=== PATIENT | male | born 1950 | race Caucasian/White ===

== ENCOUNTER 2022-10-17 09:35 | Outpatient (CLI) | payer MEDICARE, BC, SELFPAY | END 2022-10-17 09:36 | disposition home or self-care (01) | LOC: NFLDREF 10-18 11:42 | PROVIDERS: PCP Family Medicine; Referring Provider Family Medicine; Visit Provider Family Medicine | DX: E78.5 Hyperlipidemia, unspecified (principal) | CPT/HCPCS: 80061 ==

== ENCOUNTER 2023-07-19 09:42 | Outpatient (CLI) | payer MEDICARE, BC, SELFPAY ==
--- OUTSIDE RECORDS SUMMARY | 2023-07-20 06:25 | XMS_ITS | Clinical Summary ---
Author Name Unknown Organization [facility] Address [place], [place] [address] Care Team Providers Care Php Software Engineer Name Role Phone Dima Burr MD Primary Care Provider + Allergies Active Allergy Reactions Criticality Noted Date Comments Aspirin,Buffd-Calcium Carb-Mag Bleeding 05/31/2019 Chlorhexidin-Isopropyl Alcohol Rash 12/16/2021 Skin reaction from PICC line cleanser Medications Medication Sig Dispensed Refills Start Date End Date Status TYLENOL ORAL 650mg 6 tabs a day 0 Acti ve amoxicillin (AMOXIL) 500 mg capsuleIndications: Antibiotic prophylaxis for dental procedure indicated due to prior joint replacement TAKE FOUR CAPSULES BY MOUTH 1 HOUR BEFORE DENTAL APPOINTMENT 8 capsule 0 03/05/2015 Active hydroCHLOROthiazide (HCTZ) 25 mg tabletIndications:E ssential hypertension with goal blood pressure less than 140/90 Take 1 tablet by mouth once daily. 90 tablet 1 09/23/2019 Active triamcinolone (ARISTOCORT; KENALOG) 0.1 % creamIndications:De rmatitis Apply topically to affected area(s) 3 times daily. 60 g 2 09/23/2019 Active sildenafil citrate (VIAGRA) 50 mg tabletIndications:E rectile dysfunction of organic origin Take 1 tablet by mouth once daily if needed for Erectile Dysfunction. Take 30min to 4 hours before sexual activity. Max 100mg/24hr 20 tablet 09/23/2019 Active lisinopriL (PRINIVIL; ZESTRIL) 20 mg tabletIndications:H ypertension Take 1 tablet by mouth 2 times daily. 180 tablet 3 09/23/2019 Active atorvastatin (LIPITOR) 40 mg tabletIndications:M yocardial ischemia Take 1 tablet by mouth at bedtime. 30 tablet 5 10/08/2019 Active tamsulosin (FLOMAX) 0.4 mg capsuleIndications: Urinary retention Take 1 Capsule (0.4 mg) by mouth once daily after a meal. 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 Right hip pain 06/25/2020 Arthritis of right hip 06/25/2020 Arthritis of lumbar spine 06/25/2020 Impingement syndrome of shoulder region 05/14/19 19 Coracoid impingement of left shoulder 05/14/2018 Bursitis 05/14/2018 S/P shoulder surgery 05/14/2018 Chronic left shoulder pain 04/16/2018 Subacromial impingement of left shoulder 019 Arthritis of left acromioclavicular joint 2018 Chronic eczema 03/31/2017 Plantar fasciitis of left foot 05/29/2014 Osteoarthritis of knee 05/17/2010 Vitamin D deficiency 04/01/2010 Lumbosacral facet arthropathy 08/10/2009 Hand eczema 08/10/2009 L4-5 Disk bulge with right sided nerve 9 Malignant neoplasm of prostate 07/13/2007 Overview: Status post radical prostatectomy 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 Recommend repeat in ten years. Unspecified essential hypertension 02/07/2006 Other and unspecified hyperlipidemia 02/07/2006 Osteoarthrosis, unspecified whether generalized or localized, unspecified site 02/07/2006 Overview: diffuse severe degenerative arthritis Resolved Problems Problem Noted Date Diagnosed Date Resolved Date [facility] (current) use of anticoagulants 04/04/2011 05/01/2011 Dysthymic disorder 03/30/2007 1 Immunizations Name Administration Dates Next Due COVID-19 vaccine ([facility] 30mcg/0.3mL) P F, MDV 06/20/2020,05/30/2020 Influenza, IIV3 (Age >=3 years) 03/23/2012,04/04 Td (Age >=7 Years) 09/13/1997 Tdap 01/20/2015,03/29/2007 Zoster (Zostavax-ZVL, live) 03/23/2012 Family History Medical History Relation Name Comments Cancer-prostate Brother 2 Dx at 52 yea rs Heart Disease Father Prostate cance r- dx around 70 Arthritis Mother Anesthesia Problem No Family History Clotting disorder No Family History Relation Name Status Comments Brother 1 Alive Brother 2 Father (Age 83) Mother (Age 91) Social History Tobacco Use Types Packs/Day Years Used Date Smoking Tobacco: Former Cigarettes 0.3 23 0 03/27/1968 - 03/27/1991 Smokeless Tobacco: Never Tobacco Cessation:Counseling Given: Yes Alcohol Use Standard Drinks/Week Comments Yes 4 (1 standard drink = 0.6 oz pur e alcohol) PHQ-2 Answer Date Recorded PHQ-2 Score 0 05/26/2018 Social Connections Answer Date Recorded Frequency of Communication with Friends and Fami ly Not on file 03/27/2021 Financial Resource Strain Answer Date R ecorded Difficulty of Paying Living Expenses Not on file 03/27/2021 Difficulty of Paying Living Expenses Not on file 03/27/2021 Sex and Gender Information Value Date Recorded Sex Assigned at Not on file Gender Identity Not on file Sexual Orientation Not on file Obstetrics History Last Filed Vital Signs Vital Sign Reading Time Taken Comments Blood Pressure 171/88 03/24/2022 6:44 PM PHOTOGRAPHIC AIDE Pulse 81 03/24/2022 6:44 PM PHOTOGRAPHIC AIDE Temperature 36.8 ??C (98.2 ??F) 03/24/2022 6:44 PM CS T Respiratory Rate 18 03/24/2022 6:44 PM PHOTOGRAPHIC AIDE Oxygen Saturation 98% 03/24/2022 6:44 PM PHOTOGRAPHIC AIDE Inhaled Oxygen Concentration - - Weight 152.6 kg (336 lb 6.8 oz) 03/24/2022 6:44 PM PHOTOGRAPHIC AIDE Height 185.4 cm (6' 1) 03/24/2022 6:44 PM PHOTOGRAPHIC AIDE Body Mass Index 44.39 03/24/2022 6:44 PM PHOTOGRAPHIC AIDE Plan of Treatment Health Maintenance Due Date Last Done Comments Hepatitis C screening for ag e 18-79 01/13/1970 Zoster (shingles) series for age 50+ (2 of 3) 05/18/2012 03/23/2012 Medicare Wellness for age 65+ 01/13/2017 Pneumococcal series for age 65+ (1 of 1 - PCV) 01/13/2017 Lipids for age 45-75 03/23/2017 03/23/2012, 03/23/2011, 03/26/2010, Additional history exists Depression screening for age 12+ 01/12/2020 01/11/2019, 01/04/2019, 02/06/2018, Additional history exists BMI (ht and wt on same day) for age 18+ 07/17/2021 07/17/2020, 01/11/2019, 01/01/2019, Additional history exists COVID-19 vaccine series ( season) 2022 02/08/2022, 03/03/2021, 06/20/2020, Additional history exists Influenza for age 65+ 11/26/2023 03/23/2012, 008 Tetanus booster 01/20/2025 01/20/2015, 05/2007, 09/13/1997 Colonoscopy through age 75 01/26/202501/26, 01/26/2015, 10/14/2004 (Completed outside of [facility]) Tdap Completed 01/20/2015, 03/29/2007 Procedures Procedure Name Priority Date/Time Associated Diagnosis Comments COLONOSCOPY SCREENING Routine 01/26/2015 Screening LIPID PANEL Routine 03/23/2012 9:42 AM PHOTOGRAPHIC AIDE HYPERLIPIDEMIA from Last 3 Months or Most Recently Relevant to Health Maintenance Results * COLONOSCOPY SCREENING (01/26/2015) Larisa Chaudhary GI PROCEDURE ORD * (ABNORMAL) LIPID PANEL (03/23/2012 9:42 AM PHOTOGRAPHIC AIDE) CHOLESTEROL,TOTAL 196 100 - 199 mg/dL 03/23/2012 10:23 AM PHOTOGRAPHIC AIDE [facility] Comment: TRIGLYCERIDES 98 <150 mg/dL 03/23/2012 10:23 AM PHOTOGRAPHIC AIDE [facility] Comment: HDL CHOLESTEROL 31(L) >40 mg/dL 2 10:23 AM [facility] Comment: NON-HDL CHOLESTEROL 165(H) <145 mg/dl 03/23/2012 10:23 AM [facility] CHOL/HDL RATIO 6.32(H) <4.50 03/23/2012 10:23 AM PHOTOGRAPHIC AIDE [facility] LDL CHOLESTEROL 145(H) <=130 mg/dL 03/23/2012 10:23 AM PHOTOGRAPHIC AIDE [facility] PATIENT STATUS FASTING 03/23/2012 10:23 AM PHOTOGRAPHIC AIDE [facility] Blood specimen (specimen) BLOOD SPECIMEN / Unknown 03/23/2012 9:42 AM PHOTOGRAPHIC AIDE 03/23/2012 9:42 AM PHOTOGRAPHIC AIDE Larisa [facility]wood [facility] [address] [place] [address] from Last 3 Months or Most Recently Relevant to Health Maintenance Advance Directives * Full Code (Latest Code Status on File) Date Activated Date Inactivated Comments 05/11/2018 12:26 PM 05/12/2018 12:40 AM * Full Code Date Activated Date Inactivated Comments 10/21/2015 11:23 AM 10/21/2015 2:02 PM * Full Code Date Activated Date Inactivated Comments 10/21/2015 9:15 AM 10/21/2015 11:23 AM * Full Code Date Activated Date Inactivated Comments 06/10/2013 7:57 AM 06/10/2013 5:15 PM * Full Code Date Activated Date Inactivated Comments 06/10/2013 6:19 AM 06/10/2013 7:57 AM Care Teams Php Software Engineer Relationship Specialty Start Date End Date Dima Burr MD [address] [place] [address] PCP - General Family Practice 07/02/20
--- OUTSIDE RECORDS SUMMARY | 2023-07-20 06:25 | XMS_ITS | Clinical Summary ---
Author Name Unknown Organization [facility] Address [address] [place] [address] Care Team Providers Care Combatant Diver Officer Name Role Phone Elsewhere, Pcp Primary Care Provider Unavailabl e Source Comments Patient records contain information from all sites at [facility]. For routine questions regarding patient records, call [phone] during business hours, M-F 8:00 AM - 5:00 PM Central Time. Record requests for emergency care only can be directed to [phone] at any time.[facility] Allergies Active Allergy Reactions Criticality Noted Date Comments Aspirin Other (see comments) High 02/02/2021 Related to hematuria post prostatectomy in 2007 Ceftriaxone Rash Low 12/31/2021 Rash only. See ID note 12/31/21 Ciprofloxacin Rash Low 10/10/2022 Vancomycin Rash Low 12/31/2021 Rash only. See ID note 12/31/21 Medications Medication Sig Dispensed Refills Start Date End Date Status lisinopriL (PRINIVIL,ZESTR IL) 40 mg tablet Take 40 mg by mouth daily. 1 Active gabapentin (NEURONTIN) 300 mg capsule Take 600 mg by mouth 2 (two) times a day. 2 Active atorvastatin (LIPITOR) 40 mg tablet Take 40 mg by mouth daily. 2 Active LORazepam (ATIVAN) 1 mg tablet Take 1 mg by mouth 3 (three) times a day as needed for anxiety. Active escitalopram (LEXAPRO) 20 mg tablet Take 20 mg by mouth daily. Active DME Urological suppliesIndicat ions:Incontinen ce Urinary DME Order 1 Unspecified 3 Active trospium (SANCTURA XR) 60 mg 24 hr capsule Take 1 capsule (60 mg total) by mouth every morning before breakfast. 90 capsule 3 4 04/10/19 25 Active celecoxib (CeleBREX) 200 mg capsule Take 200 mg by mouth 2 (two) times a day. Active ibuprofen (ADVIL,MOTRIN) 200 mg tablet Take 1 tablet (200 mg total) by mouth every 6 (six) hours as needed for pain. 60 tablet 4 Active diphenhydramine -lidocaine 2 %-antacid (mw) Take 5-10 mL by mouth 4 (four) times a day after meals and bedtime. Hold in mouth for 1 minute.Do not eat or drink for 15-30 minutes after use. 100 mL 3 4 Active acetaminophen (TYLENOL) 500 mg tablet Take 2 tablets (1,000 mg total) by mouth every 6 (six) hours as needed for pain. 30 tablet 4 Active diazePAM 10 mg suppository Insert 1 suppository (10 mg total) into the rectum 3 (three) times a day as needed (for pelvic pain). 10 suppository 4 Active tamsulosin (FLOMAX) 0.4 mg 24 hr capsule Take 0.4 mg by mouth daily. 2 06/22/19 24 Discontinued(Th erapy completed) sulfamethoxazol e-trimethoprim (BACTRIM DS) 800-160 mg per tablet Take 1 tablet by mouth 2 (two) times a day for 5 days. 10 tablet 4 07/03/19 24 Discontinued acetaminophen (TYLENOL) 500 mg tablet Take 1 tablet (500 mg total) by mouth every 6 (six) hours as needed for pain. 30 tablet 4 07/03/19 24 Discontinued sulfamethoxazol e-trimethoprim (BACTRIM DS) 800-160 mg per tablet Take 1 tablet by mouth once for 1 dose. On day of catheter removal 1 tablet 4 07/03/19 24 diazePAM 10 mg suppository Insert 1 suppository (10 mg total) into the rectum 3 (three) times a day as needed (for pelvic pain). 10 suppository 4 07/14/19 24 Discontinued(Re order) diazePAM 10 mg suppository Insert 1 suppository (10 mg total) into the rectum 3 (three) times a day as needed (for pelvic pain). 10 suppository 4 07/14/19 24 Discontinued(Re order) diazePAM 10 mg suppository Insert 1 suppository (10 mg total) into the rectum 3 (three) times a day as needed (for pelvic pain). 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 Anesthesia Complication Personal History 023 Overview: Difficult IV start. Difficult to find and roll. Incontinence Urinary 07/07/2022 Overview: Added automatically from request for surgery [id number] Radiation Therapy Cystitis With Hematuria 2021 Injury Radiation Therapy Initial 03/14/2022 Contracture Bladder Neck 03/10/2022 Overview: Added automatically from request for surgery [id number] Direct Infection Of Right Hi p In Infectious And Parasitic Diseases Classified Elsewhere 12/04/2021 Arthroplasty Total Hip Replacement Status Post R ight 12/04/2021 Gastroesophageal Reflux Disease 11/10/2021 Cancer Prostate Family History 11/10/2021 Personal History Of Infectio us And Parasitic Disease (COVID-19) 11/10/2021 Smoking Tobacco Use Personal History 11/10/2021 Neuropathy Peripheral 11/10/2021 Depression Anxiety 11/10/2021 Morbid Obesity Body Mass Index 40.0-44.9 Adult 0 11/10/2021 Murmur Heart 11/10/2021 Spondylosis Lumbar Without Myelopathy 06/25/2020 Dermatitis 03/31/2017 Other Intervertebral Disc Displacement Lumbar Re gion 09/05/2008 Hyperlipidemia 02/07/2006 Hypertension Essential Primary 02/07/2006 Osteoarthritis 02/07/2006 Overview: diffuse severe degenerative arthritis Resolved Problems Problem Noted Date Diagnosed Date Resolved Date Prostatectomy Radical Retropubic Status Post 2 11/10/2021 Encounters Date Type Department Care Team Description 07/14/2023 Orders Only Department of Urology in [place], [place] [address] [place] [address] Chepe Ariza M.D., M.P.H. 07/14/2023 Orders Only Department of Urology in [place], [place] [address] [place] [phone] Finesse Lim M.D. 07/14/2023 Orders Only Department of Urology in [place], [place] [address] [place] [phone] Chepe Ariza M.D., M.P.H. 07/13/2023 Orders Only Department of Urology in [place], [place] [address] [place] [phone] Finesse Lim M.D. 07/03/2023 8:31 AM CDT Anesthesia Event [facility] OR [address] [place] [phone] Kaiden Crisostomo D.O. 07/03/2023 8:15 AM CDT - 07/03/2023 11:47 AM CDT Surgery T [facility] OR [address] [place] [phone] Finesse Lim M.D. REMOVAL ARTIFICIAL GENITOURINARY SPHINCTER 07/03/2023 6:28 AM CDT - 07/04/2023 12:16 PM CDT Hospital Encounter [facility], Fifth Floor [address] [place] [address] Finesse Lim M.D. 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 06/26/2023 Orders Only Department of Urology in [place], [place] [address] [place] [phone] Selene Davis M.D. 06/22/2023 1:00 PM CDT Comprehensive Visit Preoperative Evaluation Center in [place], [place] [address] [place] [phone] Finesse Lim M.D. [facility] 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 Dudley, Kathleen A RLeathaNLeatha Incontinence Urinary Stress Male 06/20/2023 1:30 PM CDT Clinical Communication Virtual Review in [place], [place] [address] [place] [address] Pre-visit Intake 05/26/2023 1:43 PM SHRIMP TRAWLER Anesthesia Event Department of Radiology in [address] [phone] Davie White, KATHARINA, STRAIGHTENING PRESS OPERATOR HELPER, DNA Ravinder Parada M.D. 05/26/2023 9:44 AM SHRIMP TRAWLER - 05/26/2023 11:59 PM SHRIMP TRAWLER Hospital Encounter Department of Radiology in [address] [phone] Shola Goddard M.D. McPhail, Ian R, M.D. Weger, Kendal, M.D. Incontinence Urinary Stress Male Discharge Disposition: Home or Self Care 04/28/2023 Documentation Preoperative Evaluation Center in [place], [place] [address] [place] [phone] Mojgan Cutler MPAS, P.A.-C. 04/27/2023 1:30 PM SHRIMP TRAWLER Procedure visit Department of Urology in [place], [place] [address] [place] [address] Finesse Lim M.D. Incontinence Urinary Stress Male 04/27/2023 Clinical Communication Department of Urology in [place], [place] [address] [place] [address] Shola Goddard M.D. 04/27/2023 Clinical Communication Department of Urology in [place], [place] [address] [place] [address] Finesse Lim M.D. from Last 3 Months Immunizations Name Administration Dates Next Due HZV (ZOSTAVAX) 03/23/2012 Influenza (IM) Preservative Free 04/03/2011 Influenza TIV (IM) 03/23/2012,04/04/2007 Influenza high dose QV(65 years or older) (PF) 1 ,01/21/2020 Influenza, Seasonal, Injectable 03/23/2012 Influenza, Unspecified 02/02/2021 PCV20 01/18/2022 Tdap 01/20/2015,03/29/2007 Family History Medical History Relation Name Comments Prostate cancer Brother lindy chatman Hypertension Father [place] Relation Name Status Comments Brother lindy chatman Father jensen Social History Tobacco Use Types Packs/Day Years Used Date Smoking Tobacco: Former Cigarettes 1 6 0 03/27/1987 - 03/27/1993 Passive Smoke Exposure: Never Smokeless Tobacco: Never Tobacco Cessation:Counseling Given: Not Answered Alcohol Use Standard Drinks/Week Comments Yes 3 (1 standard drink = 0.6 oz pur e alcohol) [facility] Partlyities Answer Date Recorded In the past 12 months has [employer]it[employer], gas, oil, or water Blockchain threatened to shut off services in your home? No 07/03/2023 Humiliation, Afraid, Rape, a nd Kick questionnaire Answer Date Recorded Within the last year, have y ou been afraid of your partner or ex-partner? Patient unable to answer 07/03/2023 Within the last year, have y ou been humiliated or emotionally abused in other ways by your partner or ex-partner? Patient unable to answer 07/03/2023 Within the last year, have y ou been kicked, hit, slapped, or otherwise physically hurt by your partner or ex-partner? Patient unable to answer 07/03/2023 Within the last year, have y ou been raped or forced to have any kind of sexual activity by your partner or ex-partner? Patient unable to answer 07/03/2023 Social Connection and Isolat ion Panel [NHANES] Answer Date Recorded In a typical week, how many times do you talk on the phone with family, friends, or neighbors? More than three times a week 10/13/2021 How often do you get togethe r with friends or relatives? Twice a week 10/13/2021 How often do you attend chur or roman catholic services? 1 to 4 times per year 10/13/2021 Do you belong to any clubs o r organizations such as uatsdin groups, unions, fraternal or athletic groups, or school groups? No 10/13/2021 How often do you attend meet ings of the clubs or organizations you belong to? Never 10/13/2021 Are you , , di vorced, , never , or living with a partner? 10/13/2021 AUDIT-C Answer Date Recorded Q1: How often do you have a drink containing alc ohol? 2-3 times a week 10/13/2021 Q2: How many drinks containi ng alcohol do you have on a typical day when you are drinking? 1 or 2 10/13/2021 Q3: How often do you have si x or more drinks on one occasion? Never 10/13/2021 Overall Financial Resource Strain (CARDIA) Answe r Date Recorded How hard is it for you to pa y for the very basics like food, housing, medical care, and heating? Not very hard 10/13/2021 [facility] of Occupat ional Health - Occupational Stress Questionnaire Answer Date Recorded Do you feel stress - tense, restless, nervous, or anxious, or unable to sleep at night because your mind is troubled all the time - these days? Very much 10/13/2021 Exercise Vital Sign Answer Date Recorde d On average, how many days pe r week do you engage in moderate to strenuous exercise (like a brisk walk)? 1 day 10/13/2021 On average, how many minutes do you engage in exercise at this level? 30 min 10/13/2021 Hunger Vital Sign Answer Date Recorded Within the past 12 months, y ou worried that your food would run out before you got the money to buy more. Never true 07/03/19 24 Within the past 12 months, t he food you bought just didn't last and you didn't have money to get more. Never true 07/03/2023 PRAPARE - Transportation Answer Date Re corded In the past 12 months, has l ack of transportation kept you from medical appointments or from getting medications? No 10/2023 In the past 12 months, has l ack of transportation kept you from meetings, work, or from getting things needed for daily living? No 07/03/2023 Nutrition Answer Date Recorded Nutrition: EVOO Fat Source No 10/13 On average, how many serving s of fruits and vegetables do you eat per day (serving size is equal to 1 cup or approximately the size of a tennis ball)? 2-3 10/13/2021 Dental Answer Date Recorded Dental: Regular Dentist Yes 10/14/19 Employment Answer Date Recorded Employment status Retired 10/13/2021 Housing Stability Answer Date Recorded What is your living situation today? I have a [facility] place to live 07/03/2023 Education Answer Date Recorded What is the highest level of school you have completed or the highest degree you have received? 12th grade 10/13/2021 Sex and Gender Information Value Date Recorded Sex Assigned at Male 12/28/2021 8:52 AM CDT Gender Identity Male 10/13/2021 10:44 AM CDT Sexual Orientation Choose not to disclose 2021 8:52 AM CDT Last Filed Vital Signs Vital Sign Reading Time Taken Comments Blood Pressure 126/69 07/04/2023 11:50 AM CDT Pulse 72 07/04/2023 11:50 AM CDT Temperature 36.5 ??C (97.7 ??F) 07/04/2023 11:50 AM C DT Respiratory Rate 15 07/04/2023 11:50 AM CDT Oxygen Saturation 94% 07/04/2023 11:50 AM CDT Inhaled Oxygen Concentration - - Weight 158 kg (348 lb 12.3 oz) 07/03/2023 7:07 A M CDT Height 179 cm (5' 10.47) 07/03/2023 7:07 AM CDT Body Mass Index 49.37 07/03/2023 7:07 AM CDT Plan of Treatment Upcoming Encounters Date Type Department Care Team (Late st Contact Info) Description 09/04/2023 9:30 AM CDT Procedure visit Department of Urology in [place], [place] [address] [place] [phone] Finesse Lim M.D. [address] [place] [phone] 09/04/2023 10:30 AM CDT Office Visit Department of Urology in [place], [place] [address] [place] [phone] Finesse Lim M.D. [address] [place] [phone] Health Maintenance Due Date Last Done Comments CT Colonography 1952 Cologuard 1950 FIT 1950 Hepatitis C Screening 1950 Lipid (Cholesterol) Screening 1950 Zoster Vaccines (2 of 3) 05/18/2012 03/23/2012 COVID-19 Vaccine (2022-2 4 season) 2022 02/08/2022, 03/03/2021, 06/20/2020, Additional history exists Influenza Vaccine (#1) 2022 , 02/02/2021, 01/21/2020, Additional history exists Depression Screening (Annual PHQ-2) 03/27/2023 Creatinine Level (Kidney Fun ction Test) 04/05/2024 04/05/2023, 02/08/2023, 12/08/2022, Additional history exists Potassium Level 04/05/2024 04/05/2023, 01/25, 09/08/2022, Additional history exists Sodium Level 04/05/2024 04/05/2023, 01/25, 09/08/2022, Additional history exists Office Visit for Blood Press ure Check / Re-check 06/21/2024 06/22/2023 DTaP,Tdap,and Td Vaccines (3 - Td or Tdap) 01/20/2025 01/20/2015, 03/29/2007 Colonoscopy 01/26/2025 01/26/2015 Colorectal Cancer Screening 01/26/2025 Fasting Glucose for Diabetes Screening 04/05/2026 04/05/2023, 02/08/2023, 12/23/2022, Additional history exists Pneumococcal vaccine (65+ years) Completed 01/19/20 22 Abdominal Aortic Aneurysm (A AA) Screen Completed 04/05/2023, 02/08/2023, 12/12/2022, Additional history exists Fall Risk Screen (Annual) Completed 07/03/2023 Medical Devices Implanted Type Area [employer] Device Identifier Shelf Expiration Date Model / Serial / Lot Artificial Gu Sphincter Artificial Sphincter Rectum Scrw Pnn Acet Ft 6.5x30 - [id number] Implanted:Qty : 1 on 11/11/2021 by Isaac Bar M.D. at [facility] Hardware e.g. pins/screws/ rods Right: Hip Depuy Synthes 07/25/2031 0 / / [id number] Scrw Pnn Acet Ft 6.5x20 - [id number] Implanted:Qty : 1 on 11/11/2021 by Isaac Bar M.D. at [facility] Hardware e.g. pins/screws/ rods Right: Hip Depuy Synthes 07/25/2031 0 / / [id number] [place] Gription Acetabular Shell Multi-Hole 62mm Od Implanted:Qty : 1 on 11/11/2021 by Isaac Bar M.D. at [facility] Hip Implant Right: Hip Depuy Synthes [id number] 08/25/2031 2 / / [id number] Hip [place] Sz12 150 - [id number] Implanted:Qty : 1 on 11/11/2021 by Isaac Bar M.D. at [facility] Hip Implant Right: Hip Depuy Synthes 09/24/2031 [id number] / / [id number] Lnr Alt 0d 40x62 - [id number] Implanted:Qty : 1 on 12/03/2021 by Isaac Bar M.D. at [facility] Hip Implant Right: Hip Depuy Synthes 10/24/2026 2 / / [id number] Fem Hd Art Ez Crmc +1.5x40 - [id number] Implanted:Qty : 1 on 12/03/2021 by Isaac Bar M.D. at [facility] Hip Implant Right: Hip Depuy Synthes [id number] 09/23/2026 0 / / [id number] Knee Implant-2006 Implanted: (Quantity not on file) Knee Implant Left: Knee Description:Replaced knee Knee Implant-2011 Implanted: (Quantity not on file) Knee Implant Right: Knee Description:Replaced knee Gu Kt 800 Acces Aus W/Iz - [id number] Implanted:Qty : 1 on 09/08/2022 by Finesse Lim M.D. at [facility] Urogenital Implant [employer] 07/20/2027 [id number] / / [id number] Penile Occlsve Cuff Ams Iz 4.5 - [id number] Implanted:Qty : 1 on 09/08/2022 by Finesse Lim M.D. at [facility] Urogenital Implant [employer] 04/13/2024 [id number] / / [id number] Explanted Type Area [employer] Lim[employer] Device Identifier Shelf Expiration Date Model / Serial / Lot Lnr Alt 0d 40x62 - [id number] Implanted:Qty : 1 on 11/11/2021 by Isaac Bar M.D. at [facility] Explanted:Qty : 1 on 12/03/2021 by Isaac Bar M.D. at [facility] Hip Implant Right: Hip Depuy Synthes 05/24/2026 [id number] / / [id number] Fem Hd Art Ez Crmc +1.5x40 - [id number] Implanted:Qty : 1 on 11/11/2021 by Isaac Bar M.D. at [facility] Explanted:Qty : 1 on 12/03/2021 by Isaac Bar M.D. at [facility] Hip Implant Right: Hip Depuy Synthes 09/23/2026 [id number] / / [id number] Penile Occlsve Cuff Ams Iz 4.5 - [id number] Explanted:Qty : 1 on 09/08/2022 at [facility] Urogenital Implant [employer] 01/28/2024 [id number] / / [id number] Description:Accidentally cut tubing on cuff so had to open/use another 4.5 cuff Penile Bln Prs Ams 61-70 - [id number] Implanted:Qty : 1 on 09/08/2022 by Finesse Lim M.D. at [facility] Explanted:Qty : 1 on 07/03/2023 at [facility] Urogenital Implant [facility] Systems 05/16/2027 [id number] / / [id number] Penile Contl Pump Ams 800 Iz - [id number] Implanted:Qty : 1 on 09/08/2022 by Finesse Lim M.D. at [facility] Explanted:Qty : 1 on 07/03/2023 at [facility] Urogenital Implant [employer] 04/28/2024 [id number] / / [id number] Procedures Procedure Name Priority Date/Time Associated Diagnosis Comments REMOTE OXIMETRY MONITORING CONT. Routine 07/03/2023 2:18 PM CDT REMOTE OXIMETRY MONITORING CONT. Routine 07/03/2023 2:18 PM CDT ADULT OXYGEN THERAPY Routine 07/03/2023 12:19 PM CDT AIRWAY MANAGEMENT Routine 07/03/2023 8:4 9 AM CDT POSTERIOR URETHRAL STRICTURE REPAIR WITH BUCCAL MUCOSA, ENDOSCOPIC 07/03/2023 8:16 AM CDT Incontinence Urinary Stress Male HARVESTING AND GRAFTING BUCCAL MUCOSA 07/03/2023 8:16 AM CDT Incontinence Urinary Stress Male EXCHANGE SUPRAPUBIC TUBE 07/03/2023 8:16 AM CDT Incontinence Urinary Stress Male REMOVAL ARTIFICIAL GENITOURINARY SPHINCTER 07/03/2023 8:16 AM CDT Incontinence Urinary Stress Male BACTERIAL CULTURE, AEROBIC + SUSC, URINE Routine 06/22/2023 10:46 AM CDT Incontinence Urinary Stress Male IR SUPRAPUBIC CATHETER EXCHANGE RAD - Routine (most inpatients and all outpatients) 05/26/2023 2:15 PM SHRIMP TRAWLER Incontinence Urinary Stress Male URO CYSTOSCOPY (SPECIFIC PROVIDER) Routine 04/27/2023 1:30 PM SHRIMP TRAWLER Incontinence Urinary Stress Male CT ABDOMEN PELVIS WITH IV CONTRAST RAD - Semiurgent (Fast; most ED patients; some inpatients) 04/05/2023 3:27 PM SHRIMP TRAWLER BASIC METABOLIC PANEL, S/P STAT 04/05/2023 1:36 PM SHRIMP TRAWLER from Last 3 Months or Most Recently Relevant to Health Maintenance Results * Airway (07/03/2023 8:49 AM CDT) Narrative Sona Rose M.D. - 07/03/2023 8:49 AM CDT Sona Rose M.D. ? 07/03/2023 10:35 AM Airway Date/Time: 07/03/2023 8:49 AM Performed by: Sona Rose M.D. Authorized by: Kaiden Crisostomo D.O. ?? Patient location during procedure: OR / Procedure Area PROCEDURE DETAILS: Mask difficulty assessment: difficult mask (i.e.two-handed) with oral airway Final airway type: video laryngoscope Laryngeal Manipulation: no ?? Final best view of glottic structures - Cormack/Lehane Score: grade 2A ETT location: oral VL device: glide scope [place] scope blade size: 4 Tube size: 7.5 ETT distance at teeth/gum: 23 Oral tube type: standard ETT Cuffed: yes Number of attempt to successful placement: 1 Airway confirmation: bilateral breath sounds, positive ETCO2 and bilateral chest rise Other previous techniques attempted: none PRE PROCEDURE DETAILS: Pre evaluation for airway management: procedure Urgency: elective Preop assessment of probable difficulty: no difficulty anticipated Preoxygenation: bag valve mask SEDATION / ANESTHESIA Anesthesia method: anesthesia POST PROCEDURE DETAILS: ? Procedure outcome: successful ?? Notable Events: no complications Kaiden Crisostomo D.O. ANESTHESIA ORDERABLE S * (ABNORMAL) Bacterial Culture, Aerobic + Susceptibility, Urine (06/22/2023 10:46 AM CDT) Urine Culture Multiple organisms >10,000 cfu/mL present suggesting probable contamination (A) 06/24/2023 10:41 AM CDT DTL Urine (Urine, Indwelling Catheter) 06/22/2023 10:46 AM CDT 06/22/2023 12:39 PM CDT Comment:Specimen Source Site : Urine Shola Goddard M.D. LAB MICROBIOLOGY - G ENERAL ORDERABLES [facility] [address] [place] [address], [facility] [address] [place] [address] * IR Suprapubic Catheter Exchange (05/26/2023 2:15 PM SHRIMP TRAWLER) Anatomical Region Laterality Modality Abdomen, Pelvis, Vascular In terventional RST LOS, Vascular Interventional ARZ LOS, Vascular Interventional FLA LOS N/A X-Ray Angiography Impressions 05/26/2023 2:58 PM SHRIMP TRAWLER Uncomplicated suprapubic catheter upsizing to a 16 [place] tip Kerr catheter. EP Narrative 05/26/2023 2:58 PM SHRIMP TRAWLER EXAM: IR SUPRAPUBIC CATHETER EXCHANGE CLINICAL HISTORY: Status post prostatectomy and radiation. Bladder neck contracture. Artificial sphincter. Request for upsizing of suprapubic catheter. TECHNIQUE: The suprapubic pigtail catheter was prepped and draped in sterile fashion. 1% lidocaine was used for local anesthesia. Cashier Greeter film shows expected position. Dilute contrast was injected through the patent catheter to confirm intraluminal position and slightly distend the bladder. The catheter was removed over an .035 Nitrex wire. The inner dilator from a 20 Mal[place]ian peel-away sheath was used to dilate the tract. The peel-away portion was then reassembled and advanced over the wire into the bladder. A 16 [place] tip Kerr catheter was then advanced over the wire through the peel-away sheath into the bladder where the balloon was inflated with 10 mL of dilute contrast. Completion contrast injection and aspiration showed satisfactory position and function. Procedure was well tolerated with no immediate complications. PREPROCEDURE: Patient seen and evaluated. Allergies, pertinent medications, and history reviewed. Discussed risks, benefits, alternatives for procedure, and obtained informed consent. Patient understands information and questions answered. Immediately prior to starting the procedure, in the presence of the assisting personnel, procedural pause was conducted to verify correct patient identity and verification of procedure to be performed, and as applicable, correct side and site, correct patient position, availability of implants, special equipment, or special requirements, and all image and specimen identification data. The roles and responsibilities of care team members, residents, and fellows were discussed. Sedation provided by Anesthesiology. Procedure Note Christiano Bergman M.D. - 05/26/2023 EXAM: IR SUPRAPUBIC CATHETER EXCHANGE CLINICAL HISTORY: Status post prostatectomy and radiation. Bladder neckcontracture. Artificial sphincter. Request for upsizing of suprapubiccatheter. TECHNIQUE: The suprapubic pigtail catheter was prepped and draped insterile fashion. 1% lidocaine was used for local anesthesia. Cashier Greeter filmshows expected position. Dilute contrast was injected through the patentcatheter to confirm intraluminal position and slightly distend the bladder. The catheter was removed overan .035 Nitrex wire. The inner dilator from a 20 Malawian peel-away sheathwas used to dilate the tract. The peel-away portion was then reassembledand advanced over the wire into the bladder. A 16 [place]ian [place] tip Kerr catheter was then advanced overthe wire through the peel-away sheath into the bladder where the balloonwas inflated with 10 mL of dilute contrast. Completion contrast injectionand aspiration showed satisfactory position and function. Procedure was well tolerated with noimmediate complications. PREPROCEDURE: Patient seen and evaluated. Allergies, pertinentmedications, and history reviewed. Discussed risks, benefits, alternativesfor procedure, and obtained informed consent. Patient understandsinformation and questions answered. Immediately prior to starting the procedure, in the presence of the assistingpersonnel, procedural pause was conducted to verify correct patientidentity and verification of procedure to be performed, and as applicable,correct side and site, correct patient position, availability of implants, special equipment, or specialrequirements, and all image and specimen identification data. The rolesand responsibilities of care team members, residents, and fellows werediscussed. Sedation provided by Anesthesiology. IMPRESSION: Uncomplicated suprapubic catheter upsizing to a 16 Mal[place]ian [place] tipFoley catheter. EP Shola Goddard M.D. IMG IR PROCEDURES * Cystoscopy (specific provider) (04/27/2023 1:30 PM SHRIMP TRAWLER) Narrative Shola Goddard M.D. - 04/27/2023 1:30 PM SHRIMP TRAWLER Shola Goddard M.D. ? 04/27/2023 ??2:58 PM Cystoscopy (specific provider) Performed by: Shola Goddard M.D. Authorized by: Finesse Lim M.D. ?? Finesse Lim M.D. UROLOGY ORDERABLES * CT Abdomen Pelvis with IV Contrast (04/05/2023 3:27 PM SHRIMP TRAWLER) Anatomical Region Laterality Modality Abdomen, Pelvis, Abdominal R ST LOS, Abdominal ARZ LOS, Abdominal FLA LOS N/A Computed Tomograp hy, Computed Tomography 04/05/2023 3:14 PM SHRIMP TRAWLER Impressions 04/05/2023 3:52 PM SHRIMP TRAWLER No acute findings in the abdomen or pelvis. Specifically, no evidence of communication between the genitourinary system and bowel. However, sigmoid colon is closely abutting/tethered to the urinary bladder and the CT cystogram may be performed if clinically warranted to exclude colovesical fistula. Narrative 04/05/2023 3:52 PM SHRIMP TRAWLER EXAM: ??CT ABDOMEN PELVIS WITH IV CONTRAST COMPARISON: ??CT abdomen and pelvis February 08, 2023, PET/CT February 14, 2023 FINDINGS: ?? Partially visualized postsurgical changes of artificial genitourinary sphincter with right lower quadrant fluid-filled reservoir. The small and large bowel are nondistended. The fat planes surrounding the sigmoid colon and rectum are preserved without evidence of communication with the genitourinary system. Additionally, delayed excretory imaging demonstrates no urinary contrast communicating with the bowel lumen. Bilateral parapelvic renal cysts. Mildly atrophic kidneys. No hydronephrosis. Mildly increased ectasia of the left ureter without a filling defect. The urinary bladder is decompressed with contrast within and a Kerr catheter in place. The sigmoid colon appear tethered to the superior and posterior wall of the urinary bladder (series 5/image 107). The liver, gallbladder, adrenal glands and spleen are normal. Stable 2.1 cm mass at the head of the pancreas (series 3, image 63) with reported benign pathology. Atrophic pancreas. Bilateral fat-containing inguinal hernias. Stable 10 mm aortocaval lymph node (series 3, image 92). Prostatectomy. Scattered atheromatous calcifications. Degenerative changes of the spine. Right hip arthroplasty. Procedure Note Isaac Madsen M.B.B.S., Jay - 04/05/2023 EXAM: CT ABDOMEN PELVIS WITH IV CONTRAST COMPARISON: CT abdomen and pelvis February 08, 2023, PET/CT January FINDINGS: Partially visualized postsurgical changes of artificial genitourinarysphincter with right lower quadrant fluid-filled reservoir. The small and large bowel are nondistended. The fat planes surrounding thesigmoid colon and rectum are preserved without evidence of communicationwith the genitourinary system. Additionally, delayed excretory imagingdemonstrates no urinary contrast communicating with the bowel lumen. Bilateral parapelvic renal cysts. Mildly atrophic kidneys. Nohydronephrosis. Mildly increased ectasia of the left ureter without afilling defect. The urinary bladder is decompressed with contrast withinand a Kerr catheter in place. The sigmoid colon appear tethered to the superior and posterior wall of the urinary bladder(series 5/image 107). The liver, gallbladder, adrenal glands and spleen are normal. Stable 2.1cm mass at the head of the pancreas (series 3, image 63) with reportedbenign pathology. Atrophic pancreas. Bilateral fat-containing inguinalhernias. Stable 10 mm aortocaval lymph node (series 3, image 92). Prostatectomy. Scattered atheromatouscalcifications. Degenerative changes of the spine. Right hiparthroplasty. IMPRESSION: No acute findings in the abdomen or pelvis. Specifically, no evidence ofcommunication between the genitourinary system and bowel. However, sigmoidcolon is closely abutting/tethered to the urinary bladder and the CTcystogram may be performed if clinically warranted to exclude colovesical fistula. Ramy Joseph P.A.-C. IMG CT PROCEDURES * (ABNORMAL) Basic Metabolic Panel (04/05/2023 1:36 PM SHRIMP TRAWLER) Potassium, P 4.9 3.6 - 5.2 mmol/L 04/05/2023 2:04 PM [facility]RIMP TRAWLER [facility] Sodium, P 141 135 - 145 mmol/L 04/05/2023 2:04 PM [facility]RIMP TRAWL[facility] Chloride, P 106 98 - 107 mmol/L 04/05/2023 2:04 PM [facility]RIMP TRAWL[facility] Bicarbonate, P 23 22 - 29 mmol/L 04/05/2023 2:04 PM [facility]RIMP TRAWL[facility] Anion Gap, P 12 7 - 15 04/05/2023 2:04 PM [facility]RIMP TRAWL[facility] BUN (Blood Urea Nitrogen), P 33(H) 8 - 24 mg/dL 04/05/2023 2:04 PM [facility]RIMP TRAWL[facility] Creatinine 1.08 0.74 - 1.35 mg/dL 04/05/2023 2:04 PM SHRIMP TRAWLER [facility] Estimated GFR (eGFR) 73 >=60 mL/min/BSA 04/05/2023 2:04 PM SHRIMP TRAWLER [facility] Comment: Estimated GFR calculated using the 2020 CKD_EPI creatinine equation. Calcium, Total, P 8.9 8.8 - 10.2 mg/dL 04/05/2023 2:04 PM SHRIMP TRAWLER [facility] Glucose, P 109 70 - 140 mg/dL 04/05/2023 2:04 PM SHRIMP TRAWLER [facility] Blood (Blood, Venous) 04/05/2023 1:36 PM SHRIMP TRAWLER 04/05/2023 1:43 PM SHRIMP TRAWLER Ramy Joseph P.A.-C. LAB BLOOD ADD-ON [facility] [address] [place] [address], [facility] STMA [facility] [address] [place] [address] from Last 3 Months or Most Recently Relevant to Health Maintenance Advance Directives For more information, please contact: [phone] * Full Code (Latest Code Status on File) Date Activated Date Inactivated Comments 09/08/2022 8:30 PM 09/09/2022 1:06 PM Question Answer Comments Full Code: Discussed * Full Code Date Activated Date Inactivated Comments 12/03/2021 4:18 PM 12/07/2021 7:04 PM Question Answer Comments Full Code: Discussed * Full Code Date Activated Date Inactivated Comments 11/11/2021 10:20 AM 11/11/2021 3:57 PM Question Answer Comments Full Code: Discussed Care Teams Combatant Diver Officer Relationship Specialty Start Date End Date Elsewhere, Pcp PCP - General Internal Medicine 12/29/21
--- OUTSIDE RECORDS SUMMARY | 2023-07-20 06:25 | XMS_ITS | Continuity of Care Document ---
Author Name Unknown Organization [facility] Address [address] [place] [address] Phone Care Team Providers Care Tax Advisor Name Role Phone Tramaine NOLASCO, Esteban Unavailable Unavailable Allergies, Adverse Reactions, Alerts Substance Reaction Status Criticality ANTACID bleeding Active No Information Medications Medication Instructions Dosage Effective Dates (start - stop) Status Comments prednisone 20 mg tablet Take 1 tablet 7days BID then 7 days QD - Active AMOXICILLIN (unknown strength) Not Available - Active LISINOPRIL (unknown strength) Not Available - Active ATORVASTATIN CALCIUM (unknown strength) Not Available - Active ACETAMINOPHEN (unknown strength) Not Available - Active HYDROCHLOROTHIAZIDE (unknown strength) Not Available - Active SILDENAFIL CITRATE (unknown strength) Not Available - Active TRIAMCINOLONE (unknown strength) Not Available - Active Procedures Procedure Date Office/Outpatient Visit,Est, Mod 2020 Office/Outpatient Visit,Est, Mod 2020 Office/Outpatient Visit,Est, Mod 2020 Office/Outpatient Visit,New, [facility] 2019 Advance Directives Directive Yes / No Effective Date File Name No Information Encounters Encounter Description Practice Location Reason(s) For Visit Diagnoses Date Provider Providers Copied on Encounter Office/Outpa tient Visit,Est, Mod [facility], [address], [place], [place], [id number] , [place] tel:[phone] [facility] [place] Unspecified thoracic, thoracolumbar and lumbosacral intervertebral disc disorderOther intervertebral disc displacement, lumbar regionOsteoarthrit is of hip, unspecified Tramaine Orellana. [facility], [address], [address], [place], [place], [id number] , [place]. tel: [phone] Referring Provider: Dima Burr, [facility] [address] [place], [address]. tel:[phone] Office/Outpa tient Visit,Est, Mod [facility], [address], [place], [place], [id number] , [place] tel: [phone] [facility] Other intervertebral disc displacement, lumbar regionOsteoarthrit is of hip, unspecified 1 Tramaine Orellana. [facility], [address], [address], [place], [place], [id number] , [place]. tel: [phone] Referring Provider: Dima Burr, [facility] [address] [place], [address]. tel:[phone] Office/Outpa tient Visit,Est, Mod [facility], [address], [place], [place], [id number] , [place] tel: [phone] [facility] Spinal stenosis, lumbar region with neurogenic claudicationOther intervertebral disc displacement, lumbar region 1 Tramaine Orellana. [facility], [address], [address], [place], [place], [id number] , [place]. tel: [phone] Referring Provider: Dima Burr, [facility] [address] [place], [address]. tel:[phone] Office/Outpa tient Visit,New, Low [facility], [address], [place], [place], [id number] , [place] tel: [phone] [facility] Spinal stenosis, lumbar region with neurogenic claudicationOther intervertebral disc displacement, lumbar region 0 Tramaine Orellana. [facility], [address], [address], [place], [place], [id number] , [place]. tel: [phone] Referring Provider: Dima Burr, [facility] [address] [place], [address]. tel:[phone] Family History Family Member Type Diagnosis Age At Onset No Information Payers Payer name Insurance type Covered democrat ID [id number] Medicare Marnie FUCHS [id number] 1 Social History Type Description Quantity Date Captured Comments Alcohol Use Details Unknown Caffeine Use Details Unknown Tobacco Use Status No Information Smoking Status Former smoker Non-Smoking Tobacco Use Details : No Details Available : No Details Available Sex Male Vital Signs Date / Time: Height Weight BMI Pulse Rate Blood Pressure Temperature Respiratory Rate Body Surface Area Head Circumference Head Circ. Percentile Wt./Bryan. Percentile BMI percentile Pulse Ox Inhaled Ox 1:16 PM 72.75 in 152.407 kg (336.00 lbs) 44.6 4 kg/m eter (2) Chief Complaint And Reason For Visit No Information Reason For Referral Reason For Referral No Information History Of Present Illness Encounter Date Complaint History Of Prese nt Illness No Information Functional Status Date Functional Assessmen t No Information Instructions Date Instruction Additional Infor mation No Information Assessments Type Assessment Date assessment Unspecified thoracic , thoracolumbar and lumbosacral intervertebral disc disorder assessment Other intervertebral disc displa cement, lumbar region assessment Osteoarthritis of hip, unspecifi ed Patient Care Teams Name Effective Dates (start - stop) Status Members No Information
--- OUTSIDE RECORDS SUMMARY | 2023-07-20 06:26 | XMS_ITS | Encounter Summary ---
Author Name Unknown Organization [facility] Address [address] [place] [id number] Care Team Providers Care Baster Hand Name Role Phone Elsewhere, Pcp Primary Care Provider Unavailabl e Reason for Referral * Outpatient (Routine) - Authorized Specialty Diagnoses / Procedures Referred By Contac t Referred To Contact Diagnoses Stricture Urethral Postoperative Male Procedures Cystoscopy (specific provider) Chepe Ariza M.D., M.P.H. [address] [place] [address] Finesse Lim M.D. [address] [place] [phone] Referral ID Status Reason Start Date Expiration Date V isits Requested Visits Authorized [id number] Authorized 07/03/2023 07/02/2024 1 1 * Outpatient (Routine) - Authorized Specialty Diagnoses / Procedures Referred By Contac t Referred To Contact Urology Chepe Ariza M.D., M.P.H. [address] [place] [phone] Finesse Lim M.D. [address] [place] [phone] Referral ID Status Reason Start Date Expiration Date V isits Requested Visits Authorized [id number] Authorized 07/03/2023 01/01/2025 1 1 Reason for Visit * Auth/Cert (Routine) Specialty Diagnoses / Procedures Referred By Contac t Referred To Contact Diagnoses Incontinence Urinary Stress Male Stricture Urethral Postoperative Male Incontinence Urinary Stress Male [N39.3] Procedures REMOVAL ARTIFICIAL GENITOURINARY SPHINCTER EXCHANGE SUPRAPUBIC TUBE HARVESTING AND GRAFTING BUCCAL MUCOSA POSTERIOR URETHRAL STRICTURE REPAIR WITH BUCCAL MUCOSA, ENDOSCOPIC Referral ID Status Reason Start Date Expiration Date Visits Re quested Visits Authorized [id number] 1 1 Encounter Details Date Type Department Care Team (Latest Contact Info) Description 07/03/2023 6:28 AM CDT - 07/04/2023 12:16 PM CDT Hospital Encounter [facility], [facility], [facility], Fifth Floor [address] [place] [address] Finesse Lim M.D. [address] [place] [address] Stricture Urethral Postoperative Male (Primary Dx) Discharge Disposition: Home or Self Care Social History Tobacco Use Types Packs/Day Years Used Date Smoking Tobacco: Former Cigarettes 1 6 0 03/27/1987 - 03/27/1993 Passive Smoke Exposure: Never Smokeless Tobacco: Never Alcohol Use Standard Drinks/Week Comments Yes 3 (1 standard drink = 0.6 oz pur e alcohol) [facility] Utilities Answer Date Recorded In the past 12 months has [employer] gas, oil, or water [employer] threatened to shut off services in your [...] How often do you attend chur or tenriism services? 1 to 4 times per year 10/13/2021 Do you belong to any clubs o r organizations such as methodist groups, unions, fra[employer]dot or athletic groups, or school groups? No [...] care, and heating? Not very hard 10/13/2021 [facility] - Occupational Stress [...] your living situation today? I have a [facility] place to live 07/03/2023 Education Answer Date Recorded What is the highest level of school you have completed or the highest degree you have received? 12th grade 10/13/2021 Sex and Gender Information Value Date Recorded Sex Assigned at Male 12/28/2021 8:52 AM CDT Gender Identity Male 10/13/2021 10:44 AM CDT Sexual Orientation Choose not to disclose 2021 8:52 AM CDT documented as of this encounter Last Filed Vital Signs Vital Sign Reading [...] Mass Index 49.37 07/03/2023 7:07 AM CDT documented in this encounter Discharge Summaries * Chepe Ariza M.D., M.P.H. - 07/04/2023 6:55 AM CDT DISCHARGE SUMMARY BRIEF OVERVIEW Hospital: [facility] Discharge Provider: Finesse Lim M.D. Primary Team: T Urology - [place] Admission Date: 07/03/2023 Discharge Date: 07/04/2023 PRINCIPAL DIAGNOSIS Incontinence Urinary Stress Male SECONDARY DIAGNOSES Principal Problem: Incontinence Urinary Stress Male Active Problems: Stricture Urethral Postoperative Male Resolved Problems: * No resolved hospital problems. * Surgery Information This Encounter Past Procedures (07/04/2022 to Today) Date Procedures Providers Loc / Dept 07/03/2023 REMOVAL ARTIFICIAL GENITOURINARY SPHINCTER, EXCHANGE SUPRAPUBIC TUBE, HARVESTING AND GRAFTING BUCCAL MUCOSA, POSTERIOR URETHRAL STRICTURE REPAIR WITH BUCCAL MUCOSA, ENDOSCOPIC Finesse Lim M.D.Pinkhasov, Alexandr M, M.D., M.P.H.Amy Trevizo M.D. [facility] OR DISCHARGE DISPOSITION Home or Self Care [1] ACTIVE ISSUES REQUIRING FOLLOW UP OUTPATIENT FOLLOW UP Scheduled Appointments 09/04/2023 9:30 AM Finesse Lim M.D.; PROC CYSTO 03 [facility] Urology 09/04/2023 10:30 AM Finesse Lim M.D. Urology For appointment details refer to your Patient Appointment Guide. TEST RESULTS PENDING AT DISCHARGE Pending Labs None DETAILS OF HOSPITAL STAY REASON FOR ADMISSION Incontinence Urinary Stress Male Stricture Urethral Postoperative Male HOSPITAL COURSE Patient is a 73-year-old male who presented to the hospital for the above-stated surgery. The surgery was completed successfully without any noted complications. The patient was transferred to PACU and subsequently to the floor. On postop day 1 the patient was out of bed and ambulating. He was tiago ating a regular diet. His pain was well-controlled. He continued to meet all milestones and was deemed stable for discharge Physical exam Suprapubic tube draining clear yellow urine Kerr catheter capped Left cheek appropriately swollen, mucosal edges were reapproximated CONSULTS ORDERED DURING THIS ADMISSION IP CONSULT TO CARE MANAGEMENT CONDITION AT DISCHARGE stable Discharge instructions were provided to the patient and caregiver(s). Total time spent in discharge services today: 30 minutes. documented in this encounter Discharge Instructions * Discharge Instructions* Janie Martell - 07/03/2023 8:51 AM CDT You were discharged from the [facility] Urology - [place] [facility]. Please identify this service name if youcall with questions after hospitalization. * Attachments The following attachments cannot be sent through Care Everywhere. * Acetaminophen (By mouth) (South Korean) * Ibuprofen (By mouth) ([place] Korean) documented in this encounter Medications at Time of Discharge Medication Sig Dispensed Refills Start Date End Date acetaminophen (TYLENOL) 500 mg tablet Take 2 tablets (1,000 mg total) by mouth every 6 (six) hours as needed for pain. 30 tablet 07/03/2023 atorvastatin (LIPITOR) 40 mg tablet Take 40 mg by mouth daily. 01/28/2022 celecoxib (CeleBREX) 200 mg capsule Take 200 mg by mouth 2 (two) times a day. diphenhydramine-lidoc vasquez 2 %-antacid (mw) Take 5-10 mL by mouth 4 (four) times a day after meals and bedtime. Hold in mouth for 1 minute.Do not eat or drink for 15-30 minutes after use. 100 mL 3 07/03/2023 DME Urological suppliesIndications:I ncontinence Urinary DME Order 1 Unspecified 07/07/2022 escitalopram (LEXAPRO) 20 mg tablet Take 20 mg by mouth daily. gabapentin (NEURONTIN) 300 mg capsule Take 600 mg by mouth 2 (two) times a day. 04/13/2021 ibuprofen (ADVIL,MOTRIN) 200 mg tablet Take 1 tablet (200 mg total) by mouth every 6 (six) hours as needed for pain. 60 tablet 07/03/2023 lisinopriL (PRINIVIL,ZESTRIL) 40 mg tablet Take 40 mg by mouth daily. 01/21/2021 LORazepam (ATIVAN) 1 mg tablet Take 1 mg by mouth 3 (three) times a day as needed for anxiety. trospium (SANCTURA XR) 60 mg 24 hr capsule Take 1 capsule (60 mg total) by mouth every morning before breakfast. 90 capsule 3 04/11/2023 04/10/2024 documented as of this encounter Progress Notes * Arsenio Nicole Pharm.D., R.Ph. - 07/03/2023 6:57 AM CDT Images from the original note were not included. Admission Medication History Note Adherence issues: No concerns Medication list source: Patient Medication related information: n/a Prior to Admission Medications Med List Status: In Progress Set By: Arsenio Nicole, Pharm.D., R.Ph. at 07/03/2023 6:48 AM Taking? Last Dose Informant Start Date End Date LT atorvastatin (LIPITOR) 40 mg tablet 07/03/2023 Self 01/28/22 -- Take 40 mg by mouth daily. celecoxib (CeleBREX) 200 mg capsule 07/02/2023 -- -- -- Take 200 mg by mouth 2 (two) times a day. DME Urological supplies -- Self 07/07/22 -- DME Order escitalopram (LEXAPRO) 20 mg tablet 07/03/2023 Self -- -- Take 20 mg by mouth daily. gabapentin (NEURONTIN) 300 mg capsule 07/03/2023 Self 04/13/21 -- Take 600 mg by mouth 2 (two) times a day. lisinopriL (PRINIVIL,ZESTRIL) 40 mg tablet 07/02/2023 Self 01/21/21 -- Take 40 mg by mouth daily. LORazepam (ATIVAN) 1 mg tablet 07/03/2023 Self -- -- Take 1 mg by mouth 3 (three) times a day as needed for anxiety. sulfamethoxazole-trimethoprim (BACTRIM DS) 800-160 mg per tablet 07/02/2023 at PM -- 06/28/23 07/03/23 Take 1 tablet by mouth 2 (two) times a day for 5 days. trospium (SANCTURA XR) 60 mg 24 hr capsule 07/03/2023 -- 04/11/23 04/10/24 Take 1 capsule (60 mg total) by mouth every morning before breakfast. documented in this encounter Consult Notes * Fiorella Hall R.N. - 07/04/2023 9:53 AM CDTAssociated Order(s): IP CONSULT TO CARE MANAGEMENT Discharge Planning Assessment SUBJECTIVE Assessment Information Referral Source: Early Screen for Discharge Planning Referral Name: ESDP 12 Referral Reason: Discharge Planning Primary Language: South [place] School Psychologist Services Used: No Person(s) present during interview: Person(s) Present During Interview: patient History of Present Illness #1 Incontinence Urinary Stress Male #2 Stricture Urethral Postoperative Male Social History Support System: children, family members, and friends/neighbors Finance/Insurance Primary insurance: MEDICARE A AND B Secondary insurance: [employer] benefits: No Advance Directives Legal Decision Maker: Self Advance Directives: N/A Advance Directives Status: None on file OBJECTIVE Baseline Functional Status Baseline Activities of Daily Living Mobility: Independent Dressing: Independent Feeding: Independent Bathing: Independent Grooming: Independent Toileting: Independent Behavior: Appropriate, Pleasant, Calm, Cooperative Communication: Talks, Understands speaking, Understands [place] Korean Shopping: Independent Medication Management: Independent Housekeeping: Independent Meal Prep: Independent Assistive Devices: Walker - front wheeled, Walker - four wheeled, Tub/shower chair/bench, Cane, Eyeglasses, Cellphone Transportation: Independent to drive Managing Finances: Independent Baseline Services/Resources Primary care clinic and provider: ELSEWHERE, PCP Additional Resources: none Anticipated Needs Functional Status: None Assistive Devices: None Anticipated Modifications to the Patient's Home: None Transportation Needs: Support from family Does the patient need discharge transport arranged?: No Ride and Caregiver Arranged: Yes Phone Number for Ride/Caregiver: Daughter Jeannie Anticipated Discharge Destination: Home or Self Care ASSESSMENT / PLAN Assessment: The forklift mechanic met with Jose Gonzalez to discuss his current hospitalization and homegoing needs. The patient was unaccompanied. The patient was a reliable historian. The role of forklift mechanic was reviewed. The patient reviewed his prior level of care and support system. The patient receives support from his children. The patient described his living environment as a home with bedroom and bathroom on same floor withstairs to enter with rails. Housekeeping, grocery shopping, meal prep, and other household responsibilities have previously been completed by patient. forklift mechanic discussed the patient's potential needs at dismissal based on their home setting, previous needs and responsibilities, homebound status, and relevant assessments with the patient. The patient will be safe and supported to return home alone when medically ready. Support will be provided by daughter and son. The patient demonstratedunderstanding when discussing his home going plans and anticipated needs. forklift mechanic met with patient at bedside to address ESDP consult. Patient sitting upright in chair at time of visit. Patient alert and responding appropriately in conversation. Patient stated he lives alone in home. Patient stated he utilizes cane for long distances when ambulating, but denies concerns with completing ADL's. Patient states his daughter Jeannie will be coming to provide transportation. Patient denies concerns with discharge at this time. Anticipate discharge home today independently. Encouraged to reach out with any questions/concerns related to discharge plan. Patient verbalized understanding. At this time, the care team has not identified any skilled post-hospital discharge care needs that require the assistance of the Care Management Team. After reviewing the patient's chart and meeting with the patient, the forklift mechanic deemed the LACE+/readmission questions were not necessary. The patient reports understanding that he will dismiss from the hospital when medically stable. Pending hospital course and medical readiness, no barriers to dismissal have been identified at this time. Plan: The patient agrees with the following plan. Patient's anticipated discharge disposition is: Home to Self Care Transportation upon dismissal will be provided by family--maikel Dennis . forklift mechanic recommended reaching out to family, friends, and neighbors for assistance. forklift mechanic provided information regarding the dismissal process and the Senior Linkage Line ([place] Board on Aging) handout. forklift mechanic placed or requested the following hospital-based consult orders and/or referrals: None. forklift mechanic will continue to assess for homegoing needs with the interdisciplinary team. forklift mechanic encouraged the patient to reach out with any questions/concerns. Signed by: Fiorella Hall R.N. 07/04/2023 documented in this encounter Nursing Notes * Mariposa Atkins R.N. - 07/04/2023 12:02 PM CDT Patient tolerating diet, pain well controlled on current medication regimen and VSS. Patient education completed by the virtual nurse and all his questions answered. Patient discharged home to self care accompanied by the daughter. Electronically signed by: Mariposa Atkins R.N. 07/04/23 12:04 PM CDT * Mariposa Atkins R.N. - 07/04/2023 12:00 PM CDT Shift Goals: Clinical goal for the shift: Patient will meet the criteria to discharge. Identify possible barriers to meeting goals/advancing plan of care: None End of Shift Summary: Goal Met Problem: PAIN - ADULT Goal: PT VERBALIZES/DEMONSTRATES ADEQUATE COMFORT LEVEL OR BASELINE Outcome: Adequate for Discharge Problem: KNOWLEDGE DEFICIT Goal: Patient/family/caregiver demonstrates understanding of disease process, treatment plan, medications, and discharge instructions Outcome: Adequate for Discharge Problem: INFECTION - ADULT Goal: Absence of infection during hospitalization Outcome: Adequate for Discharge Problem: DISCHARGE PLANNING Goal: Patient discharge needs identified Outcome: Adequate for Discharge Problem: SKIN/TISSUE INTEGRITY Goal: Oral and Nasal mucous membranes remain intact Outcome: Adequate for Discharge documented in this encounter OR Notes * Op Note - Chepe Ariza M.D., M.P.H. - 07/03/2023 9:09 AM CDT Pre-op Diagnosis Incontinence Urinary Stress Male Post-op Diagnosis Incontinence Urinary Stress Male Findings 1) removal of artificial urethral sphincter pressure regulating balloon, tubing, pump, retained urethral cuff. 2) trans urethral endoscopic posterior urethroplasty with buccal mucosal graft 5x2cm 3) buccal mucosa graft harvest from left cheek 5x2cm 4) suprapubic tube exchange, 20Fr This case was substantially more difficult than usual because of significant effort and difficulty mobilizing and identifying anatomical structures due to altered surgical field secondary to previoussurgery and obesity. Complications Operative Note Narrative After informed consent was obtained, the patient was given perioperative antibiotics. The patient was then brought to the operating room and general anesthesia was initiated. The patient was placed in lithotomy position. The patient was prepped and draped in the usual sterile fashion. A time out was taken and all were in agreement. We began the surgery by removal of the components of the artificial urethral sphincter. A suprapubic incision was made over the previous incision site. We dissected through the subcutaneous tissue down until the level of the tubing. Identified the tubing that was tracking towards the pressure regulating balloon. The tubing was transected and the fluid was expressed. Using electrocautery we dissected down until the pressure regulating balloon was removed. At this point we turned our attention tothe pump. The 2 tubes that were tracking towards the pump were placed on traction and electrocautery was used to dissect down until the level of the pump and this was subsequently removed as well. The tubing was tracked up towards the cuff was cut low. The wound was irrigated with IrriSept and the subcutaneous tissue was closed using 2-0 Vicryl. The skin was then reapproximated with 4-0 Monocryl.At this point we turned our attention to the perineum. A 3 cm vertical incision was made at the perineum over the previous incision scar. Dissection was carried down until the level of the cuff. Onceat the level of the cuff the tab was uncoupled. The tubing was shortened even further and then the cuff was left in-situ to preserve the space for future cuff replacement. The area was again copiously irrigated with IrriSept. The subcutaneous fat was reapproximated with 2-0 Vicryl. Colles fascia was reapproximated with 2-0 Vicryl. The overlying skin was closed in a running continuous fashion with4-0 Monocryl. Our incisions were then covered with Dermabond. At this point we are ready for the endoscopic portion of the case. A 26 Barbadian resectoscope was introduced per urethra. The anterior urethra appeared normal until the level of the bladder. There was vesicourethral anastomotic stenosis noted to approximately 20 Barbadian with some calcifications. We were able to maneuver our scope into the bladder. Under direct vision we were able to pass a sensor wire through the previously placed suprapubic tract. Next a 24 Barbadian NephroMax balloon dilator was used to dilate the tract and a sheath was then placed over it and into the bladder. We then introducedour loop working element. We proceeded to resect the scar tissue along the dorsal aspect of the vesi courethral anastomosis. This was carried down to just proximal to the external urinary sphincter. Once we were satisfied with our resection we proceeded to measure the graft bed length which was approximately 5 cm. Next we proceeded with graft harvest from the left cheek. After establishing proper retraction Stensen's duct was marked to avoid inadvertent injury.. Using a marker we outlined a 5 cm x 2 cm segmentintended for harvest. Lidocaine with epinephrine was used to hydro dissect the submucosa. A scalpelwas then used to make our incision along the periphery of the graft. Scissors were then used to elevate the graft off of the underlying muscle. The graft was then placed in the back table and eventually de-fatted. The mucosal edges of the graft harvest site were reapproximated using Monocryl suture. Our retraction was then removed. At this point a Urtract device was used and brought until the level of the bladder neck. A alligator grasper was used to deliver 1 end of our suture into the bladder and extracted through our suprapubic tract. An RB 180 was then used to pass the suture through the left dorsal lateral aspect of the bladder neck. The Urtract device was then removed in a push-pull fashion and subsequently reintroduced back into the bladder. A 2nd suture was then placed similarly through the right dorsal lateral aspect of the bladder neck. At this point we had to sutures through and through the suprapubic tract and emerging at the urethral meatus. At this point the PDS sutures emerging from the urethral meatus and were passed through the corresponding position on the proximal aspect of our buccal graft. On the distal aspect of the graft a white Vicryl was placed in the right side and a dyed Vicryl was placed on the left side. These were placed to allow for parachuting without twisting. At this point the sutures emerging through the suprapubic tract were tension in order to parachute the graft through the urethral meatus into the graft bed. Once we are satisfied with our graft orientation a secure strap device was used to perform our dorsal quilting stitches. A sensor wire was then passed through oururtract device and this was subsequently removed in a push-pull fashion. A 24 Barbadian silicone catheter was advanced over the sensor wire and into the bladder. This was directly visualize the flexiblecystoscope through the suprapubic tract. We proceeded to instill 10 cc water in the balloon. The NephroMax balloon dilator was passed through the silicone catheter and inflated at the level bladder neck to hold the graft in place at the graft bed. A 20 Barbadian latex catheter was placed through the cooney prapubic sheath. The balloon was inflated with 10 cc of sterile water. The sheath was subsequently removed. The PDS sutures were trimmed at the level of the skin and the Vicryl sutures emerging from the urethral meatus were trimmed at the level urethral meatus. The patient tolerated the procedure well. All instrument, sponge, and other counts were correct.Theattending, Dr Lim, was present throughout the entirety of the case and performed all critical aspects. Chepe Ariza M.D., M.P.H. documented in this encounter Plan of Treatment Upcoming Encounters Date Type Department Care Team (Late st Contact Info) Description 09/04/2023 9:30 AM CDT Procedure visit Department of Urology in [place], [place] [address] [place] [phone] Finesse Lim M.D. [address] [place] [phone] 09/04/2023 10:30 AM CDT Office Visit Department of Urology in [place], [place] [address] [place] [phone] Finesse Lim M.D. [address] [place] [phone] Scheduled Referrals Name Type Priority Associated Diagnoses Orde r Schedule Urology office visit (clinic) Outpatient Referral Routine Expected: 08/02/2023, Expires: 10/01/2024 documented as of this encounter Procedures Procedure Name Priority Date/Time Associated Diagnosis Comments REMOTE OXIMETRY MONITORING CONT. Routine 07/03/2023 2:18 PM CDT REMOTE OXIMETRY MONITORING CONT. Routine 07/03/2023 2:18 PM CDT ADULT OXYGEN THERAPY Routine 07/03/2023 12:19 PM CDT POSTERIOR URETHRAL STRICTURE REPAIR WITH BUCCAL MUCOSA, ENDOSCOPIC 07/03/2023 8:16 AM CDT Incontinence Urinary Stress Male HARVESTING AND GRAFTING BUCCAL MUCOSA 07/03/2023 8:16 AM CDT Incontinence Urinary Stress Male EXCHANGE SUPRAPUBIC TUBE 024 8:16 AM CDT Incontinence Urinary Stress Male REMOVAL ARTIFICIAL GENITOURINARY SPHINCTER 07/03/2023 8:16 AM CDT Incontinence Urinary Stress Male documented in this encounter Visit Diagnoses Diagnosis Incontinence Urinary Stress Male- Primary Stricture Urethral Postoperative Male Stricture Urethral Postoperative Male documented in this encounter Admitting Diagnoses Diagnosis Incontinence Urinary Stress Male Stricture Urethral Postoperative Male documented in this encounter Administered Medications Inactive Administered Medications - up to 3 most recent administrations Medication Order MAR Action Action Date Dose Rate Site acetaminophen tablet 1,000 mg (TYLENOL) 1,000 mg, oral, Once, On Mon07/03/23 at 0800, For 1 dose, Pre-Op, PreOp give in preprocedural area. Given 07/03/2023 7:46 AM CDT 1,000 mg acetaminophen tablet 1,000 mg (TYLENOL) 1,000 mg, oral, Every 6 hours PRN, mild pain or score 1-3 of 10, Starting on Mon07/03/23 at 1418 Given 07/03/2023 9:54 PM CDT 1,000 mg Given 07/03/2023 3:53 PM CDT 1,000 mg acetaminophen tablet 1,000 mg (TYLENOL) 1,000 mg, oral, Every 6 hours, First dose on Mon07/04/23 at 0400 Given 07/04/2023 11:03 AM CDT 1,000 mg Given 07/04/2023 4:15 AM CDT 1,000 mg aprepitant capsule 40 mg (EMEND) 40 mg, oral, Once, On Mon07/03/23 at 0800, For 1 dose, Pre-Op, Restriction Criteria (Pharmacy will review and approve if criteria met): Patient does not have IV access and cannot receive fosaprepitant IV Given 07/03/2023 7:46 AM CDT 4 0 mg atorvastatin tablet 40 mg (LIPITOR) 40 mg, oral, Daily, First dose on Mon07/04/23 at 0900 Given 07/04/2023 8:45 AM CDT 40 mg bacitracin 500 unit/gram ointment packet 1 packet 1 packet (1 Application), topical, 3 times daily, First dose on Mon07/03/23 at 2200, Apply to tip of penis. Given 07/04/2023 8:46 AM CDT 1 packet Given 07/03/2023 10:21 PM CDT 1 packet D5W infusion 1-999 mL/hr, intravenous, As needed, Medications Incompatible with 0.9% NaCL, Starting on Mon07/03/23 at 1734, Infuse at the same rate as the piggyback until tubing clears or up to a volume of 20 mL pre and post infusion for medications incompatible with 0.9% NaCL. Use 50 mL bag then discard. escitalopram tablet 20 mg (LEXAPRO) 20 mg, oral, Daily, First dose on Mon07/04/23 at 0900 Given 07/04/2023 8:46 AM CDT 20 mg fentaNYL injection 25 mcg (SUBLIMAZE) 25 mcg, intravenous, Every 2 min PRN, For pain 4 or greater (maximum 100 mcg). If max dose of Fentanyl is reached and if pain is greater than 4, discontinue Fentanyl: give Hydromorphone, Starting on Mon07/03/23 at 1218, PACU (only) Given 07/03/2023 12:58 PM CDT 25 mcg Given 07/03/2023 12:46 PM CDT 25 mcg gabapentin capsule 600 mg (NEURONTIN) 600 mg, oral, 2 times daily, First dose on Mon07/03/23 at 2215 Given 07/04/2023 8:46 AM CDT 600 mg Given 07/03/2023 9:54 PM CDT 600 mg heparin (porcine) injection 7,500 Units 7,500 Units, subcutaneous, Every 8 hours scheduled, First dose on Mon07/03/23 at 2215 Given 07/04/2023 4:15 AM CDT 7,500 Units Left Upper Arm (Back ) Given 07/03/2023 10:21 PM CDT 7,500 Units Left Upper Arm (Back) ibuprofen tablet 600 mg (MOTRIN) 600 mg, oral, Every 6 hours, First dose on Mon07/04/23 at 2215, Start no 6 hours after last ketorolac dose administered ketorolac injection 15 mg (TORADOL) 15 mg, intravenous, Every 6 hours, First dose on Mon07/03/23 at 2215, For 4 doses, Start no sooner than 6 hours after last intraoperative dose Adult IV push rate: Over 15 seconds. Peds IV push rate: Over 1 minute. Doses > 15 mg IV/IM are discouraged due to lack of additional analgesic benefit. Given 07/04/2023 4:15 AM CDT 15 mg Given 07/03/2023 10:21 PM CDT 15 mg lisinopriL tablet 40 mg (PRINIVIL,ZESTRIL) 40 mg, oral, Daily, First dose on Mon07/04/23 at 0900 Given 07/04/2023 8:46 AM CDT 40 mg NaCl 0.9% infusion 1-999 mL/hr, intravenous, As needed, Between Consecutive Piggyback Medications, Starting on Mon07/03/23 at 1734, Infuse at the same rate as the piggyback until tubing clears or up to a volume of 20 mL. Select for IV medication administration when no maintenance IV available or when IV medications are not compatible with maintenance fluid. NaCl 0.9% infusion 1-999 mL/hr, intravenous, As needed, Post Medications (Hazardous/Low Fluid Volume), Starting on Mon07/03/23 at 1734, Infuse at the same rate as the medication until tubing cleared of medication, then discard. oxyCODONE IR tablet 10 mg (ROXICODONE) 10 mg, oral, Every 4 hours PRN, severe pain or score 7-10 of 10, May use if patient can take oral meds and other analgesics are ineffective, Starting on Mon07/03/23 at 2157 oxyCODONE IR tablet 5 mg (ROXICODONE) 5 mg, oral, Once as needed, For pain 4 or greater, Starting on Mon07/03/23 at 1218, For 1 dose, PACU (only) Given 07/03/2023 12:40 PM CDT 5 mg oxyCODONE IR tablet 5 mg (ROXICODONE) 5 mg, oral, Every 6 hours PRN, moderate pain or score 4-6 of 10, Starting on Mon07/03/23 at 1418 Given 07/03/2023 8:01 PM CDT 5 mg oxyCODONE IR tablet 5 mg (ROXICODONE) 5 mg, oral, Every 4 hours PRN, moderate pain or score 4-6 of 10, May use if patient can take oral meds and other analgesics are ineffective, Starting on Mon07/03/23 at 2157 sennosides-docusate sodium 8.6-50 mg per tablet 1 tablet (SENOKOT-S) 1 tablet, oral, 2 times daily, First dose on Mon07/03/23 at 2215, Do not give if patient has diarrhea. Given 07/04/2023 8:46 AM CDT 1 tablet Given 07/03/2023 10:21 PM CDT 1 tablet sodium chloride 0.9 % injection 10 mL 10 mL, intravenous, As needed, line care, Peripheral Intravenous Catheter and Rapid Infusion Catheter, Starting on Mon07/03/23 at 1734, Prior to blood sampling, post blood transfusion or post blood sampling. sodium chloride 0.9 % injection 3 mL 3 mL, intravenous, As needed, line care, Peripheral Intravenous Catheter and Rapid Infusion Catheter, Starting on Mon07/03/23 at 1734, Prior to and following infusion and between multiple consecutive infusions. sodium chloride 0.9 % injection 3 mL 3 mL, intravenous, Every 24 hours scheduled, First dose on Mon07/04/23 at 0900, Peripheral Intravenous Catheter and Rapid Infusion Catheter: When no infusion to maintain patency. Given 07/04/2023 9:00 AM CDT 3 mL sulfamethoxazole-trimethoprim 800-160 mg per tablet 1 tablet (BACTRIM DS) 1 tablet, oral, Once, On Mon07/03/23 at 0800, For 1 dose, Pre-Op, Drug Monitoring Program: Pharmacist to adjust medication dosing based on indication and drug clearance factors., Indications: Prophylaxis, surgical Given 07/03/2023 7:46 AM CDT 1 tablet sulfamethoxazole-trimethoprim 800-160 mg per tablet 1 tablet (BACTRIM DS) 1 tablet, oral, Every 12 hours scheduled, First dose on Mon07/03/23 at 2230, Drug Monitoring Program: Pharmacist to adjust medication dosing based on indication and drug clearance factors., Indications: Prophylaxis, surgical Given 07/04/2023 8:45 AM CDT 1 tablet Given 07/03/2023 10:21 PM CDT 1 tablet trospium tablet 20 mg (SANCTURA) 20 mg, oral, 2 times daily before breakfast and dinner, First dose on Mon07/04/23 at 0700, trospium was interchanged for trospium XR, Restriction Criteria (Pharmacy will review and approve if criteria met): Use in patients 65 years of age or older Given 07/04/2023 4:15 AM CDT 20 mg documented in this encounter Active and Recently Administered Medications Times are shown in CDT. Scheduled Medication Order 07/02/2023 07/03/2023 07/04/2023 acetaminophen tablet 1,000 mg (TYLENOL) (COMPLETED) 1,000 mg, oral, Once, On Mon07/03/23 at 0800, For 1 dose, Pre-Op, PreOp give in preprocedural area. 0746 (Given - Provider: Zeynep Segal R.N.) acetaminophen tablet 1,000 mg (TYLENOL) 1,000 mg, oral, Every 6 hours, First dose on Mon07/04/23 at 0400 0415 (Given - Provid er: Santa Schofield R.N.)1103 (Given - Provider: Mariposa Atkins R.N.) aprepitant capsule 40 mg (EMEND) (COMPLETED) 40 mg, oral, Once, On Mon07/03/23 at 0800, For 1 dose, Pre-Op, Restriction Criteria (Pharmacy will review and approve if criteria met): Patient does not have IV access and cannot receive fosaprepitant IV 0746 (Given - Provider: Zeynep Segal RWendy) atorvastatin tablet 40 mg (LIPITOR) 40 mg, oral, Daily, First dose on Mon07/04/23 at 0900 0845 (Given - Provid er: Mariposa Atkins R.N.) bacitracin 500 unit/gram ointment packet 1 packet 1 packet (1 Application), topical, 3 times daily, First dose on Mon07/03/23 at 2200, Apply to tip of penis. 2221 (Given - Provider: Noel Araujo R.N.) 0846 (Given - Provider: Mariposa Atkins R.N.) escitalopram tablet 20 mg (LEXAPRO) 20 mg, oral, Daily, First dose on Mon07/04/23 at 0900 0846 (Given - Provid er: Mariposa Atkins R.N.) gabapentin capsule 600 mg (NEURONTIN) 600 mg, oral, 2 times daily, First dose on Mon07/03/23 at 2215 2154 (Given - Provider: Noel Araujo R.N.) 0846 (Given - Provider: Mariposa Atkins R.N.) gentamicin in NaCl 0.9 % (iso osm) IVPB 160 mg (GARAMYCIN) (CANCELED) 160 mg (rounded from 166.5 mg = 1.5 mg/kg ? 111 kg Adjusted weight), intravenous, at 200 mL/hr, Administer over 30 Minutes, Once, On Mon07/03/23 at 0800, For 1 dose, Pre-Op, Drug Monitoring Program: Pharmacist to adjust medication dosing based on indication and drug clearance factors., Indications: Prophylaxis, surgical 0849 (Given - Provider: Sona Rose M.D.)0919 (Due: Subsequent Bag - Provider: Sona Rose M.D.) heparin (porcine) injection 7,500 Units 7,500 Units, subcutaneous, Every 8 hours scheduled, First dose on Mon07/03/23 at 2215 2221 (Given - Provider: Noel Araujo R.N.) 0415 (Given - Provider: Santa Schofield R.N.) ibuprofen tablet 600 mg (MOTRIN)(Linked Group 1) 600 mg, oral, Every 6 hours, First dose on Mon07/04/23 at 2215, Start no 6 hours after last ketorolac dose administered ketorolac injection 15 mg (TORADOL)(Linked Group 1) 15 mg, intravenous, Every 6 hours, First dose on Mon07/03/23 at 2215, For 4 doses, Start no sooner than 6 hours after last intraoperative dose Adult IV push rate: Over 15 seconds. Peds IV push rate: Over 1 minute. Doses > 15 mg IV/IM are discouraged due to lack of additional analgesic benefit. 2221 (Given - Provider: Noel Araujo R.N.) 0415 (Given - Provider: Santa Schofield R.N.)1053 (Not Given - Provider: Mariposa Atkins R.N. - Reason: Loss of IV access) lisinopriL tablet 40 mg (PRINIVIL,ZESTRIL) 40 mg, oral, Daily, First dose on Mon07/04/23 at 0900 0846 (Given - Provid er: Mariposa Atkins R.N.) sennosides-docusate sodium 8.6-50 mg per tablet 1 tablet (SENOKOT-S) 1 tablet, oral, 2 times daily, First dose on Mon07/03/23 at 2215, Do not give if patient has diarrhea. 2220 (Given - Provider: Noel Araujo R.N.) 0846 (Given - Provider: Mariposa Atkins R.N.) sodium chloride 0.9 % injection 3 mL 3 mL, intravenous, Every 24 hours scheduled, First dose on Mon07/04/23 at 0900, Peripheral Intravenous Catheter and Rapid Infusion Catheter: When no infusion to maintain patency. 0900 (Given - Provid er: Mariposa Atkins R.N.) sulfamethoxazole-trimethopri m 800-160 mg per tablet 1 tablet (BACTRIM DS) (COMPLETED) 1 tablet, oral, Once, On Mon07/03/23 at 0800, For 1 dose, Pre-Op, Drug Monitoring Program: Pharmacist to adjust medication dosing based on indication and drug clearance factors., Indications: Prophylaxis, surgical 745 (Given - Provider: Zeynep Segal R.N.) sulfamethoxazole-trimethopri m 800-160 mg per tablet 1 tablet (BACTRIM DS) 1 tablet, oral, Every 12 hours scheduled, First dose on Mon07/03/23 at 2230, Drug Monitoring Program: Pharmacist to adjust medication dosing based on indication and drug clearance factors., Indications: Prophylaxis, surgical 2220 (Given - Provider: Noel Araujo R.N.) 0845 (Given - Provider: Mariposa Atkins R.N.) trospium tablet 20 mg (SANCTURA) 20 mg, oral, 2 times daily before breakfast and dinner, First dose on Mon07/04/23 at 0700, trospium was interchanged for trospium XR, Restriction Criteria (Pharmacy will review and approve if criteria met): Use in patients 65 years of age or older 0415 (Given - Provid er: Santa Schofield R.N.) Continuous Medication Order 07/02/2023 07/03/2023 07/04/2023 Lactated Ringer's 125 mL/hr, intravenous, Continuous, Starting on Mon07/03/23 at 2215, Continue IV fluids from operating room at 125 ml/hour until bag finished, then begin as ordered. 2228 (Stopped - Provider: Padmaja Araujo R.N. - Comment: Pt drinking adequate) PRN Medication Order 07/02/2023 07/03/2023 07/04/2023 acetaminophen tablet 1,000 mg (TYLENOL) (CANCELED) 1,000 mg, oral, Every 6 hours PRN, mild pain or score 1-3 of 10, Starting on Mon07/03/23 at 1418 1553 (Given - Provider: Mariposa Atkins R.N.)2154 (Given - Provider: Noel Araujo R.N.) alum-mag hydroxide-simeth 200-200-20 mg/5 mL suspension 30 mL (MAALOX) 30 mL, oral, 4 times daily PRN, indigestion, Starting on Mon07/03/23 at 2157 benzocaine-menthoL 15-3.6 mg per lozenge 1 lozenge (CEPACOL) 1 lozenge, oral, As needed, sore throat, Starting on Mon07/03/23 at 2157 BUPivacaine-EPINEPHrine (PF) 0.25 %-1:200,000 injection (MARCAINE w/EPI) (CANCELED) As needed, Starting on Mon07/03/23 at 1042, Intra-Op 1042 (Given - Provider: Amy Trevizo M.D. - Comment: injected into left inner mouth cheek incision) chlorhexidine 0.05% irrigation (IRRISEPT) (CANCELED) As needed, Starting on Mon07/03/23 at 0852, Intra-Op 0852 (Given - Provider: Chepe Ariza M.D., M.P.H. - Comment: irrigated into bladder) D5W infusion 1-999 mL/hr, intravenous, As needed, Medications Incompatible with 0.9% NaCL, Starting on Mon07/03/23 at 1734, Infuse at the same rate as the piggyback until tubing clears or up to a volume of 20 mL pre and post infusion for medications incompatible with 0.9% NaCL. Use 50 mL bag then discard. diphenhydrAMINE capsule 25 mg (BENADRYL) 25 mg, oral, Every 4 hours PRN, itching, Starting on Mon07/03/23 at 2157 fentaNYL injection 25 mcg (SUBLIMAZE) (CANCELED) 25 mcg, intravenous, Every 2 min PRN, For pain 4 or greater (maximum 100 mcg). If max dose of Fentanyl is reached and if pain is greater than 4, discontinue Fentanyl: give Hydromorphone, Starting on Mon07/03/23 at 1218, PACU (only) 1246 (Given - Provider: Zeynep Segal R.N.)1258 (Given - Provider: Zeynep Segal RLeathaN.) haloperidol lactate injection 1 mg (HALDOL) 1 mg, intravenous, Every 6 hours PRN, nausea, vomiting, Starting on Mon07/03/23 at 2157, For 48 hours, Total of 3 doses in 24 hour period. RASS must be -2 or higher to administer. Reassess for nausea or vomiting after at least 10 minutes. If nausea or vomiting persists administer next ordered antiemetic medications (order for antiemetic medication administration ondansetron then haloperidol then prochlorperazine) LORazepam tablet 1 mg (ATIVAN) 1 mg, oral, 3 times daily PRN, anxiety, Starting on Mon07/03/23 at 2149 NaCl 0.9% infusion 1-999 mL/hr, intravenous, As needed, Between Consecutive Piggyback Medications, Starting on Mon07/03/23 at 1734, Infuse at the same rate as the piggyback until tubing clears or up to a volume of 20 mL. Select for IV medication administration when no maintenance IV available or when IV medications are not compatible with maintenance fluid. NaCl 0.9% infusion 1-999 mL/hr, intravenous, As needed, Post Medications (Hazardous/Low Fluid Volume), Starting on Mon07/03/23 at 1734, Infuse at the same rate as the medication until tubing cleared of medication, then discard. naloxone injection 0.2 mg (NARCAN) 0.2 mg, intravenous, As needed, respiratory depression, Starting on Mon07/03/23 at 2157, For RASS Score -4 or less, respiratory rate of less than 8 breaths/min. Notify provider/service and rapid response team (if available at institution). ondansetron (PF) injection 4 mg (ZOFRAN) 4 mg, intravenous, Every 6 hours PRN, nausea, vomiting, Starting on Mon07/03/23 at 2157, For 48 hours, Reassess for nausea or vomiting after at least 10 minutes. If nausea or vomiting persists administer next ordered antiemetic medications (order for antiemetic medication administration ondansetron then haloperidol then prochlorperazine). oxyBUTYnin tablet 5 mg (DITROPAN) 5 mg, oral, 3 times daily PRN, bladder spasms, Starting on Mon07/03/23 at 2157 oxyCODONE IR tablet 10 mg (ROXICODONE)(Linked Group 2) 10 mg, oral, Every 4 hours PRN, severe pain or score 7-10 of 10, May use if patient can take oral meds and other analgesics are ineffective, Starting on Mon07/03/23 at 2157 oxyCODONE IR tablet 5 mg (ROXICODONE) (COMPLETED) 5 mg, oral, Once as needed, For pain 4 or greater, Starting on Mon07/03/23 at 1218, For 1 dose, PACU (only) 1240 (Given - Provider: Zeynep Segal RLeathaN.) oxyCODONE IR tablet 5 mg (ROXICODONE) (CANCELED)(Linked Group 3) 5 mg, oral, Every 6 hours PRN, moderate pain or score 4-6 of 10, Starting on Mon07/03/23 at 1418 2000 (Given - Provider: Courtney Araujo R.N.) oxyCODONE IR tablet 5 mg (ROXICODONE)(Linked Group 2) 5 mg, oral, Every 4 hours PRN, moderate pain or score 4-6 of 10, May use if patient can take oral meds and other analgesics are ineffective, Starting on Mon07/03/23 at 2157 polyethylene glycol powder packet 17 g (MIRALAX) 17 g, oral, Daily PRN, constipation, Starting on Mon07/03/23 at 2157, Ordered sequence of administration: polyethylene glycol, then bisacodyl until BM achieved. Avoid mixing with starch-based thickened liquids. prochlorperazine injection 5 mg (COMPAZINE) 5 mg, intravenous, Every 6 hours PRN, nausea, vomiting, Starting on Mon07/03/23 at 2157, For 48 hours, RASS must be -2 or higher to administer. Reassess for nausea/vomiting after at least 10 minutes. If nausea or vomiting persists administer next ordered antiemetic medications (order for antiemetic medication administration ondansetron then haloperidol then prochlorperazine) sodium chloride 0.9 % injection 10 mL 10 mL, intravenous, As needed, line care, Peripheral Intravenous Catheter and Rapid Infusion Catheter, Starting on Mon07/03/23 at 1734, Prior to blood sampling, post blood transfusion or post blood sampling. sodium chloride 0.9 % injection 3 mL 3 mL, intravenous, As needed, line care, Peripheral Intravenous Catheter and Rapid Infusion Catheter, Starting on Mon07/03/23 at 1734, Prior to and following infusion and between multiple consecutive infusions. Linked Groups Order Group 1: ketorolac injection 15 mg (TORADOL)Jump to med 15 mg, intravenous, Every 6 hours, First dose on Mon07/03/23 at 2215, For 4 doses, Start no sooner than 6 hours after last intraoperative dose Adult IV push rate: Over 15 seconds. Peds IV push rate: Over 1 minute. Doses > 15 mg IV/IM are discouraged due to lack of additional analgesic benefit. Followed by ibuprofen tablet 600 mg (MOTRIN)Jump to med 600 mg, oral, Every 6 hours, First dose on Mon07/04/23 at 2215, Start no 6 hours after last ketorolac dose administered Group 2: oxyCODONE IR tablet 5 mg (ROXICODONE)Jump to med 5 mg, oral, Every 4 hours PRN, moderate pain or score 4-6 of 10, May use if patient can take oral meds and other analgesics are ineffective, Starting on Mon07/03/23 at 2157 Or oxyCODONE IR tablet 10 mg (ROXICODONE)Jump to med 10 mg, oral, Every 4 hours PRN, severe pain or score 7-10 of 10, May use if patient can take oral meds and other analgesics are ineffective, Starting on Mon07/03/23 at 2157 Group 3: oxyCODONE IR tablet 5 mg (ROXICODONE) (CANCELED)Jump to med 5 mg, oral, Every 6 hours PRN, moderate pain or score 4-6 of 10, Starting on Mon07/03/23 at 1418 Or oxyCODONE IR tablet 10 mg (ROXICODONE) (CANCELED) 10 mg, oral, Every 6 hours PRN, severe pain or score 7-10 of 10, Starting on Mon07/03/23 at 1418 documented in this encounter Care Teams Baster Hand Relationship Specialty Start Date End Date Elsewhere, Pcp PCP - General Internal Medicine 12/29/21 documented as of this encounter
--- OUTSIDE RECORDS SUMMARY | 2023-07-20 06:26 | XMS_ITS | Encounter Summary ---
Author Name Unknown Organization [facility] Address [address] [place] [id number] Care Team Providers Care Carpenter'S Assistant Name Role Phone Elsewhere, Pcp Primary Care Provider Unavailabl e Encounter Details Date Type Department Care Team ([facility] st Contact Info) Description 06/26/2023 Orders Only Department of Urology in [place], [place] [address] [place] [phone] Selene Davis M.D. [address] [place] [phone] Social History Tobacco Use Types Packs/Day Years Used Date Smoking Tobacco: Former Cigarettes 1 6 0 03/27/1987 - 03/27/1993 Passive Smoke Exposure: Never Smokeless Tobacco: Never Alcohol Use Standard Drinks/Week Comments Yes 3 (1 standard drink = 0.6 oz pur e alcohol) Humiliation, Afraid, Rape, and Kick questionnair e Answer Date Recorded Within the last year, have y ou been afraid of your partner or ex-partner? No 10/13/2021 Within the last year, have y ou been humiliated or emotionally abused in other ways by your partner or ex-partner? No Within the last year, have y ou been kicked, hit, slapped, or otherwise physically hurt by your partner or ex-partner? No 10/13/2021 Within the last year, have y ou been raped or forced to have any kind of sexual activity by your partner or ex-partner? No 10/13/2021 Social Connection and Isolat ion Panel [NHANES] Answer Date Recorded In a typical week, how many times do you talk on the phone with family, friends, or neighbors? More than three times a week 10/13/2021 How often do you get togethe r with friends or relatives? Twice a week 10/13/2021 How often do you attend chur ch or cheondoism services? 1 to 4 times per year 10/13/2021 Do you belong to any clubs o r organizations such as alevism groups, unions, fraternal or athletic groups, or [...] care, and heating? Not very hard 10/13/2021 [facility] - Occupational Stress [...] the money to buy more. Never true 10/14/19 22 Within the past 12 months, t he food you bought just didn't last and you didn't have money to get more. Never true 10/13/2021 PRAPARE - Transportation Answer Date Re corded In the past 12 months, has l ack of transportation kept you from medical appointments or from getting medications? No 09/25 In the past 12 months, has l ack of transportation kept you from meetings, work, or from getting things needed for daily living? No 10/13/2021 Housing Stability Vital Sign Answer Alex e Recorded In the last 12 months, was t here a time when you were not able to pay the mortgage or rent on time? No 10/13/2021 In the last 12 months, how many places have you lived? 1 10/13/2021 In the last 12 months, was t here a time when you did not have a steady place to sleep or slept in a nursing home (including now)? No 10/13/2021 Nutrition Answer Date Recorded Nutrition: EVOO Fat Source No 10/13 On average, how many serving s of fruits and vegetables do you eat per day (serving size is equal to 1 cup or approximately the size of a tennis ball)? 2-3 10/13/2021 Dental Answer Date Recorded Dental: Regular Dentist Yes 10/14/19 Employment Answer Date Recorded Employment status Retired 10/13/2021 Education Answer Date Recorded What is the highest level of school you have completed or the highest degree you have received? 12th grade 10/13/2021 Sex and Gender Information Value Date Recorded Sex Assigned at Male 12/28/2021 8:52 AM CDT Gender Identity Male 10/13/2021 10:44 AM CDT Sexual Orientation Choose not to disclose 2021 8:52 AM CDT documented as of this encounter Plan of Treatment Upcoming Encounters Date Type Department Care Team (Late st Contact Info) Description 09/04/2023 9:30 AM CDT Procedure visit Department of Urology in [place], [place] [address] [place] [phone] Finesse Lim M.D. [address] [place] [phone] 09/04/2023 10:30 AM CDT Office Visit Department of Urology in [place], [place] [address] [place] [phone] Finesse Lim M.D. [address] [place] [phone] documented as of this encounter Visit Diagnoses Not on filedocumented in this encounter Care Teams Carpenter'S Assistant Relationship Specialty Start Date End Date Elsewhere, Pcp PCP - General Internal Medicine 12/29/21 documented as of this encounter
--- OUTSIDE RECORDS SUMMARY | 2023-07-20 06:26 | XMS_ITS | Encounter Summary ---
Author Name Unknown Organization [facility] Address [address] [place] [address] Care Team Providers Care Practice Management Consultant Name Role Phone Elsewhere, Pcp Primary Care Provider Unavailabl e Encounter Details Date Type Department Care Team ([facility] st Contact Info) Description 07/14/2023 Orders Only Department of Urology in [place], [place] [address] [place] [phone] Finesse Lim M.D. [address] [place] [address] Social History Tobacco Use Types Packs/Day Years Used Date Smoking Tobacco: Former Cigarettes 1 6 0 03/27/1987 - 03/27/1993 Passive Smoke Exposure: Never Smokeless Tobacco: Never Alcohol Use Standard Drinks/Week Comments Yes 3 (1 standard drink = 0.6 oz pur e alcohol) [facility] Utilities Answer Date Recorded In the past 12 months has [employer], gas, oil, or water [employer] threatened to shut off services in your [...] How often do you attend chur or baptist services? 1 to 4 times per year 10/13/2021 Do you belong to any clubs o r organizations such as jew groups, unions, fraternal or athletic groups, or [...] care, and heating? Not very hard 10/13/2021 [facility] - Occupational [...] your living situation today? I have a [facility] place to live 07/03/2023 Education Answer [...] CDT Procedure visit Department of Urology in [place], [place] [address] [place] [address] Finesse Lim M.D. 200 [place] [address] 09/04/2023 10:30 AM CDT Office Visit Department of Urology in [place], [place] [address] [place] [address] Finesse Lim M.D. 200 [place] [address] documented as of this encounter Visit Diagnoses Not on filedocumented in this encounter Care Teams Practice Management Consultant Relationship Specialty Start Date End Date Elsewhere, Pcp PCP - General Internal Medicine 12/29/21 documented as of this encounter
--- OUTSIDE RECORDS SUMMARY | 2023-07-20 06:26 | XMS_ITS | Referral Summary ---
Author Name Unknown Organization [facility] Address [address] [place] [address] Care Team Providers Care Underpresser Hand Name Role Phone Elsewhere, Pcp Primary Care Provider Unavailabl e Source Comments Patient records contain information from all sites at [facility]. For routine questions regarding patient records, call [phone] during business hours, M-F 8:00 AM - 5:00 PM Central Time. Record requests for emergency care only can be directed to [phone] at any time.[facility] Encounters Date Type Department Care Team Description 07/14/2023 Orders Only Department of Urology in [place], [place] [address] [place] [address] Chepe Ariza M.D., M.P.H. 07/14/2023 Orders Only Department of Urology in [place], [place] [address] [place] [address] Finesse Lim M.D. 07/14/2023 Orders Only Department of Urology in [place], [place] [address] [place] [address] Chepe Ariza M.D., M.P.H. 07/13/2023 Orders Only Department of Urology in [place], [place] [address] [place] [phone] Finesse Lim M.D. 07/03/2023 6:28 AM CDT - 07/04/2023 12:16 PM CDT Hospital Encounter [facility] Floor [address] [place] [address] Finesse Lim M.D. Stricture Urethral Postoperative Male (Primary Dx) Discharge Disposition: Home or Self Care 07/03/2023 8:15 AM CDT - 07/03/2023 11:47 AM CDT Surgery [facility] OR [address] [place] [address] Finesse Lim M.D. REMOVAL ARTIFICIAL GENITOURINARY SPHINCTER 07/03/2023 8:31 AM CDT Anesthesia Event [facility] OR [address] [place] [address] Kaiden Crisostomo D.O. 06/26/2023 Clinical Communication Department of Urology in [place], [place] [address] [place] [phone] Finesse Lim M.D. 06/26/2023 Orders Only Department of Urology in [place], [place] [address] [place] [phone] Selene Davis M.D. 06/22/2023 11:00 AM CDT Lab Department of Urology in [place], [place] [address] [place] [phone] Shola Goddard M.D. Dudley, Kathleen A RLeathaNLeatha Incontinence Urinary Stress Male 06/22/2023 1:00 PM CDT Comprehensive Visit Preoperative Evaluation Center in [place], [place] [address] [place] [phone] Finesse Lim M.D. de Forcrand de Coiselet, Claire, M.D. Preoperative Exam (Primary Dx); Anesthesia Complication Personal History; Hypertension Essential Primary; Artificial Urinary Sphincter Status Post; Personal History Of Malignant Neoplasm Of Prostate; Hyperlipidemia; Benign Prostatic Hyperplasia Hypertrophy With Obstruction; Neuropathy Peripheral; Gastroesophageal Reflux Disease; Murmur Heart; Stricture Urethral Postoperative Male 06/20/2023 1:30 PM CDT Clinical Communication Virtual Review in [place], [place] [address] [place] [address] Pre-visit Intake 05/26/2023 1:43 PM SCLEROSCOPE TESTER Anesthesia Event Department of Radiology in [place], [place] [address] [place] [phone] Davie White APRN, PARTS IDENTIFICATION TECHNICIAN, Ravinder Rios M.D. 05/26/2023 9:44 AM SCLEROSCOPE TESTER - 05/26/2023 11:59 PM SCLEROSCOPE TESTER Hospital Encounter Department of Radiology in [place], [place] [address] [place] [phone] Shola Goddard M.D. McPhail, Ian R, M.D. Weger, Kendal, M.D. Incontinence Urinary Stress Male Discharge Disposition: Home or Self Care 04/28/2023 Documentation Preoperative Evaluation Center in [place], [place] [address] [place] [phone] Mojgan Cutler MPAS, P.A.-C. 04/27/2023 Clinical Communication Department of Urology in [place], [place] [address] [place] [address] Shola Goddard M.D. 04/27/2023 Clinical Communication Department of Urology in [place], [place] [address] [place] [phone] Finesse Lim M.D. 04/27/2023 1:30 PM SCLEROSCOPE TESTER Procedure visit Department of Urology in [place], [place] [address] [place] [phone] Finesse Lim M.D. Incontinence Urinary Stress Male from Last 3 Months Allergies Active Allergy Reactions Criticality Noted Date [...] Overview: Added automatically from request for surgery [id number] Radiation Therapy Cystitis With Hematuria 2021 Injury Radiation Therapy Initial 03/14/2022 Contracture Bladder Neck 03/10/2022 Overview: Added automatically from request for surgery [id number] Direct Infection Of Right Hi p In [...] Prostatectomy Radical Retropubic Status Post 2 11/10/2021 Immunizations Name Administration Dates Next Due HZV (ZOSTAVAX) 03/23/2012 Influenza (IM) Preservative Free 04/03/2011 Influenza TIV (IM) 03/23/2012,04/04/2007 Influenza high dose QV(65 years or older) (PF) 1 ,01/21/2020 Influenza, Seasonal, Injectable 03/23/2012 Influenza, Unspecified 02/02/2021 PCV20 01/18/2022 Tdap 01/20/2015,03/29/2007 Social History Tobacco Use Types Packs/Day Years Used Date Smoking Tobacco: Former Cigarettes 1 6 0 03/27/1987 - 03/27/1993 Passive Smoke Exposure: Never Smokeless Tobacco: Never Tobacco Cessation:Counseling Given: Not Answered Alcohol Use Standard Drinks/Week Comments Yes 3 (1 standard drink = 0.6 oz pur e alcohol) [facility] Utilities Answer Date Recorded In the past 12 months has [facility] [employer] gas, oil, or water [employer] threatened to shut off services in your [...] How often do you attend chur or gnosticist services? 1 to 4 times per year 10/13/2021 Do you belong to any clubs o r organizations such as caodaism groups, unions, fraternal or athletic groups, or [...] your living situation today? I have a [facility] place to live 07/03/2023 Education Answer [...] CDT Procedure visit Department of Urology in [place], [place] [address] [place] [phone] Finesse Lim M.D. [address] [place] [phone] 09/04/2023 10:30 AM CDT Office Visit Department of Urology in [place], [place] [address] [place] [phone] Finesse Lim M.D. [address] [place] [phone] Medical Devices Implanted Type Area Senior Oracle Database Developer Device Identifier Shelf Expiration Date Model / Serial / Lot Artificial Gu Sphincter Artificial Sphincter Rectum Scrw Pnn Acet Ft 6.5x30 - [id number] Implanted:Qty : 1 on 11/11/2021 by Isaac Bar M.D. at [facility] Hardware e.g. pins/screws/ rods Right: Hip Depuy Synthes 07/25/2031 0 / / [id number] Scrw Pnn Acet Ft 6.5x20 - [id number] Implanted:Qty : 1 on 11/11/2021 by Isaac Bar M.D. at [facility] Hardware e.g. pins/screws/ rods Right: Hip Depuy Synthes 07/25/2031 0 / / [id number] [place]ron Gription Acetabular Shell Multi-Hole 62mm Od Implanted:Qty : 1 on 11/11/2021 by Isaac Bar M.D. at [facility] Hip Implant Right: Hip Depuy Synthes [id number] 08/25/2031 2 / / [id number] Hip Stm [facility] Sz12 150 - [id number] Implanted:Qty : 1 on 11/11/2021 by Isaac Bar M.D. at [facility] Hip Implant Right: Hip Depuy Synthes 09/24/2031 [id number] / / [id number] Lnr Alt 0d 40x62 - [id number] Implanted:Qty : 1 on 12/03/2021 by Isaac Bar M.D. at [facility] Hip Implant Right: Hip Depuy Synthes 10/24/2026 2 / / [id number] Fem Hd Art Ez Crmc +1.5x40 - [id number] Implanted:Qty : 1 on 12/03/2021 by Isaac Bar M.D. at [facility] Hip Implant Right: Hip Depuy Synthes [id number] 09/23/2026 0 / / [id number] Knee Implant-2006 Implanted: (Quantity not on file) Knee Implant Left: Knee Description:Replaced knee Knee Implant-2011 Implanted: (Quantity not on file) Knee Implant Right: Knee Description:Replaced knee Gu Kt 800 Acces Aus W/Iz - [id number] Implanted:Qty : 1 on 09/08/2022 by Finesse Lim M.D. at [facility] Urogenital Implant [employer] 07/20/2027 [id number] / / [id number] Penile Occlsve Cuff Ams Iz 4.5 - [id number] Implanted:Qty : 1 on 09/08/2022 by Finesse Lim M.D. at [facility] Urogenital Implant [employer] 04/13/2024 [id number] / / [id number] Explanted Type Area Senior Oracle Database Developer Device Identifier Shelf Expiration Date Model / Serial / Lot Lnr Alt 0d 40x62 - [id number] Implanted:Qty : 1 on 11/11/2021 by Isaac Bar M.D. at [facility] Explanted:Qty : 1 on 12/03/2021 by Isaac Bar M.D. at [facility] Hip Implant Right: Hip Depuy [employer]ynthes 05/24/2026 [id number] / / [id number] Fem Hd Art Ez Crmc +1.5x40 - [id number] Implanted:Qty : 1 on 11/11/2021 by Isaac Bar M.D. at [facility] Explanted:Qty : 1 on 12/03/2021 by Isaac Bar M.D. at [facility] Hip Implant Right: Hip Depuy [employer]ynthe[employer] 09/23/2026 [id number] / / [id number] Penile Occlsve Cuff Ams Iz 4.5 - [id number] Explanted:Qty : 1 on 09/08/2022 at [facility] Urogenital Implant [employer] 01/28/2024 [id number] / / [id number] Description:Accidentally cut tubing on cuff so had to open/use another 4.5 cuff Penile Bln Prs Ams 61-70 - [id number] Implanted:Qty : 1 on 09/08/2022 by Finesse Lim M.D. at [facility] Explanted:Qty : 1 on 07/03/2023 at [facility] Urogenital Implant [employer] 05/16/2027 [id number] / / [id number] Penile Contl Pump Ams 800 Iz - [id number] Implanted:Qty : 1 on 09/08/2022 by Finesse Lim M.D. at [facility] Explanted:Qty : 1 on 07/03/2023 at [facility] Urogenital Implant [facility] 04/28/2024 [id number] / / [id number] Procedures Procedure Name Priority Date/Time Associated Diagnosis [...] inpatients and all outpatients) 05/26/2023 2:15 PM SCLEROSCOPE TESTER Incontinence Urinary Stress Male URO CYSTOSCOPY (SPECIFIC PROVIDER) Routine 04/27/2023 1:30 PM SCLEROSCOPE TESTER Incontinence Urinary Stress Male CT ABDOMEN PELVIS WITH IV CONTRAST RAD - Semiurgent (Fast; most ED patients; some inpatients) 04/05/2023 3:27 PM SCLEROSCOPE TESTER BASIC METABOLIC PANEL, S/P STAT 04/05/2023 1:36 PM SCLEROSCOPE TESTER from Last 3 Months or Most Recently [...] ETT location: oral VL device: glide scope [place] scope blade size: 4 Tube size: 7.5 [...] M.D. LAB MICROBIOLOGY - G ENERAL ORDERABLES Performing Organization Address City/State/[facility] Co de Phone Number [facility] [address] [place] [address], [facility] [address] [place] [address] * IR Suprapubic Catheter Exchange (05/26/2023 2:15 PM SCLEROSCOPE TESTER) Anatomical Region Laterality Modality Abdomen, Pelvis, Vascular In terventional RST LOS, Vascular Interventional ARZ LOS, Vascular Interventional FLA LOS N/A X-Ray Angiography Impressions 05/26/2023 2:58 PM SCLEROSCOPE TESTER Uncomplicated suprapubic catheter upsizing to a 16 Cong[place] tip Kerr catheter. EP Narrative 05/26/2023 2:58 PM SCLEROSCOPE TESTER EXAM: IR SUPRAPUBIC CATHETER EXCHANGE CLINICAL HISTORY: Status post prostatectomy and radiation. Bladder neck contracture. Artificial sphincter. Request for upsizing of suprapubic catheter. TECHNIQUE: The suprapubic pigtail catheter was prepped and draped in sterile fashion. 1% lidocaine was used for local anesthesia. Preparation Department Supervisor film shows expected position. Dilute contrast was injected through the patent catheter to confirm intraluminal position and slightly distend the bladder. The catheter was removed over an .035 Nitrex wire. The inner dilator from a 20 Congolese peel-away sheath was used to dilate the tract. The peel-away portion was then reassembled and advanced over the wire into the bladder. A 16 [place] tip Kerr catheter was then advanced over [...] 1% lidocaine was used for local anesthesia. Preparation Department Supervisor filmshows expected position. Dilute contrast was injected through the patentcatheter to confirm intraluminal position and slightly distend the bladder. The catheter was removed overan .035 Nitrex wire. The inner dilator from a 20 Congolese peel-away sheathwas used to dilate the tract. The peel-away portion was then reassembledand advanced over the wire into the bladder. A 16 [place] tip Kerr catheter was then advanced overthe [...] Uncomplicated suprapubic catheter upsizing to a 16 [place] tipFoley catheter. EP Shola Goddard M.D. IMG IR PROCEDURES * Cystoscopy (specific provider) (04/27/2023 1:30 PM SCLEROSCOPE TESTER) Narrative Shola Goddard M.D. - 04/27/2023 1:30 PM SCLEROSCOPE TESTER Shola Goddard M.D. ? 04/27/2023 ??2:58 PM Cystoscopy (specific provider) Performed by: Shola Goddard M.D. Authorized by: Finesse Lim M.D. ?? Finesse Lim M.D. UROLOGY ORDERABLES * CT Abdomen Pelvis with IV Contrast (04/05/2023 3:27 PM SCLEROSCOPE TESTER) Anatomical Region Laterality Modality Abdomen, Pelvis, Abdominal R ST LOS, Abdominal ARZ LOS, Abdominal FLA LOS N/A Computed Tomograp hy, Computed Tomography 04/05/2023 3:14 PM SCLEROSCOPE TESTER Impressions 04/05/2023 3:52 PM SCLEROSCOPE TESTER No acute findings in the abdomen or pelvis. Specifically, no evidence of communication between the genitourinary system and bowel. However, sigmoid colon is closely abutting/tethered to the urinary bladder and the CT cystogram may be performed if clinically warranted to exclude colovesical fistula. Narrative 04/05/2023 3:52 PM SCLEROSCOPE TESTER EXAM: ??CT ABDOMEN PELVIS WITH IV CONTRAST [...] hip arthroplasty. Procedure Note Isaac Madsen M.B.B.S., M.Ray. - 04/05/2023 EXAM: CT ABDOMEN PELVIS WITH [...] (ABNORMAL) Basic Metabolic Panel (04/05/2023 1:36 PM SCLEROSCOPE TESTER) Pathologist [facility] Potassium, P 4.9 3.6 - 5.2 mmol/L 04/05/2023 2:04 PM SCLEROSCOPE TESTER [facility] Sodium, P 141 135 - 145 mmol/L 04/05/2023 2:04 PM SCLEROSCOPE TESTER [facility] Chloride, P 106 98 - 107 mmol/L 04/05/2023 2:04 PM SCLEROSCOPE TESTER [facility] Bicarbonate, P 23 22 - 29 mmol/L 04/05/2023 2:04 PM SCLEROSCOPE TESTER [facility] Anion Gap, P 12 7 - 15 04/05/2023 2:04 PM SCLEROSCOPE TESTER [facility] BUN (Blood Urea Nitrogen), P 33(H) 8 - 24 mg/dL 04/05/2023 2:04 PM SCLEROSCOPE TESTER [facility] Creatinine 1.08 0.74 - 1.35 mg/dL 04/05/2023 2:04 PM SCLEROSCOPE TESTER [facility] Estimated GFR (eGFR) 73 >=60 mL/min/BSA 04/05/2023 2:04 PM SCLEROSCOPE TESTER [facility] Comment: Estimated GFR calculated using the 2020 CKD_EPI creatinine equation. Calcium, Total, P 8.9 8.8 - 10.2 mg/dL 04/05/2023 2:04 PM SCLEROSCOPE TESTER [facility] Glucose, P 109 70 - 140 mg/dL 04/05/2023 2:04 PM SCLEROSCOPE TESTER [facility] Blood (Blood, Venous) 04/05/2023 1:36 PM SCLEROSCOPE TESTER 04/05/2023 1:43 PM SCLEROSCOPE TESTER Ramy Joseph P.A.-C. LAB BLOOD ADD-ON [facility] [employer] [facility] [address] [place] [address], [facility] STMA [facility] [address] [place] [address] from Last 3 Months or Most Recently Relevant to Health Maintenance Advance Directives For more information, please contact: [phone] * Full Code (Latest Code Status on [...] Answer Comments Full Code: Discussed Care Teams Underpresser Hand Relationship Specialty Start Date End Date Elsewhere, Pcp PCP - General Internal Medicine 12/29/21
--- OUTSIDE RECORDS SUMMARY | 2023-07-20 06:26 | XMS_ITS | Encounter Summary ---
Author Name Unknown Organization [facility] Address [address] [place] [address] Care Team Providers Care Women'S Studies Professor Name Role Phone Elsewhere, Pcp Primary Care Provider Unavailabl e Reason for Referral * Outpatient (Routine) - Authorized Specialty Diagnoses / Procedures Referred By Contac t Referred To Contact Urology Finesse Lim M.D. [address] [place] [phone] [facility] Referral ID Status Reason Start Date Expiration Date V isits Requested Visits Authorized [id number] Authorized 07/13/2023 01/11/2025 1 1 Encounter Details Date Type Department Care Team (Late st Contact Info) Description 07/13/2023 Orders Only Department of Urology in [place], [place] [address] [place] [phone] Finesse Lim M.D. [address] [place] [phone] Social History Tobacco Use Types Packs/Day Years Used Date Smoking Tobacco: Former Cigarettes 1 6 0 03/27/1987 - 03/27/1993 Passive Smoke Exposure: Never Smokeless Tobacco: Never Alcohol Use Standard Drinks/Week Comments Yes 3 (1 standard drink = 0.6 oz pur e alcohol) [facility] Utilities Answer Date Recorded In the past 12 months has [employer], gas, oil, or water company threatened to shut off services in your [...] How often do you attend chur or alevism services? 1 to 4 times per year 10/13/2021 Do you belong to any clubs o r organizations such as sikh groups, unions, fraternal or athletic groups, or [...] care, and heating? Not very hard 10/13/2021 [facility] Occupat ional Health - Occupational Stress [...] your living situation today? I have a [facility] place to live 07/03/2023 Education Answer [...] CDT Procedure visit Department of Urology in [place], [place] [address] [place] [address] Finesse Lim M.D. [address] [place] [address] 09/04/2023 10:30 AM CDT Office Visit Department of Urology in [place], [place] [address] [place] [address] Finesse Lim M.D. [address] [place] [phone] Scheduled Referrals Name Type Priority Associated Diagnoses Orde r Schedule Urology office visit (clinic) Outpatient Referral Routine Expected: 08/03/2023, Expires: 10/11/2024 documented as of this encounter Visit Diagnoses Not on filedocumented in this encounter Care Teams Women'S Studies Professor Relationship Specialty Start Date End Date Elsewhere, Pcp PCP - General Internal Medicine 12/29/21 documented as of this encounter
--- OUTSIDE RECORDS SUMMARY | 2023-07-20 06:26 | XMS_ITS | Encounter Summary ---
Author Name Unknown Organization [facility] Address [address] [place] [address] Care Team Providers Care Telephone Service Adviser Name Role Phone Elsewhere, Pcp Primary Care Provider Unavailabl e Reason for Visit * Reason Onset Date Comments Pre-visit Intake 06/20/2023 Encounter Details Date Type Department Care Team (Latest Contact Info) Description 06/20/2023 1:30 PM CDT Clinical Communication Virtual Review in [place], [place] [address] [place] [address] Pre-visit Intake Social History Tobacco Use Types Packs/Day Years [...] often do you attend chur ch or rastafarian services? 1 to 4 times per year 10/13/2021 Do you belong to any clubs o r organizations such as bahai groups, unions, fraternal or athletic groups, or [...] care, and heating? Not very hard 10/13/2021 [facility] of Occupat ional Health - Occupational [...] CDT Procedure visit Department of Urology in [place], [place] [address] [place] [address] Finesse Lim M.D. [address] [place] [address] 09/04/2023 10:30 AM CDT Office Visit Department of Urology in [place], [place] [address] [place] [address] Finesse Lim M.D. [address] [place] [address] documented as of this encounter Visit Diagnoses Not on filedocumented in this encounter Care Teams Telephone Service Adviser Relationship Specialty Start Date End Date Elsewhere, Pcp PCP - General Internal Medicine 12/29/21 documented as of this encounter
--- OUTSIDE RECORDS SUMMARY | 2023-07-20 06:26 | XMS_ITS | Encounter Summary ---
Author Name Unknown Organization [facility] Address [address] [place] [address] Care Team Providers Care [employer] Name Role Phone Elsewhere, Pcp Primary Care Provider Unavailabl e Reason for Visit * Auth/Cert (Routine) Specialty [...] Expiration Date Visits Re quested Visits Authorized [id number] 1 1 Encounter Details Date Type Department Care Team (Late st Contact Info) Description 07/03/2023 8:31 AM CDT Anesthesia Event [facility] [address] [place] [address] Kaiden Crisostomo D.O. [address] [place] [address] Anesthesia Record Procedure Summary Procedure Name Responsible Anesthesiologist Anesthesia Start Time Anesthesia Stop Time REMOVAL ARTIFICIAL GENITOURINARY SPHINCTER Kaiden Crisostomo D.O. 07/03/23 0831 07/03/23 1218 Events Date Time Event Comment 07/03/2023 0831 An Start Machine/Equipme nt Checked Infection Precautions Followed Procedure/Site Verified NPO Status Verified Supine Standard ASA Monitors Applied 0838 An Induction 0849 An Intubation 0850 Turnover to Proceduralist 0909 Proc Start 1146 Anes CS Handoff I, Sona Law rence, M.D., attest that I have reconciled the controlled substances and that I have reviewed all the significant information with the next anesthesia provider assuming care of this patient. 1152 Proc Fin 1201 Turnover to ANE Staff 1207 Airway Removal Criteria Met 1207 Extubation/Airway Removed 1210 an stop data 1218 An End I completed my handoff to the receiving staff during which we 1. Identified the patient 2. Identified the responsible provider 3. Reviewed the pertinent medical history 4. Discussed the surgical course 5. Reviewed intra-op anesthesia management and issues during anesthesia 6. Set expectations for post-procedure period 7. Allowed opportunity for questions and acknowledgement of understanding. Meds Name Total fentanyl injection 50 mcg/mL 100 mcg lidocaine 2% (mg) injection 100 mg rocuronium 10 mg/mL injection 150 mg succinylcholine 20 mg/mL injection 120 m g phenylephrine 100 mcg/mL injection 900 m cg ePHEDrine PF 5 mg/mL syringe injection 2 5 mg ondansetron 4 mg/2 mL injection 4 mg sugammadex 100 mg/mL injection 400 mg propofol 10 mg/mL injection 300 mg gentamicin in NaCl 0.9 % (iso osm) IVPB 160 mg (GARAMYCIN) 111 mg dexAMETHasone (DECADRON) injection 4 mg/ mL 8 mg HYDROmorphone PF 2 mg/mL injection 1 mg Lactated Ringers Free Drip 2,300 mL lactated ringers free drip 800 mL * Agents No agents on file. * Blood No blood administrations on file. Lines, Drains, and Airways Type Details Placement Removal Peripheral IV Placement Date: 05/26/23; Placement Time: 1244; Catheter Size: 20 G; Orientation: Right; Location: Hand; Site Prep: Chlorhexidine (Preferred); Technique: Anatomical landmarks; Inserted by: RB; Insertion Attempts: 1 05/26/23 1244 by Juliet Mccann RLeathaNLeatha Wound 07/03/23; N; Incisio n; Pubis incision; Dermabond 07/03/23 0000 by Ciarra Burgos R.N. Wound 07/03/23; N; Incisio n; Scrotum; Posterior; Dermabond 07/03/23 0000 by Ciarra Burgos RLeathaNLeatha Suprapubic Catheter 07/03/23; Latex; 20 Fr. 11/17 0000 by Ciarra Burgos R.N. Wound 07/03/23; N; Incisio n; Mouth; Left; Buccal mucosa incision 07/03/23 0000 by Ciarra Burgos R.N. Indwelling Urinary Catheter Placement Date: 07/03/23; Inserted by: Dr. Lim; Type: Non-latex; Size: 24 Fr.; Balloon Size: Other (Comment) (Nephromax balloon holding in catheter); Urine Returned: Yes 07/03/23 0000 by Ciarra Burgos R.N. ETT Placement Date: 07/03/23; Placement Time: 0849 (created via procedure documentation); Mask Ventilation: Difficult mask (ie. two-handed) with oral airway; Technique: Video laryngoscopy; Type: Standard ETT; Single Lumen Tube Size: 7.5 mm; Cuffed: Yes; Location: Oral; Grade View: Grade 2A; Insertion Attempts: 1; Placement Verification: Bilateral breath sounds, Positive ETCO2, Symmetrical chest wall movement; Removal Date: 07/03/23; Removal Time: 1207 07/03/23 0849 by Sona Rose M.D. 07/03/23 1207 by Hayder Carr APRN, CRNA, DNAP Peripheral IV Placement Date: 07/03/23; Placement Time: 0853; Catheter Size: 20 G; Orientation: Left; Location: Hand; Removal Date: 07/04/23; Removal Time: 1052 07/03/23 0853 by Sona Rose M.D. 07/04/23 1052 by Mariposa Atkins R.N. Peripheral IV Placement Date: 07/03/23; Placement Time: 1215; Orientation: Anterior, Right; Location: Hand; Removal Date: 07/04/23; Removal Time: 1052 07/03/23 1215 by Zeynep Segal R.N. 07/04/23 1052 by Mariposa Atkins R.N. documented in this encounter Social History Tobacco Use Types Packs/Day Years Used Date Smoking Tobacco: Former Cigarettes 1 6 0 03/27/1987 - 03/27/1993 Passive Smoke Exposure: Never Smokeless Tobacco: Never Alcohol Use Standard Drinks/Week Comments Yes 3 (1 standard drink = 0.6 oz pur e alcohol) [facility] Utilities Answer Date Recorded In the past 12 months has th e electric, gas, oil, or water company threatened to [...] week 10/13/2021 How often do you attend [facility] or gnosticism services? 1 to 4 times per year 10/13/2021 Do you belong to any clubs o r organizations such as latter day groups, unions, fraternal or athletic groups, or [...] care, and heating? Not very hard 10/13/2021 [facility] [place] [facility] Occupat ional [facility] - Occupational Stress [...] money to buy more. Never true 07/03/19 Within the past 12 months, t he [...] your living situation today? I have a [facility] [place] place to live 07/03/2023 Education Answer Date [...] AM CDT documented as of this encounter OR Notes * Anesthesia Postprocedure Evaluation - Kaiden Crisostomo D.O. - 07/03/2023 1:13 PM CDT Patient: Jose Gonzalez Procedure Summary Date: 07/03/23 Room / Location: [place] [address] / [facility] in [place], [place] Anesthesia Start: 08 Anesthesia Stop: 1218 Procedures: REMOVAL ARTIFICIAL GENITOURINARY SPHINCTER EXCHANGE SUPRAPUBIC TUBE HARVESTING AND GRAFTING BUCCAL MUCOSA POSTERIOR URETHRAL STRICTURE REPAIR WITH BUCCAL MUCOSA, ENDOSCOPIC Diagnosis: Incontinence Urinary Stress Male (Incontinence Urinary Stress Male [N39.3]) Providers: Finesse Lim M.D. Responsible Provider: Kaiden Crisostomo D.O. Anesthesia Type: general ASA Status: 3 Anesthesia Type: general Last vitals Vitals Value Taken Time BP 142/88 07/03/23 1300 Temp 36.5 ??C 07/03/23 1306 Pulse 70 07/03/23 1312 Resp 25 07/03/23 1312 SpO2 95 % 07/03/23 1312 Vitals shown include unfiled device data. Please reference Vitals flowsheet for most recent vital signs. Anesthesia Post Evaluation Patient Disposition: general care unit Cardiovascular status: hemodynamics (HR & BP) acceptable Respiratory status: patent airway with spontaneous effort Temperature: normothermic Oxygen requirements: nasal cannula (2L NC) Level of consciousness: awake Pain score: pain adequately controlled and/or at baseline Post Op nausea/vomiting: none Hydration status: euvolemic Comments: BP 142/88 Pulse 73 Temp 36.5 ??C (Oral) Resp 18 Ht 179 cm Wt (!) 158 kg SpO2 96% BMI 49.37 kg/m?? * Anesthesia Procedure Notes - Sona Rose M.D. - 07/03/2023 10:35 AM CDT Associated Order(s): Airway Airway Date/Time: 07/03/2023 8:49 AM Performed by: Sona Rose M.D. Authorized by: Kaiden Crisostomo D.O. Patient location during procedure: OR / Procedure Area PROCEDURE DETAILS: Mask difficulty assessment: difficult mask (i.e.two-handed) with oral airway Final airway type: video laryngoscope Laryngeal Manipulation: no Final best view of glottic structures - Cormack/Lehane Score: grade 2A ETT location: oral VL device: glide scope [place] scope blade size: 4 Tube size: 7.5 [...] ANESTHESIA Anesthesia method: anesthesia POST PROCEDURE DETAILS: Procedure outcome: successful Notable Events: no complications * Anesthesia Preprocedure Evaluation - Kaiden Crisostomo D.O. - 07/03/2023 8:31 AM CDT Preprocedure Anesthesia & H&P Assessment Procedure Summary Date/Time: 07/03/23814 Procedures: REMOVAL ARTIFICIAL GENITOURINARY SPHINCTER EXCHANGE SUPRAPUBIC TUBE HARVESTING AND GRAFTING BUCCAL MUCOSA POSTERIOR URETHRAL STRICTURE REPAIR WITH BUCCAL MUCOSA, ENDOSCOPIC Diagnosis: Incontinence Urinary Stress Male [N39.3] Pre-op diagnosis: Incontinence Urinary Stress Male [N39.3] Location: [place] [address] / [facility] in [place], [place] Providers: Finesse Lim M.D. Pertinent components of the patient's history including current problem list, medical history, surgical history, family history, social history, medications and allergies were reviewed. Present illness and pre-op diagnosis were confirmed. The planned surgery / procedure was verified with the patient / legal guardian. The patient's general health condition remains unchanged RELEVANT COMORBID CONDITIONS ANESTHESIA (+) Anesthesia Complication Personal History CV (+) Hypertension Essential Primary GI (+) Gastroesophageal Reflux Disease Other (+) Morbid Obesity Body Mass Index 40.0-44.9 Adult (HCC) OBJECTIVE PHYSICAL EXAMINATION Airway (HEENT) Mallampati: IV TM Distance: >3 FB Neck ROM: Full Cardiovascular Rhythm: Regular Rate: Normal Cardiovascular Assessment: cardiovascular normal Functional Capacity: >4 METS Pulmonary Pulmonary Assessment: Clear and rales General / Constitutional Constitutional Assessment: Obese Neurological Neurologic Assessment: alert Dental Dental Assessment: dentition intact ASSESSMENT / PLAN ANESTHESIA PLAN ASA: 3 Anesthesia Plan: general Patient seen and allergies reviewed, anesthesia plan and risks discussed directly with patient /legal guardian or through an family law specialist. Risks/Benefits/Alternatives of Blood transfusion discussed with patient / legal guardian, includingan opportunity to ask questions and/or decline some or all transfusion therapies. The patient / legal guardian consented to the use of all blood products, as deemed medically necessary Approval to Proceed: approved for anesthesia Jose Gonzalez, 73 y/o male from [place], [place] undergoing removal of artificial genitourinary sphincter, exchange of suprapubic tube, harvesting and grafting of buccal mucosa, posterior urethral stricture repair with buccal mucosa endoscopically -Allergies to Aspirin (hematuria), Chlorhexadine (rash), Ceftriaxone, Ciprofloxacin, Vancomycin - 157 kg (BMI 47) [facility] Evaluation Positive for difficult hearing, dry cough and wheezing, negative CV symptoms on ROS MET level 4.73 Dentition intact, Mallampati IV Reports prior PONV about 20 years ago at OSH during Right total knee replacement Difficult two hand mask with oral airway recently PMH Difficult airway history HTN - instructed to hold lisinopril Malignant neoplasm of prostate s/p prostatectomy 2007, artificial urinary 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/2022, now has suprapubic catheter 2/2 urinary retention HLD on Atorvastatin Peripheral neuropathy on Gabapentin GERD CV -> TTE on Mar Possible bicuspid aortic valve, LVEF 62% with no regional wall motion abnormalities Prior Anesthetic (Insertion Artificial Genitourinary) on September 08, 2022 Pre op had 1g Tylenol and Aprepitant (Emend 40 mg) Anesthesia Plan Glidescope intubation, oral airway, and thorough pre-oxygenation PONV -> Dexamethasone, Zofran, Fosaprepitant, Scopolamine patch No A line 2x PIV if possible documented in this encounter Plan of Treatment Upcoming Encounters Date Type Department Care Team (Late st Contact Info) Description 09/04/2023 9:30 AM CDT Procedure visit Department of Urology in [place], [place] [address] [place] [address] Finesse Lim M.D. [address] [place] [address] 09/04/2023 10:30 AM CDT Office Visit Department of Urology in [place], [place] [address] [place] [address] Finesse Lim M.D. [address] [place] [address] documented as of this encounter Procedures Procedure Name Priority Date/Time Associated Diagnosis Comments AIRWAY MANAGEMENT Routine 07/03/2023 8:4 9 AM CDT documented in this encounter Results * Airway (07/03/2023 8:49 AM CDT) [...] ETT location: oral VL device: glide scope [place] scope blade size: 4 Tube size: 7.5 [...] complications Kaiden Crisostomo D.O. ANESTHESIA ORDERABLE S documented in this encounter Visit Diagnoses Not on filedocumented in this encounter Administered Medications Inactive Administered Medications - up to 3 most recent administrations Medication Order MAR Action Action Date Dose Rate Site dexAMETHasone injection (DECADRON) intravenous, As needed, Starting on Mon07/03/23 at 0918, Anesthesia Intra-op Given 07/03/2023 9:18 AM CDT 8 mg ePHEDrine (PF) injection intravenous, As needed, Starting on Mon07/03/23 at 0857, Anesthesia Intra-op Given 07/03/2023 9:13 AM CDT 10 mg Given 07/03/2023 9:02 AM CDT 10 mg Given 07/03/2023 8:57 AM CDT 5 mg fentaNYL injection (SUBLIMAZE) intravenous, As needed, Starting on Mon07/03/23 at 0838, Anesthesia Intra-op Given 07/03/2023 8:38 AM CDT 100 mcg gentamicin in NaCl 0.9 % (iso osm) IVPB 160 mg (GARAMYCIN) 160 mg (rounded from 166.5 mg = 1.5 mg/kg ? 111 kg Adjusted weight), intravenous, at 200 mL/hr, Administer over 30 Minutes, Once, On Mon07/03/23 at 0800, For 1 dose, Pre-Op, Drug Monitoring Program: Pharmacist to adjust medication dosing based on indication and drug clearance factors., Indications: Prophylaxis, surgical Given 07/03/2023 8:49 AM CDT 111 mg HYDROmorphone (PF) injection (DILAUDID) intravenous, As needed, Starting on Mon07/03/23 at 0938, Anesthesia Intra-op Given 07/03/2023 11:29 AM CDT 0.4 mg Given 07/03/2023 9:38 AM CDT 0.6 mg Lactated Ringer's intravenous, Continuous Infusion: Per Instructions PRN, Starting on Mon07/03/23 at 0838, Anesthesia Intra-op New Bag 07/03/2023 11:30 AM CDT New Bag 07/03/2023 9:34 AM CDT New Bag 07/03/2023 8:38 AM CDT Lactated Ringer's intravenous, Continuous Infusion: Per Instructions PRN, Starting on Mon07/03/23 at 0849, Anesthesia Intra-op New Bag 07/03/2023 8:49 AM CDT lidocaine (PF) (cardiac) injection intravenous, As needed, Starting on Mon07/03/23 at 0838, Anesthesia Intra-op Given 07/03/2023 8:38 AM CDT 100 mg ondansetron (PF) injection (ZOFRAN) intravenous, As needed, Starting on Mon07/03/23 at 1149, Anesthesia Intra-op Given 07/03/2023 11:49 AM CDT 4 mg phenylephrine injection intravenous, As needed, Starting on Mon07/03/23 at 0840, Anesthesia Intra-op Given 07/03/2023 11:45 AM CDT 100 mcg Given 07/03/2023 11:38 AM CDT 100 mcg Given 07/03/2023 11:26 AM CDT 100 mcg propofoL injection (DIPRIVAN) intravenous, As needed, Starting on Mon07/03/23 at 0838, Anesthesia Intra-op Given 07/03/2023 8:38 AM CDT 300 mg rocuronium injection (ZEMURON) intravenous, As needed, Starting on Mon07/03/23 at 0906, Anesthesia Intra-op Given 07/03/2023 11:22 AM CDT 20 mg Given 07/03/2023 10:34 AM CDT 30 mg Given 07/03/2023 9:34 AM CDT 30 mg succinylcholine (PF) injection (ANECTINE) intravenous, As needed, Starting on Mon07/03/23 at 0838, Anesthesia Intra-op Given 07/03/2023 8:38 AM CDT 120 mg sugammadex injection (BRIDION) intravenous, As needed, Starting on Mon07/03/23 at 1157, Anesthesia Intra-op Given 07/03/2023 11:57 AM CDT 400 mg documented in this encounter Care Teams [employer] Relationship Specialty Start Date End Date Elsewhere, Pcp PCP - General Internal Medicine 12/29/21 documented as of this encounter
--- OUTSIDE RECORDS SUMMARY | 2023-07-20 06:26 | XMS_ITS ---
Author Name Unknown Organization [facility] Address [address] [place] [address] Care Team Providers Care Hay Sorter Name Role Phone Unavailable Unavailable Unavailable Surgery Details Not on file Complications Check Surgery Details section. Procedure Estimated Blood Loss Check Surgery Details section. Procedure Findings Check Surgery Details section. Procedure Specimens Taken Check Surgery Details section.
--- OUTSIDE RECORDS SUMMARY | 2023-07-20 06:26 | XMS_ITS | Encounter Summary ---
Author Name Unknown Organization [facility] Address [address] [place] [phone] Care Team Providers Care Sales Representative Leather Goods Name Role Phone Elsewhere, Pcp Primary Care Provider Unavailabl e Reason for Visit * Outpatient (Routine) - Closed Specialty Diagnoses / Procedures Referred By Contac t Referred To Contact Anesthesiology Diagnoses Stricture Urethral Postoperative Male Finesse Lim M.D. [address] [place] [phone] [facility] Referral ID Status Reason Start Date Expiration Date Visits Re quested Visits Authorized [id number] Closed 04/06/2023 04/05/2024 1 1 Encounter Details Date Type Department Care Team (Latest Contact Info) Description 06/22/2023 1:00 PM CDT Comprehensive Visit Preoperative Evaluation Center in [place], [place] [address] [place] [phone] Finesse Lim M.D. [address] [place] [phone] Aysha Lott M.D. [address] [place] [phone] Preoperative Exam (Primary Dx); Anesthesia Complication Personal History; Hypertension Essential Primary; Artificial Urinary Sphincter Status Post; Personal History Of Malignant Neoplasm Of Prostate; Hyperlipidemia; Benign Prostatic Hyperplasia Hypertrophy With Obstruction; Neuropathy Peripheral; Gastroesophageal Reflux Disease; Murmur Heart; Stricture Urethral Postoperative Male Social History Tobacco Use Types Packs/Day Years [...] often do you attend chur ch or presybeterian services? 1 to 4 times per year 10/13/2021 Do you belong to any clubs o r organizations such as mosque groups, unions, fraternal or athletic groups, or [...] care, and heating? Not very hard 10/13/2021 [facility] of Occupat ional Health - Occupational Stress [...] money to buy more. Never true 10/14/19 Within the past 12 months, t he [...] place to sleep or slept in a custodial (including now)? No 10/13/2021 Nutrition Answer Date [...] Sign Reading Time Taken Comments Blood Pressure 128/71 06/22/2023 12:56 PM CDT Pulse 75 06/22/2023 12:56 PM CDT Temperature 36.6 ??C (97.9 ??F) 06/22/2023 12:56 PM C DT Respiratory Rate - - Oxygen Saturation 96% 06/22/2023 12:56 PM CDT Inhaled Oxygen Concentration - - Weight 157 kg (346 lb 2 oz) 06/22/2023 12:56 PM CDT Height 185 cm (6' 0.84) 06/22/2023 12:56 PM CDT Body Mass Index 45.87 06/22/2023 12:56 PM CDT documented in this encounter H&P Notes * de Aysha Mckeon M.D. - 06/22/2023 1:00 PM CDT REASON FOR VISIT: Preoperative Medical Evaluation REFERRING PHYSICIAN: Finesse Lim M.D. 07/03/2023: REMOVAL ARTIFICIAL GENITOURINARY SPHINCTER; Finesse Lim M.D. Surgery Specific Risk Classification: Low Risk SUBJECTIVE HISTORY OF PRESENT ILLNESS Jose Gonzalez is a 73 y.o. male who is here for preanesthetic medical examination prior tothe planned procedure as listed above. REVIEW OF SYSTEMS ENT: Positive for difficulty hearing. Respiratory: Positive for dry cough and wheezing. - Negative for shortness of breath. Cardiovascular: - Negative for chest pain, pressure or tightness, swelling in the legs or feet, rapid or flutteringheart beat and shortness of breath when lying flat. Gastrointestinal: Positive for heartburn. Genitourinary: Positive for blood in urine. Psychiatric/Behavioral: Positive for loud snoring. - Negative for stopping breathing, choking, or gasping while asleep. Cardiac Risk Scoring: DASI Calculations Flowsheet Row Comprehensive Visit from 11/10/2021 in Preoperative Evaluation Center in [place], [place] DASI Total Score 16.2 Estimated V02 Peak 16.57 Estimated MET Level 4.73 OBJECTIVE OBJECTIVE PHYSICAL EXAMINATION General/Constitutional Constitutional Assessment: Obese General State of Health: Healthy appearing Airway (HEENT) Mallampati: IV TM Distance: >3 FB Neck ROM: Full Dental Assessment: Dentition intact Cardiovascular No murmur appreciated, distant heart sounds Rhythm: Regular Rate: Normal Pulmonary Pulmonary Assessment: Clear and non labored Neurological Neurologic Assessment: Alert Musculoskeletal MSK Assessment: Normal Gait: Antalgic Ambulate with: Cane Psychiatric Psychiatric Assessment: Calm Dermatology Skin Assessment: normal, dry and warm ASSESSMENT / PLAN Anesthesia: Patient reports previous anesthesia related complications. Nausea and vomiting approximately 20 years ago following anesthesia at OSH for a right knee replacement. No complications since then. 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 #1 Preoperative Exam Pleasant 73 yo gentleman presenting for preoperative exam prior to removal of an artificial genitourinary sphincter with Dr. Lim on 07/03/23. History of HTN, HLD, PONV, GERD, peripheral neuropathy, prostate cancer s/p prostatectomy and multiple revisions complicated by retention now with suprapubic catheter, hematuria. Patient works out with physical therapy twice weekly and regularly climbs stairs and goes walking in department stores. Endorses wheezing and shortness of breath with exercise. Denies chest pain with this exertion. Former smoker, quit in 1993, 10 pack-year history. #2 Anesthesia Complication Personal History History of PONV and difficult airway noted in patient's record. Patient reports N/V following anesthesia for a right knee replacement approximately 20 y ago at OSH. Denies post-anesthesia complications since then. #3 Hypertension Essential Primary On lisinopril. Instructed to hold day of surgery. #4 Artificial Urinary Sphincter Status Post Placed 08/2022. 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 Patient states that he has stable hematuria with painful bladder spasm. Urology aware, on trospium. Per patient, trospium not helpful. Patient encouraged to take Tylenol, continue to avoid NSAIDs, and to contact Urology should pain persist. #6 Hyperlipidemia On atorvastatin. #7 Benign Prostatic Hyperplasia Hypertrophy With Obstruction #8 Neuropathy Peripheral On gabapentin. #9 Gastroesophageal Reflux Disease #10 Murmur Heart Systolic murmur intermittently reported on previous physical exams. TTE 04/21/22 with mild aortic regurgitation, mild aortic stenosis, no other valvular abnormalities. #11 Stricture Urethral Postoperative Male Status post suprapubic catheter. PATIENT EDUCATION: Reviewed Instructions To Get Ready for Your Surgery or Procedure: [facility] [id number] rev 0124. Written and verbal instructions given on medication management beforesurgery. Reviewed instructions on avoiding aspirin, ibuprofen-containing medications, and supplements one week before surgery. Patient may take acetaminophen as needed for pain. RECOMMENDATIONS: Patient medically optimized for planned procedure: Yes Further Recommendations: None Caprini Total Score: 8 The patient is at high risk for postoperative DVT or PE. Mechanical AND chemoprophylaxis are recommended at the time of procedure and during postoperative hospitalization, as well as chemoprophylaxisat the time of hospital discharge, unless there are contraindications or risk of bleeding outweighsbenefits of chemoprophylaxis. documented in this encounter Plan of Treatment Upcoming Encounters Date Type Department Care Team (Late st Contact Info) Description 09/04/2023 9:30 AM CDT Procedure visit Department of Urology in [place], [place] [address] [place] [phone] Finesse Lim M.D. [address] [place] [phone] 09/04/2023 10:30 AM CDT Office Visit Department of Urology in [place], [place] [address] [place] [phone] Finesse Lim M.D. [address] [place] [phone] documented as of this encounter Visit Diagnoses Diagnosis Preoperative Exam- Primary Anesthesia Complication Personal History Hypertension Essential Primary Artificial Urinary Sphincter Status Post Personal History Of Malignant Neoplasm Of Prostate Hyperlipidemia Benign Prostatic Hyperplasia Hypertrophy With Obstruction Neuropathy Peripheral Gastroesophageal Reflux Disease Murmur Heart Stricture Urethral Postoperative Male documented in this encounter Care Teams Sales Representative Leather Goods Relationship Specialty Start Date End Date Elsewhere, Pcp PCP - General Internal Medicine 12/29/21 documented as of this encounter
--- OUTSIDE RECORDS SUMMARY | 2023-07-20 06:26 | XMS_ITS | Encounter Summary ---
Author Name Unknown Organization [facility] Address [address] [place] [address] Care Team Providers Care Fruit And Vegetable Classer Name Role Phone Elsewhere, Pcp Primary Care [...] Expiration Date Visits Re quested Visits Authorized [id number] 1 1 Encounter Details Date Type Department Care Team (Late st Contact Info) Description 07/03/2023 8:15 AM CDT - 07/03/2023 11:47 AM CDT Surgery [facility] [address] [place] [phone] Finesse Lim M.D. [address] [place] [phone] REMOVAL ARTIFICIAL GENITOURINARY SPHINCTER Social History Tobacco Use Types Packs/Day Years Used Date Smoking Tobacco: Former Cigarettes 1 6 0 03/27/1987 - 03/27/1993 Passive Smoke Exposure: Never Smokeless Tobacco: Never Alcohol Use Standard Drinks/Week Comments Yes 3 (1 standard drink = 0.6 oz pur e alcohol) [facility] Utilities Answer Date Recorded In the past 12 months has e electric, gas, oil, or water company [...] week 10/13/2021 How often do you attend [facility] or buddhism services? 1 to 4 times per year 10/13/2021 Do you belong to any clubs o r organizations such as worship groups, unions, fraternal or athletic groups, or [...] care, and heating? Not very hard 10/13/2021 [facility] of Occupat ional Health - Occupational Stress [...] your living situation today? I have a [facility] place to live 07/03/2023 Education Answer Date [...] Sign Reading Time Taken Comments Blood Pressure 143/79 07/03/2023 7:07 AM CDT Pulse 72 07/03/2023 7:07 AM CDT Temperature 36.9 ??C (98.4 ??F) 07/03/2023 7:07 AM CD T Respiratory Rate 18 07/03/2023 7:07 AM CDT Oxygen Saturation 97% 07/03/2023 7:07 AM CDT Inhaled Oxygen Concentration - - Weight 158 kg (348 lb 12.3 oz) 07/03/2023 7:07 A M CDT Height 179 cm (5' 10.47) 07/03/2023 7:07 AM CDT Body Mass Index 49.37 07/03/2023 7:07 AM CDT documented in this encounter Discharge Summaries * Chepe Ariza M.D., M.P.H. - 07/04/2023 6:55 AM CDT DISCHARGE SUMMARY BRIEF OVERVIEW Hospital: [facility] Discharge Provider: Finesse Lim M.D. Primary Team: [facility] Urology - Raphael Admission Date: 07/03/2023 Discharge [...] M.D.Pinkhasov, Alexandr M, M.D., M.P.H.Amy Trevizo M.D. [facility] OR DISCHARGE DISPOSITION Home or [...] AM CDT You were discharged from the [facility] Urology - [place] Service. Please identify this service name if youcall with questions after hospitalization. * Attachments The following attachments cannot be sent through Care Everywhere. * Acetaminophen (By mouth) (Swazi) * Ibuprofen (By mouth) (Swazi) documented in this encounter Medications at Time [...] of this encounter Progress Notes * Arsenio Nicole, Pharm.D., R.Ph. - 07/03/2023 6:57 AM CDT [...] Early Screen for Discharge Planning Referral Name: [facility] 12 Referral Reason: Discharge Planning Primary Language: Swazi Hobbing Machine Operator Services Used: No Person(s) present during interview: Person(s) Present During Interview: patient History of Present Illness #1 Incontinence Urinary Stress Male #2 Stricture Urethral Postoperative Male Social History Support System: children, family members, and friends/neighbors Finance/Insurance Primary insurance: MEDICARE A AND B Secondary insurance: [employer] benefits: No Advance Directives Legal Decision Maker: Self Advance Directives: N/A Advance Directives Status: None on file OBJECTIVE Baseline Functional Status Baseline Activities of Daily Living Mobility: Independent Dressing: Independent Feeding: Independent Bathing: Independent Grooming: Independent Toileting: Independent Behavior: Appropriate, Pleasant, Calm, Cooperative Communication: Talks, Understands speaking, Understands Swazi Shopping: Independent Medication Management: Independent Housekeeping: Independent [...] Caregiver Arranged: Yes Phone Number for Ride/Caregiver: Kayleen Dennis Anticipated Discharge Destination: Home or Self Care ASSESSMENT / PLAN Assessment: The rollway worker met with Jose Gonzalez to discuss his current hospitalization and homegoing needs. The patient was unaccompanied. The patient was a reliable historian. The role of rollway worker was reviewed. The patient reviewed his prior level of care and support system. The patient receives support from his children. The patient described his living environment as a home with bedroom and bathroom on same floor withstairs to enter with rails. Housekeeping, grocery shopping, meal prep, and other household responsibilities have previously been completed by patient. rollway worker discussed the patient's potential needs at dismissal based on their home setting, previous needs and responsibilities, homebound status, and relevant assessments with the patient. The patient will be safe and supported to return home alone when medically ready. Support will be provided by daughter and son. The patient demonstratedunderstanding when discussing his home going plans and anticipated needs. rollway worker met with patient at bedside to address [...] chart and meeting with the patient, the rollway worker deemed the LACE+/readmission questions were not necessary. The patient reports understanding that he will dismiss from the hospital when medically stable. Pending hospital course and medical readiness, no barriers to dismissal have been identified at this time. Plan: The patient agrees with the following plan. Patient's anticipated discharge disposition is: Home to Self Care Transportation upon dismissal will be provided by family--kayleen Dennis . rollway worker recommended reaching out to family, friends, and neighbors for assistance. rollway worker provided information regarding the dismissal process and the Senior Linkage Line ([place] Board on Aging) handout. rollway worker placed or requested the following hospital-based consult orders and/or referrals: None. rollway worker will continue to assess for homegoing needs with the interdisciplinary team. rollway worker encouraged the patient to reach out with [...] endoscopic portion of the case. A 26 Filipino resectoscope was introduced per urethra. The anterior urethra appeared normal until the level of the bladder. There was vesicourethral anastomotic stenosis noted to approximately 20 Filipino with some calcifications. We were able to maneuver our scope into the bladder. Under direct vision we were able to pass a sensor wire through the previously placed suprapubic tract. Next a 24 Filipino NephroMax balloon dilator was used to dilate [...] removed in a push-pull fashion. A 24 Filipino silicone catheter was advanced over the sensor wire and into the bladder. This was directly visualize the flexiblecystoscope through the suprapubic tract. We proceeded to instill 10 cc water in the balloon. The NephroMax balloon dilator was passed through the silicone catheter and inflated at the level bladder neck to hold the graft in place at the graft bed. A 20 Filipino latex catheter was placed through the cooney [...] CDT Procedure visit Department of Urology in [place], [place] [address] [place] [phone] Finesse Lim M.D. [address] [place] [phone] 09/04/2023 10:30 AM CDT Office Visit Department of Urology in [place], [place] [address] [place] [address] Finesse Lim M.D. [address] [place] [address] Scheduled Referrals Name Type Priority Associated Diagnoses [...] Urethral Postoperative Male Stricture Urethral Postoperative Male Incontinence Urinary Stress Male documented in this encounter Admitting Diagnoses [...] Given 07/04/2023 4:15 AM CDT 1,000 mg atorvastatin tablet 40 mg (LIPITOR) 40 mg, oral, Daily, First dose on Mon07/04/23 at 0900 Given 07/04/2023 8:45 AM CDT 40 mg bacitracin 500 unit/gram ointment packet 1 packet 1 packet (1 Application), topical, 3 times daily, First dose on Mon07/03/23 at 2200, Apply to tip of penis. Given 07/04/2023 8:46 AM CDT 1 packet Given 07/03/2023 10:21 PM CDT 1 packet BUPivacaine-EPINEPHrine (PF) 0.25 %-1:200,000 injection (MARCAINE w/EPI) As needed, Starting on Mon07/03/23 at 1042, Intra-Op Given 07/03/2023 10:42 AM CDT 10 mL Ot her chlorhexidine 0.05% irrigation (IRRISEPT) As needed, Starting on Mon07/03/23 at 0852, Intra-Op Given 07/03/2023 8:52 AM CDT 450 mL Oth er D5W infusion 1-999 mL/hr, intravenous, As needed, [...] Given 07/04/2023 8:46 AM CDT 20 mg gabapentin capsule 600 mg (NEURONTIN) 600 mg, [...] area. 0746 (Given - Provider: Zeynep Segal RLeathaN.) acetaminophen tablet 1,000 mg (TYLENOL) 1,000 mg, oral, Every 6 hours, First dose on Mon07/04/23 at 0400 0415 (Given - Provid er: Santa Schofield RLeathaN.)1103 (Given - Provider: Mariposa Atkins RLeathaNLeatha) aprepitant capsule 40 mg (EMEND) (COMPLETED) 40 mg, oral, Once, On Mon07/03/23 at 0800, For 1 dose, Pre-Op, Restriction Criteria (Pharmacy will review and approve if criteria met): Patient does not have IV access and cannot receive fosaprepitant IV 0746 (Given - Provider: Zeynep Segal R.N.) atorvastatin tablet 40 mg (LIPITOR) 40 mg, [...] Do not give if patient has diarrhea. 2221 (Given - Provider: Noel Araujo R.N.) [...] and drug clearance factors., Indications: Prophylaxis, surgical 0746 (Given - Provider: Zeynep Segal R.N.) sulfamethoxazole-trimethopri m 800-160 mg per tablet 1 tablet (BACTRIM DS) 1 tablet, oral, Every 12 hours scheduled, First dose on Mon07/03/23 at 2230, Drug Monitoring Program: Pharmacist to adjust medication dosing based on indication and drug clearance factors., Indications: Prophylaxis, surgical 2221 (Given - Provider: Noel Araujo R.N.) 0845 [...] 1042, Intra-Op 1042 (Given - Provider: Amy Tervizo M.D. - Comment: injected into left inner [...] PACU (only) 1246 (Given - Provider: Zeynep Segal, R.N.)1258 (Given - Provider: Zeynep Segal RAdan.) haloperidol lactate injection 1 mg (HALDOL) 1 [...] PACU (only) 1240 (Given - Provider: Zeynep Segal, RLeathaN.) oxyCODONE IR tablet 5 mg (ROXICODONE) (CANCELED)(Linked Group 3) 5 mg, oral, Every 6 hours PRN, moderate pain or score 4-6 of 10, Starting on Mon07/03/23 at 1418 2001 (Given - Provider: Courtney Araujo RLeathaNLeatha) oxyCODONE IR tablet 5 mg (ROXICODONE)(Linked Group [...] 1418 documented in this encounter Care Teams Fruit And Vegetable Classer Relationship Specialty Start Date End Date Elsewhere, Pcp PCP - General Internal Medicine 12/29/21 documented as of this encounter
--- OUTSIDE RECORDS SUMMARY | 2023-07-20 06:26 | XMS_ITS | Encounter Summary ---
Author Name Unknown Organization [facility] Address [address] [place] [phone] Care Team Providers Care Applications Engineering Manager Name Role Phone Elsewhere, Pcp Primary Care Provider Unavailabl e Encounter Details Date Type Department Care Team ([facility] st Contact Info) Description 06/22/2023 11:00 AM CDT Lab Department of Urology in [place], [place] [address] [place] [phone] Shola Goddard M.D. [address] [place] [phone] Ada Ramirez R.N. [address] [place] [phone] Incontinence Urinary Stress Male Social History Tobacco Use Types Packs/Day [...] How often do you attend chur or scientologist services? 1 to 4 times per year 10/13/2021 Do you belong to any clubs o r organizations such as buddhism groups, unions, fraternal or athletic groups, or [...] care, and heating? Not very hard 10/13/2021 [facility] of Occupat ional Health - [...] place to sleep or slept in a senior care (including now)? No 10/13/2021 Nutrition Answer Date [...] AM CDT documented as of this encounter Progress Notes * Ada Ramirez R.N. - 06/22/2023 11:00 AM CDT Specimen Collection Specimen type: urine culture per suprapubic catheter Specimen route: Catheter Patient tolerated procedure: Yes Ada Ramirez R.N. documented in this encounter Plan of Treatment Upcoming Encounters Date Type Department Care Team (Late st Contact Info) Description 09/04/2023 9:30 AM CDT Procedure visit Department of Urology in [place], [place] [address] [place] [phone] Fineses Lim M.D. [address] [place] [phone] 09/04/2023 10:30 AM CDT Office Visit Department of Urology in [place], [place] [address] [place] [address] Finesse Lim M.D. [address] [place] [phone] documented as of this encounter Procedures Procedure Name Priority Date/Time Associated Diagnosis Comments BACTERIAL CULTURE, AEROBIC + SUSC, URINE Routine 06/22/2023 10:46 AM CDT Incontinence Urinary Stress Male documented in this encounter Results * (ABNORMAL) Bacterial Culture, Aerobic + Susceptibility, Urine (06/22/2023 10:46 AM CDT) Urine Culture Multiple organisms >10,000 cfu/mL present suggesting probable contamination (A) 06/24/2023 10:41 AM CDT DTL Urine (Urine, Indwelling Catheter) 06/22/2023 10:46 AM CDT 06/22/2023 12:39 PM CDT Comment:Specimen Source Site : Urine Shola Goddard M.D. LAB MICROBIOLOGY - G ENERAL ORDERABLES [facility] [address] [place] [address], [facility] [address] [place] [address] documented in this encounter Visit Diagnoses Diagnosis Incontinence Urinary Stress Male documented in this encounter Care Teams Applications Engineering Manager Relationship Specialty Start Date End Date Elsewhere, Pcp PCP - General Internal Medicine 12/29/21 documented as of this encounter
--- OUTSIDE RECORDS SUMMARY | 2023-07-20 06:26 | XMS_ITS | Encounter Summary ---
Author Name Unknown Organization [facility] Address [address] [place] [id number] Care Team Providers Care Sheriff Name Role Phone Elsewhere, Pcp Primary Care Provider Unavailabl e Encounter Details Date Type Department Care Team (Late st Contact Info) Description 07/14/2023 Orders Only Department of Urology in [place], [place] [address] [place] [phone] Chepe Ariza M.D., M.P.H. [address] [place] [phone] Social History Tobacco Use Types Packs/Day Years Used Date Smoking Tobacco: Former Cigarettes 1 6 0 03/27/1987 - 03/27/1993 Passive Smoke Exposure: Never Smokeless Tobacco: Never Alcohol Use Standard Drinks/Week Comments Yes 3 (1 standard drink = 0.6 oz pur e alcohol) [facility] Utilities Answer Date Recorded In the past 12 months has e [employer], gas, oil, or water [employer] threatened to shut off services in your [...] care, and heating? Not very hard 10/13/2021 [facility] [place] of Occupat ional Health - Occupational Stress [...] your living situation today? I have a [facility] place to live 07/03/2023 Education Answer [...] CDT Procedure visit Department of Urology in [place], [place] [address] [place] [phone] Finesse Lim M.D. [address] [place] [address] 09/04/2023 10:30 AM CDT Office Visit Department of Urology in [place], [place] [address] [place] [phone] Finesse Lim M.D. 200 [place] [phone] documented as of this encounter Visit Diagnoses Not on filedocumented in this encounter Care Teams Sheriff Relationship Specialty Start Date End Date Elsewhere, Pcp PCP - General Internal Medicine 12/29/21 documented as of this encounter
--- OUTSIDE RECORDS SUMMARY | 2023-07-20 06:26 | XMS_ITS | Encounter Summary ---
Author Name Unknown Organization [facility] Address [address] [place] [address] Care Team Providers Care Lead Scientist Name Role Phone Elsewhere, Pcp Primary Care Provider Unavailabl e Encounter Details Date Type Department Care Team ([facility] st Contact Info) Description 06/26/2023 Clinical Communication Department of Urology in [place], [place] [address] [place] [phone] Finesse Lim M.D. [address] [place] [phone] Social History Tobacco Use Types Packs/Day Years [...] often do you attend chur ch or episcopalian services? 1 to 4 times per year 10/13/2021 Do you belong to any clubs o r organizations such as anabaptist groups, unions, fraternal or athletic groups, or [...] and heating? Not very hard 10/13/2021 [facility] of Occupat ional Health - [...] place to sleep or slept in a prison (including now)? No 10/13/2021 Nutrition Answer Date [...] CDT Procedure visit Department of Urology in [place], [place] [address] [place] [address] Finesse Lim M.D. [address] [place] [phone] 09/04/2023 10:30 AM CDT Office Visit Department of Urology in [place], [place] [address] [place] [phone] Finesse Lim M.D. [address] [place] [phone] documented as of this encounter Visit Diagnoses Not on filedocumented in this encounter Care Teams Lead Scientist Relationship Specialty Start Date End Date Elsewhere, Pcp PCP - General Internal Medicine 12/29/21 documented as of this encounter
--- OUTSIDE RECORDS SUMMARY | 2023-07-20 06:26 | XMS_ITS | Encounter Summary ---
Author Name Unknown Organization [facility] Address [address] [place] [address] Care Team Providers Care Award Machine Operator Name Role Phone Elsewhere, Pcp Primary Care Provider Unavailabl e Encounter Details Date Type Department Care Team (Late st Contact Info) Description 07/14/2023 Orders Only Department of Urology in [place], [place] [address] [place] [phone] Chepe Ariza M.D., M.P.H. [address] [place] [phone] Social History Tobacco Use Types Packs/Day Years Used Date Smoking Tobacco: Former Cigarettes 1 6 0 03/27/1987 - 03/27/1993 Passive Smoke Exposure: Never Smokeless Tobacco: Never Alcohol Use Standard Drinks/Week Comments Yes 3 (1 standard drink = 0.6 oz pur e alcohol) [facility] Utilities Answer Date Recorded In the past 12 months has e [employer], gas, oil, or water [employer] threatened to shut off services in your [...] How often do you attend chur or pentecostalism services? 1 to 4 times per year 10/13/2021 Do you belong to any clubs o r organizations such as hinduism groups, unions, fraternal or athletic groups, or [...] care, and heating? Not very hard 10/13/2021 [facility] of Occupat ional Health - Occupational Stress [...] your living situation today? I have a [facility] place to live 07/03/2023 Education Answer [...] CDT Procedure visit Department of Urology in [place], [place] [address] [place] [address] Finesse Lim M.D. [address] [place] [phone] 09/04/2023 10:30 AM CDT Office Visit Department of Urology in [place], [place] [address] [place] [phone] Finesse Lim M.D. 200 [place] [phone] documented as of this encounter Visit Diagnoses Not on filedocumented in this encounter Care Teams Award Machine Operator Relationship Specialty Start Date End Date Elsewhere, Pcp PCP - General Internal Medicine 12/29/21 documented as of this encounter
--- OUTSIDE RECORDS SUMMARY | 2023-07-20 06:27 | XMS_ITS | Encounter Summary ---
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 [address] [facility] Referral ID Status Reason Start Date Expiration Date Visits Re quested Visits Authorized [id number] Closed 04/27/2023 04/26/2024 1 1 Encounter Details Date Type Department Care Team (Latest Contact Info) Description 05/26/2023 9:44 AM [facility] - 05/26/2023 11:59 PM [facility] Hospital Encounter Department of Radiology in [place], [place] [address] [place] [phone] Shola Goddard M.D. 200 [place] [phone] Christiano Bergman M.D. 200 [place] [phone] Cecilia Baires M.D. 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 Not very hard 10/13/2021 [facility] [place] of Occupat ional Health - Occupational Stress [...] Sign Reading Time Taken Comments Blood Pressure 140/81 05/26/2023 2:34 PM [facility] Pulse 62 05/26/2023 2:34 PM [facility] Temperature 36.6 ??C (97.9 ??F) 05/26/2023 2:31 PM CS T Respiratory Rate 26 05/26/2023 2:34 PM [facility] Oxygen Saturation 94% 05/26/2023 2:34 PM [facility] Inhaled Oxygen Concentration - - Weight 159 kg (350 lb 5 oz) 05/26/2023 12:19 PM [facility] Height - - Body Mass Index 49.87 04/07/2023 10:15 AM [facility] documented in this encounter Discharge Instructions * Attachments The following attachments cannot be sent through Care Everywhere. * Instructions After Sedation or Anesthesia for Adults (Jordanian) * Long-Term Suprapubic Catheter Care (Jordanian) documented in this encounter Medications at Time [...] before breakfast. 90 capsule 3 04/11/2023 04/10/2024 sulfamethoxazole-trim ethoprim (BACTRIM DS) 800-160 mg per tablet Take 1 tablet by mouth once for 1 dose. On day of catheter removal 1 tablet 07/03/2023 07/03/2023 acetaminophen (TYLENOL) 500 mg tablet Take 1 tablet (500 mg total) by mouth every 6 (six) hours as needed for pain. 30 tablet 07/03/2023 07/03/2023 celecoxib (CeleBREX) 200 mg capsule Take 1 capsule (200 mg total) by mouth daily for 28 days. 28 capsule 12/07/2021 06/20/2023 tamsulosin (FLOMAX) 0.4 mg 24 hr capsule Take 0.4 mg by mouth daily. 03/24/2022 06/22/2023 documented as of this encounter Plan of Treatment Upcoming Encounters Date Type Department Care Team (Late st Contact Info) Description 09/04/2023 9:30 AM CDT Procedure visit Department of Urology in [place], [place] [address] [place] [address] Finesse Lim M.D. [address] [place] [address] 09/04/2023 10:30 AM CDT Office Visit Department of Urology in [place], [place] [address] [place] [phone] Finesse Lim M.D. 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 Request for upsizing of suprapubic catheter. TECHNIQUE: The suprapubic pigtail catheter was prepped and draped in sterile fashion. 1% lidocaine was used for local anesthesia. Lamination Spinner film shows expected position. Dilute contrast was injected through the patent catheter to confirm intraluminal position and slightly distend the bladder. The catheter was removed over an .035 Nitrex wire. The inner dilator from a 20 British peel-away sheath was used to dilate the tract. The peel-away portion was then reassembled and advanced over the wire into the bladder. A 16 British Yurok tip Kerr catheter was then advanced over [...] 1% lidocaine was used for local anesthesia. Lamination Spinner filmshows expected position. Dilute contrast was injected through the patentcatheter to confirm intraluminal position and slightly distend the bladder. The catheter was removed overan .035 Nitrex wire. The inner dilator from a 20 British peel-away sheathwas used to dilate the tract. The peel-away portion was then reassembledand advanced over the wire into the bladder. A 16 British Yurok tip Kerr catheter was then advanced overthe [...] Uncomplicated suprapubic catheter upsizing to a 16 British Yurok tipFoley catheter. 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 documented in this encounter Administered Medications Inactive Administered Medications - up to 3 most recent administrations Medication Order MAR Action Action Date Dose Rate Site iohexoL 300 mg iodine/mL solution (OMNIPAQUE) As needed, Starting on Mon05/26/23 at 1415, Intra-Op Given 05/26/2023 2:15 PM [facility] 40 mL lidocaine-sodium bicarbonate (buffered) 0.9%-0.84% injection infiltration, As needed, Starting on Mon05/26/23 at 1415, Intra-Op Given 05/26/2023 2:15 PM [facility] 8 mL documented in this encounter Active and Recently Administered Medications Times are shown in [facility]. Scheduled Medication Order 05/24/2023 05/25/2023 05/26/2023 gentamicin in NaCl 0.9 % (iso osm) IVPB 160 mg (GARAMYCIN) 160 mg, intravenous, at 200 mL/hr, Administer over 30 Minutes, Once, On Mon05/26/23 at 1400, For 1 dose, Drug Monitoring Program: Pharmacist to adjust medication dosing based on indication and drug clearance factors., Indications: Prophylaxis, surgical 1358 (Given - Provid er: Davie White APRN, SULEMAN, JORGE LUIS)1413 (Due: Subsequent Bag - Provider: Davie White APRN, CRNA, JORGE LUIS) Continuous Medication Order 05/24/2023 05/25/2023 05/26/2023 Lactated Ringer's 20 mL/hr, intravenous, Continuous, Starting on Mon05/26/23 at 1430, PACU & Post-Op 1430 (Due) PRN Medication Order 05/24/2023 05/25/2023 05/26/2023 iohexoL 300 mg iodine/mL solution (OMNIPAQUE) (COMPLETED) As needed, Starting on Mon05/26/23 at 1415, Intra-Op 1415 (Given - Provid er: Christiano Bergman M.D.) lidocaine-sodium bicarbonate (buffered) 0.9%-0.84% injection (COMPLETED) infiltration, As needed, Starting on Mon05/26/23 at 1415, Intra-Op 1415 (Given - Provid er: Christiano Bergman M.D.) documented in this encounter Care Teams Ore Crusher Relationship Specialty Start Date End Date Elsewhere, Pcp PCP - General Internal Medicine 12/29/21 documented as of this encounter
--- OUTSIDE RECORDS SUMMARY | 2023-07-20 06:27 | XMS_ITS | Encounter Summary ---
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 [address] [facility] Referral ID Status Reason Start Date Expiration Date Visits Re quested Visits Authorized [id number] Closed 04/11/2023 04/10/2024 1 1 Encounter Details Date Type Department Care Team ([facility] st Contact Info) Description 04/11/2023 10:22 AM RECEIVING DOCK CHECKER - 04/11/2023 3:00 PM RECEIVING DOCK CHECKER Hospital Encounter Department of Radiology in [place], [place] [address] [place] [phone] Shola Goddard M.D. [address] [place] [phone] Erwin Montes De Oca M.D. [address] [place] [phone] Torsten Begum M.D. 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 1 to 4 times per year 10/13/2021 Do you belong to any clubs o r organizations such as orthodoxy groups, unions, fraternal or athletic groups, or [...] care, and heating? Not very hard 10/13/2021 [facility] [place] [facility] - Occupational Stress [...] place to sleep or slept in a intermediate (including now)? No 10/13/2021 Nutrition Answer Date [...] Sign Reading Time Taken Comments Blood Pressure 135/76 04/11/2023 2:00 PM RECEIVING DOCK CHECKER Pulse 66 04/11/2023 2:30 PM RECEIVING DOCK CHECKER Temperature 36.8 ??C (98.2 ??F) 04/11/2023 2:30 PM CS T Respiratory Rate 20 04/11/2023 2:35 PM RECEIVING DOCK CHECKER Oxygen Saturation 98% 04/11/2023 2:30 PM RECEIVING DOCK CHECKER Inhaled Oxygen Concentration - - Weight 154 kg (338 lb 13.6 oz) 04/11/2023 11:32 AM RECEIVING DOCK CHECKER Height - - Body Mass Index 48.24 04/07/2023 10:15 AM RECEIVING DOCK CHECKER documented in this encounter Discharge Instructions * Discharge Instructions* Jamila Mooney R.N. - 04/11/2023 2:03 PM RECEIVING DOCK CHECKER Instructions After Sedation or Anesthesia After you have sedation or anesthesia, it is common to have lapses of memory, slowed reaction time and impaired judgment. Do not drive or operate motorized vehicles or equipment for the rest of the day. This is for your safety and the safety of others. Air travel by yourself on the day of your procedure is not advised. For the rest of the day: Rest. Do not return to work or school. Do not take on responsibility for children or anyone who depends on your care. Do not use exercise equipment or take part in rough play or sports. Do not drink alcoholic beverages. Sedation or anesthesia medication also may increase your risk of falling. Use caution and ask for help when you walk or move around. You may want to have someone help you for the rest of the day. You may resume your usual diet when you feel able to do so, unless you are told otherwise. Contact your health care provider if you have: The following side effects longer than 24 hours: Ongoing dizziness. Persistent nausea or repeated vomiting. Signs of infection, which may include: Temperature of 100.4 degrees Fahrenheit (38 degrees Celsius) or higher. Chills. An Increase in swelling, tenderness, or redness at the site. Increased pain or pain not helped by pain medication. A bad-smelling odor from the site New drainage or an increase in drainage coming from the site A change in skin color at the site. This change may be a shade of red, purple or brown, depending on your skin color. Instructions After Sedation or Anesthesia After you have sedation or anesthesia, it is common to have lapses of memory, slowed reaction time and impaired judgment. Do not drive or operate motorized vehicles or equipment for the rest of the day. This is for your safety and the safety of others. Air travel by yourself on the day of your procedure is not advised. For the rest of the day: Rest. Do not return to work or school. Do not take on responsibility for children or anyone who depends on your care. Do not use exercise equipment or take part in rough play or sports. Do not drink alcoholic beverages. Sedation or anesthesia medication also may increase your risk of falling. Use caution and ask for help when you walk or move around. You may want to have someone help you for the rest of the day. You may resume your usual diet when you feel able to do so, unless you are told otherwise. Contact your health care provider if you have: The following side effects longer than 24 hours: Ongoing dizziness. Persistent nausea or repeated vomiting. Signs of infection, which may include: Temperature of 100.4 degrees Fahrenheit (38 degrees Celsius) or higher. Chills. An Increase in swelling, tenderness, or redness at the site. Increased pain or pain not helped by pain medication. A bad-smelling odor from the site New drainage or an increase in drainage coming from the site A change in skin color at the site. This change may be a shade of red, purple or brown, depending on your skin color. IVING DOCK CHECKER * Attachments The following attachments cannot be sent through Care Everywhere. * Short-Term Suprapubic Catheter Care (Spanish) documented in this encounter Medications at Time of Discharge Medication Sig Dispensed Refills Start Date End Date atorvastatin (LIPITOR) 40 mg tablet Take 40 mg by mouth daily. 01/28/2022 DME Urological suppliesIndications:I ncontinence Urinary DME Order 1 Unspecified 07/07/2022 escitalopram (LEXAPRO) 20 mg tablet Take 20 mg by mouth daily. gabapentin (NEURONTIN) 300 mg capsule Take 600 mg by mouth 2 (two) times a day. 04/13/2021 lisinopriL (PRINIVIL,ZESTRIL) 40 mg tablet Take 40 mg by mouth daily. 01/21/2021 LORazepam (ATIVAN) 1 mg tablet Take 1 mg by mouth 3 (three) times a day as needed for anxiety. sulfamethoxazole-trim ethoprim (BACTRIM DS) 800-160 mg per tablet Take 1 tablet by mouth every 12 (twelve) hours for 3 days. 6 tablet 04/10/2023 04/13/2023 celecoxib (CeleBREX) 200 mg capsule Take 1 capsule (200 mg total) by mouth daily for 28 days. 28 capsule 12/07/2021 06/20/2023 tamsulosin (FLOMAX) 0.4 mg 24 hr capsule Take 0.4 mg by mouth daily. 03/24/2022 06/22/2023 documented as of this encounter Procedure Notes * Torsten Begum M.D. - 04/11/2023 1:15 PM CST PATIENT DISPOSITION Return to Outpatient Unit for recovery. Discharge patient when discharge criteria met. POST-PROCEDURE DIAGNOSIS Urinary retention PROCEDURE PERFORMED AND DESCRIPTION 10 Fr locking loop percutaneous suprapubic catheter placement. PROCEDURE DETAILS See Radiology Report SPECIMENS REMOVED Indwelling barger catheter. FINDINGS See dictation. PRIMARY PROCEDURALIST Erwin Montes De Oca M.D. ASSISTANTS Torsten Begum M.D. COMPLICATIONS None. DRAINS None. IMPLANTS Reference implant document. ANESTHESIA Moderate Sedation. FLUIDS See MAR ESTIMATED BLOOD LOSS <5ml CURRENT MEDICATIONS No Medication Changes FOLLOW-UP LETTER None. MAY RETURN TO WORK Not applicable PATIENT INSTRUCTIONS Exchange per urology. IVING DOCK CHECKER documented in this encounter Plan of Treatment Upcoming Encounters Date Type Department Care Team (Late st Contact Info) Description 09/04/2023 9:30 AM CDT Procedure visit Department of Urology in [place], [place] [address] [place] [phone] Finesse Lim M.D. [address] [place] [phone] 09/04/2023 10:30 AM CDT Office Visit Department of Urology in [place], [place] [address] [place] [phone] Finesse Lim M.D. 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 The transurethral Barger catheter was removed. A larger caliber suprapubic catheter could not be placed due to dense scar tissue. We could attempt to upsize the locking loop drain sequentially over the next few exchanges. 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 His Barger catheter was removed and he experienced urinary retention that required emergency department visit with repeat transurethral catheterization. Request for urgent placement of a suprapubic catheter. TECHNIQUE: The patient was placed supine on the fluoroscopy table and the suprapubic region was prepped and draped in standard sterile fashion. Dilute contrast was instilled into the bladder through the transurethral Barger until a satisfactory window was appreciated with ultrasound. 1% lidocaine was used for local anesthesia. A left paramidline approach was chosen to avoid the artificial urinary sphincter. An 18-gauge needle was advanced into the bladder. A permanent image was created and stored. The patient had dense scar tissue. A guidewire was advanced into the bladder. We were unable to advance a catheter or any other equipment into the bladder given the dense scar tissue. The needle metal cannula was reinserted over the wire and we converted to a 0.035 Nitrex wire. We were able to advance a 5 Bulgarian dilator into the bladder. A [place] high-pressure angioplasty balloon was advanced into the bladder. Despite inflating to the limits of the indeflator and balloon (40 gerardo), we could not reduce the waist near the anterior wall of the bladder. I reattempted to sequentially percutaneous dilate after balloon inflation which was also unsuccessful. I was able to advance a 10 Bulgarian locking loop drain into the bladder through the percutaneous tract. A 12 Bulgarian locking loop drain would not advance into the bladder. Postplacement imaging demonstrated satisfactory position and function of the locking loop drain. The transurethral Barger was removed. No immediate complication. PREPROCEDURE: Patient seen, evaluated, history reviewed, and approved for sedation. Airway, heart, and lung exam satisfactory for sedation. Discussed risks, benefits, alternatives for procedure, and/or sedation. The roles and responsibilities of care team members, residents, and fellows were discussed. Patient understands information and questions answered. Informed consent obtained from the patient. Immediately prior to starting the procedure, in the presence of the assisting personnel, a procedural pause was conducted to verify correct patient identity and verification of procedure to be performed, and as applicable, correct side and site, correct patient position, availability of implants, special equipment, or special requirements, and all image and specimen identification data. INTRAPROCEDURE: Moderate sedation was administered by sedation nurse under my supervision. The patient was continuously monitored with real time oxygen saturation, heart rate, ECG rhythm strip and blood pressure throughout administration of the sedation and performance of the procedure. The total intra-procedural sedation time was: 45 minutes. Procedure Note Erwin Montes De Oca M.D. 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 His Barger catheter wasremoved and he experienced urinary retention that required emergency department visit with repeattransurethral catheterization. Request for urgent placement of asuprapubic catheter. TECHNIQUE: The patient was placed supine on the fluoroscopy table and thesuprapubic region was prepped and draped in standard sterile fashion.Dilute contrast was instilled into the bladder through the transurethralFoley until a satisfactory window was appreciated with ultrasound. 1% lidocaine was used for local anesthesia.A left paramidline approach was chosen to avoid the artificial urinarysphincter. An 18- gauge needle was advanced into the bladder. A permanentimage was created and stored. The patient had dense scar tissue. A guidewire was advanced into the bladder.We were unable to advance a catheter or any other equipment into thebladder given the dense scar tissue. The needle metal cannula wasreinserted over the wire and we converted to a 0.035 Nitrex wire. We were able to advance a 5 Bulgarian dilator into thebladder. A [place] high-pressure angioplasty balloon was advanced intothe bladder. Despite inflating to the limits of the indeflator and balloon(40 gerardo), we could not reduce the waist near the anterior wall of the bladder. I reattempted tosequentially percutaneous dilate after balloon inflation which was alsounsuccessful. I was able to advance a 10 Bulgarian locking loop drain intothe bladder through the percutaneous tract. A 12 Bulgarian locking loop drain would not advance into the bladder.Postplacement imaging demonstrated satisfactory position and function ofthe locking loop drain. The transurethral Barger was removed. No immediatecomplication. PREPROCEDURE: Patient seen, evaluated, history reviewed, and approved forsedation. Airway, heart, and lung exam satisfactory for sedation.Discussed risks, benefits, alternatives for procedure, and/or sedation.The roles and responsibilities of care team members, residents, and fellows were discussed. Patient understandsinformation and questions answered. Informed consent obtained from thepatient. Immediately prior to starting the procedure, in the presence ofthe assisting personnel, a procedural pause was conducted to verify correct patient identity and verificationof procedure to be performed, and as applicable, correct side and site,correct patient position, availability of implants, special equipment, orspecial requirements, and all image and specimen identification data. INTRAPROCEDURE: Moderate sedation was administered by sedation nurse undermy supervision. The patient was continuously monitored with real timeoxygen saturation, heart rate, ECG rhythm strip and blood pressurethroughout administration of the sedation and performance of the procedure. The total intra-procedural sedation timewas: 45 minutes. IMPRESSION: Placement of a 10 Bulgarian suprapubic catheter. The transurethral Foleycatheter was removed. A larger caliber suprapubic catheter could not be placed due to dense scartissue. We could attempt to upsize the locking loop drain sequentiallyover the next few exchanges. 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 May repeat every 3 minutes to a maximum of 150 mcg, until pain score of 3 or less, or until the patient meets the pain comfort goal., Starting on Mon04/11/23 at 1218, For 3 hours, Intraprocedure (RAD), Do not give if respiratory rate is less than 8 breaths/minute. Given 04/11/2023 1:01 PM RECEIVING DOCK CHECKER 25 mcg Given 04/11/2023 12:54 PM RECEIVING DOCK CHECKER 25 mcg Given 04/11/2023 12:50 PM RECEIVING DOCK CHECKER 25 mcg flumazeniL injection 0.2 mg (ROMAZICON) 0.2 mg, intravenous, Once as needed, reversal, Starting on Mon04/11/23 at 1218, For 1 dose, Intraprocedure (RAD), Administer once if patient has a RASS score of -4, -5 and has a respiratory rate less than 8 breaths/minute. iohexoL 300 mg iodine/mL solution (OMNIPAQUE) As needed, Starting on Mon04/11/23 at 1315, Intra-Op Given 04/11/2023 1:15 PM RECEIVING DOCK CHECKER 80 mL lidocaine-sodium bicarbonate (buffered) 0.9%-8.4% injection infiltration, As needed, Starting on Mon04/11/23 at 1315, Intra-Op Given 04/11/2023 1:15 PM RECEIVING DOCK CHECKER 8 mL NaCl 0.9% infusion 20 mL/hr, intravenous, Once as needed, to keep vein open, Starting on Mon04/11/23 at 1218, For 1 dose, Intraprocedure (RAD) naloxone injection 0.2 mg (NARCAN) 0.2 mg, intravenous, Once as needed, respiratory depression, Starting on Mon04/11/23 at 1218, For 1 dose, Intraprocedure (RAD), Administer once if patient has a RASS score of -4, -5 and has a respiratory rate less than 8 breaths/minute. remimazolam injection 1.25 mg (BYFAVO) 1.25 mg, intravenous, Every 2 min PRN, sedation, If RASS greater than -3, give additional dose(s) of 1.25 mg IV every 2 minute for a maximum of 10 mg., Starting on Mon04/11/23 at 1218, For 3 hours, Intraprocedure (RAD), Administer over 15 seconds. Do not give if respiratory rate is less than 8 breaths/minute. incompatible with Lactated Ringers, flush before and after each dose with Normal Saline Reconstitute with 8.2 mL NS to a final concentration of 2.5 mg/mL., Restriction Criteria (Pharmacy will review and approve if criteria met): Use in procedural areas, operating rooms, and during transport within the operating room areas Given 04/11/2023 1:10 PM RECEIVING DOCK CHECKER 1.25 mg Given 04/11/2023 1:06 PM RECEIVING DOCK CHECKER 1.25 mg Given 04/11/2023 1:00 PM RECEIVING DOCK CHECKER 1.25 mg remimazolam injection 2.5 mg (BYFAVO) 2.5 mg, intravenous, Once, On Mon04/11/23 at 1245, For 1 dose, Intraprocedure (RAD), Administer over 1 minute, incompatible with Lactated Ringers, flush before and after each dose with Normal Saline Reconstitute with 8.2 mL NS to a final concentration of 2.5 mg/mL., Restriction Criteria (Pharmacy will review and approve if criteria met): Use in procedural areas, operating rooms, and during transport within the operating room areas Given 04/11/2023 12:25 PM RECEIVING DOCK CHECKER 2.5 mg sodium chloride 0.9 % injection 10 mL 10 mL, intravenous, As needed, line care, Starting on Mon04/11/23 at 1218, Intraprocedure (RAD), Peripheral Intravenous Catheter and Rapid Infusion Catheter, prior to blood sampling, post blood transfusion or post blood sampling sodium chloride 0.9 % injection 3 mL 3 mL, intravenous, As needed, line care, Starting on Mon04/11/23 at 1218, Intraprocedure (RAD), Prior to and following infusion and between multiple consecutive infusions: sodium chloride 0.9 % injection sodium chloride 0.9 % injection 3 mL 3 mL, intravenous, Every 12 hours scheduled, First dose on Mon04/11/23 at 2100, Intraprocedure (RAD), Peripheral Intravenous Catheter and Rapid Infusion Catheter, when no infusion to maintain patency sulfamethoxazole-trimethoprim 800-160 mg per tablet 1 tablet (BACTRIM DS) 1 tablet, oral, Once, On Mon04/11/23 at 1145, For 1 dose, Preprocedure (RAD), Drug Monitoring Program: Pharmacist to adjust medication dosing based on indication and drug clearance factors., Indications: Prophylaxis, surgical Given 04/11/2023 11:49 AM RECEIVING DOCK CHECKER 1 tablet documented in this encounter Active and Recently Administered Medications Times are shown in RECEIVING DOCK CHECKER. Scheduled Medication Order 04/09/2023 04/10/2023 04/11/2023 remimazolam injection 2.5 mg (BYFAVO) (COMPLETED) 2.5 mg, intravenous, Once, On Mon04/11/23 at 1245, For 1 dose, Intraprocedure (RAD), Administer over 1 minute, incompatible with Lactated Ringers, flush before and after each dose with Normal Saline Reconstitute with 8.2 mL NS to a final concentration of 2.5 mg/mL., Restriction Criteria (Pharmacy will review and approve if criteria met): Use in procedural areas, operating rooms, and during transport within the operating room areas 1225 (Given - Provid er: Ravinder Negro R.N.) sodium chloride 0.9 % injection 3 mL 3 mL, intravenous, Every 12 hours scheduled, First dose on Mon04/11/23 at 2100, Intraprocedure (RAD), Peripheral Intravenous Catheter and Rapid Infusion Catheter, when no infusion to maintain patency sulfamethoxazole-trimethoprim 800-160 mg per tablet 1 tablet (BACTRIM DS) (COMPLETED) 1 tablet, oral, Once, On Mon04/11/23 at 1145, For 1 dose, Preprocedure (RAD), Drug Monitoring Program: Pharmacist to adjust medication dosing based on indication and drug clearance factors., Indications: Prophylaxis, surgical 1149 (Given - Provid er: Jamila Mooney R.N.) PRN Medication Order 04/09/2023 04/10/2023 04/11/2023 fentaNYL injection 25 mcg (SUBLIMAZE) (CANCELED) 25 mcg, intravenous, As needed, severe pain or score 7-10 of 10, moderate pain or score 4-6 of 10, Administer over 1 minute immediately prior to the procedure. May repeat every 3 minutes to a maximum of 150 mcg, until pain score of 3 or less, or until the patient meets the pain comfort goal., Starting on Mon04/11/23 at 1218, For 3 hours, Intraprocedure (RAD), Do not give if respiratory rate is less than 8 breaths/minute. 1224 (Given - Provid er: Ravinder Negro R.N.)1227 (Given - Provider: Ravinder Negro R.N.)1232 (Given - Provider: Ravinder Negro R.N.)1236 (Given - Provider: Ravinder Negro R.N.)1240 (Given - Provider: Ravinder Negro R.N.)1250 (Given - Provider: Ravinder Negro R.N.)1254 (Given - Provider: Ravinder Negro R.N.)1301 (Given - Provider: Ravinder Negro R.N.) flumazeniL injection 0.2 mg (ROMAZICON) 0.2 mg, intravenous, Once as needed, reversal, Starting on Mon04/11/23 at 1218, For 1 dose, Intraprocedure (RAD), Administer once if patient has a RASS score of -4, -5 and has a respiratory rate less than 8 breaths/minute. iohexoL 300 mg iodine/mL solution (OMNIPAQUE) (COMPLETED) As needed, Starting on Mon04/11/23 at 1315, Intra-Op 1315 (Given - Provid er: Erwin Montes De Oca M.D.) lidocaine-sodium bicarbonate (buffered) 0.9%-8.4% injection (COMPLETED) infiltration, As needed, Starting on Mon04/11/23 at 1315, Intra-Op 1315 (Given - Provid er: Erwin Montes De Oca M.D.) NaCl 0.9% infusion 20 mL/hr, intravenous, Once as needed, to keep vein open, Starting on Mon04/11/23 at 1218, For 1 dose, Intraprocedure (RAD) naloxone injection 0.2 mg (NARCAN) 0.2 mg, intravenous, Once as needed, respiratory depression, Starting on Mon04/11/23 at 1218, For 1 dose, Intraprocedure (RAD), Administer once if patient has a RASS score of -4, -5 and has a respiratory rate less than 8 breaths/minute. remimazolam injection 1.25 mg (BYFAVO) (CANCELED) 1.25 mg, intravenous, Every 2 min PRN, sedation, If RASS greater than -3, give additional dose(s) of 1.25 mg IV every 2 minute for a maximum of 10 mg., Starting on Mon04/11/23 at 1218, For 3 hours, Intraprocedure (RAD), Administer over 15 seconds. Do not give if respiratory rate is less than 8 breaths/minute. incompatible with Lactated Ringers, flush before and after each dose with Normal Saline Reconstitute with 8.2 mL NS to a final concentration of 2.5 mg/mL., Restriction Criteria (Pharmacy will review and approve if criteria met): Use in procedural areas, operating rooms, and during transport within the operating room areas 1230 (Given - Provid er: Ravinder Negro R.N.)1233 (Given - Provider: Ravinder Negro R.N.)1236 (Given - Provider: Ravinder Negro R.N.)1239 (Given - Provider: Ravinder Negro R.N.)1243 (Given - Provider: Ravinder Negro R.N.)1246 (Given - Provider: Ravinder Negro R.N.)1250 (Given - Provider: Ravinder Negro R.N.)1253 (Given - Provider: Ravinder Negro R.N.)1257 (Given - Provider: Ravinder Negro R.N.)1300 (Given - Provider: Ravinder Negro R.N.)1306 (Given - Provider: Ravinder Negro R.N.)1310 (Given - Provider: Ravinder Negro R.N.) sodium chloride 0.9 % injection 10 mL 10 mL, intravenous, As needed, line care, Starting on Mon04/11/23 at 1218, Intraprocedure (RAD), Peripheral Intravenous Catheter and Rapid Infusion Catheter, prior to blood sampling, post blood transfusion or post blood sampling sodium chloride 0.9 % injection 3 mL 3 mL, intravenous, As needed, line care, Starting on Mon04/11/23 at 1218, Intraprocedure (RAD), Prior to and following infusion and between multiple consecutive infusions: sodium chloride 0.9 % injection documented in this encounter Care Teams Internet Marketing Coordinator Relationship Specialty Start Date End Date Elsewhere, Pcp PCP - General Internal Medicine 12/29/21 documented as of this encounter
--- OUTSIDE RECORDS SUMMARY | 2023-07-20 06:27 | XMS_ITS | Encounter Summary ---
Author Name Unknown Organization [facility] Address [address] [place] [address] Care Team Providers Care Billing Assistant Name Role Phone Elsewhere, Pcp Primary Care Provider Unavailabl e Encounter Details Date Type Department Care Team ([facility] st Contact Info) Description 04/28/2023 Documentation Preoperative Evaluation Center in [place], [place] [address] [place] [phone] Mojgan Cutler, [facility] [address] [place] [phone] Social History Tobacco Use Types Packs/Day Years Used Date Smoking Tobacco: Former Cigarettes 1 6 - 1993 Passive Smoke Exposure: Never Smokeless [...] often do you attend chur ch or mandaeism services? 1 to 4 times per year 10/13/2021 Do you belong to any clubs o r organizations such as spiritism groups, unions, fraternal or athletic groups, or [...] care, and heating? Not very hard 10/13/2021 [facility] of Occupat ional Health - Occupational [...] place to sleep or slept in a long-term (including now)? No 10/13/2021 Nutrition Answer Date [...] as of this encounter Progress Notes * Mojgan Cutler MPAS, P.A.-C. - 04/28/2023 2:58 PM CST This is a [facility] pre-screening chart review to ascertain if a [facility] appointment is necessary. A comprehensive review of [facility] EMR was performed. We reviewed Care Everywhere and Documents Viewer or primary care or specialty care notes, laboratory testing, cardiac testing with in the last6 months and prior anesthesia encounters. Based on the EMR review, the patient is an acceptable candidate for the planned procedure and may proceed without additional preoperative evaluation or testing. The patient was not seen in [facility]. Patient underwent general anesthesia at [facility] in 03/2023. See anesthesia pre/post procedural notes dated for more details. Please call [phone] ([facility] Doc of the day) weekdays between 8 am and 4:30 pm with any questions. ER TENDER documented in this encounter Plan of Treatment Upcoming Encounters Date Type Department Care Team (Late st Contact Info) Description 09/04/2023 9:30 AM CDT Procedure visit Department of Urology in [place], [place] [address] [place] [phone] Finesse Lmi M.D. [address] [place] [phone] 09/04/2023 10:30 AM CDT Office Visit Department of Urology in [place], [place] [address] [place] [address] Finesse Lim M.D. [address] [place] [phone] documented as of this encounter Visit Diagnoses Not on filedocumented in this encounter Care Teams Billing Assistant Relationship Specialty Start Date End Date Elsewhere, Pcp PCP - General Internal Medicine 12/29/21 documented as of this encounter
--- OUTSIDE RECORDS SUMMARY | 2023-07-20 06:27 | XMS_ITS | Encounter Summary ---
Author Name Unknown Organization [facility] Address [address] [place] [address] Care Team Providers Care Clinical Tech Name Role Phone Elsewhere, Pcp Primary Care Provider Unavailabl e Encounter Details Date Type Department Care Team ([facility] st Contact Info) Description 04/11/2023 Orders Only Department of Urology in [place], [place] [address] [place] [phone] Shola Goddard M.D. [address] [place] [phone] Social History Tobacco Use Types Packs/Day Years Used Date Smoking Tobacco: Former Cigarettes 1 6 1 988 - 1993 Passive Smoke Exposure: Never [...] often do you attend chur ch or confucianist services? 1 to 4 times per year 10/13/2021 Do you belong to any clubs o r organizations such as judaism groups, unions, fraternal or athletic groups, or [...] care, and heating? Not very hard 10/13/2021 [facility] - Occupational Stress Questionnaire Answer Date [...] to sleep or slept in a senior living (including now)? No 10/13/2021 Nutrition Answer Date [...] CDT Procedure visit Department of Urology in [place], [place] [address] [place] [phone] Finesse Lim M.D. [address] [place] [address] 09/04/2023 10:30 AM CDT Office Visit Department of Urology in [place], [place] [address] [place] [address] Finesse Lim M.D. [address] [place] [phone] documented as of this encounter Visit Diagnoses Not on filedocumented in this encounter Care Teams Clinical Tech Relationship Specialty Start Date End Date Elsewhere, Pcp PCP - General Internal Medicine 12/29/21 documented as of this encounter
--- OUTSIDE RECORDS SUMMARY | 2023-07-20 06:27 | XMS_ITS | Encounter Summary ---
Author Name Unknown Organization [facility] Address [address] [place] [address] Care Team Providers Care Behavioral Consultant Name Role Phone Elsewhere, Pcp Primary Care Provider Unavailabl e Reason for Referral * Outpatient (Routine) - Closed Specialty Diagnoses / Procedures Referred By Contac t Referred To Contact Diagnoses Incontinence Urinary Stress Male Procedures Cystoscopy (specific provider) Finesse Lim M.D. [address] [place] [phone] Finesse Lim M.D. [address] [place] [phone] Referral ID Status Reason Start Date Expiration Date Visits Re quested Visits Authorized [id number] Closed 04/13/2023 04/12/2024 1 1 ED SERVICES ANALYST Reason for Visit * Outpatient (Routine) - Closed Specialty Diagnoses / Procedures Referred By Contac t Referred To Contact Urology Finesse Lim M.D. [address] [place] [phone] Finesse Lim M.D. [address] [place] [phone] Referral ID Status Reason Start Date Expiration Date Visits Re quested Visits Authorized [id number] Closed 04/12/2023 04/11/2026 1 1 Encounter Details Date Type Department Care Team (Late st Contact Info) Description 04/13/2023 10:30 AM HOSTED SERVICES ANALYST Office Visit Department of Urology in [place], [place] 200 [place] [address] Finesse Lim M.D. 200 [place] [phone] Incontinence Urinary Stress Male (Primary Dx) Social History Tobacco Use Types Packs/Day Years Used Date Smoking Tobacco: Former Cigarettes 1 6 1 8 - 1993 Passive Smoke Exposure: Never Smokeless [...] any clubs o r organizations such as sabianism groups, unions, fraternal or athletic groups, or [...] care, and heating? Not very hard 10/13/2021 [facility] [place] of Occupat ional Health - Occupational Stress [...] place to sleep or slept in a care home (including now)? No 10/13/2021 Nutrition Answer [...] as of this encounter Progress Notes * Shola Goddard M.D. - 04/13/2023 10:[address] 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 We then had an SP tube placed. We brought him today, it was very difficult but we think we activate his sphincter, we then capped his suprapubic tube as we would like urine to start coursing across the anastomotic contracture thatwe dilated to prevent significant scar formation. He will keep us updated regarding how much he is leaking, how he is doing with the suprapubic tube capped we discussed if he runs into retention again he can just unclamp the suprapubic tube PLAN We think we activated his THANIA We capped his SPT He will keep us updated on the portal We should meet with him again ED SERVICES ANALYST documented in this encounter Miscellaneous Notes * Addendum Note - Aida Foster M.S.N., R.N. - 04/13/2023 10:30 AM CSTAddended by: AIDA FOSTER on: 04/13/2023 11:42 AM Modules accepted: Orders ED SERVICES ANALYST documented in this encounter Plan of Treatment Upcoming Encounters Date Type Department Care Team (Late st Contact Info) Description 09/04/2023 9:30 AM CDT Procedure visit Department of Urology in [place], [place] [address] [place] [phone] Finesse Lim M.D. [address] [place] [phone] 09/04/2023 10:30 AM CDT Office Visit Department of Urology in [place], [place] [address] [place] [address] Finesse Lim M.D. [address] [place] [phone] documented as of this encounter Results * Cystoscopy (specific provider) (04/27/2023 1:30 PM HOSTED SERVICES ANALYST) Narrative Shola Goddard M.D. - 04/27/2023 1:30 PM HOSTED SERVICES ANALYST Shola Goddard M.D. ? 04/27/2023 ??2:58 PM Cystoscopy (specific provider) Performed by: Shola Goddard M.D. Authorized by: Finesse Lim M.D. ?? Finesse Lim M.D. UROLOGY ORDERABLES documented in this encounter Visit Diagnoses Diagnosis Incontinence Urinary Stress Male- Primary Incontinence Urinary Stress Male documented in this encounter Care Teams Behavioral Consultant Relationship Specialty Start Date End Date Elsewhere, Pcp PCP - General Internal Medicine 12/29/21 documented as of this encounter
--- OUTSIDE RECORDS SUMMARY | 2023-07-20 06:27 | XMS_ITS | Encounter Summary ---
Author Name Unknown Organization [facility] Address [address] [place] [address] Care Team Providers Care Mechanism Assembler Name Role Phone Elsewhere, Pcp Primary Care Provider Unavailabl e Encounter Details Date Type Department Care Team (Late st Contact Info) Description 05/26/2023 1:43 PM GENERAL LABOR Anesthesia Event Department of Radiology in [place], [place] [address] [place] [phone] Davie White APRN, JEWELER APPRENTICE, DNAP [address] [place] [phone] Ravinder Parada M.D. [address] [place] [phone] Anesthesia Record Procedure Summary Procedure Name Responsible Anesthesiologist Anesthesia Start Time Anesthesia Stop Time IR SUPRAPUBIC CATHETER EXCHANGE Davie White APRN, JEWELER APPRENTICE, DNAP 05/26/23 1343 05/26/23 1426 Events Date Time Event Comment 05/26/2023 1343 An Start Machine/Equipme nt Checked Infection Precautions Followed Procedure/Site Verified NPO Status Verified Supine Standard ASA Monitors Applied 1350 Turnover to Proceduralist 1402 Anesthesia Time Out 1402 Proc Start 1410 Proc Fin 1413 Turnover to ANE Staff 1417 an stop data 1426 An End I completed my handoff to the receiving staff during which we 1. Identified the patient 2. Identified the responsible provider 3. Reviewed the pertinent medical history 4. Discussed the surgical course 5. Reviewed intra-op anesthesia management and issues during anesthesia 6. Set expectations for post-procedure period 7. Allowed opportunity for questions and acknowledgement of understanding. Meds Name Total fentaNYL PF injection 50 mcg/mL 50 mcg ketamine 10 mg/mL injection 20 mg lidocaine 2% (mg) injection 60 mg ondansetron PF 4 mg/2 mL injection 4 mg propofol 10 mg/mL infusion 242.32 mg remimazolam 2.5 mg/mL injection 3 mg gentamicin in NaCl 0.9 % (iso osm) IVPB 160 mg (GARAMYCIN) 160 mg flumazenil 0.1 mg/mL injection 0.3 mg Lactated Ringers Free Drip 200 mL * Agents No agents on file. * Blood No blood administrations on file. Lines, Drains, and Airways Type Details Placement Removal Peripheral IV Placement Date: 04/19; Placement Time: 1244; Catheter Size: 20 G; Orientation: Right; Location: Hand; Site Prep: Chlorhexidine (Preferred); Technique: Anatomical landmarks; Inserted by: RB; Insertion Attempts: 1 05/26/23 1244 by Juliet Mccann RWendy Indwelling Urinary Catheter Placement Date: 04/07/23; Placement Time: 1521; Inserted by: Dr. Goddard; Type: Latex; Size: 14 Fr.; Balloon Size: 5 mL (filled with 10 ml sterile water); Urine Returned: Yes; Removal Date: 07/03/23; Removal Reason: No longer in place 04/07/23 1521 by Emily Ferrell RLeathaNLeatha 07/03/23 0000 by Ciarra Burgos RWendy Suprapubic Catheter 04/11/23; 1241; 10 F r.; Other (Comment) (Exchanging for larger catheter size) 04/11/23 1241 by Jamila Jones RLeathaNLeatha 05/26/23 1405 by Tennille Macias RWendy Suprapubic Catheter 05/26/23; 1407; 16 Fr. 05/25 1407 by Tennille Macias R.N. 07/03/23 0000 by Ciarra Burgos RWendy documented in this encounter Social History Tobacco [...] How often do you attend chur or buddhism services? 1 to 4 times per year 10/13/2021 Do you belong to any clubs o r organizations such as congregation groups, unions, fraternal or athletic groups, or [...] care, and heating? Not very hard 10/13/2021 [facility] of Occupat ional Health - Occupational Stress [...] place to sleep or slept in a detention (including now)? No 10/13/2021 Nutrition Answer Date [...] OR Notes * Anesthesia Postprocedure Evaluation - Davie White APRN, CRNA, DNAP - 05/26/2023 2:26 PM CST Patient: Jose Gonzalez Procedure Summary Date: 05/26/23 Room / Location: Department of Radiology in [place], [place] Anesthesia Start: 1343 Anesthesia Stop: 1426 Procedure: IR SUPRAPUBIC CATHETER EXCHANGE Diagnosis: Incontinence Urinary Stress Male Incontinence Urinary Stress Male (Suprapubic catheter exchange- Please up size this to a 16 solomon islander) Scheduled Providers: Christiano Bergman M.D.; Cecilia Baires M.D. Responsible Provider: Renetta White APRN, CRNA, DNAP Anesthesia Type: MAC ASA Status: 3 Anesthesia Type: MAC Last vitals Vitals Value Taken Time BP Temp Pulse Resp SpO2 Please reference Vitals flowsheet for most recent vital signs. Anesthesia Post Evaluation Patient Disposition: dismissal Cardiovascular status: hemodynamics (HR & BP) acceptable Respiratory status: patent airway with spontaneous effort Temperature: normothermic Oxygen requirements: room air Level of consciousness: awake Pain score: pain adequately controlled and/or at baseline Post Op nausea/vomiting: none Hydration status: euvolemic RAL LABOR * Anesthesia Preprocedure Evaluation - Ravinder Parada M.D. - 05/26/2023 12:09 PM CST Preprocedure Anesthesia & H&P Assessment Procedure Summary Date/Time: 05/26/23 1100 Scheduled providers: Christiano Bergman M.D.; Cecilia Baires M.D. Procedure: IR SUPRAPUBIC CATHETER EXCHANGE Diagnosis: Incontinence Urinary Stress Male [N39.3] Incontinence Urinary Stress Male [N39.3] Indications: Suprapubic catheter exchange- Please up size this to a 16 solomon islander Location: Department of Radiology in [place], [place] Pertinent components of the patient's history including [...] (HCC) OBJECTIVE PHYSICAL EXAMINATION Airway (HEENT) Mallampati: II TM Distance: >3 FB Neck ROM: Limited Mouth Opening: >3 cm Upper Lip Bite Test Class: I Cardiovascular Rhythm: Regular Rate: Normal Cardiovascular Assessment: cardiovascular normal Functional Capacity: >4 METS Pulmonary Pulmonary Assessment: Clear General / Constitutional Constitutional Assessment: Obese General State of Health:: calm Neurological Neurologic Assessment: alert ASSESSMENT / PLAN ANESTHESIA PLAN ASA: 3 Anesthesia Plan: MAC Patient seen and allergies reviewed, anesthesia plan and risks discussed directly with patient /legal guardian or through an home manager. Risks/Benefits/Alternatives of Blood transfusion discussed with patient / legal guardian, includingan opportunity to ask questions and/or decline some or all transfusion therapies. The patient / legal guardian consented to the use of all blood products, as deemed medically necessary Approval to Proceed: approved for anesthesia RAL LABOR documented in this encounter Plan of Treatment Upcoming Encounters Date Type Department Care Team (Late st Contact Info) Description 09/04/2023 9:30 AM CDT Procedure visit Department of Urology in [place], [place] [address] [place] [address] Finesse Lim M.D. [address] [place] [phone] 09/04/2023 10:30 AM CDT Office Visit Department of Urology in [place], [place] [address] [place] [phone] Finesse Lim M.D. [address] [place] [phone] documented as of this encounter Visit Diagnoses Not on filedocumented in this encounter Administered Medications Inactive Administered Medications - up to 3 most recent administrations Medication Order MAR Action Action Date Dose Rate Site fentaNYL injection (SUBLIMAZE) intravenous, As needed, Starting on Mon05/26/23 at 1408, Anesthesia Intra-op Given 05/26/2023 2:08 PM GENERAL LABOR 25 mcg Given 05/26/2023 2:03 PM GENERAL LABOR 25 mcg flumazeniL injection (ROMAZICON) intravenous, As needed, Starting on Mon05/26/23 at 1422, Anesthesia Intra-op Given 05/26/2023 2:22 PM GENERAL LABOR 0.3 mg gentamicin in NaCl 0.9 % (iso osm) IVPB 160 mg (GARAMYCIN) 160 mg, intravenous, at 200 mL/hr, Administer over 30 Minutes, Once, On Mon05/26/23 at 1400, For 1 dose, Drug Monitoring Program: Pharmacist to adjust medication dosing based on indication and drug clearance factors., Indications: Prophylaxis, surgical Given 05/26/2023 1:58 PM GENERAL LABOR 160 mg ketamine injection (KETALAR) intravenous, As needed, Starting on Mon05/26/23 at 1344, Anesthesia Intra-op Given 05/26/2023 1:49 PM GENERAL LABOR 10 mg Given 05/26/2023 1:44 PM GENERAL LABOR 10 mg Lactated Ringer's intravenous, Continuous Infusion: Per Instructions PRN, Starting on Mon05/26/23 at 1342, Anesthesia Intra-op New Bag 05/26/2023 1:42 PM GENERAL LABOR lidocaine (PF) (cardiac) injection intravenous, As needed, Starting on Mon05/26/23 at 1344, Anesthesia Intra-op Given 05/26/2023 1:44 PM GENERAL LABOR 60 mg ondansetron (PF) injection (ZOFRAN) intravenous, As needed, Starting on Mon05/26/23 at 1411, Anesthesia Intra-op Given 05/26/2023 2:11 PM GENERAL LABOR 4 mg propofol 10 mg/mL infusion (DIPRIVAN) intravenous, Continuous Infusion: Per Instructions PRN, Starting on Mon05/26/23 at 1343, Anesthesia Intra-op Rate/Dose Change 05/26/2023 2:05 PM GENERAL LABOR 50 mcg/kg/min 47.67 mL/hr Rate/Dose Change 05/26/2023 2:00 PM GENERAL LABOR 25 mcg/kg/min 23.8 35 mL/hr Rate/Dose Change 05/26/2023 1:53 PM GENERAL LABOR 50 mcg/kg/min 47.6 7 mL/hr remimazolam injection (BYFAVO) intravenous, As needed, Starting on Mon05/26/23 at 1353, Anesthesia Intra-op Given 05/26/2023 2:03 PM GENERAL LABOR 1 mg Given 05/26/2023 1:59 PM GENERAL LABOR 1 mg Given 05/26/2023 1:53 PM GENERAL LABOR 1 mg documented in this encounter Care Teams Mechanism Assembler Relationship Specialty Start Date End Date Elsewhere, Pcp PCP - General Internal Medicine 12/29/21 documented as of this encounter
--- OUTSIDE RECORDS SUMMARY | 2023-07-20 06:27 | XMS_ITS | Encounter Summary ---
Author Name Unknown Organization [facility] Address [address] [place] [address] Care Team Providers Care Director [employer] Name Role Phone Elsewhere, Pcp Primary Care Provider Unavailabl e Reason for Referral * Outpatient (Routine) - Closed Specialty Diagnoses / Procedures Referred By Contac t Referred To Contact Radiology Diagnoses Incontinence Urinary Stress Male Procedures IR Suprapubic Catheter Exchange Shola Goddard M.D. [address] [place] [phone] [facility] Referral ID Status Reason Start Date Expiration Date Visits Re quested Visits Authorized [id number] Closed 04/27/2023 04/26/2024 1 1 R WRAPPING MACHINE OPERATOR Encounter Details Date Type Department Care Team (Late st Contact Info) Description 04/27/2023 Clinical Communication Department of Urology in [place], [place] [address] [place] [phone] Finesse Lim M.D. [address] [place] [phone] Social History Tobacco Use Types Packs/Day Years [...] How often do you attend chur or spiritism services? 1 to 4 times per year [...] care, and heating? Not very hard 10/13/2021 [facility] [place] of Occupat ional Health - Occupational Stress [...] place to sleep or slept in a half-way (including now)? No 10/13/2021 Nutrition Answer Date [...] CDT Procedure visit Department of Urology in [place], [place] [address] [place] [address] Finesse Lim M.D. [address] [place] [address] 09/04/2023 10:30 AM CDT Office Visit Department of Urology in [place], [place] [address] [place] [address] Finesse Lim M.D. [address] [place] [address] documented as of this encounter Results * IR Suprapubic Catheter Exchange (05/26/2023 2:15 PM PAPER WRAPPING MACHINE OPERATOR) Anatomical Region Laterality Modality Abdomen, Pelvis, Vascular In terventional RST LOS, Vascular Interventional ARZ LOS, Vascular Interventional FLA LOS N/A X-Ray Angiography Impressions 05/26/2023 2:58 PM PAPER WRAPPING MACHINE OPERATOR Uncomplicated suprapubic catheter upsizing to a 16 [place]an [place] tip Kerr catheter. 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 Request for upsizing of suprapubic catheter. TECHNIQUE: The suprapubic pigtail catheter was prepped and draped in sterile fashion. 1% lidocaine was used for local anesthesia. Fine Arts Chair film shows expected position. Dilute contrast was injected through the patent catheter to confirm intraluminal position and slightly distend the bladder. The catheter was removed over an .035 Nitrex wire. The inner dilator from a 20 Chilean peel-away sheath was used to dilate the tract. The peel-away portion was then reassembled and advanced over the wire into the bladder. A 16 [place] tip Kerr catheter was then advanced over [...] 1% lidocaine was used for local anesthesia. Fine Arts Chair filmshows expected position. Dilute contrast was injected through the patentcatheter to confirm intraluminal position and slightly distend the bladder. The catheter was removed overan .035 Nitrex wire. The inner dilator from a 20 Chilean peel-away sheathwas used to dilate the tract. The peel-away portion was then reassembledand advanced over the wire into the bladder. A 16 [place] tip Kerr catheter was then advanced overthe [...] Uncomplicated suprapubic catheter upsizing to a 16 [place] Ho-Chunk tipFoley catheter. EP Shola CLEMENTS IR PROCEDURES documented in this encounter Visit Diagnoses Diagnosis Incontinence Urinary Stress Male- Primary Incontinence Urinary Stress Male documented in this encounter Care Teams Director [employer] Relationship Specialty Start Date End Date Elsewhere, Pcp PCP - General Internal Medicine 12/29/21 documented as of this encounter
--- OUTSIDE RECORDS SUMMARY | 2023-07-20 06:27 | XMS_ITS | Encounter Summary ---
Author Name Unknown Organization [facility] Address [address] [place] [address] Care Team Providers Care Equipment Installation Professional Name Role Phone Elsewhere, Pcp Primary Care Provider Unavailabl e Reason for Visit * Reason Comments Urinary Retention Encounter Details Date Type Department Care Team ([facility] st Contact Info) Description 04/10/2023 6:50 PM DIRECTOR MEDICAL AFFAIRS - 04/10/2023 9:46 PM DIRECTOR MEDICAL AFFAIRS Emergency [facility] Emergency Department [address] [place] [phone] Ten Brock M.D. [address] [place] [phone] Retention Urinary (Primary Dx) Discharge Disposition: Home or Self Care Social History Tobacco Use Types Packs/Day Years Used Date Smoking Tobacco: Former Cigarettes 1 6 8 - 1993 Passive Smoke Exposure: Never [...] How often do you attend chur or taoist services? 1 to 4 times per year 10/13/2021 Do you belong to any clubs o r organizations such as confucianism groups, unions, fraternal or athletic groups, or [...] care, and heating? Not very hard 10/13/2021 [employer] of Occupat ional Health - Occupational Stress [...] place to sleep or slept in a retirement (including now)? No 10/13/2021 Nutrition Answer Date [...] Sign Reading Time Taken Comments Blood Pressure 191/91 04/10/2023 7:09 PM DIRECTOR MEDICAL AFFAIRS Pulse 90 04/10/2023 7:09 PM DIRECTOR MEDICAL AFFAIRS Temperature 36.8 ??C (98.2 ??F) 04/10/2023 7:09 PM CS T Respiratory Rate 16 04/10/2023 7:09 PM DIRECTOR MEDICAL AFFAIRS Oxygen Saturation 97% 04/10/2023 7:09 PM DIRECTOR MEDICAL AFFAIRS Inhaled Oxygen Concentration - - Weight 153 kg (338 lb 3 oz) 04/10/2023 6:[address] Height - - Body Mass Index 48.14 04/07/2023 10:15 AM DIRECTOR MEDICAL AFFAIRS documented in this encounter Discharge Instructions * Discharge Instructions* Daniel Damian M.B., Jm, B.A.O. - 04/10/2023 9:16 PM DIRECTOR MEDICAL AFFAIRS Please complete full 3 day course of Bactrim for prevention of UTI. [facility] documented in this encounter Medications at Time [...] 0.4 mg by mouth daily. 03/24/2022 06/22/2023 trospium (SANCTURA XR) 60 mg 24 hr capsule Take 1 capsule (60 mg total) by mouth every morning before breakfast. 90 capsule 3 03/14/2023 04/11/2023 documented as of this encounter Progress Notes * Ellis Willams IV, M.D. - 04/10/2023 8:58 PM CST I received a call from the emergency department asking to evaluate the patient at the bedside. This is a 73-year-old male with a complicated urologic history. 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 Lim. Most recently, he had artificial urinary sphincter implanted in August of 2022. Following this, he had opted room dilation of his bladder neck contracture on 04/07/2023. He removed his catheter at home today per instruction from Dr. Lim's team. Initially, he leaked,but then has developed urinary retention throughout the course of the day. He is now unable to void. He tried to cycle his device but was unable to and says that the devices locked in the open position. On my exam, body habitus prevents me from feeling his bladder, but he is acutely uncomfortable especially when I press in the suprapubic region. There is urine intermittently dribbling out. I was able to palpate the device and did confirm that it is locked in the deactivated position. I attempted to cycle the device but was unable to. I left it deactivated. I then prepped and draped in the usual sterile fashion and placed a 12 Lebanese coude Kerr catheter, which passed without any resistance whatsoever with immediate return of clear yellow urine. 10 cc of sterile water were placed in the balloon. The patient felt immediate relief. I have sent a message to the primary team to follow-up. Patient is okay to dismiss from the hospital from my perspective. Would dismiss on 3 days of Bactrim given urinary tract instrumentation this evening. I discussed this case with ED it consultant, Dr. Brock. Chemo Willams IV, M.D. [facility] MED[facility] AFFA[facility] documented in this encounter ED Notes * Daniel Damian M.B., B.Ch., B.A.O. 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 More recently underwent a balloon dilatation on 04/07 after presenting for urinary retention. His artificial sphincter was deactivated during this time. He was to remove his Kerr catheter today and turn on his sphincter which he did. Initially did have some leakage. However he has been able to urinate via sphincter since 330 pm. He is insevere 01/03 pain due to urinary retention. History provided by: Patient and relative REVIEW OF SYSTEMS Constitutional: Negative for chills and fever. Respiratory: Negative for cough and shortness of breath. Cardiovascular: Negative for chest pain. OBJECTIVE Initial Vitals Temperature 04/10/23 1909 36.8 ??C Pulse Rate 04/10/23 190 90 Heart Rate -- Resp Rate 04/10/231908 16 Blood Pressure 04/10/23 1909 (!) 191/91 SpO2 04/10/231908 97 % Pain Score 04/10/231924 10 - Worst possible pain PHYSICAL EXAMINATION General: Alert, visibly uncomfortable Abdomen: Suprapubic tenderness. Nondistended. Bowel sounds present. No rebound or guarding Cardiac: S1/S2, no murmurs, gallops or rubs Resp: No respiratory distress. Clear to auscultation without wheezes, crackles, rales. Genital: Buried penis. Mild scrotal swelling bilaterally. ASSESSMENT/PLAN 73 y.o male with complex genitourinary history as reviewed above presenting with urinary retention.Bladders scan showed approximately 590 cc. Urology notified and assessed patient. A Kerr catheter was placed. See urology note for further details of procedure. He had pain relief from insertion of Kerr. Given 3 day course of Bactrim per urology given urinarytract instrumentation. He was discharged home in stable condition. Inpatient urology to notify patient's outpatient team. Final Diagnoses: as of 04/11/23 0050 Retention Urinary Daniel Damian M.B., Jm, B.A.O. Resident 04/11/23 0126 [facility] MED[facility] * Ten Brock M.D. - 04/10/2023 7:35 PM CST SUBJECTIVE CHIEF COMPLAINT/REASON FOR VISIT Urinary Retention HISTORY OF PRESENT ILLNESS He has a 73-year-old male who had an artificial sphincter placed previously by urology. He presentswith urinary retention and significant suprapubic discomfort. REVIEW OF SYSTEMS OBJECTIVE Initial Vitals Temperature 04/10/231908 36.8 ??C Pulse Rate 04/10/231908 90 Heart Rate -- Resp Rate 04/10/231908 16 Blood Pressure 04/10/231908 (!) 191/91 SpO2 04/10/231908 97 % Pain Score 04/10/231924 10 - Worst possible pain PHYSICAL EXAMINATION Constitutional: No distress. HENT: Head: Normocephalic and atraumatic. Mouth/Throat: Mucous membranes are moist. Eyes: Conjunctivae are normal. Pulmonary/Chest: Effort normal. There is normal air entry. No respiratory distress. Abdominal: Significant tenderness in suprapubic area Neurological: Alert. He is not disoriented. Skin: Skin is normal color. Psychiatric: He has a normal mood and affect. ASSESSMENT/PLAN Assessment and Plan We called Urology and they initially said they would be right down to see the patient. However, they have now called back and stated that it will be 20-30 minutes as they are tied up in the operatingroom. We will talk with the patient as he is feeling that he needs to have the bladder drained urgently and offer a suprapubic aspiration versus waiting for urology.. ED Course as of 04/11/23 1130 Mon Apr 10, 20232022 I spoke with urology again, and they state that they will come down now to evaluate the patient. If they can not be here promptly, I have discussed with the patient and we will proceed with a suprapubic aspiration. [address] able to place a urinary catheter. They have requested 3 days of antibiotics and hewill follow-up in the outpatient setting. Final Diagnoses: as of 04/11/23 1130 Retention Urinary I discussed the management of the patient with: Urology. I have personally seen and examined this patient. I have fully participated in the care of this patient. I have reviewed all clinical information including history, physical exam, orders, and plan. Jaguar with the note of the resident. Ten Brock M.D. 04/11/23 1132 [facility] * Tee Pollock R.N. - 04/10/2023 7:11 PM CST Patient had a urethral balloon placement on Monday. He took out his catheter today and cannot urinate. He hasn't urinated since 1300 . Tee Pollock RLeathaN. 04/10/231911 [facility] documented in this encounter Plan of Treatment Upcoming Encounters Date Type Department Care Team (Late st Contact Info) Description 09/04/2023 9:30 AM CDT Procedure visit Department of Urology in [place], [place] [address] [place] [phone] Finesse Lim M.D. [address] [place] [phone] 09/04/2023 10:30 AM CDT Office Visit Department of Urology in [place], [place] [address] [place] [phone] Finesse Lim M.D. [address] [place] [phone] documented as of this encounter Visit Diagnoses Diagnosis Retention Urinary- Primary documented in this encounter Active and Recently Administered Medications Care Teams Equipment Installation Professional Relationship Specialty Start Date End Date Elsewhere, Pcp PCP - General Internal Medicine 12/29/21 documented as of this encounter
--- OUTSIDE RECORDS SUMMARY | 2023-07-20 06:27 | XMS_ITS | Encounter Summary ---
Author Name Unknown Organization [facility] Address [address] [place] [address] Care Team Providers Care Resident Programs Assistant Name Role Phone Elsewhere, Pcp Primary Care Provider Unavailabl e Encounter Details Date Type Department Care Team ([facility] st Contact Info) Description 04/27/2023 Clinical Communication Department of Urology in [place], [place] [address] [place] [phone] Shola Goddard M.D. [address] [place] [phone] Social History Tobacco Use Types Packs/Day Years [...] often do you attend chur ch or faith services? 1 to 4 times per year [...] care, and heating? Not very hard 10/13/2021 [facility]ational Stress Questionnaire Answer [...] place to sleep or slept in a penitentiary (including now)? No 10/13/2021 Nutrition Answer Date [...] AM CDT documented as of this encounter Miscellaneous Notes * Telephone Encounter - Shola Goddard M.D. - 05/03/2023 7:24 AM CST Doesn't need a listing visit, we have had multiple discussions with him If he wants it we can arrange it depending on preference Lashonda Jolley ICATIONS SUPPORT SPECIALIST * Telephone Encounter - Shola Goddard M.D. - 04/27/2023 4:21 PM CST [place], Can you help me arrange Artificial sphincter removal, suprapubic tube exchange, endoscopic buccal urethroplasty on July 02 He will need KONSTANTIN, urine culture Thanks Shola ICATIONS SUPPORT SPECIALIST documented in this encounter Plan of Treatment Upcoming Encounters Date Type Department Care Team (Late st Contact Info) Description 09/04/2023 9:30 AM CDT Procedure visit Department of Urology in [place], [place] [address] [place] [phone] Finesse Lim M.D. [address] [place] [phone] 09/04/2023 10:30 AM CDT Office Visit Department of Urology in [place], [place] [address] [place] [phone] Finesse Lim M.D. [address] [place] [phone] documented as of this encounter Visit Diagnoses Not on filedocumented in this encounter Care Teams Resident Programs Assistant Relationship Specialty Start Date End Date Elsewhere, Pcp PCP - General Internal Medicine 12/29/21 documented as of this encounter
--- OUTSIDE RECORDS SUMMARY | 2023-07-20 06:27 | XMS_ITS | Encounter Summary ---
Author Name Unknown Organization [facility] Address [address] [place] [phone] Care Team Providers Care Consumer Credit Counselor Name Role Phone Elsewhere, Pcp Primary Care Provider Unavailabl e Reason for Visit * Outpatient (Routine) - Closed Specialty Diagnoses / Procedures Referred By Contandry t Referred To Contact Diagnoses Incontinence Urinary Stress Male Procedures Cystoscopy (specific provider) Finesse Lim M.D. 200 [place] [phone] Finesse Lim M.D. [address] [place] [phone] Referral ID Status Reason Start Date Expiration Date Visits Re quested Visits Authorized [id number] Closed 04/13/2023 04/12/2024 1 1 Encounter Details Date Type Department Care Team (Latest Contact Info) Description 04/27/2023 1:30 PM BEAUTY CULTURE TEACHER Procedure visit Department of Urology in [place], [place] [address] [place] [phone] Finesse Lim M.D. [address] [place] [phone] Incontinence Urinary Stress Male Social History Tobacco [...] week 10/13/2021 How often do you attend [facility] or religion services? 1 to 4 times per year 10/13/2021 Do you belong to any clubs o r organizations such as mandaen groups, unions, fraternal or athletic groups, or [...] care, and heating? Not very hard 10/13/2021 [facility] of Occupat ional Health - Occupational Stress [...] place to sleep or slept in a group home (including now)? No 10/13/2021 Nutrition Answer [...] AM CDT documented as of this encounter Patient Instructions * Patient Instructions* Jaqueline Carson R.N. - 04/27/2023 1:30 PM BEAUTY CULTURE TEACHER Care after your cystoscopy Possible blood in your urine You may see some blood the first few times you urinate after the cystoscopy. There could be some small clots of blood in your urine. Or your urine could be pink or light red. These effects are commonafter a cystoscopy. Discomfort For the first day or two after your cystoscopy, you may need to urinate often, and you may have a mild burning feeling while urinating. You also may have mild low abdominal pain for a day. To relievediscomfort, drink two 8-ounce glasses of water each hour for two hours after the test (a total of four glasses in two hours). This will help flush your bladder. To relieve discomfort, if your provider says it???s OK, you may take a warm tub bath for 20 minutes. Or you may hold a clean, warm, moist washcloth over the urethral opening for 20 minutes. Some common pain relievers can affect blood thinning. Examples include aspirin, aspirin-containing products, ibuprofen (Advil, Motrin), and naproxen(Aleve, Naprosyn). Talk with your health care providers about what you can take for pain. Activity Rest for the remainder of the day after your cystoscopy. Gradually return to your usual activity level when you feel able. Diet For the first two days after your cystoscopy, while you are awake, you may find it more comfortableif you drink at least one glass of fluid every one to two hours. This will help flush your bladder.Drink fluids such as water, juice, caffeine-free carbonated beverages and tea. Resume your usual diet after the procedure, unless you are scheduled for more tests or procedures that require a specialdiet. When to get medical help Contact your health care provider right away if you: Are not able to urinate for 6 to 8 hours. Have blood clots or bright red blood in your urine (not pink or rust colored) that lasts for 4 to 5hours despite increased intake of fluids. Have frequent urination with any of the following: - Pain not relieved by increasing fluids. - Chills. - Temperature of 100.4 degrees Fahrenheit (38 degrees Celsius) or higher. Have a burning feeling while urinating on day three or after. TY CULTURE TEACHER documented in this encounter Progress Notes * Jaqueline Carson R.N. - 04/27/2023 1:30 PM CST Patient here for a cystoscopy performed by Dr. Castellon (Rakesh) Edi Lim Cystoscope CYF-VH #[id number] was used during today's cystoscopy procedure. Accessories used: disposable stop cock. Load number from processing via [employer]: [id number] Urines sent: No 4. Was dye used? No TY CULTURE TEACHER documented in this encounter Procedure Notes * Shola Goddard M.D. - 04/27/2023 1:30 PM CSTAssociated Order(s): Cystoscopy (specific provider) Pre-Procedure Diagnose(s): Incontinence Urinary Stress Male Post-Procedure Diagnose(s): Incontinence Urinary Stress Male Cystoscopy (specific provider) Performed by: Shola Goddard M.D. Authorized by: Finesse Lim M.D. 73-year-old gentleman status post artificial sphincter with bladder neck contracture that we dilated on April 07 with the Optilume. He now has a suprapubic catheter in place that he uses as needed, the artificial sphincter has been working for him Cystourethroscopy performed, he has a recurrence of his contracture and we could not bypass this, the sphincter is coapted appropriately and responded well to deactivation. We then placed a wire through the existing suprapubic catheter we then made multiple attempts to dilate the tract and this was unsuccessful, we then tried to advance a 12 Fijian as well as a 14 Fijian catheter and this would not go. We then replaced a wire and then advanced a pigtail Mac-Loc stent Our overall plan will be to arrange IR upsizing at the time of his next exchange if this is unsuccessful we can consider open placement in the OR TY CULTURE TEACHER documented in this encounter Plan of Treatment Upcoming Encounters Date Type Department Care Team (Late st Contact Info) Description 09/04/2023 9:30 AM CDT Procedure visit Department of Urology in [place], [place] [address] [place] [phone] Finsese Lim M.D. [address] [place] [phone] 09/04/2023 10:30 AM CDT Office Visit Department of Urology in [place], [place] [address] [place] [phone] Finesse Lim M.D. [address] [place] [phone] documented as of this encounter Procedures Procedure Name Priority Date/Time Associated Diagnosis Comments URO CYSTOSCOPY (SPECIFIC PROVIDER) Routine 04/27/2023 1:30 PM BEAUTY CULTURE TEACHER Incontinence Urinary Stress Male documented in this encounter Results * Cystoscopy (specific provider) (04/27/2023 1:30 PM BEAUTY CULTURE TEACHER) Narrative Shola Goddard M.D. - 04/27/2023 1:30 PM BEAUTY CULTURE TEACHER Shola Goddard M.D. ? 04/27/2023 ??2:58 PM Cystoscopy (specific provider) Performed by: Shola Goddard M.D. Authorized by: Finesse Lim M.D. ?? Finesse Lim M.D. UROLOGY ORDERABLES documented in this encounter Visit Diagnoses Diagnosis Incontinence Urinary Stress Male documented in this encounter Care Teams Consumer Credit Counselor Relationship Specialty Start Date End Date Elsewhere, Pcp PCP - General Internal Medicine 12/29/21 documented as of this encounter
== END 2023-07-19 09:43 | disposition home or self-care (01) ==
LOC: NFLDREF 07-20 06:23
PROVIDERS: PCP Family Medicine; Referring Provider Family Medicine; Visit Provider Family Medicine
DX: R30.9 Painful micturition, unspecified (principal)
CPT/HCPCS: 81001; 87086; 87186

== ENCOUNTER 2023-07-25 10:41 | Outpatient (CLI) | payer MEDICARE, BC, SELFPAY ==
--- OUTSIDE RECORDS SUMMARY | 2023-07-25 10:46 | XMS_ITS | Encounter Summary ---
Author Name Unknown Organization [facility] Address [address] [place] [phone] Care Team Providers Care Pharmaceutical Development Technician Name Role Phone Elsewhere, Pcp Primary Care Provider Unavailabl e Reason for Visit * Reason Onset Date Comments Follow-up 07/24/2023 Encounter Details Date Type Department Care Team ([facility] st Contact Info) Description 07/24/2023 Clinical Communication [facility] Emergency Department [address] [place] [phone] Valentina Qiu M.S.N., R.N. [address] [place] [phone] Follow-up Social History Tobacco Use Types Packs/Day Years Used Date Smoking Tobacco: Former Cigarettes 1 6 0 03/27/1987 - 03/27/1993 Passive Smoke Exposure: Never Smokeless Tobacco: Never Alcohol Use Standard Drinks/Week Comments Yes 3 (1 standard drink = 0.6 oz pur e alcohol) [facility] Utilities Answer Date Recorded In the past 12 months has e [employer], gas, oil, or water [employer] threatened to shut off services in your [...] How often do you attend chur or quaker services? 1 to 4 times per year 10/13/2021 Do you belong to any clubs o r organizations such as zoroastrianism groups, unions, fraternal or athletic groups, or [...] care, and heating? Not very hard 10/13/2021 [facility] of Occupat ional Health - Occupational Stress [...] living? No 07/03/2023 Nutrition Answer Date Recorded On average, how many serving s of fruits and vegetables do you eat per day (serving size is equal to 1 cup or approximately the size of a tennis ball)? 2-3 10/13/2021 Dental Answer Date Recorded Dental: Regular Dentist Yes 10/14/19 Employment Answer Date Recorded Employment status Retired 10/13/2021 Housing Stability Answer Date Recorded What is your living situation today? I have a [facility] place to live 07/03/2023 Education Answer Date [...] encounter Miscellaneous Notes * Telephone Encounter - Valentina Qiu M.S.N., R.N. - 07/24/2023 8:36 AM CDT Received message from Dr. Maty Matos stating that patient should have his potassium rechecked in 1 week from ED visit. Called and spoke with patient. He states his symptoms have improved greatly since his ED visit. He is taking Bactrim and tolerating this well. His suprapubic tube is draining well with normal coloredurine. He did uncap his Kerr catheter yesterday and drained some red tinged urine then recapped this. The sore on his glans penis has improved and he no longer has pain or pressure. We discussed recommended follow up with his PCP and also potassium check at the end of the week. Patient verbalized understanding of this but also asked that we communicate this to his PCP at [facility], Dr. Burr. Called and spoke with Larisa Verdin at [facility]. I explained patient's ED visit and need for PCPfollow up as well as potassium check at end of week. Larisa Verdin verbalized understanding and states she will follow up on this. Valentina Qiu M.S.N., R.N. 07/24/23 0840 documented in this encounter Plan of Treatment Upcoming Encounters Date Type Department Care Team (Late st Contact Info) Description 09/04/2023 9:30 AM CDT Procedure visit Department of Urology in [place], [place] [address] [place] [phone] Finesse Lim M.D. [address] [place] [phone] 09/04/2023 10:30 AM CDT Office Visit Department of Urology in [place], [place] [address] [place] [phone] Finesse Lim M.D. [address] [place] [phone] documented as of this encounter Visit Diagnoses Not on filedocumented in this encounter Care Teams Pharmaceutical Development Technician Relationship Specialty Start Date End Date Elsewhere, Pcp PCP - General Internal Medicine 12/29/21 documented as of this encounter
--- OUTSIDE RECORDS SUMMARY | 2023-07-25 10:46 | XMS_ITS | Clinical Summary ---
Author Name Unknown Organization [facility] Address [address] [place] [address] Care Team Providers Care Correctional Sergeant Name Role Phone Elsewhere, Pcp Primary Care Provider Unavailabl e Source Comments Patient records contain information from all sites at [facility]. For routine questions regarding patient records, call [phone] during business hours, M-F 8:00 AM - 5:00 PM Central Time. Record requests for emergency care only can be directed to [phone] at any time.[facility] Allergies Active Allergy Reactions Criticality Noted Date [...] tablet Take 40 mg by mouth daily. 01/22/20 21 Active gabapentin (NEURONTIN) 300 mg capsule Take 600 mg by mouth 2 (two) times a day. 04/13/19 22 Active atorvastatin (LIPITOR) 40 mg tablet Take 40 mg by mouth daily. 01/29/20 22 Active LORazepam (ATIVAN) 1 mg tablet Take 1 mg by mouth 3 (three) times a day as needed for anxiety. Active escitalopram (LEXAPRO) 20 mg tablet Take 20 mg by mouth daily. Active DME Urological suppliesIndicat ions:Incontinen ce Urinary DME Order 1 Unspecified 07/08/19 23 Active trospium (SANCTURA XR) 60 mg 24 hr capsule Take 1 capsule (60 mg total) by mouth every morning before breakfast. 90 capsule 3 04/11/19 24 025 Active celecoxib (CeleBREX) 200 mg capsule Take 200 mg by mouth 2 (two) times a day. Active ibuprofen (ADVIL,MOTRIN) 200 mg tablet Take 1 tablet (200 mg total) by mouth every 6 (six) hours as needed for pain. 60 tablet 07/03/19 24 Active diphenhydramine -lidocaine 2 %-antacid (mw) Take 5-10 mL by mouth 4 (four) times a day after meals and bedtime. Hold in mouth for 1 minute.Do not eat or drink for 15-30 minutes after use. 100 mL 3 07/03/19 24 Active acetaminophen (TYLENOL) 500 mg tablet Take 2 tablets (1,000 mg total) by mouth every 6 (six) hours as needed for pain. 30 tablet 07/03/19 24 Active sulfamethoxazol e-trimethoprim (BACTRIM DS) 800-160 mg per tablet Take 1 tablet by mouth every 12 (twelve) hours for 14 days. 28 tablet 07/22/19 24 024 Active diazePAM 5 mg suppository Insert 1-2 suppositories (5-10 mg total) into the rectum 2 (two) times a day for 7 days. 28 suppository 07/22/19 24 024 Active sulfamethoxazol e-trimethoprim (BACTRIM DS) 800-160 mg per tablet Take 1 tablet by mouth 2 (two) times a day for 5 days. 10 tablet 06/28/19 24 024 Discontinued acetaminophen (TYLENOL) 500 mg tablet Take 1 tablet (500 mg total) by mouth every 6 (six) hours as needed for pain. 30 tablet 07/03/19 24 024 Discontinued sulfamethoxazol e-trimethoprim (BACTRIM DS) 800-160 mg per tablet Take 1 tablet by mouth once for 1 dose. On day of catheter removal 1 tablet 07/03/19 24 024 diazePAM 10 mg suppository Insert 1 suppository (10 mg total) into the rectum 3 (three) times a day as needed (for pelvic pain). 10 suppository 07/14/19 24 024 Discontinued(Re order) diazePAM 10 mg suppository Insert 1 suppository (10 mg total) into the rectum 3 (three) times a day as needed (for pelvic pain). 10 suppository 07/14/19 24 024 Discontinued(Re order) diazePAM 10 mg suppository Insert 1 suppository (10 mg total) into the rectum 3 (three) times a day as needed (for pelvic pain). 10 suppository 07/14/19 24 024 Discontinued(Re order) diazePAM 10 mg suppository Insert 1 suppository (10 mg total) into the rectum 3 (three) times a day as needed (for pelvic pain). 10 suppository 07/14/19 24 024 Discontinued(Th erapy completed) Active Problems Problem Noted Date Diagnosed Date [...] Overview: Added automatically from request for surgery [id number] Radiation Therapy Cystitis With Hematuria 2021 Injury Radiation Therapy Initial 03/14/2022 Contracture Bladder Neck 03/10/2022 Overview: Added automatically from request for surgery [id number] Direct Infection Of Right Hi p In [...] Encounters Date Type Department Care Team Description 07/24/2023 Clinical Communication [facility] Emergency Department [address] [place] [phone] Valentina Qiu M.SLeathaN., R.N. Follow-up 07/22/2023 7:23 PM CDT - 07/23/2023 12:10 AM CDT Emergency [facility] Emergency Department [address] [place] [phone] Bryan Doyle M.D., M.A. Cystitis Acute (Primary Dx); Hematuria Discharge Disposition: Home or Self Care 07/14/2023 Orders Only Department of Urology in [address] [place] [address] Chepe Ariza M.D., M.P.H. 07/14/2023 Orders Only Department of Urology in [address] [place] [address] Finesse Lim M.D. 07/14/2023 Orders Only Department of Urology in [address] [place] [address] Chepe Ariza M.D., M.P.H. 07/13/2023 Orders Only Department of Urology in [address] [place] [address] Finesse Lim M.D. 07/03/2023 8:31 AM CDT Anesthesia Event [facility] [address] [place] [facility] [place] [address] Kaiden Crisostomo D.O. 07/03/2023 8:15 AM CDT - 07/03/2023 11:47 AM CDT Surgery [facility] [address] [place] [address] Finesse Lim M.D. REMOVAL ARTIFICIAL GENITOURINARY SPHINCTER 07/03/2023 6:28 AM CDT - 07/04/2023 12:16 PM CDT Hospital Encounter [facility], [facility], Fifth Floor [address] [place] [address] Finesse Lim M.D. Stricture Urethral Postoperative Male (Primary Dx) Discharge Disposition: Home or Self Care 06/26/2023 Clinical Communication Department of Urology in [address] [place] [phone] Finesse Lim M.D. 06/26/2023 Orders Only Department of Urology in [address] [phone] Selene Davis M.D. 06/22/2023 1:00 PM CDT Comprehensive Visit Preoperative Evaluation Center in [address] [address] Finesse Lim M.D. de Forcrand de Coiselet, Claire, M.D. Preoperative Exam (Primary Dx); Anesthesia Complication Personal History; Hypertension Essential Primary; Artificial Urinary Sphincter Status Post; Personal History Of Malignant Neoplasm Of Prostate; Hyperlipidemia; Benign Prostatic Hyperplasia Hypertrophy With Obstruction; Neuropathy Peripheral; Gastroesophageal Reflux Disease; Murmur Heart; Stricture Urethral Postoperative Male 06/22/2023 11:00 AM CDT Lab Department of Urology in [address] [place] [phone] Shola Goddard M.D. Dudley, Kathleen A, R.N. Incontinence Urinary Stress Male 06/20/2023 1:30 PM CDT Clinical Communication Virtual Review in [address] [place] [address] Pre-visit Intake 05/26/2023 1:43 PM FOREIGN BROADCAST SPECIALIST Anesthesia Event Department of Radiology in [address] [place] [phone] Davie White APRN, CRNA, DNAP Hannon, James D, M.D. 05/26/2023 9:44 AM FOREIGN BROADCAST SPECIALIST - 05/26/2023 11:59 PM FOREIGN BROADCAST SPECIALIST Hospital Encounter Department of Radiology in [address] [address] Shola Goddard M.D. McPhail, Ian R, M.D. Weger, Kendal, M.D. Incontinence Urinary Stress Male Discharge Disposition: Home or Self Care 04/28/2023 Documentation Preoperative Evaluation Center in [address] [place] [phone] Mojgan Cutler MPAS, P.A.-C. 04/27/2023 1:30 PM FOREIGN BROADCAST SPECIALIST Procedure visit Department of Urology in [address] [place] [phone] Finesse Lim M.D. Incontinence Urinary Stress Male 04/27/2023 Clinical Communication Department of Urology in [address] [place] [phone] Shola Goddard M.D. 04/27/2023 Clinical Communication Department of Urology in [address] [place] [phone] Finesse Lim M.D. from Last 3 Months Immunizations Name Administration Dates Next Due HZV (ZOSTAVAX) 03/23/2012 Influenza (IM) Preservative Free 04/03/2011 Influenza TIV (IM) 03/23/2012,04/04/2007 Influenza high dose QV(65 years or older) (PF) 1 ,01/21/2020 Influenza, Seasonal, Injectable 03/23/2012 Influenza, Unspecified 02/02/2021 PCV20 01/18/2022 Tdap 01/20/2015,03/29/2007 Family History Medical History Relation Name Comments Prostate cancer Brother lindy chatman Hypertension Father manbristol Relation Name Status Comments Brother lindy chatman Father [facility] Social History Tobacco Use Types Packs/Day Years Used Date Smoking Tobacco: Former Cigarettes 1 6 0 03/27/1987 - 03/27/1993 Passive Smoke Exposure: Never Smokeless Tobacco: Never Tobacco Cessation:Counseling Given: Not Answered Alcohol Use Standard Drinks/Week Comments Yes 3 (1 standard drink = 0.6 oz pur e alcohol) [facility] AMGasities Answer Date Recorded In the past 12 months has e [employer], gas, oil, or water company threatened to [...] How often do you attend chur or shinto services? 1 to 4 times per year 10/13/2021 Do you belong to any clubs o r organizations such as buddhist groups, unions, fraternal or athletic groups, or [...] care, and heating? Not very hard 10/13/2021 [facility] Questionnaire Answer Date Recorded [...] your living situation today? [facility] 07/03/2023 Education Answer Date [...] Sign Reading Time Taken Comments Blood Pressure 160/78 07/22/2023 11:00 PM CDT Pulse 75 07/22/2023 11:00 PM CDT Temperature 37.2 ??C (99 ??F) 07/22/2023 7:26 PM CDT Respiratory Rate 18 07/22/2023 7:26 PM CDT Oxygen Saturation 94% 07/22/2023 11:00 PM CDT Inhaled Oxygen Concentration - - Weight 157 kg (345 lb 0.3 oz) 07/22/2023 7:26 PM CDT Height 179 cm (5' 10.47) 07/03/2023 7:07 AM CDT Body Mass Index 48.84 07/03/2023 7:07 AM CDT Plan of Treatment Upcoming Encounters Date Type Department Care Team (Late st Contact Info) Description 09/04/2023 9:30 AM CDT Procedure visit Department of Urology in [address] [place] [phone] Finesse Lim M.D. [address] [place] [phone] 09/04/2023 10:30 AM CDT Office Visit Department of Urology in [address] [place] [phone] Finesse Lim M.D. [address] [place] [phone] Health Maintenance Due Date Last Done Comments [...] Completed 07/03/2023 Medical Devices Implanted Type Area Physician'S Assistant Device Identifier Shelf Expiration Date Model / Serial / Lot Artificial Gu Sphincter Artificial Sphincter Rectum Scrw Pnn Acet Ft 6.5x30 - [id number] Implanted:Qty : 1 on 11/11/2021 by Isaac Bar M.D. at [facility] Hardware e.g. pins/screws/ rods Right: Hip Depuy Synthes 07/25/2031 0 / / [id number] Scrw Pnn Acet Ft 6.5x20 - [id number] Implanted:Qty : 1 on 11/11/2021 by Isaac Bar M.D. at [facility] Hardware e.g. pins/screws/ rods Right: Hip Depuy Synthes 07/25/2031 0 / / [id number] [place] Gription Acetabular Shell Multi-Hole 62mm Od Implanted:Qty : 1 on 11/11/2021 by Isaac Bar M.D. at [facility] Hip Implant Right: Hip Depuy Synthes [id number] 08/25/2031 2 / / [id number] Hip Stm [facility] Sz12 150 - [id number] Implanted:Qty : 1 on 11/11/2021 by Isaac Bar M.D. at [facility] Hip Implant Right: Hip Depuy Synthes 09/24/2031 [id number] / / [id number] Lnr Alt 0d 40x62 - [id number] Implanted:Qty : 1 on 12/03/2021 by Isaac Bar M.D. at [facility] Hip Implant Right: Hip Depuy Synthes 10/24/2026 2 / / [id number] Fem Hd Art Ez Crmc +1.5x40 - [id number] Implanted:Qty : 1 on 12/03/2021 by Isaac Bar M.D. at [facility] Hip Implant Right: Hip Depuy Synthes [id number] 09/23/2026 0 / / [id number] Knee Implant-2006 Implanted: (Quantity not on file) Knee Implant Left: Knee Description:Replaced knee Knee Implant-2011 Implanted: (Quantity not on file) Knee Implant Right: Knee Description:Replaced knee Gu Kt 800 Acces Aus W/Iz - [id number] Implanted:Qty : 1 on 09/08/2022 by Finesse Lim M.D. at [facility] Urogenital Implant [employer] 3D 07/20/2027 [id number] / / [id number] Penile Occlsve Cuff Ams Iz 4.5 - [id number] Implanted:Qty : 1 on 09/08/2022 by Finesse Lim M.D. at [facility] Urogenital Implant [employer] 04/13/2024 [id number] / / [id number] Explanted Type Area Physician'S Assistant Device Identifier Shelf Expiration Date Model / Serial / Lot Lnr Alt 0d 40x62 - [id number] Implanted:Qty : 1 on 11/11/2021 by Isaac Bar M.D. at [facility] Explanted:Qty : 1 on 12/03/2021 by Isaac Bar M.D. at [facility] Hip Implant Right: Hip Depuy Synthes 05/24/2026 [id number] / / [id number] Fem Hd Art Ez Crmc +1.5x40 - [id number] Implanted:Qty : 1 on 11/11/2021 by Isaac Bar M.D. at [facility] Explanted:Qty : 1 on 12/03/2021 by Isaac Bar M.D. at [facility] Hip Implant Right: Hip Depuy Synthes 09/23/2026 [id number] / / [id number] Penile Occlsve Cuff Ams Iz 4.5 - [id number] Explanted:Qty : 1 on 09/08/2022 at [facility] Urogenital Implant [employer] 01/28/2024 [id number] / / [id number] Description:Accidentally cut tubing on cuff so had to open/use another 4.5 cuff Penile Bln Prs Ams 61-70 - [id number] Implanted:Qty : 1 on 09/08/2022 by Finesse Lim M.D. at [facility] Explanted:Qty : 1 on 07/03/2023 at [facility] Urogenital Implant [employer] 3D 05/16/2027 [id number] / / [id number] Penile Contl Pump Ams 800 Iz - [id number] Implanted:Qty : 1 on 09/08/2022 by Finesse Lim M.D. at [facility] Explanted:Qty : 1 on 07/03/2023 at [facility] Urogenital Implant [facility] 04/28/2024 [id number] / / [id number] Procedures Procedure Name Priority Date/Time Associated Diagnosis Comments DIPSTICK, U STAT 07/22/2023 11:01 PM CDT PH, RANDOM, U STAT 07/22/2023 11:01 PM CDT HC OSMOLALITY ASSAY URINE STAT 07/22/2023 11:01 PM CDT MICROSCOPIC MANUAL STAT 07/22/2023 11 :01 PM CDT URINALYSIS WITH MICROSCOPIC STAT 07/22/2023 11:01 PM CDT BACTERIAL CULTURE, AEROBIC + SUSC, URINE STAT 07/22/2023 11:01 PM CDT HC URINALYSIS AUTO WO MICRO Routine 07/22/2023 11:00 PM CDT REMOTE OXIMETRY MONITORING CONT. Routine [...] inpatients and all outpatients) 05/26/2023 2:15 PM FOREIGN BROADCAST SPECIALIST Incontinence Urinary Stress Male URO CYSTOSCOPY (SPECIFIC PROVIDER) Routine 04/27/2023 1:30 PM FOREIGN BROADCAST SPECIALIST Incontinence Urinary Stress Male CT ABDOMEN PELVIS WITH IV CONTRAST RAD - Semiurgent (Fast; most ED patients; some inpatients) 04/05/2023 3:27 PM FOREIGN BROADCAST SPECIALIST BASIC METABOLIC PANEL, S/P STAT 04/05/2023 1:36 PM FOREIGN BROADCAST SPECIALIST from Last 3 Months or Most Recently Relevant to Health Maintenance Results * Osmolality, Urine (07/22/2023 11:01 PM CDT) Osmolality, U 848 150 - 1150 mOsm/kg 07/23/2023 12:05 AM CDT DTL Urine 07/22/2023 11:0 1 PM CDT 07/22/2023 11:18 PM CDT Maty Matos M.D., Ph.D. LAB URINE ORD ERABLES [facility] [place] [address], [place] [address] * (ABNORMAL) Dipstick, Urine (07/22/2023 11:01 PM CDT) Hemoglobin, QL, U Moderate(A) Negative 07/22/2023 11:51 PM CDT DTL Leukocyte Esterase, U Large(A) Negative 07/22/2023 11:51 PM CDT DTL Nitrite, U Negative Negative 07/22/2023 11:51 PM CDT DTL Ketone, U Negative Negative mg/dL 07/22/2023 11:51 PM CDT DTL Glucose, U Negative Negative mg/dL 07/22/2023 11:51 PM CDT DTL Urine 07/22/2023 11:0 1 PM CDT 07/22/2023 11:18 PM CDT Maty Matos M.D., Ph.D. LAB URINE ORD ERABLES Performing Organization Address City/[facility]/ZIP Co de Phone Number [facility] [address] [place] [address] * pH, Random, Urine (07/22/2023 11:01 PM CDT) pH, Random, U 5.1 4.5 - 8.0 07/23/2023 12:05 AM CDT DTL Urine 07/22/2023 11:0 1 PM CDT 07/22/2023 11:18 PM CDT Maty Matos M.D., Ph.D. LAB URINE ORD ERABLES Performing Organization Address City/[facility] Co de Phone Number [facility] [address] [place] [address] * (ABNORMAL) Microscopic Manual (07/22/2023 11:01 PM CDT) Microscopy Abnormal 07/23/2023 12:13 AM CDT DTL RBC 3-10(A) <3 /hpf 07/23/2023 12:13 AM CDT DTL Dysmorphic RBC <25 <25 % 07/23/2023 12:13 AM CDT DTL WBC >100(A) /hpf 07/23/2023 12:13 AM CDT DTL Comment: ----REFERENCE VALUE---- <4 ??(Males) <11 (Females) Bacteria Present(A) 07/23/2023 12:13 AM CDT DTL Urine 07/22/2023 11:0 1 PM CDT 07/22/2023 11:18 PM CDT Maty Matos M.D., Ph.D. LAB URINE ORD ERABLES Performing Organization Address City/[facility]/ZIP Co de Phone Number [facility] [address] [place] [address] * (ABNORMAL) Urinalysis, with Microscopic: Urine, Straight Catheter (07/22/2023 11:01 PM CDT) Source Urine, Urine, Straight Catheter 07/22/2023 11:18 PM CDT DTL Color, U Yellow 07/22/2023 11:18 PM CDT DTL Clarity, U Cloudy(A) 07/22/2023 11:18 PM CDT DTL Protein, U 72(H) <26 mg/dL 07/22/2023 11:55 PM CDT DTL Protein/Osmola lity 0.85(H) <0.42 ratio 07/23/2023 12:05 AM CDT DTL Predicted 24 HR Protein, U 806(H) <229 mg/24 h 07/23/2023 12:05 AM CDT DTL Predicted Range 256-2538 mg/24 h 07/23/2023 12:05 AM CDT DTL Comment Micro done on <10 mL 07/23/2023 12:12 AM CDT DTL Urine (Urine, Straight Catheter) 07/22/2023 11:01 PM CDT 07/22/2023 11:18 PM CDT Maty Matos M.D., Ph.D. LAB URINE ORD ERABLES [facility] [address] [place], [place] [address] DTL [facility] [address] [place] [address] * (ABNORMAL) Dipstick, POCT, Urine (07/22/2023 11:00 PM CDT) Glucose, POCT, U Negative Negative mg/dL 07/22/2023 11:02 PM CDT PCED Ketone, POCT, U Negative Negative mg/dL 07/22/2023 11:02 PM CDT PCED Specific [place], POCT, U >=1.030 1.005 - 1.030 07/22/2023 11:02 PM CDT PCED Blood, POCT, U Moderate(A) Negative 07/22/2023 11:02 PM CDT PCED pH, POCT, Urine 5.5 5.0 - 8.0 07/22/2023 11:02 PM CDT PCED Protein, POCT, U 100(A) Negative mg/dL 07/22/2023 11:02 PM CDT PCED Nitrites, POCT, U Negative Negative 07/22/2023 11:02 PM CDT PCED Leukocytes, POCT, U Small(A) Negative 07/22/2023 11:02 PM CDT PCED Urine 07/22/2023 11:0 0 PM CDT 07/22/2023 11:02 PM CDT Unknown Provider LAB POCT ORDERABLES - DEVICE Performing Organization Address City/State/[facility] Co de Phone Number POC [facility] [address] [place] [address], [facility] PCED [facility] POC [address] [place] [address] * Airway (07/03/2023 8:49 AM CDT) Narrative Sona Rose M.D. - 07/03/2023 8:49 AM CDT Sona Rose M.D. ? 07/03/2023 10:35 AM Airway Date/Time: 07/03/2023 8:49 AM Performed by: Sona Rsoe M.D. Authorized by: Kaiden Crisostomo D.O. ?? Patient location during procedure: OR / Procedure Area PROCEDURE DETAILS: Mask difficulty assessment: difficult mask (i.e.two-handed) with oral airway Final airway type: video laryngoscope Laryngeal Manipulation: no ?? Final best view of glottic structures - Cormack/Lehane Score: grade 2A ETT location: oral VL device: glide scope Roosevelt scope blade size: 4 Tube size: 7.5 [...] M.D. LAB MICROBIOLOGY - G ENERAL ORDERABLES [facility] [address] [place] [address], [facility] [address] [place] [address] * IR Suprapubic Catheter Exchange (05/26/2023 2:15 PM FOREIGN BROADCAST SPECIALIST) Anatomical Region Laterality Modality Abdomen, Pelvis, Vascular In terventional RST LOS, Vascular Interventional ARZ LOS, Vascular Interventional FLA LOS N/A X-Ray Angiography Impressions 05/26/2023 2:58 PM FOREIGN BROADCAST SPECIALIST Uncomplicated suprapubic catheter upsizing to a 16 [place] tip Kerr catheter. EP Narrative 05/26/2023 2:58 PM FOREIGN BROADCAST SPECIALIST EXAM: IR SUPRAPUBIC CATHETER EXCHANGE CLINICAL HISTORY: Status post prostatectomy and radiation. Bladder neck contracture. Artificial sphincter. Request for upsizing of suprapubic catheter. TECHNIQUE: The suprapubic pigtail catheter was prepped and draped in sterile fashion. 1% lidocaine was used for local anesthesia. Nurse Practitioner Physician Assistant film shows expected position. Dilute contrast was injected through the patent catheter to confirm intraluminal position and slightly distend the bladder. The catheter was removed over an .035 Nitrex wire. The inner dilator from a 20 [place] peel-away sheath was used to dilate the tract. The peel-away portion was then reassembled and advanced over the wire into the bladder. A 16 [place] tip Kerr catheter was then advanced over [...] 1% lidocaine was used for local anesthesia. Nurse Practitioner Physician Assistant filmshows expected position. Dilute contrast was injected through the patentcatheter to confirm intraluminal position and slightly distend the bladder. The catheter was removed overan .035 Nitrex wire. The inner dilator from a 20 [place] peel-away sheathwas used to dilate the tract. The peel-away portion was then reassembledand advanced over the wire into the bladder. A 16 [place] tip Kerr catheter was then advanced overthe [...] Uncomplicated suprapubic catheter upsizing to a 16 [place] tipFoley catheter. EP Shola Goddard M.D. IMG IR PROCEDURES * Cystoscopy (specific provider) (04/27/2023 1:30 PM FOREIGN BROADCAST SPECIALIST) Narrative Shola Goddard M.D. - 04/27/2023 1:30 PM FOREIGN BROADCAST SPECIALIST Shola Goddard M.D. ? 04/27/2023 ??2:58 PM Cystoscopy (specific provider) Performed by: Shola Goddard M.D. Authorized by: Finesse Lim M.D. ?? Finesse Lim M.D. UROLOGY ORDERABLES * CT Abdomen Pelvis with IV Contrast (04/05/2023 3:27 PM FOREIGN BROADCAST SPECIALIST) Anatomical Region Laterality Modality Abdomen, Pelvis, Abdominal R ST LOS, Abdominal ARZ LOS, Abdominal FLA LOS N/A Computed Tomograp hy, Computed Tomography 04/05/2023 3:14 PM FOREIGN BROADCAST SPECIALIST Impressions 04/05/2023 3:52 PM FOREIGN BROADCAST SPECIALIST No acute findings in the abdomen or pelvis. Specifically, no evidence of communication between the genitourinary system and bowel. However, sigmoid colon is closely abutting/tethered to the urinary bladder and the CT cystogram may be performed if clinically warranted to exclude colovesical fistula. Narrative 04/05/2023 3:52 PM FOREIGN BROADCAST SPECIALIST EXAM: ??CT ABDOMEN PELVIS WITH IV CONTRAST [...] (ABNORMAL) Basic Metabolic Panel (04/05/2023 1:36 PM FOREIGN BROADCAST SPECIALIST) Potassium, P 4.9 3.6 - 5.2 mmol/L 04/05/2023 2:04 PM FOREIGN BROADCAST SPECIALIST [facility] Sodium, P 141 135 - 145 mmol/L 04/05/2023 2:04 PM FOREIGN BROADCAST SPECIALIST [facility] Chloride, P 106 98 - 107 mmol/L 04/05/2023 2:04 PM FOREIGN BROADCAST SPECIALIST [facility] Bicarbonate, P 23 22 - 29 mmol/L 04/05/2023 2:04 PM FOREIGN BROADCAST SPECIALIST [facility] Anion Gap, P 12 7 - 15 04/05/2023 2:04 PM FOREIGN BROADCAST SPECIALIST [facility] BUN (Blood Urea Nitrogen), P 33(H) 8 - 24 mg/dL 04/05/2023 2:04 PM FOREIGN BROADCAST SPECIALIST [facility] Creatinine 1.08 0.74 - 1.35 mg/dL 04/05/2023 2:04 PM FOREIGN BROADCAST SPECIALIST [facility] Estimated GFR (eGFR) 73 >=60 mL/min/BSA 04/05/2023 2:04 PM FOREIGN BROADCAST SPECIALIST [facility] Comment: Estimated GFR calculated using the 2020 CKD_EPI creatinine equation. Calcium, Total, P 8.9 8.8 - 10.2 mg/dL 04/05/2023 2:04 PM FOREIGN BROADCAST SPECIALIST [facility] Glucose, P 109 70 - 140 mg/dL 04/05/2023 2:04 PM FOREIGN BROADCAST SPECIALIST [facility] Blood (Blood, Venous) 04/05/2023 1:36 PM FOREIGN BROADCAST SPECIALIST 04/05/2023 1:43 PM FOREIGN BROADCAST SPECIALIST Ramy Joseph P.A.-C. LAB BLOOD ADD-ON [facility] [address] [place] [address], [facility] STMA [facility] [address] [place] [address] from Last 3 Months or Most Recently Relevant to Health Maintenance Advance Directives For more information, please contact: [phone] * Full Code (Latest Code Status on [...] Answer Comments Full Code: Discussed Care Teams Correctional Sergeant Relationship Specialty Start Date End Date Elsewhere, Pcp PCP - General Internal Medicine 12/29/21
--- OUTSIDE RECORDS SUMMARY | 2023-07-25 10:46 | XMS_ITS | Clinical Summary ---
Author Name Unknown Organization [facility] [facility] Address [place], [place] [address] Care Team Providers Care Timber Skidder Name Role Phone Dima Burr MD Primary [...] Problem Noted Date Diagnosed Date Resolved Date MCC (current) use of anticoagulants 04/04/2011 05/01/2011 Dysthymic disorder 03/30/2007 1 Immunizations Name Administration Dates Next Due COVID-19 vaccine ([employer] 30mcg/0.3mL) P F, MDV 06/20/2020,05/30/2020 Influenza, IIV3 [...] Comments Blood Pressure 171/88 03/24/2022 6:44 PM SWITCHBOARD MECHANIC Pulse 81 03/24/2022 6:44 PM SWITCHBOARD MECHANIC Temperature 36.8 ??C (98.2 ??F) 03/24/2022 6:44 PM CS T Respiratory Rate 18 03/24/2022 6:44 PM SWITCHBOARD MECHANIC Oxygen Saturation 98% 03/24/2022 6:44 PM SWITCHBOARD MECHANIC Inhaled Oxygen Concentration - - Weight 152.6 kg (336 lb 6.8 oz) 03/24/2022 6:44 PM SWITCHBOARD MECHANIC Height 185.4 cm (6' 1) 03/24/2022 6:44 PM SWITCHBOARD MECHANIC Body Mass Index 44.39 03/24/2022 6:44 PM SWITCHBOARD MECHANIC Plan of Treatment Health Maintenance Due Date [...] Screening LIPID PANEL Routine 03/23/2012 9:42 AM SWITCHBOARD MECHANIC HYPERLIPIDEMIA from Last 3 Months or Most Recently Relevant to Health Maintenance Results * COLONOSCOPY SCREENING (01/26/2015) Larisa Chaudhary GI PROCEDURE ORD * (ABNORMAL) LIPID PANEL (03/23/2012 9:42 AM SWITCHBOARD MECHANIC) CHOLESTEROL,TOTAL 196 100 - 199 mg/dL 03/23/2012 10:23 AM SWITCHBOARD MECHANIC [place] [facility] Comment: TRIGLYCERIDES 98 <150 mg/dL 03/23/2012 10:23 AM SWITCHBOARD MECHANIC [facility] Comment: HDL CHOLESTEROL 31(L) >40 mg/dL 2 10:23 AM [facility] Comment: NON-HDL CHOLESTEROL 165(H) <145 mg/dl 03/23/2012 10:23 AM [facility] CHOL/HDL RATIO 6.32(H) <4.50 03/23/2012 10:23 AM SWITCHBOARD MECHANIC [facility] LDL CHOLESTEROL 145(H) <=130 mg/dL 03/23/2012 10:23 AM SWITCHBOARD MECHANIC [facility] PATIENT STATUS FASTING 03/23/2012 10:23 AM SWITCHBOARD MECHANIC [facility] Blood specimen (specimen) BLOOD SPECIMEN / Unknown 03/23/2012 9:42 AM SWITCHBOARD MECHANIC 03/23/2012 9:42 AM SWITCHBOARD MECHANIC Larisa Underwood [employer] [facility] [address] [place] [address] from Last 3 Months or Most Recently [...] 6:19 AM 06/10/2013 7:57 AM Care Teams Timber Skidder Relationship Specialty Start Date End Date Dima Burr MD [address] [place] [address] PCP - General Family Practice 07/02/20
--- OUTSIDE RECORDS SUMMARY | 2023-07-25 10:46 | XMS_ITS | Referral Summary ---
Author Name Unknown Organization [facility] Address [address] [place] [address] Care Team Providers Care Career Professional Name Role Phone Elsewhere, Pcp Primary Care Provider Unavailabl e Source Comments Patient records contain information from all sites at [facility]. For routine questions regarding patient records, call [phone] during business hours, M-F 8:00 AM - 5:00 PM Central Time. Record requests for emergency care only can be directed to [phone] at any time.[facility] Encounters Date Type Department Care Team Description 07/24/2023 Clinical Communication [facility] Emergency Department [address] [place] [phone] Valentina Qiu M.S.N., R.N. Follow-up 07/22/2023 7:23 PM CDT - 07/23/2023 12:10 AM CDT Emergency [facility] Emergency Department [address] [place] [phone] Bryan Doyle M.D., M.A. Cystitis Acute (Primary Dx); Hematuria Discharge Disposition: Home or Self Care 07/14/2023 Orders Only Department of Urology in [place], [place] [address] [place] [phone] Chepe Ariza M.D., M.P.H. 07/14/2023 Orders Only Department of Urology in [place], [place] [address] [place] [phone] Finesse Lim M.D. 07/14/2023 Orders Only Department of Urology in [place], [place] [address] [place] [address] Chepe Ariza M.D., M.P.H. 07/13/2023 Orders Only Department of Urology in [place], [place] [address] [place] [address] Finesse Lim M.D. 07/03/2023 6:28 AM CDT - 07/04/2023 12:16 PM CDT Hospital Encounter [facility], [facility], [facility], Fifth Floor [address] [place] [address] Finesse Lim M.D. Stricture Urethral Postoperative Male (Primary Dx) Discharge Disposition: Home or Self Care 07/03/2023 8:15 AM CDT - 07/03/2023 11:47 AM CDT Surgery [facility] OR [address] [place] [address] Finesse Lim M.D. REMOVAL ARTIFICIAL GENITOURINARY SPHINCTER 07/03/2023 8:31 AM CDT Anesthesia Event [facility] OR [address] [place] [phone] Kaiden Crisostomo D.O. 06/26/2023 Clinical Communication Department of Urology in [place], [place] [address] [place] [address] Finesse Lim M.D. 06/26/2023 Orders Only Department of Urology in [place], [place] [address] [place] [phone] Selene Davis M.D. 06/22/2023 11:00 AM CDT Lab Department of Urology in [place], [place] [address] [place] [phone] Shola Goddard M.D. Dudley, Kathleen A, R.N. Incontinence Urinary Stress Male 06/22/2023 1:00 PM CDT Comprehensive Visit Preoperative Evaluation Center in [place], [place] [address] [place] [address] Finesse Lim M.D. de Forcrand de Coiselet, Claire, M.D. Preoperative Exam (Primary Dx); Anesthesia Complication Personal History; Hypertension Essential Primary; Artificial Urinary Sphincter Status Post; Personal History Of Malignant Neoplasm Of Prostate; Hyperlipidemia; Benign Prostatic Hyperplasia Hypertrophy With Obstruction; Neuropathy Peripheral; Gastroesophageal Reflux Disease; Murmur Heart; Stricture Urethral Postoperative Male 06/20/2023 1:30 PM CDT Clinical Communication Virtual Review in [address] [phone] Pre-visit Intake 05/26/2023 1:43 PM BUCKLE GLUER Anesthesia Event Department of Radiology in [address] [phone] Davie White APRN, SULEMAN, Ravinder Rios M.D. 05/26/2023 9:44 AM BUCKLE GLUER - 05/26/2023 11:59 PM BUCKLE GLUER Hospital Encounter Department of Radiology in [address] [phone] Shola Goddard M.D. McPhail, Ian R, M.D. Weger, Kendal, M.D. Incontinence Urinary Stress Male Discharge Disposition: Home or Self Care 04/28/2023 Documentation Preoperative Evaluation Center in [address] [phone] Mojgan Cutler MPAS, P.A.-Mario 04/27/2023 Clinical Communication Department of Urology in [address] [phone] Shola Goddard M.D. 04/27/2023 Clinical Communication Department of Urology in [address] [phone] Finesse Lim M.D. 04/27/2023 1:30 PM BUCKLE GLUER Procedure visit Department of Urology in [address] [phone] Finesse Lim M.D. Incontinence Urinary Stress Male [...] Overview: Added automatically from request for surgery [id number] Radiation Therapy Cystitis With Hematuria 2021 Injury Radiation Therapy Initial 03/14/2022 Contracture Bladder Neck 03/10/2022 Overview: Added automatically from request for surgery [id number] Direct Infection Of Right Hi p In [...] drink = 0.6 oz pur e alcohol) [facility] Utilities Answer Date Recorded In the [...] How often do you attend chur or jehovah's witness services? 1 to 4 times per year [...] care, and heating? Not very hard 10/13/2021 [facility] of Occupat ional Health - Occupational Stress [...] your living situation today? I have a [facility] place to live 07/03/2023 Education Answer [...] CDT Procedure visit Department of Urology in [place], [place] [address] [place] [phone] Finesse Lim M.D. [address] [place] [phone] 09/04/2023 10:30 AM CDT Office Visit Department of Urology in [place], [place] [address] [place] [address] Finesse Lim M.D. [address] [place] [phone] Medical Devices Implanted Type Area Helmet Hat Sweatband Puncher Device Identifier Shelf Expiration Date Model / Serial / Lot Artificial Gu Sphincter Artificial Sphincter Rectum Scrw Pnn Acet Ft 6.5x30 - [id number] Implanted:Qty : 1 on 11/11/2021 by Isaac Bar M.D. at [facility] Hardware e.g. pins/screws/ rods Right: Hip Depuy Synthes 07/25/2031 0 / / [id number] Scrw Pnn Acet Ft 6.5x20 - [id number] Implanted:Qty : 1 on 11/11/2021 by Isaac Bar M.D. at [facility] Hardware e.g. pins/screws/ rods Right: Hip Depuy Synthes 07/25/2031 0 / / [id number] [place] Gription Acetabular Shell Multi-Hole 62mm Od Implanted:Qty : 1 on 11/11/2021 by Isaac Bar M.D. at [facility] Hip Implant Right: Hip Depuy Synthes [id number] 08/25/2031 2 / / [id number] Hip Stm Crl Hofst Sz12 150 - [id number] Implanted:Qty : 1 on 11/11/2021 by Isaac Bar M.D. at [facility] Hip Implant Right: Hip Depuy Synthes 09/24/2031 [id number] / / [id number] Lnr Alt 0d 40x62 - [id number] Implanted:Qty : 1 on 12/03/2021 by Isaac Bar M.D. at [facility] Hip Implant Right: Hip Depuy Synthes 10/24/2026 2 / / [id number] Fem Hd Art Ez Crmc +1.5x40 - [id number] Implanted:Qty : 1 on 12/03/2021 by Isaac Bar M.D. at [facility] Hip Implant Right: Hip Depuy Synthes [id number] 09/23/2026 0 / / [id number] Knee Implant-2006 Implanted: (Quantity not on file) Knee Implant Left: Knee Description:Replaced knee Knee Implant-2011 Implanted: (Quantity not on file) Knee Implant Right: Knee Description:Replaced knee Gu Kt 800 Acces Aus W/Iz - [id number] Implanted:Qty : 1 on 09/08/2022 by Finesse Lim M.D. at [facility] Urogenital Implant [facility] [employer] 07/20/2027 [id number] / / [id number] Penile Occlsve Cuff Ams Iz 4.5 - [id number] Implanted:Qty : 1 on 09/08/2022 by Finesse Lim M.D. at [facility] Urogenital Implant [employer] 04/13/2024 [id number] / / [id number] Explanted Type Area Helmet Hat Sweatband Puncher Device Identifier Shelf Expiration Date Model / Serial / Lot Lnr Alt 0d 40x62 - [id number] Implanted:Qty : 1 on 11/11/2021 by Isaac Bar M.D. at [facility] Explanted:Qty : 1 on 12/03/2021 by Isaac Bar M.D. at [facility] Hip Implant Right: Hip Depuy [employer]ynthes 05/24/2026 [id number] / / [id number] Fem Hd Art Ez Crmc +1.5x40 - [id number] Implanted:Qty : 1 on 11/11/2021 by Isaac Bar M.D. at [facility] Explanted:Qty : 1 on 12/03/2021 by Isaac Bar M.D. at [facility] Hip Implant Right: Hip [employer]uy [employer]ynthes 09/23/2026 1365-40-710 / / [id number] Penile Occlsve Cuff Ams Iz 4.5 - [id number] Explanted:Qty : 1 on 09/08/2022 at [facility] Urogenital Implant [employer] 01/28/2024 [id number] / / [id number] Description:Accidentally cut tubing on cuff so had to open/use another 4.5 cuff Penile Bln Prs Ams 61-70 - [id number] Implanted:Qty : 1 on 09/08/2022 by Finesse Lim M.D. at [facility] Explanted:Qty : 1 on 07/03/2023 at [facility] Urogenital Implant [employer] 05/16/2027 [id number] / / [id number] Penile Contl Pump Ams 800 Iz - [id number] Implanted:Qty : 1 on 09/08/2022 by Finesse Lim M.D. at [facility] Explanted:Qty : 1 on 07/03/2023 at [facility] Urogenital Implant [facility] [employer] 04/28/2024 [id number] / / [id number] Procedures Procedure Name Priority Date/Time Associated Diagnosis [...] inpatients and all outpatients) 05/26/2023 2:15 PM BUCKLE GLUER Incontinence Urinary Stress Male URO CYSTOSCOPY (SPECIFIC PROVIDER) Routine 04/27/2023 1:30 PM BUCKLE GLUER Incontinence Urinary Stress Male CT ABDOMEN PELVIS WITH IV CONTRAST RAD - Semiurgent (Fast; most ED patients; some inpatients) 04/05/2023 3:27 PM BUCKLE GLUER BASIC METABOLIC PANEL, S/P STAT 04/05/2023 1:36 PM BUCKLE GLUER from Last 3 Months or Most Recently Relevant to Health Maintenance Results * Osmolality, Urine (07/22/2023 11:01 PM CDT) Pathologist [facility] Osmolality, U 848 150 - 1150 mOsm/kg 07/23/2023 12:05 AM CDT DTL Urine 07/22/2023 11:0 1 PM CDT 07/22/2023 11:18 PM CDT Maty Matos M.D., Ph.D. LAB URINE ORD ERABLES [address] [address], [place] [address] * (ABNORMAL) Dipstick, Urine (07/22/2023 11:01 PM [...] LAB URINE ORD ERABLES Performing Organization Address City/[facility]/ZIP Co de Phone Number [facility] [address] [place] [address] * pH, Random, Urine (07/22/2023 11:01 PM CDT) pH, Random, U 5.1 4.5 - 8.0 07/23/2023 12:05 AM CDT DTL Urine 07/22/2023 11:0 1 PM CDT 07/22/2023 11:18 PM CDT Maty Matos M.D., Ph.D. LAB URINE ORD ERAKELSIE Performing Organization Address City/[facility] de Phone Number [facility] [address] [place], [place] [phone] [place] [address] [address] [place] [address] * (ABNORMAL) Microscopic Manual (07/22/2023 11:01 PM [...] LAB URINE ORD ERABLES Performing Organization Address City/[facility]/ZIP Co de Phone Number [facility] [address] [place] [address], [facility] [[email or web address]] [facility] [address] [place] [address] * (ABNORMAL) Urinalysis, with Microscopic: Urine, Straight [...] Matos M.D., Ph.D. LAB URINE ORD ERABLES [facility] [address] [place] [address], [facility] [address] [place] [address] * (ABNORMAL) Dipstick, POCT, Urine (07/22/2023 11:00 PM CDT) Glucose, POCT, U Negative Negative mg/dL 07/22/2023 11:02 PM CDT PCED Ketone, POCT, U Negative Negative mg/dL 07/22/2023 11:02 PM CDT [facility] Specific [place], POCT, U >=1.030 1.005 - 1.030 07/22/2023 [...] POCT ORDERABLES - DEVICE Performing Organization Address City/State/[facility] Co de Phone Number POC RST [facility] [address] [place] [address], [facility] [[email or web address]] PCED [facility] POC [address] [place] [address] * Airway (07/03/2023 8:49 AM CDT) Narrative [...] ETT location: oral VL device: glide scope O'Neals scope blade size: 4 Tube size: 7.5 [...] - G ENERAL ORDERABLES Performing Organization Address City/State/[facility] Co de Phone Number [facility] [address] [place] [address], [facility] [[email or web address]] [facility] [address] [place] [address] * IR Suprapubic Catheter Exchange (05/26/2023 2:15 PM BUCKLE GLUER) Anatomical Region Laterality Modality Abdomen, Pelvis, Vascular In terventional RST LOS, Vascular Interventional ARZ LOS, Vascular Interventional FLA LOS N/A X-Ray Angiography Impressions 05/26/2023 2:58 PM BUCKLE GLUER Uncomplicated suprapubic catheter upsizing to a 16 English [place] tip Kerr catheter. EP Narrative 05/26/2023 2:58 PM BUCKLE GLUER EXAM: IR SUPRAPUBIC CATHETER EXCHANGE CLINICAL HISTORY: Status post prostatectomy and radiation. Bladder neck contracture. Artificial sphincter. Request for upsizing of suprapubic catheter. TECHNIQUE: The suprapubic pigtail catheter was prepped and draped in sterile fashion. 1% lidocaine was used for local anesthesia. Tie Loader film shows expected position. Dilute contrast was injected through the patent catheter to confirm intraluminal position and slightly distend the bladder. The catheter was removed over an .035 Nitrex wire. The inner dilator from a 20 English peel-away sheath was used to dilate the tract. The peel-away portion was then reassembled and advanced over the wire into the bladder. A 16 English [place] tip Kerr catheter was then advanced over [...] 1% lidocaine was used for local anesthesia. Tie Loader filmshows expected position. Dilute contrast was injected through the patentcatheter to confirm intraluminal position and slightly distend the bladder. The catheter was removed overan .035 Nitrex wire. The inner dilator from a 20 English peel-away sheathwas used to dilate the tract. The peel-away portion was then reassembledand advanced over the wire into the bladder. A 16 English [place] tip Kerr catheter was then advanced overthe [...] Uncomplicated suprapubic catheter upsizing to a 16 English [place] tipFoley catheter. EP Shola Goddard M.D. IMG IR PROCEDURES * Cystoscopy (specific provider) (04/27/2023 1:30 PM BUCKLE GLUER) Narrative Shola Goddard M.D. - 04/27/2023 1:30 PM BUCKLE GLUER Shola Goddard M.D. ? 04/27/2023 ??2:58 PM Cystoscopy (specific provider) Performed by: Shola Goddard M.D. Authorized by: Finesse Lim M.D. ?? Finesse Lim M.D. UROLOGY ORDERABLES * CT Abdomen Pelvis with IV Contrast (04/05/2023 3:27 PM BUCKLE GLUER) Anatomical Region Laterality Modality Abdomen, Pelvis, Abdominal R ST LOS, Abdominal ARZ LOS, Abdominal FLA LOS N/A Computed Tomograp hy, Computed Tomography 04/05/2023 3:14 PM BUCKLE GLUER Impressions 04/05/2023 3:52 PM BUCKLE GLUER No acute findings in the abdomen or pelvis. Specifically, no evidence of communication between the genitourinary system and bowel. However, sigmoid colon is closely abutting/tethered to the urinary bladder and the CT cystogram may be performed if clinically warranted to exclude colovesical fistula. Narrative 04/05/2023 3:52 PM BUCKLE GLUER EXAM: ??CT ABDOMEN PELVIS WITH IV CONTRAST [...] (ABNORMAL) Basic Metabolic Panel (04/05/2023 1:36 PM BUCKLE GLUER) Pathologist [facility] Potassium, P 4.9 3.6 - 5.2 mmol/L 04/05/2023 2:04 PM BUCKLE GLUER [facility] Sodium, P 141 135 - 145 mmol/L 04/05/2023 2:04 PM [facility]CKLE GLUER [facility] Chloride, P 106 98 - 107 mmol/L 04/05/2023 2:04 PM BUCKLE GLUER [facility] Bicarbonate, P 23 22 - 29 mmol/L 04/05/2023 2:04 PM BUCKLE GLUER [facility] Anion Gap, P 12 7 - 15 04/05/2023 2:04 PM BUCKLE GLUER [facility] BUN (Blood Urea Nitrogen), P 33(H) 8 - 24 mg/dL 04/05/2023 2:04 PM BUCKLE GLUER [facility] Creatinine 1.08 0.74 - 1.35 mg/dL 04/05/2023 2:04 PM BUCKLE GLUER [facility] Estimated GFR (eGFR) 73 >=60 mL/min/BSA 04/05/2023 2:04 PM BUCKLE GLUER [facility] Comment: Estimated GFR calculated using the 2020 CKD_EPI creatinine equation. Calcium, Total, P 8.9 8.8 - 10.2 mg/dL 04/05/2023 2:04 PM BUCKLE GLUER [facility] Glucose, P 109 70 - 140 mg/dL 04/05/2023 2:04 PM BUCKLE GLUER [facility] Blood (Blood, Venous) 04/05/2023 1:36 PM BUCKLE GLUER 04/05/2023 1:43 PM BUCKLE GLUER Ramy Joseph P.A.-C. LAB BLOOD ADD-ON [facility] [employer] [facility] [address] [place] [address], [facility] [[email or web address]] ST[facility] [address] [place] [address] from Last 3 Months or Most Recently Relevant to Health Maintenance Advance Directives For more information, please contact: [phone] * Full Code (Latest Code Status on [...] Answer Comments Full Code: Discussed Care Teams Career Professional Relationship Specialty Start Date End Date Elsewhere, Pcp PCP - General Internal Medicine 12/29/21
--- OUTSIDE RECORDS SUMMARY | 2023-07-25 10:46 | XMS_ITS ---
Author Name Unknown Organization [facility] Address [address] [place] [address] Care Team Providers Care Small Arms Artillery Repairer Name Role Phone Unavailable Unavailable Unavailable Surgery Details Not on file Complications Check Surgery Details section. Procedure Estimated Blood Loss Check Surgery Details section. Procedure Findings Check Surgery Details section. Procedure Specimens Taken Check Surgery Details section.
--- OUTSIDE RECORDS SUMMARY | 2023-07-25 10:47 | XMS_ITS | Encounter Summary ---
Author Name Unknown Organization [facility] Address [address] [place] [address] Care Team Providers Care Legal Administrative Assistant Name Role Phone Elsewhere, Pcp Primary Care Provider Unavailabl e Reason for Referral * Outpatient (Routine) - Authorized Specialty Diagnoses / Procedures Referred By Contac t Referred To Contact Diagnoses Stricture Urethral Postoperative Male Procedures Cystoscopy (specific provider) Chepe Ariza M.D., M.P.H. 200 [place] [address] Finesse Lim M.D. [address] [place] [phone] Referral ID Status Reason Start Date Expiration Date V isits Requested Visits Authorized [id number] Authorized 07/03/2023 07/02/2024 1 1 * Outpatient (Routine) - Authorized Specialty Diagnoses / Procedures Referred By Contac t Referred To Contact Urology Chepe Ariza M.D., M.P.H. [address] [place] [phone] Finesse Lim M.D. [address] [place] [phone] Referral ID Status Reason Start Date Expiration Date V isits Requested Visits Authorized [id number] Authorized 07/03/2023 01/01/2025 1 1 Reason for [...] Expiration Date Visits Re quested Visits Authorized [id number] 1 1 Encounter Details Date Type Department Care Team (Latest Contact Info) Description 07/03/2023 6:28 AM CDT - 07/04/2023 12:16 PM CDT Hospital Encounter [facility], [facility], [facility], Fifth Floor [address] [place] [address] Finesse Lim M.D. [address] [place] [phone] Stricture Urethral Postoperative Male (Primary Dx) Discharge Disposition: Home or Self Care Social History Tobacco Use Types Packs/Day Years Used Date Smoking Tobacco: Former Cigarettes 1 6 0 03/27/1987 - 03/27/1993 Passive Smoke Exposure: Never Smokeless Tobacco: Never Alcohol Use Standard Drinks/Week Comments Yes 3 (1 standard drink = 0.6 oz pur e alcohol) [facility] Utilities Answer Date Recorded In the past 12 months has [employer] gas, oil, or water [employer] threatened to shut off services in your [...] How often do you attend chur or amish services? 1 to 4 times per year 10/13/2021 Do you belong to any clubs o r organizations such as scientologist groups, unions, fraVenaxis or athletic groups, or school groups? No [...] care, and heating? Not very hard 10/13/2021 [facility] of Occupat ional Health - Occupational Stress [...] your living situation today? I have a [facility] place to live 07/03/2023 Education Answer [...] AM CDT DISCHARGE SUMMARY BRIEF OVERVIEW Hospital: [facility] Discharge Provider: Finesse Lim M.D. Primary Team: [...] M.D.Pinkhasov, Alexandr M, M.D., M.P.H.Amy Trevizo M.D. [facility] OR DISCHARGE DISPOSITION Home or Self [...] AM CDT You were discharged from the [facility]. Please identify this service name if youcall with questions after hospitalization. * Attachments The following attachments cannot be sent through Care Everywhere. 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 Services Used: No Person(s) present during interview: Person(s) Present During Interview: patient History of Present Illness #1 Incontinence Urinary Stress Male #2 Stricture Urethral Postoperative Male Social History Support System: children, family members, and friends/neighbors Finance/Insurance Primary insurance: MEDICARE A AND B Secondary insurance: Lottay benefits: No Advance Directives Legal Decision Maker: Self Advance Directives: N/A Advance Directives Status: None on file OBJECTIVE Baseline Functional Status Baseline Activities of Daily Living Mobility: Independent Dressing: Independent Feeding: Independent Bathing: Independent Grooming: Independent Toileting: Independent Behavior: Appropriate, Pleasant, Calm, Cooperative Communication: Talks, Understands speaking, Understands Uruguayan Shopping: Independent Medication Management: Independent Housekeeping: Independent [...] Self Care ASSESSMENT / PLAN Assessment: The residential electrician met with Jose Gonzalez to discuss his current hospitalization and homegoing needs. The patient was unaccompanied. The patient was a reliable historian. The role of residential electrician was reviewed. The patient reviewed his prior level of care and support system. The patient receives support from his children. The patient described his living environment as a home with bedroom and bathroom on same floor withstairs to enter with rails. Housekeeping, grocery shopping, meal prep, and other household responsibilities have previously been completed by patient. residential electrician discussed the patient's potential needs at dismissal based on their home setting, previous needs and responsibilities, homebound status, and relevant assessments with the patient. The patient will be safe and supported to return home alone when medically ready. Support will be provided by daughter and son. The patient demonstratedunderstanding when discussing his home going plans and anticipated needs. residential electrician met with patient at bedside to address [...] chart and meeting with the patient, the residential electrician deemed the LACE+/readmission questions were not necessary. [...] will be provided by family--maikel Dennis . residential electrician recommended reaching out to family, friends, and neighbors for assistance. residential electrician provided information regarding the dismissal process and the Senior Linkage Line ([place] Board on Aging) handout. residential electrician placed or requested the following hospital-based consult orders and/or referrals: None. residential electrician will continue to assess for homegoing needs with the interdisciplinary team. residential electrician encouraged the patient to reach out with [...] endoscopic portion of the case. A 26 Hungarian resectoscope was introduced per urethra. The anterior urethra appeared normal until the level of the bladder. There was vesicourethral anastomotic stenosis noted to approximately 20 Hungarian with some calcifications. We were able to maneuver our scope into the bladder. Under direct vision we were able to pass a sensor wire through the previously placed suprapubic tract. Next a 24 Hungarian NephroMax balloon dilator was used to dilate [...] removed in a push-pull fashion. A 24 Hungarian silicone catheter was advanced over the sensor wire and into the bladder. This was directly visualize the flexiblecystoscope through the suprapubic tract. We proceeded to instill 10 cc water in the balloon. The NephroMax balloon dilator was passed through the silicone catheter and inflated at the level bladder neck to hold the graft in place at the graft bed. A 20 Hungarian latex catheter was placed through the cooney [...] CDT Procedure visit Department of Urology in [place], [place] [address] [place] [phone] Finesse Lim M.D. [address] [place] [phone] 09/04/2023 10:30 AM CDT Office Visit Department of Urology in [place], [place] [address] [place] [phone] Finesse Lim M.D. [address] [place] [phone] Scheduled Referrals Name Type Priority Associated Diagnoses [...] Do not give if patient has diarrhea. 222 (Given - Provider: Noel Araujo R.N.) 0846 [...] surgical 745 (Given - Provider: Zeynep Segal RWendy) sulfamethoxazole-trimethopri m 800-160 mg per tablet 1 [...] Atkins R.N.)2154 (Given - Provider: Noel Araujo RWendy) alum-mag hydroxide-simeth 200-200-20 mg/5 mL suspension 30 [...] 0852, Intra-Op 0852 (Given - Provider: Chepe Arzia M.D., M.P.H. - Comment: irrigated into bladder) [...] Segal R.N.)1258 (Given - Provider: Zeynep Segal R.N.) haloperidol lactate injection 1 mg (HALDOL) 1 [...] 1418 2000 (Given - Provider: Courtney Araujo RLeathaN.) oxyCODONE IR tablet 5 mg (ROXICODONE)(Linked Group [...] 1418 documented in this encounter Care Teams Legal Administrative Assistant Relationship Specialty Start Date End Date Elsewhere, Pcp PCP - General Internal Medicine 12/29/21 documented as of this encounter
--- OUTSIDE RECORDS SUMMARY | 2023-07-25 10:47 | XMS_ITS | Encounter Summary ---
Author Name Unknown Organization [facility] Address [address] [place] [address] Care Team Providers Care Robotics Technologist Name Role Phone Elsewhere, Pcp Primary Care Provider Unavailabl e Reason for Visit * Reason Comments Blood in Urine Encounter Details Date Type Department Care Team ([facility] st Contact Info) Description 07/22/2023 7:23 PM CDT - 07/23/2023 12:10 AM CDT Emergency [facility] Emergency Department [address] [place] [phone] Bryan Doyle M.D., M.A. [address] [place] [phone] Cystitis Acute (Primary Dx); Hematuria Discharge Disposition: Home or Self Care Social History Tobacco Use Types Packs/Day Years Used Date Smoking Tobacco: Former Cigarettes 1 6 0 03/27/1987 - 03/27/1993 Passive Smoke Exposure: Never Smokeless Tobacco: Never Alcohol Use Standard Drinks/Week Comments Yes 3 (1 standard drink = 0.6 oz pur e alcohol) [facility] Utilities Answer Date Recorded In [...] How often do you attend chur or protestant services? 1 to 4 times per year 10/13/2021 Do you belong to any clubs o r organizations such as presybeterian groups, unions, fraternal or athletic groups, or [...] care, and heating? Not very hard 10/13/2021 [facility] of Occupat ional Health - Occupational Stress [...] your living situation today? I have a [facility] place to live 07/03/2023 Education Answer [...] 0.3 oz) 07/22/2023 7:26 PM CDT Height - - Body Mass Index 48.84 07/03/2023 7:07 AM CDT documented in this encounter Discharge Instructions * Discharge Instructions* Maty Matos M.D., Ph.D. - 07/23/2023 12:05 AM CDT Return to ED if you develop increasing pus like drainage around the areas of the catheters, you develop fevers, chills, worsening swelling, numbness, or are otherwise concerned about your health. Your prescriptions are available at the [facility] documented in this encounter Medications at Time [...] by mouth 2 (two) times a day. diazePAM 5 mg suppository Insert 1-2 suppositories (5-10 mg total) into the rectum 2 (two) times a day for 7 days. 28 suppository 07/22/2023 07/31/2023 diphenhydramine-li docaine 2 %-antacid (mw) Take 5-10 mL by mouth 4 (four) times a day after meals and bedtime. Hold in mouth for 1 minute.Do not eat or drink for 15-30 minutes after use. 100 mL 3 07/03/2023 DME Urological suppliesIndication s:Incontinence Urinary DME Order 1 Unspecified 07/07/2022 escitalopram [...] times a day as needed for anxiety. sulfamethoxazole-t rimethoprim (BACTRIM DS) 800-160 mg per tablet Take 1 tablet by mouth every 12 (twelve) hours for 14 days. 28 tablet 07/22/2023 08/05/2023 trospium (SANCTURA XR) 60 mg 24 hr capsule Take 1 capsule (60 mg total) by mouth every morning before breakfast. 90 capsule 3 04/11/2023 04/10/2024 documented as of this encounter Progress Notes * Huan Art M.D. - 07/22/2023 10:14 PM CDT Urology miscellaneous note: I was contacted to provide recommendations regarding this patient's penile pain. Patient is a 73-year-old male with a history of urethral stricture and artificial urinary sphincters/p AUS explant and posterior endoscopic urethroplasty and SP tube exchange with Dr. Lim's team on 07/03/2023. He presented to the ED this evening due to worsening penile pain. He initially presented to his hislocal PCP on 07/18 and was started on a course of Macrobid due to concern for UTI. Unfortunately, Gennaro not have access to his outside records to review his urine culture. Due to ongoing pain at the tip of his penis, he connected his urethral catheter to bag drainage yesterday. He notes initial passage of clots via urethral catheter with mild relief of pain. I met with the patient at bedside. He reports pain primarily at the tip of his penis rated as 4/10.Denies fevers, chills. Denies nausea, vomiting. Denies scrotal or suprapubic pain. On examination, he is afebrile and vitally stable. His SP tube is draining clear yellow urine and urethral catheter draining light pink urine with clots in the bag. His scrotum is ecchymotic and mildly swollen, however is soft and compressible throughout and nontender to palpation. Perineal wound appears clean and intact. The glans of his penis is buried under scrotal and suprapubic swelling, with mucus discharge around the glans. Suprapubic site with scant mucus. He was previously given a prescription of rectal Valium by his primary team, however was unable to have this filled at his local pharmacy on Monday due to insurance issues as well as problems with the pharmacy compounding the medication. Overall, I suspect the patient's penile pain is primarily due to bladder spasms. His history and physical exam is not concerning for soft tissue infection. Both of his Barger catheters are draining appropriately without concern for obstruction. Recommend filling rectal Valium tonight at [facility]. Also recommend obtaining urine culture and transitioning antibiotics from Macrobid to something with a greater tissue penetration such as Bactrim or levofloxacin based on previous urine cultures. Also recommend bacitracin cream for the tip of the glans and scrotal support with jockstrap, towelswhen lying flat or sitting, and ice. Patient can keep his urethral Barger catheter open for now and follow up with his primary team on Monday for further guidance. Recommendations: - Valium 10 mg suppository TID prn - urine culture - transition antibiotic to Bactrim or levofloxacin based on previous cultures - bacitracin cream for the tip of the glans - message sent to primary Urology team for awareness Please page [phone] with any questions or concerns. Huan Art MD documented in this encounter ED Notes * Maty Matos M.D., Ph.D. 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 The PCP diagnosed him with a UTI 4 days ago back home for which he was given nitrofurantoin. He presents to the ED with increasing scrotal swelling, erythema, pain, concern for purulent drainagesurrounding the catheter, as well as continued blood in his urine. Denies fevers, chills, abdominal pain, nausea, vomiting, diarrhea, or new rashes, blood in stool, loss of bowel continence, chest pain, shortness of breath, cough, runny nose, sore throat REVIEW OF SYSTEMS See HPI OBJECTIVE Initial Vitals Temperature 07/22/231925 37.2 ??C Pulse Rate 07/22/231925 79 Heart Rate -- Resp Rate 07/22/231925 18 Blood Pressure 07/22/231925 159/73 SpO2 07/22/231925 99 % Pain Score 07/22/231936 6 PHYSICAL EXAMINATION Constitutional: Nursing note and vitals reviewed. No distress. Cardiovascular: Normal rate and regular rhythm. Edema: no edema noted Pulmonary/Chest: Effort normal and breath sounds normal. No tachypnea. He exhibits no retraction. Abdominal: Soft. There is no abdominal tenderness. There is no rebound and no guarding. Genitourinary: Genitourinary Comments: Retracted penis, swollen scrotom, not painful to touch. Musculoskeletal: General: No edema. Cervical back: Normal range of motion. Neurological: Alert and oriented to person, place, and time. Skin: Skin is warm and dry. He is not diaphoretic. Small amount of purulent, mucousy looking drainage from the skin surrounding both the suprapubic and indwelling Barger catheter. No signs of necrotizing skin soft tissue infection/Nikkie's gangrene.Patient does have large pannus for which the suprapubic catheter is embedded under no signs of fungal infection though within this crease. ASSESSMENT/PLAN Differential considered includes Nikkie's gangrene, cystitis, hydrocele. Urology team to see the patient curbside and examined the patient and find his presentation consistent with normal postop recovery regarding his pain and are not concerned about infection other than possible cystitis. Will obtain UA + culture and prescribe appropriate Abx for complicated UTI, as well as Rx for rectal valium for bladder spasms and recommend OTC bacitracin for his penile head irritation. Patient has documented allergy (rash) to ciprofloxacin so will prescribe bactrim 14d per pharmacist recommendations. Urology will arrange follow up as needed and instructed patient to keep both catheters open at thistime. They think the blood in just the indwelling barger is secondary to healing incisions for the urethral sphincter and the proximity of said catheter to this area. Return precautions given and patient discharged. Final Diagnoses: as of 07/23/23 0009 Cystitis Acute Hematuria Maty Matos M.D., Ph.D. Resident 07/23/23 0133 * Katarzyna Zheng R.N. - 07/22/2023 7:26 PM CDT Pt presents to ED with c/o blood in his urine for 3 days now along with penis pain. Pt has suprapubic catheter and indwelling catheter. Hx of artificial sphincter and recent procedure involving that in the last three weeks. He developed cramps and blood in his urine with clots and went to primary care and was found to have an infection, was put on antibiotics but symptoms persist so coming for her further eval. Katarzyna Zheng R.N. 07/22/231929 documented in this encounter Plan of Treatment Upcoming Encounters Date Type Department Care Team (Late st Contact Info) Description 09/04/2023 9:30 AM CDT Procedure visit Department of Urology in [place], [place] [address] [place] [phone] Finesse Lim M.D. [address] [place] [phone] 09/04/2023 10:30 AM CDT Office Visit Department of Urology in [place], [place] [address] [place] [address] Finesse Lim M.D. [address] [place] [phone] Pending Results Name Type Priority Associated Diagnoses Date /Time Bacterial Culture, Aerobic + Susceptibility, Urine Microbiology STAT 07/22/2023 11:01 PM CDT documented as of this encounter Procedures Procedure Name Priority Date/Time Associated Diagnosis Comments HC OSMOLALITY ASSAY URINE STAT 07/22/2023 11:01 PM CDT DIPSTICK, U STAT 07/22/2023 11:01 PM CDT PH, RANDOM, U STAT 07/22/2023 11:01 PM CDT MICROSCOPIC MANUAL STAT 07/22/2023 11 :01 PM CDT BACTERIAL CULTURE, AEROBIC + SUSC, URINE STAT 07/22/2023 11:01 PM CDT URINALYSIS WITH MICROSCOPIC STAT 07/22/2023 11:01 PM CDT HC URINALYSIS AUTO WO MICRO Routine 07/22/2023 11:00 PM CDT documented in this encounter Results * (ABNORMAL) Dipstick, Urine (07/22/2023 11:01 PM [...] M.D., Ph.D. LAB URINE ORD ERABLES [facility] [address] [place] [address], [facility] [address] [place] [address] * pH, Random, Urine (07/22/2023 11:01 PM CDT) pH, Random, U 5.1 4.5 - 8.0 07/23/2023 12:05 AM CDT DTL Urine 07/22/2023 11:0 1 PM CDT 07/22/2023 11:18 PM CDT Maty Matos M.D., Ph.D. LAB URINE ORD ERABLES Performing Organization Address City/[facility]/ZIP Co de Phone Number [facility] [address] 200 [place] [address] * Osmolality, Urine (07/22/2023 11:01 PM CDT) Osmolality, U 848 150 - 1150 mOsm/kg 07/23/2023 12:05 AM CDT DTL Urine 07/22/2023 11:0 1 PM CDT 07/22/2023 11:18 PM CDT Maty Matos M.D., Ph.D. LAB URINE ORD ERABLES Performing Organization Address City/[facility] Co de Phone Number [facility] 200 [place] [address] * (ABNORMAL) Microscopic Manual (07/22/2023 11:01 PM [...] M.D., Ph.D. LAB URINE ORD ERABLES [facility] [address] [place] [address], [facility] [address] [place] [address] * (ABNORMAL) Urinalysis, with Microscopic: Urine, Straight [...] M.D., Ph.D. LAB URINE ORD ERABLES [facility] [address] [place] [address], [facility] 200 [place] [address] * (ABNORMAL) Dipstick, POCT, Urine (07/22/2023 11:00 PM CDT) Glucose, POCT, U Negative Negative mg/dL 07/22/2023 11:02 PM CDT PCED Ketone, POCT, U Negative Negative mg/dL 07/22/2023 11:02 PM CDT [facility] Specific [place], POCT, U >=1.030 1.005 - 1.030 07/22/2023 [...] Unknown Provider LAB POCT ORDERABLES - DEVICE POC [facility] 200 [place] [address], [facility] PCED [facility] POC [address] [place] [address] documented in this encounter Visit Diagnoses Diagnosis Cystitis Acute- Primary Hematuria documented in this encounter Administered Medications Inactive Administered Medications - up to 3 most recent administrations Medication Order MAR Action Action Date Dose Rate Site acetaminophen tablet 1,000 mg (TYLENOL) 1,000 mg, oral, Once as needed, mild pain or score 1-3 of 10, moderate pain or score 4-6 of 10, severe pain or score 7-10 of 10, fever, temperature greater than 38 C, Starting on 07/22/23 at 1936, For 1 dose Given 07/22/2023 7:37 PM CDT 1,000 mg documented in this encounter Active and Recently Administered Medications Times are shown in CDT. PRN Medication Order 07/21/2023 07/22/2023 07/23/2023 acetaminophen tablet 1,000 mg (TYLENOL) (COMPLETED)(Linked Group 1) 1,000 mg, oral, Once as needed, mild pain or score 1-3 of 10, moderate pain or score 4-6 of 10, severe pain or score 7-10 of 10, fever, temperature greater than 38 C, Starting on 07/22/23 at 1936, For 1 dose 1936 (Given - Provider: Tayla Zheng R.N.) Linked Groups Order Group 1: acetaminophen tablet 1,000 mg (TYLENOL) (COMPLETED)Jump to med 1,000 mg, oral, Once as needed, mild pain or score 1-3 of 10, moderate pain or score 4-6 of 10, severe pain or score 7-10 of 10, fever, temperature greater than 38 C, Starting on 07/22/23 at 1936, For 1 dose Or acetaminophen chewable tablet 960 mg (TYLENOL) (COMPLETED) 960 mg, oral, Once as needed, mild pain or score 1-3 of 10, moderate pain or score 4-6 of 10, severe pain or score 7-10 of 10, fever, temperature greater than 38 C, Starting on 07/22/23 at 1936, For 1 dose, If unable to take tablets. Or acetaminophen solution 960 mg (TYLENOL) (COMPLETED) 960 mg, oral, Once as needed, mild pain or score 1-3 of 10, moderate pain or score 4-6 of 10, severe pain or score 7-10 of 10, fever, temperature greater than 38 C, Starting on 07/22/23 at 1936, For 1 dose, If unable to take tablets or chewable tablets. Or acetaminophen suppository 650 mg (TYLENOL) (COMPLETED) 650 mg, rectal, Once as needed, mild pain or score 1-3 of 10, moderate pain or score 4-6 of 10, severe pain or score 7-10 of 10, fever, temperature greater than 38 C, Starting on 07/22/23 at 1936, For 1 dose, If patient unable to tolerate oral dosage forms. documented in this encounter Care Teams Robotics Technologist Relationship Specialty Start Date End Date Elsewhere, Pcp PCP - General Internal Medicine 12/29/21 documented as of this encounter
--- OUTSIDE RECORDS SUMMARY | 2023-07-25 10:47 | XMS_ITS | Encounter Summary ---
Author Name Unknown Organization [facility] Address [address] [place] [address] Care Team Providers Care Weatherseal Technician Name Role Phone Elsewhere, Pcp Primary [...] Expiration Date Visits Re quested Visits Authorized [id number] 1 1 Encounter Details Date Type Department Care Team (Late st Contact Info) Description 07/03/2023 8:15 AM CDT - 07/03/2023 11:47 AM CDT Surgery [facility] OR [address] [place] [address] Finesse Lim M.D. 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 1 to 4 times per year 10/13/2021 Do you belong to any clubs o r organizations such as jainism groups, unions, fraternal or athletic groups, or [...] Not very hard 10/13/2021 [facility] [place] of Occupat ional Health - Occupational Stress [...] your living situation today? I have a [facility] place to live 07/03/2023 Education Answer [...] AM CDT DISCHARGE SUMMARY BRIEF OVERVIEW Hospital: [facility] Discharge Provider: Finesse Lim M.D. Primary Team: [facility] Urology - [place] Admission Date: 07/03/2023 [...] M.D.Pinkhasov, Alexandr M, M.D., M.P.H.Amy Trevizo M.D. [facility] OR DISCHARGE DISPOSITION Home [...] AM CDT You were discharged from the [facility] Urology - [place] Service. Please identify this service name if youcall with questions after hospitalization. * Attachments The following attachments cannot be sent through Care Everywhere. * Acetaminophen (By mouth) (Divehi) * Ibuprofen (By mouth) (Divehi) documented in this encounter Medications at Time [...] Early Screen for Discharge Planning Referral Name: [place] [id number] Referral Reason: Discharge Planning Primary Language: Divehi Piano Builder Services Used: No Person(s) present during interview: Person(s) Present During Interview: patient History of Present Illness #1 Incontinence Urinary Stress Male #2 Stricture Urethral Postoperative Male Social History Support System: children, family members, and friends/neighbors Finance/Insurance Primary insurance: MEDICARE A AND B Secondary insurance: [employer] benefits: No Advance Directives Legal Decision Maker: Self Advance Directives: N/A Advance Directives Status: None on file OBJECTIVE Baseline Functional Status Baseline Activities of Daily Living Mobility: Independent Dressing: Independent Feeding: Independent Bathing: Independent Grooming: Independent Toileting: Independent Behavior: Appropriate, Pleasant, Calm, Cooperative Communication: Talks, Understands speaking, Understands Divehi Shopping: Independent Medication Management: Independent Housekeeping: Independent [...] Self Care ASSESSMENT / PLAN Assessment: The soaking pit operator met with Jose Gonzalez to discuss his current hospitalization and homegoing needs. The patient was unaccompanied. The patient was a reliable historian. The role of soaking pit operator was reviewed. The patient reviewed his prior level of care and support system. The patient receives support from his children. The patient described his living environment as a home with bedroom and bathroom on same floor withstairs to enter with rails. Housekeeping, grocery shopping, meal prep, and other household responsibilities have previously been completed by patient. soaking pit operator discussed the patient's potential needs at dismissal based on their home setting, previous needs and responsibilities, homebound status, and relevant assessments with the patient. The patient will be safe and supported to return home alone when medically ready. Support will be provided by daughter and son. The patient demonstratedunderstanding when discussing his home going plans and anticipated needs. soaking pit operator met with patient at bedside to address [...] chart and meeting with the patient, the soaking pit operator deemed the LACE+/readmission questions were not necessary. [...] will be provided by family--kayleen Dennis . soaking pit operator recommended reaching out to family, friends, and neighbors for assistance. soaking pit operator provided information regarding the dismissal process and the Senior Linkage Line ([place] Board on Aging) handout. soaking pit operator placed or requested the following hospital-based consult orders and/or referrals: None. soaking pit operator will continue to assess for homegoing needs with the interdisciplinary team. soaking pit operator encouraged the patient to reach out with [...] endoscopic portion of the case. A 26 Cambodian resectoscope was introduced per urethra. The anterior urethra appeared normal until the level of the bladder. 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 We were able to maneuver our scope into the bladder. Under direct vision we were able to pass a sensor wire through the previously placed suprapubic tract. Next a 24 Cambodian NephroMax balloon dilator was used to dilate [...] removed in a push-pull fashion. A 24 Cambodian silicone catheter was advanced over the sensor wire and into the bladder. This was directly visualize the flexiblecystoscope through the suprapubic tract. We proceeded to instill 10 cc water in the balloon. The NephroMax balloon dilator was passed through the silicone catheter and inflated at the level bladder neck to hold the graft in place at the graft bed. A 20 Cambodian latex catheter was placed through the cooney [...] CDT Procedure visit Department of Urology in [place], [place] [address] [place] [address] Finesse Lim M.D. [address] [place] [phone] 09/04/2023 10:30 AM CDT Office Visit Department of Urology in [place], [place] [address] [place] [address] Finesse Lim M.D. [address] [place] [address], [place] [phone] Scheduled Referrals Name Type Priority Associated Diagnoses [...] 0415 (Given - Provid er: Santa Schofield RLeathaNLeatha)1103 (Given - Provider: Mariposa Atkins RWendy) aprepitant capsule 40 mg (EMEND) (COMPLETED) 40 [...] at 0900 0845 (Given - Provid er: Mejia HoustonNLeatha) bacitracin 500 unit/gram ointment packet 1 packet 1 packet (1 Application), topical, 3 times daily, First dose on Mon07/03/23 at 2200, Apply to tip of penis. 2221 (Given - Provider: Noel Araujo R.N.) 0846 (Given - Provider: Mariposa Atkins R.N.) escitalopram tablet 20 mg (LEXAPRO) 20 mg, oral, Daily, First dose on Mon07/04/23 at 0900 0846 (Given - Provid er: Mejia HoustonN.) gabapentin capsule 600 mg (NEURONTIN) 600 mg, oral, 2 times daily, First dose on Mon07/03/23 at 2215 2154 (Given - Provider: Noel Araujo R.N.) 0846 (Given - Provider: Mejia HoustonNLeatha) gentamicin in NaCl 0.9 % (iso osm) [...] benefit. 2221 (Given - Provider: Noel Araujo RWendy) 0415 (Given - Provider: Santa Schofield RLeathaNLeatha)1053 (Not Given - Provider: Mejia HoustonNLeatha - Reason: Loss of IV access) lisinopriL tablet 40 mg (PRINIVIL,ZESTRIL) 40 mg, oral, Daily, First dose on Mon07/04/23 at 0900 0846 (Given - Provid er: Mejia HoustonNLeatha) sennosides-docusate sodium 8.6-50 mg per tablet 1 tablet (SENOKOT-S) 1 tablet, oral, 2 times daily, First dose on Mon07/03/23 at 2215, Do not give if patient has diarrhea. 2221 (Given - Provider: Noel Araujo RLeathaN.) 0846 (Given - Provider: Mejia HoustonNLeatha) sodium chloride 0.9 % injection 3 mL 3 mL, intravenous, Every 24 hours scheduled, First dose on Mon07/04/23 at 0900, Peripheral Intravenous Catheter and Rapid Infusion Catheter: When no infusion to maintain patency. 0900 (Given - Provid er: Mejia HoustonNLeatha) sulfamethoxazole-trimethopri m 800-160 mg per tablet 1 tablet (BACTRIM DS) (COMPLETED) 1 tablet, oral, Once, On Mon07/03/23 at 0800, For 1 dose, Pre-Op, Drug Monitoring Program: Pharmacist to adjust medication dosing based on indication and drug clearance factors., Indications: Prophylaxis, surgical 0746 (Given - Provider: Zeynep Segal RLeathaNLeatha) sulfamethoxazole-trimethopri m 800-160 mg per tablet 1 [...] Zeynep Segal, R.N.)1258 (Given - Provider: Zeynep Segal, R.N.) haloperidol lactate injection 1 mg (HALDOL) [...] Mon07/03/23 at 1418 2000 (Given - Provider: Mejia LarsonNLeatha) oxyCODONE IR tablet 5 mg (ROXICODONE)(Linked Group [...] 1418 documented in this encounter Care Teams Weatherseal Technician Relationship Specialty Start Date End Date Elsewhere, Pcp PCP - General Internal Medicine 12/29/21 documented as of this encounter
--- OUTSIDE RECORDS SUMMARY | 2023-07-25 10:47 | XMS_ITS | Encounter Summary ---
Author Name Unknown Organization [facility] Address [address] [place] [address] Care Team Providers Care Ship'S Cook Name Role Phone Elsewhere, Pcp Primary Care Provider Unavailabl e Encounter Details Date Type Department Care Team ([facility] st Contact Info) Description 06/26/2023 Orders Only Department of Urology in [place], [place] [address] [place] [phone] Selene Davis M.D. [address] [place] [phone] Social History Tobacco Use Types Packs/Day Years [...] often do you attend chur ch or shinto services? 1 to 4 times [...] care, and heating? Not very hard 10/13/2021 [facility] of Occupat ional Health - [...] now)? No 10/13/2021 Nutrition Answer Date Recorded On average, how [...] CDT Procedure visit Department of Urology in [place], [place] [address] [place] [phone] Finesse Lim M.D. [address] [place] [phone] 09/04/2023 10:30 AM CDT Office Visit Department of Urology in [place], [place] [address] [place] [address] Finesse Lim M.D. [address] [place] [address] documented as of this encounter Visit Diagnoses Not on filedocumented in this encounter Care Teams Ship'S Cook Relationship Specialty Start Date End Date Elsewhere, Pcp PCP - General Internal Medicine 12/29/21 documented as of this encounter
--- OUTSIDE RECORDS SUMMARY | 2023-07-25 10:47 | XMS_ITS | Encounter Summary ---
Author Name Unknown Organization [facility] Address [address] [place] [address] Care Team Providers Care Receiving Associate Store Name Role Phone Elsewhere, Pcp Primary Care Provider Unavailabl e Encounter Details Date Type Department Care Team ([facility] st Contact Info) Description 06/26/2023 Clinical Communication Department of Urology in [place], [place] [address] [place] [phone] Finesse Lim M.D. [address] [place] [phone] Social History Tobacco Use Types Packs/Day Years [...] often do you attend chur ch or restorationism services? 1 to 4 times per year 10/13/2021 Do you belong to any clubs o r organizations such as sikhism groups, unions, fraternal or athletic groups, or [...] care, and heating? Not very hard 10/13/2021 [facility] of Occupat ional Health - Occupational [...] place to sleep or slept in a [place] [facility] [place] (including now)? No 10/13/2021 Nutrition Answer Date [...] CDT Procedure visit Department of Urology in [place], [place] [address] [place] [address] Finesse Lim M.D. [address] [place] [address] 09/04/2023 10:30 AM CDT Office Visit Department of Urology in [place], [place] [address] [place] [address] Finesse Lim M.D. [address] [place] [address] documented as of this encounter Visit Diagnoses Not on filedocumented in this encounter Care Teams Receiving Associate Store Relationship Specialty Start Date End Date Elsewhere, Pcp PCP - General Internal Medicine 12/29/21 documented as of this encounter
--- OUTSIDE RECORDS SUMMARY | 2023-07-25 10:47 | XMS_ITS | Encounter Summary ---
Author Name Unknown Organization [facility] Address [address] [place] [address] Care Team Providers Care Scanning Clerk Name Role Phone Elsewhere, Pcp Primary Care Provider Unavailabl e Reason for Referral * Outpatient (Routine) - Authorized Specialty Diagnoses / Procedures Referred By Contac t Referred To Contact Urology Finesse Lim M.D. [address] [place] [phone] [facility] Referral ID Status Reason Start Date Expiration Date V isits Requested Visits Authorized [id number] Authorized 07/13/2023 01/11/2025 1 1 Encounter Details Date Type Department Care Team (Late st Contact Info) Description 07/13/2023 Orders Only Department of Urology in [place], [place] [address] [place] [phone] Finesse Lim M.D. [address] [place] [phone] Social History Tobacco Use Types Packs/Day Years Used Date Smoking Tobacco: Former Cigarettes 1 6 0 03/27/1987 - 03/27/1993 Passive Smoke Exposure: Never Smokeless Tobacco: Never Alcohol Use Standard Drinks/Week Comments Yes 3 (1 standard drink = 0.6 oz pur e alcohol) [facility] Utilities Answer Date Recorded In the past 12 months has [employer], gas, oil, or water company threatened to [...] How often do you attend chur or catholic services? 1 to 4 times per year 10/13/2021 Do you belong to any clubs o r organizations such as mandaeism groups, unions, fraternal or athletic groups, or [...] care, and heating? Not very hard 10/13/2021 [facility] [place] of Occupat ional Health - Occupational Stress [...] your living situation today? I have a [facility] place to live 07/03/2023 Education Answer [...] CDT Procedure visit Department of Urology in [place], [place] [address] [place] [address] Finesse Lim M.D. [address] [place] [address] 09/04/2023 10:30 AM CDT Office Visit Department of Urology in [place], [place] [address] [place] [address] Finesse Lim M.D. [address] [place] [address] Scheduled Referrals Name Type Priority Associated Diagnoses Orde r Schedule Urology office visit (clinic) Outpatient Referral Routine Expected: 08/03/2023, Expires: 10/11/2024 documented as of this encounter Visit Diagnoses Not on filedocumented in this encounter Care Teams Scanning Clerk Relationship Specialty Start Date End Date Elsewhere, Pcp PCP - General Internal Medicine 12/29/21 documented as of this encounter
--- OUTSIDE RECORDS SUMMARY | 2023-07-25 10:47 | XMS_ITS | Encounter Summary ---
Author Name Unknown Organization [facility] Address [address] [place] [address] Care Team Providers Care Disaster Director Name Role Phone Elsewhere, Pcp Primary Care Provider Unavailabl e Reason for Visit * Outpatient (Routine) - Closed Specialty Diagnoses / Procedures Referred By Contac t Referred To Contact Anesthesiology Diagnoses Stricture Urethral Postoperative Male Finesse Lim M.D. [address] [place] [phone] [facility] Referral ID Status Reason Start Date Expiration Date Visits Re quested Visits Authorized [id number] Closed 04/06/2023 04/05/2024 1 1 Encounter Details Date Type Department Care Team (Latest Contact Info) Description 06/22/2023 1:00 PM CDT Comprehensive Visit Preoperative Evaluation Center in [place], [place] [address] [place] [phone] Finesse Lim M.D. [address] [place] [phone] Aysha Lott M.D. [address] [place] [phone] Preoperative Exam (Primary Dx); Anesthesia Complication Personal [...] often do you attend chur ch or confucianism services? 1 to 4 times per year 10/13/2021 Do you belong to any clubs o r organizations such as lutheran groups, unions, fraternal or athletic groups, or [...] care, and heating? Not very hard 10/13/2021 [facility] of Occupat ional Health - Occupational Stress [...] place to sleep or slept in a alf (including now)? No 10/13/2021 Nutrition Answer Date [...] from 11/10/2021 in Preoperative Evaluation Center in [place], [place] DASI Total Score 16.2 Estimated V02 [...] Get Ready for Your Surgery or Procedure: [facility] 3596-07 rev 0124. Written and verbal [...] CDT Procedure visit Department of Urology in [place], [place] [address] [place] [address] Finesse Lim M.D. [address] [place] [address] 09/04/2023 10:30 AM CDT Office Visit Department of Urology in [place], [place] [address] [place] [address] Finesse Lim M.D. 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
--- OUTSIDE RECORDS SUMMARY | 2023-07-25 10:47 | XMS_ITS | Encounter Summary ---
Author Name Unknown Organization [facility] Address [address] [place] [address] Care Team Providers Care Receiving Barn Custodian Name Role Phone Elsewhere, Pcp Primary Care Provider Unavailabl e Encounter Details Date Type Department Care Team (Late st Contact Info) Description 07/14/2023 Orders Only Department of Urology in [place], [place] [address] [place] [phone] Chepe Ariza M.D., M.P.H. [address] [place] [phone] Social History Tobacco Use Types Packs/Day Years Used Date Smoking Tobacco: Former Cigarettes 1 6 0 03/27/1987 - 03/27/1993 Passive Smoke Exposure: Never Smokeless Tobacco: Never Alcohol Use Standard Drinks/Week Comments Yes 3 (1 standard drink = 0.6 oz pur e alcohol) [facility] Utilities Answer Date Recorded In the past 12 months has e [employer], gas, oil, or water [employer] threatened to shut off services in your [...] How often do you attend chur or cheondoism services? 1 to 4 times per year 10/13/2021 Do you belong to any clubs o r organizations such as mormon groups, unions, fraternal or athletic groups, or [...] heating? Not very hard 10/13/2021 [facility] of Occupat ional Health - Occupational Stress [...] CDT Procedure visit Department of Urology in [place], [place] [address] [place] [address] Finesse Lim M.D. [address] [place] [address] 09/04/2023 10:30 AM CDT Office Visit Department of Urology in [place], [place] [address] [place] [address] Finesse Lim M.D. [address] [place] [address] documented as of this encounter Visit Diagnoses Not on filedocumented in this encounter Care Teams Receiving Barn Custodian Relationship Specialty Start Date End Date Elsewhere, Pcp PCP - General Internal Medicine 12/29/21 documented as of this encounter
--- OUTSIDE RECORDS SUMMARY | 2023-07-25 10:47 | XMS_ITS | Encounter Summary ---
Author Name Unknown Organization [facility] Address [address] [place] [address] Care Team Providers Care Mechanical Manufacturing Technician Name Role Phone Elsewhere, Pcp Primary [...] Expiration Date Visits Re quested Visits Authorized [id number] 1 1 Encounter Details Date Type Department Care Team (Late st Contact Info) Description 07/03/2023 8:31 AM CDT Anesthesia Event [facility] OR [address] [place] [address] Kaiden Crisostomo D.O. [address] [place] [address] Anesthesia Record Procedure Summary Procedure Name Responsible [...] Drains, and Airways Type Details Placement Removal Wound 07/03/23; N; Incisio n; Pubis incision; Dermabond 07/03/23 0000 by Ciarra Burgos RLeathaN. Wound 07/03/23; N; Incisio n; Scrotum; Posterior; Dermabond 07/03/23 0000 by Ciarra Burgos RLeathaN. Suprapubic Catheter 07/03/23; Latex; 20 Fr. 11/17 0000 by Ciarra Burgos R.N. Wound 07/03/23; N; Incisio n; Mouth; Left; Buccal mucosa incision 07/03/23 0000 by Ciarra Burgos R.N. Indwelling Urinary Catheter Placement Date: 07/03/23; Inserted by: Dr. Lim; Type: Non-latex; Size: 24 Fr.; Balloon Size: Other (Comment) (Nephromax balloon holding in catheter); Urine Returned: Yes 07/03/23 0000 by Ciarra Burgos R.N. Peripheral IV Placement Date: 05/26/23; Placement Time: 124; Catheter Size: 20 G; Orientation: Right; Location: Hand; Site Prep: Chlorhexidine (Preferred); Technique: Anatomical landmarks; Inserted by: RB; Insertion Attempts: 1; Removal Date: 07/23/23; Removal Time: 305/26/23 1244 by Juliet Mccann R.N. 07/23/23 0004 by Lawanda Escobar R.N. ETT Placement Date: 07/03/23; Placement Time: 08 (created via procedure documentation); Mask Ventilation: Difficult [...] 07/03/23 1207 by Hayder Carr APRN, CRNA, [facility] Peripheral IV Placement Date: 07/03/23; Placement Time: 0853; Catheter Size: 20 G; Orientation: Left; Location: Hand; Removal Date: 07/04/23; Removal Time: 10507/03/23 0853 by Sona Rose M.D. 07/04/23 1052 by Mariposa Atkins RWendy Peripheral IV Placement Date: 07/03/23; Placement Time: 1215; Orientation: Anterior, Right; Location: Hand; Removal Date: 07/04/23; Removal Time: 10507/03/23 1215 by Zeynep Segal R.N. 07/04/23 1052 by Mariposa Atkins RWendy documented in this encounter Social History Tobacco Use Types Packs/Day Years Used Date Smoking Tobacco: Former Cigarettes 1 6 0 03/27/1987 - 03/27/1993 Passive Smoke Exposure: Never Smokeless Tobacco: Never Alcohol Use Standard Drinks/Week Comments Yes 3 (1 standard drink = 0.6 oz pur e alcohol) [facility] Utilities Answer Date Recorded In [...] How often do you attend chur or mosque services? 1 to 4 times per year [...] care, and heating? Not very hard 10/13/2021 [facility] [place] of Occupat ional Health - Occupational Stress [...] your living situation today? I have a [facility] place to live 07/03/2023 Education Answer [...] Procedure Summary Date: 07/03/23 Room / Location: [place] [address] / [facility] in [place], [place] Anesthesia Start: 830 Anesthesia Stop: 1218 Procedures: REMOVAL ARTIFICIAL GENITOURINARY [...] ETT location: oral VL device: glide scope [place] scope blade size: 4 Tube size: 7.5 [...] diagnosis: Incontinence Urinary Stress Male [N39.3] Location: [place] [address] / [facility] in [place], [place] Providers: Finesse Lim M.D. Pertinent components [...] with patient /legal guardian or through an station supervisor. Risks/Benefits/Alternatives of Blood transfusion discussed with patient / legal guardian, includingan opportunity to ask questions and/or decline some or all transfusion therapies. The patient / legal guardian consented to the use of all blood products, as deemed medically necessary Approval to Proceed: approved for anesthesia Jose Gonzalez, 73 y/o male from [place], [place] undergoing removal of artificial genitourinary sphincter, [...] CDT Procedure visit Department of Urology in [place], [place] [address] [place] [address] Finesse Lim M.D. [address] [place] [address] 09/04/2023 10:30 AM CDT Office Visit Department of Urology in [place], [place] [address] [place] [address] Finesse Lim M.D. [address] [place] [address] documented as of this encounter Procedures Procedure [...] ETT location: oral VL device: glide scope [place] scope blade size: 4 Tube size: 7.5 [...] mg documented in this encounter Care Teams Mechanical Manufacturing Technician Relationship Specialty Start Date End Date Elsewhere, Pcp PCP - General Internal Medicine 12/29/21 documented as of this encounter
--- OUTSIDE RECORDS SUMMARY | 2023-07-25 10:47 | XMS_ITS | Encounter Summary ---
Author Name Unknown Organization [facility] Address [address] [place] [address] Care Team Providers Care Design Director Name Role Phone Elsewhere, Pcp Primary Care Provider Unavailabl e Encounter Details Date Type Department Care Team ([facility] st Contact Info) Description 06/22/2023 11:00 AM CDT Lab Department of Urology in [place], [place] [address] [place] [phone] Shola Goddard M.D. [address] [place] [phone] Ada Ramirez R.N. [address] [place] [phone] Incontinence Urinary Stress Male Social History Tobacco [...] How often do you attend chur or voodoo services? 1 to 4 times per year [...] care, and heating? Not very hard 10/13/2021 [facility] of Occupat ional Health - [...] place to sleep or slept in a correction (including now)? No 10/13/2021 Nutrition Answer Date [...] this encounter Progress Notes * Ada Ramirez RLeathaN. - 06/22/2023 11:00 AM CDT Specimen Collection Specimen type: urine culture per suprapubic catheter Specimen route: Catheter Patient tolerated procedure: Yes Ada Ramirez R.N. documented in this encounter Plan of Treatment Upcoming Encounters Date Type Department Care Team (Late st Contact Info) Description 09/04/2023 9:30 AM CDT Procedure visit Department of Urology in [place], [place] [address] [place] [address] Finesse Lim M.D. [address] [place] [phone] 09/04/2023 10:30 AM CDT Office Visit Department of Urology in [place], [place] [address] [place] [address] Finesse Lim M.D. [address] [place] [phone] documented as of this encounter Procedures Procedure [...] M.D. LAB MICROBIOLOGY - G ENERAL ORDERABLES [facility] [address] [place] [address], [place] [facility] [address] [place] [address] documented in this encounter Visit Diagnoses Diagnosis Incontinence Urinary Stress Male documented in this encounter Care Teams Design Director Relationship Specialty Start Date End Date Elsewhere, Pcp PCP - General Internal Medicine 12/29/21 documented as of this encounter
--- OUTSIDE RECORDS SUMMARY | 2023-07-25 10:47 | XMS_ITS | Encounter Summary ---
Author Name Unknown Organization [facility] Address [address] [address] Care Team Providers Care Shift Superintendent Caustic Cresylate Name Role Phone Elsewhere, Pcp Primary Care Provider Unavailabl e Encounter Details Date Type Department Care Team (Late st Contact Info) Description 07/14/2023 Orders Only Department of Urology in [place], [place] [address] [place] [phone] Chepe Ariza M.D., M.P.H. [address] [place] [phone] Social History Tobacco Use Types Packs/Day Years Used Date Smoking Tobacco: Former Cigarettes 1 6 0 03/27/1987 - 03/27/1993 Passive Smoke Exposure: Never Smokeless Tobacco: Never Alcohol Use Standard Drinks/Week Comments Yes 3 (1 standard drink = 0.6 oz pur e alcohol) [facility] Utilities Answer Date Recorded In the past 12 months has e [employer], gas, oil, or water [employer] threatened to shut off services in your [...] How often do you attend chur or jewish services? 1 to 4 times per year 10/13/2021 Do you belong to any clubs o r organizations such as synagogue groups, unions, fraternal or athletic groups, or [...] care, and heating? Not very hard 10/13/2021 [facility] of Occupat ional Health - Occupational Stress [...] your living situation today? I have a [facility] place to live 07/03/2023 Education Answer [...] CDT Procedure visit Department of Urology in [place], [place] [address] [place] [address] Finesse Lim M.D. [address] [place] [address] 09/04/2023 10:30 AM CDT Office Visit Department of Urology in [place], [place] [address] [place] [address] Finesse Lim M.D. [address] [place] [address] documented as of this encounter Visit Diagnoses Not on filedocumented in this encounter Care Teams Shift Superintendent Caustic Cresylate Relationship Specialty Start Date End Date Elsewhere, Pcp PCP - General Internal Medicine 12/29/21 documented as of this encounter
--- OUTSIDE RECORDS SUMMARY | 2023-07-25 10:47 | XMS_ITS | Encounter Summary ---
Author Name Unknown Organization [facility] Address [address] [place] [address] Care Team Providers Care Angiographer Name Role Phone Elsewhere, Pcp Primary Care Provider Unavailabl e Encounter Details Date Type Department Care Team ([facility] st Contact Info) Description 07/14/2023 Orders Only Department of Urology in [place], [place] [address] [place] [phone] Finesse Lim M.D. [address] [place] [address] Social History Tobacco Use Types Packs/Day Years Used Date Smoking Tobacco: Former Cigarettes 1 6 0 03/27/1987 - 03/27/1993 Passive Smoke Exposure: Never Smokeless Tobacco: Never Alcohol Use Standard Drinks/Week Comments Yes 3 (1 standard drink = 0.6 oz pur e alcohol) [facility] Utilities Answer Date Recorded In the past 12 months has [employer], gas, oil, or water [employer] threatened to shut off services in your [...] How often do you attend chur or church services? 1 to 4 times per year 10/13/2021 Do you belong to any clubs o r organizations such as catholic groups, unions, fraternal or athletic groups, or [...] CDT Procedure visit Department of Urology in [place], [place] [address] [place] [address] Finesse Lim M.D. [address] [place] [address] 09/04/2023 10:30 AM CDT Office Visit Department of Urology in [place], [place] [address] [place] [address] Finesse Lim M.D. [address] [place] [address] documented as of this encounter Visit Diagnoses Not on filedocumented in this encounter Care Teams Angiographer Relationship Specialty Start Date End Date Elsewhere, Pcp PCP - General Internal Medicine 12/29/21 documented as of this encounter
--- OUTSIDE RECORDS SUMMARY | 2023-07-25 10:48 | XMS_ITS | Encounter Summary ---
Author Name Unknown Organization [facility] Address [address] [place] [address] Care Team Providers Care Family Assistant Name Role Phone Elsewhere, Pcp Primary Care Provider Unavailabl e Reason for Visit * Outpatient (Routine) - Closed Specialty Diagnoses / Procedures Referred By Contandry t Referred To Contact Diagnoses Incontinence Urinary Stress Male Procedures Cystoscopy (specific provider) Finesse Lim M.D. 200 [place] [address] Finesse Lim M.D. [address] [place] [phone] Referral ID Status Reason Start Date Expiration Date Visits Re quested Visits Authorized [id number] Closed 04/13/2023 04/12/2024 1 1 Encounter Details Date Type Department Care Team (Latest Contact Info) Description 04/27/2023 1:30 PM STUDIO MUSICIAN Procedure visit Department of Urology in [place], [place] [address] [place] [phone] Finesse Lim M.D. [address] [place] [phone] Incontinence Urinary Stress Male Social History [...] week 10/13/2021 How often do you attend [facility] or sabianist services? 1 to 4 times per year 10/13/2021 Do you belong to any clubs o r organizations such as adventist groups, unions, fraternal or athletic groups, or [...] care, and heating? Not very hard 10/13/2021 [facility] of Occupat ional Health - Occupational Stress [...] Jaqueline Carson R.N. - 04/27/2023 1:30 PM STUDIO MUSICIAN Care after your cystoscopy Possible blood in [...] while urinating on day three or after. IO MUSICIAN documented in this encounter Progress Notes * Jaqueline Carson R.N. - 04/27/2023 1:30 PM CST Patient here for a cystoscopy performed by Dr. Castellon ([facility]) Edi Lim Cystoscope CYF-VH #[id number] was used during today's cystoscopy procedure. Accessories used: disposable stop cock. Load number from processing via [employer]: [id number] Urines sent: No 4. Was dye used? No IO MUSICIAN documented in this encounter Procedure Notes * [...] we then tried to advance a 12 Serbian as well as a 14 Serbian catheter and this would not go. We then replaced a wire and then advanced a pigtail Mac-Loc stent Our overall plan will be to arrange IR upsizing at the time of his next exchange if this is unsuccessful we can consider open placement in the OR IO MUSICIAN documented in this encounter Plan of Treatment Upcoming Encounters Date Type Department Care Team (Late st Contact Info) Description 09/04/2023 9:30 AM CDT Procedure visit Department of Urology in [place], [place] [address] [place] [address] Finesse Lim M.D. [address] [place] [phone] 09/04/2023 10:30 AM CDT Office Visit Department of Urology in [place], [place] [address] [place] [address] Finesse Lim M.D. [address] [place] [phone] documented as of this encounter Procedures Procedure Name Priority Date/Time Associated Diagnosis Comments URO CYSTOSCOPY (SPECIFIC PROVIDER) Routine 04/27/2023 1:30 PM STUDIO MUSICIAN Incontinence Urinary Stress Male documented in this encounter Results * Cystoscopy (specific provider) (04/27/2023 1:30 PM STUDIO MUSICIAN) Narrative Shola Goddard M.D. - 04/27/2023 1:30 PM STUDIO MUSICIAN Shola Goddard M.D. ? 04/27/2023 ??2:58 PM Cystoscopy (specific provider) Performed by: Shola Goddard M.D. Authorized by: Finesse Lim M.D. ?? Finesse Lim M.D. UROLOGY ORDERABLES documented in this encounter Visit Diagnoses Diagnosis Incontinence Urinary Stress Male documented in this encounter Care Teams Family Assistant Relationship Specialty Start Date End Date Elsewhere, Pcp PCP - General Internal Medicine 12/29/21 documented as of this encounter
--- OUTSIDE RECORDS SUMMARY | 2023-07-25 10:48 | XMS_ITS | Encounter Summary ---
Author Name Unknown Organization [facility] Address [address] [place] [address] Care Team Providers Care Family Assistant Name Role Phone Elsewhere, Pcp Primary Care Provider Unavailabl e Encounter Details Date Type Department Care Team ([facility] st Contact Info) Description 04/27/2023 Clinical Communication Department of Urology in [place], [place] [address] [place] [phone] Shola Goddard M.D. [address] [place] [phone] Social History Tobacco Use Types Packs/Day Years [...] often do you attend chur ch or hindu services? 1 to 4 times per year [...] care, and heating? Not very hard 10/13/2021 [facility] - Occupational Stress Questionnaire Answer Date [...] place to sleep or slept in a fdc (including now)? No 10/13/2021 Nutrition Answer Date [...] arrange it depending on preference Lashonda Jolley SUPERVISING TECHNICAL OPERATOR * Telephone Encounter - Shola Goddard M.D. - 04/27/2023 4:21 PM CST Shanell, Can you help me arrange Artificial sphincter removal, suprapubic tube exchange, endoscopic buccal urethroplasty on July 02 He will need KONSTANTIN, urine culture Thanks Shola SUPERVISING TECHNICAL OPERATOR documented in this encounter Plan of Treatment Upcoming Encounters Date Type Department Care Team (Late st Contact Info) Description 09/04/2023 9:30 AM CDT Procedure visit Department of Urology in [place], [place] [address] [place] [phone] Finesse Lim M.D. [address] [place] [phone] 09/04/2023 10:30 AM CDT Office Visit Department of Urology in [place], [place] [address] [place] [address] Finesse Lim M.D. [address] [place] [phone] documented as of this encounter Visit Diagnoses Not on filedocumented in this encounter Care Teams Family Assistant Relationship Specialty Start Date End Date Elsewhere, Pcp PCP - General Internal Medicine 12/29/21 documented as of this encounter
--- OUTSIDE RECORDS SUMMARY | 2023-07-25 10:48 | XMS_ITS | Encounter Summary ---
Author Name Unknown Organization [facility] Address [address] [place] [address] Care Team Providers Care Rivet Hole Machine Operator Name Role Phone Elsewhere, Pcp Primary Care Provider Unavailabl e Encounter Details Date Type Department Care Team ([facility] st Contact Info) Description 04/28/2023 Documentation Preoperative Evaluation Center in [place], [place] [address] [place] [phone] Mojgan Cutler, [facility] [address] [place] [phone] Social History Tobacco Use Types Packs/Day Years [...] often do you attend chur ch or denominational services? 1 to 4 times per year 10/13/2021 Do you belong to any clubs o r organizations such as amish groups, unions, fraternal or athletic groups, or [...] care, and heating? Not very hard 10/13/2021 [facility] of Occupat ional Health - Occupational Stress [...] place to sleep or slept in a halfway (including now)? No 10/13/2021 Nutrition Answer Date [...] appointment is necessary. A comprehensive review of [facility] EMR was performed. We reviewed Care Everywhere [...] in KONSTANTIN. Patient underwent general anesthesia at [place] in 03/2023. See anesthesia pre/post procedural notes dated for more details. Please call [phone] (KONSTANTIN Doc of the day) weekdays between 8 am and 4:30 pm with any questions. ODS ANALYST DATA PROCESSING documented in this encounter Plan of Treatment Upcoming Encounters Date Type Department Care Team (Late st Contact Info) Description 09/04/2023 9:30 AM CDT Procedure visit Department of Urology in [place], [place] [address] [place] [phone] Finesse Lim M.D. [address] [place] [phone] 09/04/2023 10:30 AM CDT Office Visit Department of Urology in [place], [place] [address] [place] [phone] Finesse Lim M.D. [address] [place] [phone] documented as of this encounter Visit Diagnoses Not on filedocumented in this encounter Care Teams Rivet Hole Machine Operator Relationship Specialty Start Date End Date Elsewhere, Pcp PCP - General Internal Medicine 12/29/21 documented as of this encounter
--- OUTSIDE RECORDS SUMMARY | 2023-07-25 10:48 | XMS_ITS | Encounter Summary ---
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 [address] [place] [phone] [facility] Referral ID Status Reason Start Date Expiration Date Visits Re quested Visits Authorized [id number] Closed 04/27/2023 04/26/2024 1 1 STANT PRESSMAN Encounter Details Date Type Department Care Team (Late st Contact Info) Description 04/27/2023 Clinical Communication Department of Urology in [place], [place] [address] [place] [phone] Finesse Lim M.D. [address] [place] [phone] Social History Tobacco Use Types Packs/Day Years [...] any clubs o r organizations such as advent groups, unions, fraternal or athletic groups, or [...] care, and heating? Not very hard 10/13/2021 [facility] of Occupat ional Health - Occupational Stress [...] place to sleep or slept in a mcc (including now)? No 10/13/2021 Nutrition Answer Date [...] CDT Procedure visit Department of Urology in [place], [place] [address] [place] [address] Finesse Lim M.D. [address] [place] [address] 09/04/2023 10:30 AM CDT Office Visit Department of Urology in [place], [place] [address] [place] [address] Finesse Lim M.D. [address] [place] [phone] documented as of this encounter Results * IR Suprapubic Catheter Exchange (05/26/2023 2:15 PM ASSISTANT PRESSMAN) Anatomical Region Laterality Modality Abdomen, Pelvis, Vascular In terventional RST LOS, Vascular Interventional ARZ LOS, Vascular Interventional FLA LOS N/A X-Ray Angiography Impressions 05/26/2023 2:58 PM ASSISTANT PRESSMAN Uncomplicated suprapubic catheter upsizing to a 16 [place]ian [place] tip Kerr catheter. 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 Request for upsizing of suprapubic catheter. TECHNIQUE: The suprapubic pigtail catheter was prepped and draped in sterile fashion. 1% lidocaine was used for local anesthesia. Fur Polisher film shows expected position. Dilute contrast was injected through the patent catheter to confirm intraluminal position and slightly distend the bladder. The catheter was removed over an .035 Nitrex wire. The inner dilator from a 20 Panamanian peel-away sheath was used to dilate the tract. The peel-away portion was then reassembled and advanced over the wire into the bladder. A 16 [place] tip Kerr catheter was then advanced over [...] 1% lidocaine was used for local anesthesia. Fur Polisher filmshows expected position. Dilute contrast was injected through the patentcatheter to confirm intraluminal position and slightly distend the bladder. The catheter was removed overan .035 Nitrex wire. The inner dilator from a 20 Panamanian peel-away sheathwas used to dilate the tract. The peel-away portion was then reassembledand advanced over the wire into the bladder. A 16 [place] tip Kerr catheter was then advanced overthe [...] Uncomplicated suprapubic catheter upsizing to a 16 [place] tipFoley catheter. 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
--- OUTSIDE RECORDS SUMMARY | 2023-07-25 10:48 | XMS_ITS | Encounter Summary ---
Author Name Unknown Organization [facility] Address [address] [place] [address] Care Team Providers Care Forestry And Wildlife Manager Name Role Phone Elsewhere, Pcp Primary Care Provider Unavailabl e Reason for Visit * Reason Onset Date Comments Pre-visit Intake 06/20/2023 Encounter Details Date Type Department Care Team (Latest Contact Info) Description 06/20/2023 1:30 PM CDT Clinical Communication Virtual Review in [place], [place] [address] [place] [phone] Pre-visit Intake Social History Tobacco Use Types [...] often do you attend chur ch or christian services? 1 to 4 times per year 10/13/2021 Do you belong to any clubs o r organizations such as episcopalian groups, unions, fraternal or athletic groups, or [...] care, and heating? Not very hard 10/13/2021 [facility] - [...] place to sleep or slept in a chcf (including now)? No 10/13/2021 Nutrition Answer Date [...] CDT Procedure visit Department of Urology in [place], [place] [address] [place] [phone] Finesse Lim M.D. [address] [place] [phone] 09/04/2023 10:30 AM CDT Office Visit Department of Urology in [place], [place] [address] [place] [phone] Finesse Lim M.D. 200 [place] [phone] documented as of this encounter Visit Diagnoses Not on filedocumented in this encounter Care Teams Forestry And Wildlife Manager Relationship Specialty Start Date End Date Elsewhere, Pcp PCP - General Internal Medicine 12/29/21 documented as of this encounter
--- OUTSIDE RECORDS SUMMARY | 2023-07-25 10:48 | XMS_ITS | Encounter Summary ---
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 [address] [place] [phone] [facility] Referral ID Status Reason Start Date Expiration Date Visits Re quested Visits Authorized [id number] Closed 04/27/2023 04/26/2024 1 1 ING TECHNICIAN Reason for Visit * Outpatient (Routine) - Closed Specialty Diagnoses / Procedures Referred By Contac t Referred To Contact Radiology Diagnoses Incontinence Urinary Stress Male Procedures IR Suprapubic Catheter Exchange [place] [phone] [facility] Referral ID Status Reason Start Date Expiration Date Visits Re quested Visits Authorized [id number] Closed 04/27/2023 04/26/2024 1 1 Encounter Details Date Type Department Care Team (Latest Contact Info) Description 05/26/2023 9:44 AM IMAGING TECHNICIAN - 05/26/2023 11:59 PM IMAGING TECHNICIAN Hospital Encounter Department of Radiology in [place], [place] [address] [place] [phone] Shola Goddard M.D. [address] [place] [phone] Christiano Bergman M.D. [address] [place] [phone] Cecilia Baires M.D. [address] [place] [phone] Incontinence Urinary Stress Male Discharge Disposition: Home [...] How often do you attend chur or bahai services? 1 to 4 times per year [...] care, and heating? Not very hard 10/13/2021 [facility] [place] [facility]at [facility] - Occupational Stress [...] Comments Blood Pressure 140/81 05/26/2023 2:34 PM IMAGING TECHNICIAN Pulse 62 05/26/2023 2:34 PM IMAGING TECHNICIAN Temperature 36.6 ??C (97.9 ??F) 05/26/2023 2:31 PM CS T Respiratory Rate 26 05/26/2023 2:34 PM IMAGING TECHNICIAN Oxygen Saturation 94% 05/26/2023 2:34 PM IMAGING TECHNICIAN Inhaled Oxygen Concentration - - Weight 159 kg (350 lb 5 oz) 05/26/2023 12:19 PM IMAGING TECHNICIAN Height - - Body Mass Index 49.87 04/07/2023 10:15 AM IMAGING TECHNICIAN documented in this encounter Discharge Instructions * Attachments The following attachments cannot be sent through Care Everywhere. * Instructions After Sedation or Anesthesia for Adults (Japanese) * Long-Term Suprapubic Catheter Care (Japanese) documented in this encounter Medications at Time [...] CDT Procedure visit Department of Urology in [place], [place] [address] [place] [phone] Finesse Lim M.D. [address] [place] [phone] 09/04/2023 10:30 AM CDT Office Visit Department of Urology in [place], [place] [address] [place] [phone] Finesse Lim M.D. [address] [place] [phone] documented as of this encounter Procedures Procedure Name Priority Date/Time Associated Diagnosis Comments IR SUPRAPUBIC CATHETER EXCHANGE RAD - Routine (most inpatients and all outpatients) 05/26/2023 2:15 PM IMAGING TECHNICIAN Incontinence Urinary Stress Male documented in this encounter Results * IR Suprapubic Catheter Exchange (05/26/2023 2:15 PM IMAGING TECHNICIAN) Anatomical Region Laterality Modality Abdomen, Pelvis, Vascular In terventional RST LOS, Vascular Interventional ARZ LOS, Vascular Interventional FLA LOS N/A X-Ray Angiography Impressions 05/26/2023 2:58 PM IMAGING TECHNICIAN Uncomplicated suprapubic catheter upsizing to a 16 [place]uran Lovelock tip Kerr catheter. 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 Request for upsizing of suprapubic catheter. TECHNIQUE: The suprapubic pigtail catheter was prepped and draped in sterile fashion. 1% lidocaine was used for local anesthesia. Lye Boiler film shows expected position. Dilute contrast was injected through the patent catheter to confirm intraluminal position and slightly distend the bladder. The catheter was removed over an .035 Nitrex wire. The inner dilator from a 20 Honduran peel-away sheath was used to dilate the tract. The peel-away portion was then reassembled and advanced over the wire into the bladder. A 16 [place] Lovelock tip Kerr catheter was then advanced over [...] 1% lidocaine was used for local anesthesia. Lye Boiler filmshows expected position. Dilute contrast was injected through the patentcatheter to confirm intraluminal position and slightly distend the bladder. The catheter was removed overan .035 Nitrex wire. The inner dilator from a 20 Honduran peel-away sheathwas used to dilate the tract. The peel-away portion was then reassembledand advanced over the wire into the bladder. A 16 [place] Lovelock tip Kerr catheter was then advanced overthe [...] Uncomplicated suprapubic catheter upsizing to a 16 [place] Lovelock tipFoley catheter. EP Authorizing Provider Result Debbi [...] at 1415, Intra-Op Given 05/26/2023 2:15 PM IMAGING TECHNICIAN 40 mL lidocaine-sodium bicarbonate (buffered) 0.9%-0.84% injection infiltration, As needed, Starting on Mon05/26/23 at 1415, Intra-Op Given 05/26/2023 2:15 PM IMAGING TECHNICIAN 8 mL documented in this encounter Active and Recently Administered Medications Times are shown in IMAGING TECHNICIAN. Scheduled Medication Order 05/24/2023 05/25/2023 05/26/2023 gentamicin [...] M.D.) documented in this encounter Care Teams Mainspring Strip Inspector Relationship Specialty Start Date End Date Elsewhere, Pcp PCP - General Internal Medicine 12/29/21 documented as of this encounter
--- OUTSIDE RECORDS SUMMARY | 2023-07-25 10:48 | XMS_ITS | Encounter Summary ---
Author Name Unknown Organization [facility] Address [address] [place] [phone] Care Team Providers Care Customer Training Specialist Name Role Phone Elsewhere, Pcp Primary Care Provider Unavailabl e Encounter Details Date Type Department Care Team (Late st Contact Info) Description 05/26/2023 1:43 PM DEBUG TECHNICIAN Anesthesia Event Department of Radiology in [place], [place] [address] [place] [phone] Davie White APRN, SURVEILLANCE INSPECTOR, DNAP [address] [place] [phone] Ravinder Parada M.D. [address] [place] [phone] Anesthesia Record Procedure Summary Procedure Name Responsible Anesthesiologist Anesthesia Start Time Anesthesia Stop Time IR SUPRAPUBIC CATHETER EXCHANGE Davie White APRN, SURVEILLANCE INSPECTOR, DNAP 05/26/23 1343 05/26/23 1426 Events Date [...] Drains, and Airways Type Details Placement Removal Indwelling Urinary Catheter Placement Date: 04/07/23; Placement Time: 1521; Inserted by: Dr. Goddard; Type: Latex; Size: 14 Fr.; Balloon Size: 5 mL (filled with 10 ml sterile water); Urine Returned: Yes; Removal Date: 07/03/23; Removal Reason: No longer in place 04/07/23 1521 by Emily Ferrell RLeathaNLeatha 07/03/23 0000 by Ciarra Burgos RLeathaNLeatha Suprapubic Catheter 04/11/23; 1241; 10 F r.; Other (Comment) (Exchanging for larger catheter size) 04/11/23 1241 by Jamila Jones RLeathaNLeatha 05/26/23 1405 by Tennille Macias RLeathaNLeatha Peripheral IV Placement Date: 04/19; Placement Time: 1244; Catheter Size: 20 G; Orientation: Right; Location: Hand; Site Prep: Chlorhexidine (Preferred); Technique: Anatomical landmarks; Inserted by: RB; Insertion Attempts: 1; Removal Date: 07/23/23; Removal Time: 0004 05/26/23 1244 by Juliet Mccann RWendy 07/23/23 0004 by Lawanda Escobar RLeathaNLeatha Suprapubic Catheter 05/26/23; 1407; 16 Fr. 05/25 1407 by Tennille Macias RLeathaNLeatha 07/03/23 0000 by Ciarra Burgos RLeathaNLeatha documented in this encounter Social History Tobacco [...] How often do you attend chur or nondenominational services? 1 to 4 times per year 10/13/2021 Do you belong to any clubs o r organizations such as nondenominational groups, unions, fraternal or athletic groups, or [...] care, and heating? Not very hard 10/13/2021 [facility] [place] of Occupat ional Health - Occupational Stress [...] Room / Location: Department of Radiology in [place], [place] Anesthesia Start: 1343 Anesthesia Stop: 1426 Procedure: IR SUPRAPUBIC CATHETER EXCHANGE Diagnosis: Incontinence Urinary Stress Male Incontinence Urinary Stress Male (Suprapubic catheter exchange- Please up size this to a 16 czech) Scheduled Providers: Christiano Bergman M.D.; Cecilia Baires [...] Post Op nausea/vomiting: none Hydration status: euvolemic G TECHNICIAN * Anesthesia Preprocedure Evaluation - Ravinder Parada M.D. - 05/26/2023 12:09 PM CST Preprocedure Anesthesia & H&P Assessment Procedure Summary Date/Time: 05/26/23 1100 Scheduled providers: Christiano Bergman M.D.; Cecilia Baires M.D. Procedure: IR SUPRAPUBIC CATHETER EXCHANGE Diagnosis: Incontinence Urinary Stress Male [N39.3] Incontinence Urinary Stress Male [N39.3] Indications: Suprapubic catheter exchange- Please up size this to a 16 czech Location: Department of Radiology in [place], [place] Pertinent components of the patient's history [...] with patient /legal guardian or through an credit control clerk. Risks/Benefits/Alternatives of Blood transfusion discussed with patient / legal guardian, includingan opportunity to ask questions and/or decline some or all transfusion therapies. The patient / legal guardian consented to the use of all blood products, as deemed medically necessary Approval to Proceed: approved for anesthesia G TECHNICIAN documented in this encounter Plan of Treatment Upcoming Encounters Date Type Department Care Team (Late st Contact Info) Description 09/04/2023 9:30 AM CDT Procedure visit Department of Urology in [place], [place] [address] [place] [phone] Finesse Lim M.D. [address] [place] [phone] 09/04/2023 10:30 AM CDT Office Visit Department of Urology in [place], [place] [address] [place] [address] Finesse Lim M.D. [address] [place] [phone] (work) documented as of this encounter Visit Diagnoses Not on filedocumented in this encounter Administered Medications Inactive Administered Medications - up to 3 most recent administrations Medication Order MAR Action Action Date Dose Rate Site fentaNYL injection (SUBLIMAZE) intravenous, As needed, Starting on Mon05/26/23 at 1408, Anesthesia Intra-op Given 05/26/2023 2:08 PM DEBUG TECHNICIAN 25 mcg Given 05/26/2023 2:03 PM DEBUG TECHNICIAN 25 mcg flumazeniL injection (ROMAZICON) intravenous, As needed, Starting on Mon05/26/23 at 1422, Anesthesia Intra-op Given 05/26/2023 2:22 PM DEBUG TECHNICIAN 0.3 mg gentamicin in NaCl 0.9 % (iso osm) IVPB 160 mg (GARAMYCIN) 160 mg, intravenous, at 200 mL/hr, Administer over 30 Minutes, Once, On Mon05/26/23 at 1400, For 1 dose, Drug Monitoring Program: Pharmacist to adjust medication dosing based on indication and drug clearance factors., Indications: Prophylaxis, surgical Given 05/26/2023 1:58 PM DEBUG TECHNICIAN 160 mg ketamine injection (KETALAR) intravenous, As needed, Starting on Mon05/26/23 at 1344, Anesthesia Intra-op Given 05/26/2023 1:49 PM DEBUG TECHNICIAN 10 mg Given 05/26/2023 1:44 PM DEBUG TECHNICIAN 10 mg Lactated Ringer's intravenous, Continuous Infusion: Per Instructions PRN, Starting on Mon05/26/23 at 1342, Anesthesia Intra-op New Bag 05/26/2023 1:42 PM DEBUG TECHNICIAN lidocaine (PF) (cardiac) injection intravenous, As needed, Starting on Mon05/26/23 at 1344, Anesthesia Intra-op Given 05/26/2023 1:44 PM DEBUG TECHNICIAN 60 mg ondansetron (PF) injection (ZOFRAN) intravenous, As needed, Starting on Mon05/26/23 at 1411, Anesthesia Intra-op Given 05/26/2023 2:11 PM DEBUG TECHNICIAN 4 mg propofol 10 mg/mL infusion (DIPRIVAN) intravenous, Continuous Infusion: Per Instructions PRN, Starting on Mon05/26/23 at 1343, Anesthesia Intra-op Rate/Dose Change 05/26/2023 2:05 PM DEBUG TECHNICIAN 50 mcg/kg/min 47.67 mL/hr Rate/Dose Change 05/26/2023 2:00 PM DEBUG TECHNICIAN 25 mcg/kg/min 23.8 35 mL/hr Rate/Dose Change 05/26/2023 1:53 PM DEBUG TECHNICIAN 50 mcg/kg/min 47.6 7 mL/hr remimazolam injection (BYFAVO) intravenous, As needed, Starting on Mon05/26/23 at 1353, Anesthesia Intra-op Given 05/26/2023 2:03 PM DEBUG TECHNICIAN 1 mg Given 05/26/2023 1:59 PM DEBUG TECHNICIAN 1 mg Given 05/26/2023 1:53 PM DEBUG TECHNICIAN 1 mg documented in this encounter Care Teams Customer Training Specialist Relationship Specialty Start Date End Date Elsewhere, Pcp PCP - General Internal Medicine 12/29/21 documented as of this encounter
== END 2023-07-25 10:42 | disposition home or self-care (01) ==
PROVIDERS: PCP Family Medicine; Visit Provider Family Medicine
DX: I10 Essential (primary) hypertension (principal)
CPT/HCPCS: 80048; 85025

== ENCOUNTER 2024-08-29 10:53 | Emergency (ER) | payer MEDICARE, BC, SELFPAY ==
--- OUTSIDE RECORDS SUMMARY | 2024-07-23 09:22 | XMS_ITS | Encounter Summary ---
Author Organization [facility] Address [address] [place] [id number] Care Team Providers Care Production Artist Name Role Phone Elsewhere, Pcp Primary Care Provider Unavailabl e Reason for Referral * Outpatient (Routine) - Closed Specialty Diagnoses / Procedures Referred By Contac t Referred To Contact Diagnoses Pain Back Lumbar Procedures FL Lumbar Spine Medial Branch Nerve Block KS INJ FACET JT LUMB/SAC 1 LVL KS INJ FACET JT LUMB/SAC 2 LVL Ladan Otero D.O. 200 [place] [address] Phone: tel: fax: [facility] Referral ID Status Reason Start Date Expiration Date Visits Re quested Visits Authorized [id number] Closed 07/08/2024 11/04/2024 1 1 Reason for Visit * Outpatient (Routine) - Closed Specialty Diagnoses / Procedures Referred By Contac t Referred To Contact Diagnoses Pain Back Lumbar Procedures FL Lumbar Spine Medial Branch Nerve Block KS INJ FACET JT LUMB/SAC 1 LVL KS INJ FACET JT LUMB/SAC 2 LVL Ladan Otero D.O. [address] [place] [phone] Phone: tel: fax: [facility] Referral ID Status Reason Start Date Expiration Date Visits Re quested Visits Authorized [id number] Closed 07/08/2024 11/04/2024 1 1 Encounter Details Date Type Department Care Team (Latest Contact Info) Description 07/23/2024 9:22 AM CDT - 07/23/2024 11:59 PM CDT Hospital Encounter Division of Pain Medicine in [place], [place] [address] [place] [address] Ladan Otero D.O. [address] [place] [address] Pain Back Lumbar Discharge Disposition: Home or Self Care Social History Tobacco Use Types Packs/Day Years Used Date Smoking Tobacco: Former Cigarettes 1 6 0 03/27/1987 - 03/27/1993 Passive Smoke Exposure: Never Smokeless Tobacco: Never Alcohol Use Standard Drinks/Week Comments Yes 3 (1 standard drink = 0.6 oz pur e alcohol) [facility] [employer] Answer Date Recorded In the past 12 months has e electric, gas, oil, or water [employer] threatened to shut off services in your home? No 01/29/2024 Humiliation, Afraid, Rape, a nd Kick questionnaire [...] care, and heating? Not very hard 10/13/2021 [facility] - Occupational Stress Questionnaire Answer Date [...] to strenuous exercise (like a brisk walk)? 3 days 01/29/2024 On average, how many minutes do you engage in exercise at this level? 30 min 01/29/2024 Hunger Vital Sign Answer Date Recorded Within the past 12 months, y ou worried that your food would run out before you got the money to buy more. Never true 01/29/20 24 Within the past 12 months, t he food you bought just didn't last and you didn't have money to get more. Never true 01/29/2024 PRAPARE - Transportation Answer Date Re corded In the past 12 months, has l ack of transportation kept you from medical appointments or from getting medications? No 06/2023 In the past 12 months, has l ack of transportation kept you from meetings, work, or from getting things needed for daily living? No 01/29/2024 Nutrition Answer Date Recorded On average, how many serving s of fruits and vegetables do you eat per day (serving size is equal to 1 cup or approximately the size of a tennis ball)? 0-2 01/29/2024 Dental Answer Date Recorded Dental: Regular Dentist Yes 10/14/19 Employment Answer Date Recorded Employment status Retired 01/29/2024 Housing Stability Answer Date Recorded What is your living situation today? I have a [facility] place to live 01/29/2024 Education Answer Date Recorded What is the highest level of school you have completed or the highest degree you have received? 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 Gender Identity Male 10/13/2021 10:44 AM CDT Sexual Orientation Choose not to disclose 2021 8:52 AM CDT documented as of this encounter Last Filed Vital Signs Vital Sign Reading Time Taken Comments Blood Pressure 160/69 07/23/2024 10:14 AM CDT Pulse 72 07/23/2024 10:14 AM CDT Temperature - - Respiratory Rate - - Oxygen Saturation 97% 07/23/2024 10:14 AM CDT Inhaled Oxygen Concentration - - Weight - - Height - - Body Mass Index - - documented in this encounter Medications at Time of Discharge acetaminophen (TYLENOL) 500 mg tablet Take 2 tablets (1,000 mg total) by mouth every 6 (six) hours as needed for pain. 30 tablet 07/03/2023 atorvastatin (LIPITOR) 40 mg tablet Take 40 mg by mouth daily. 01/28/2022 benzonatate (Tessalon) 200 mg capsule Take 1 capsule by mouth every 8 (eight) hours as needed for cough. 04/17/2024 celecoxib (CeleBREX) 200 mg capsule Take 200 mg by mouth 2 (two) times a day. DME Urological suppliesIndicati ons:Incontinence Urinary DME Order 1 Unspecified 07/07/2022 docusate sodium 100 mg capsule Take 100 mg by mouth daily. escitalopram (LEXAPRO) 20 mg tablet Take 20 mg by mouth daily. gabapentin (NEURONTIN) 300 mg capsule Take 600 mg by mouth 2 (two) times a day. 04/13/2021 lisinopriL (PRINIVIL,ZESTRI L) 40 mg tablet Take 40 mg by mouth daily. 01/21/2021 LORazepam (ATIVAN) 1 mg tablet Take 1 mg by mouth 3 (three) times a day as needed for anxiety. trospium (Sanctura XR) 60 mg 24 hr capsule TAKE 1 CAPSULE(60 MG) BY MOUTH EVERY MORNING BEFORE BREAKFAST 90 capsule 3 06/12/2024 venlafaxine XR (Effexor-XR) 150 mg 24 hr capsule Take 1 capsule by mouth daily. 01/17/2024 documented as of this encounter Procedure Notes * Guillermo Santana M.D. - 07/23/2024 10:30 AM CDTAssociated Order(s): FL Lumbar Spine Medial Branch Nerve Block Pre-Procedure Diagnose(s): Pain Back Lumbar Post-Procedure Diagnose(s): Pain Back Lumbar FL Lumbar Spine Medial Branch Nerve Block Performed by: Guillermo Santana M.D. Authorized by: Ladan Otero D.O. Care team members present 1. Trev Foster M.D. 2. Jillian Matos L.P.N. 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 Image(s) acquired and saved. INJECTED MEDICATIONS The injected medication(s) listed was divided equally between the identified injection location(s) Total volume of injectate (mL): 3 Total steroid in injectate (mg): 0 3 mL lidocaine 20 mg/mL 1 mL iohexoL 300 mg iodine/mL PROCEDURE DETAILS Medial branch block - lumbar: Using fluoroscopy, the junction of the transverse process and superior articulating process of the appropriate levels were identified and marked. Using fluoroscopic guidance, a spinal needle was advanced to each target. After negative aspiration, the contrast was injected at each site. Spread of contrast approximated the region of the medial branches/dorsal ramus andthere was no evidence of intravascular uptake. Following contrast injection and repeat negative aspiration, 0.5 mL of anesthetic was injected at each target location. The patient tolerated the procedure well and there were no apparent complications. After appropriate observation, the patient was dis missed in good condition under their own power. The patient was instructed to keep a pain diary andreport the results of the injection. Complications: no apparent complications ADDITIONAL PROCEDURE COMMENTS Some pain with passage of the needle to the targets. CONSENT Consent obtained: written (Risks, benefits and alternatives were discussed and a written Informed Consent was obtained. Please see Informed Consent form for further details.) UNIVERSAL PROTOCOL All relevant documentation and testing were reviewed and available. All required blood products, implants, devices and or special equipment were made available as applicable. Pre-procedure verification was conducted and the correct site was marked if required. A fire risk and smoke assessment were done as applicable. The procedural time-out to verify correct patient, correct side/site, and procedure was conducted prior to performing the procedure and confirmed in a procedural pause. PRE-PROCEDURE DETAILS Procedure purpose: diagnostic Appropriate hand hygiene, gown, cap, mask, protective eyewear, sterile gloves, skin preparation, sterile drape, and strict aseptic technique were utilized as applicable for the procedure: yes Site preparation: chlorhexidine SEDATION / ANESTHESIA Anesthesia method: local infiltration Local infiltrate type: lidocaine ATTESTATION STATEMENT A resident or fellow participated in the procedure, and the presales consultant was present for the entire procedure. OPERATIVE NOTE INFORMATION Specimens: 0 Drains: 0 Estimated blood loss: 0 Implants: 0 documented in this encounter Plan of Treatment Upcoming Encounters Date Type Department Care Team (Late st Contact Info) Description 09/06/2024 2:00 PM CDT Comprehensive Visit Division of Pain Medicine in [place], [place] [address] [place] [address] Alexandria Alejandra APRN, C.N.P., M.S.N. [address] [place] [address] 09/06/2024 3:30 PM CDT Appointment Division of Pain Medicine in [place], [place] [address] [place] [address] Ladan Otero D.O. [address] [place] [address] documented as of this encounter Procedures Procedure Name Priority Date/Time Associated Diagnosis Comments FL LUMBAR SPINE MEDIAL BRANCH NERVE BLOCK INJECTION Routine 07/23/2024 10:20 AM CDT Pain Back Lumbar documented in this encounter Results * FL Lumbar Spine Medial Branch Nerve Block (07/23/2024 10:20 AM CDT) Narrative Guillermo Santana M.D. - 07/23/2024 10:30 AM CDT Guillermo Santana M.D. 07/23/2024 11:31 AM FL Lumbar Spine Medial Branch Nerve Block Performed by: Guillermo Santana M.D. Authorized by: Ladan Otero D.O. Care team members present 1. Trev Foster M.D. 2. 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 Image(s) acquired and saved. INJECTED MEDICATIONS The injected medication(s) listed was divided equally between the identified injection location(s) Total volume of injectate (mL): 3 Total steroid in injectate (mg): 0 3 mL lidocaine 20 mg/mL 1 mL iohexoL 300 mg iodine/mL PROCEDURE DETAILS Medial branch block - lumbar: Using fluoroscopy, the junction of the transverse process and superior articulating process of the appropriate levels were identified and marked. Using fluoroscopic guidance, a spinal needle was advanced to each target. After negative aspiration, the contrast was injected at each site. Spread of contrast approximated the region of the medial branches/dorsal ramus and there was no evidence of intravascular uptake. Following contrast injection and repeat negative aspiration, 0.5 mL of anesthetic was injected at each target location. The patient tolerated the procedure well and there were no apparent complications. After appropriate observation, the patient was dismissed in good condition under their own power. The patient was instructed to keep a pain diary and report the results of the injection. Complications: no apparent complications ADDITIONAL PROCEDURE COMMENTS Some pain with passage of the needle to the targets. CONSENT Consent obtained: written (Risks, benefits and alternatives were discussed and a written Informed Consent was obtained. Please see Informed Consent form for further details.) UNIVERSAL PROTOCOL All relevant documentation and testing were reviewed and available. All required blood products, implants, devices and or special equipment were made available as applicable. Pre-procedure verification was conducted and the correct site was marked if required. A fire risk and smoke assessment were done as applicable. The procedural time-out to verify correct patient, correct side/site, and procedure was conducted prior to performing the procedure and confirmed in a procedural pause. PRE-PROCEDURE DETAILS Procedure purpose: diagnostic Appropriate hand hygiene, gown, cap, mask, protective eyewear, sterile gloves, skin preparation, sterile drape, and strict aseptic technique were utilized as applicable for the procedure: yes Site preparation: chlorhexidine SEDATION / ANESTHESIA Anesthesia method: local infiltration Local infiltrate type: lidocaine ATTESTATION STATEMENT A resident or fellow participated in the procedure, and the presales consultant was present for the entire procedure. OPERATIVE NOTE INFORMATION Specimens: 0 Drains: 0 Estimated blood loss: 0 Implants: 0 Ladan Bell.OLeatha FLUORO GUIDED PAIN PROCE ZEE Final Result documented in this encounter Visit Diagnoses Diagnosis Pain Back Lumbar documented in this encounter Administered Medications Inactive Administered Medications - up to 3 most recent administrations Medication Order MAR Action Action Date Dose Rate Site iohexoL 300 mg iodine/mL solution 1 mL (Omnipaque) 1 mL, injection, One-Time Injection, Starting on Mon07/23/24 at 1030, For 1 doseIndications:Pain Back Lumbar Given 07/23/2024 10:30 AM CDT 1 mL lidocaine 20 mg/mL injection 3 mL (Xylocaine) 3 mL, injection, One-Time Injection, Starting on Mon07/23/24 at 1030, For 1 doseIndications:Pain Back Lumbar Given 07/23/2024 10:30 AM CDT 3 mL documented in this encounter Care Teams Production Artist Relationship Specialty Start Date End Date Elsewhere, Pcp PCP - General Internal Medicine 12/29/21 documented as of this encounter
--- OUTSIDE RECORDS SUMMARY | 2024-07-24 10:30 | XMS_ITS | Encounter Summary ---
Author Organization [facility] Address [address] [place] [address] Care Team Providers Care Shipping Lead Person Name Role Phone Elsewhere, Pcp Primary Care Provider Unavailabl e Reason for Visit * Outpatient (Routine) - Closed Specialty Diagnoses / Procedures Referred By Contac t Referred To Contact Diagnoses Pain Back Lumbar Procedures FL Lumbar Spine Medial Branch Nerve Block [place] INJ FACET JT LUMB/SAC 1 LVL [place] INJ FACET JT LUMB/SAC 2 LVL Ladan Otero D.O. [address] [place] [address] Phone: tel: fax: [facility] Referral ID Status Reason Start Date Expiration Date Visits Re quested Visits Authorized [id number] Closed 07/08/2024 11/04/2024 1 1 Encounter Details Date Type Department Care Team (Latest Contact Info) Description 07/24/2024 10:30 AM CDT Clinical Communication Division of Pain Medicine in [place], [place] [address] [place] [address] Social History Tobacco Use Types Packs/Day Years Used Date Smoking Tobacco: Former Cigarettes 1 6 0 03/27/1987 - 03/27/1993 Passive Smoke Exposure: Never Smokeless Tobacco: Never Alcohol Use Standard Drinks/Week Comments Yes 3 (1 standard drink = 0.6 oz pur e alcohol) [facility] Utilities Answer Date Recorded In the [...] week 10/13/2021 How often do you attend [facility] or [facility] services? 1 to 4 times [...] care, and heating? Not very hard 10/13/2021 [facility] - Occupational Stress [...] your living situation today? I have a [facility] place to live 01/29/2024 Education Answer Date Recorded What is the highest level of school you have completed or the highest degree you have received? 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 - 07/24/2024 10:30 AM CDT TELEPHONE CALL DOCUMENTATION PROCEDURE: Diagnostic Block # 1 MEDICATION: Lidocaine PRE PROCEDURE PAIN SCORE: 9/10 POST PROCEDURE PAIN SCORE: 4-5/10 PERCENT IMPROVEMENT: 50% Patient reports moderate improvement in pain level while performing usual activities. Result: Less than 80% improvement, patient does not meet medical criteria to move forward with the second block or RFA procedures. Notified ordering provider. Pt will wait for contact from Dr. Zaldivar on the next steps of care. What activities did you do to test your pain during the 2-3 hours (peak medication action) following your block that would normally cause you pain? Walking around outside, in & out of the car, sitting for an hour Was the injection being performed painful, or during your injection was it hard to remain completely still? no PLAN Information: reinforced Caller agreeable to plan of care: yes The following references were used: none, procedure documented in this encounter Plan of Treatment Upcoming Encounters Date Type Department Care Team (Late st Contact Info) Description 09/06/2024 2:00 PM CDT Comprehensive Visit Division of Pain Medicine in [place], [place] [address] [place] [address] Alexandria Alejandra APRN, C.N.P., M.S.N. [address] [place] [phone] 09/06/2024 3:30 PM CDT Appointment Division of Pain Medicine in [place], [place] [address] [place] [phone] Ladan Otero D.O. [address] [place] [phone] documented as of this encounter Visit Diagnoses Not on filedocumented in this encounter Care Teams Shipping Lead Person Relationship Specialty Start Date End Date Elsewhere, Pcp PCP - General Internal Medicine 12/29/21 documented as of this encounter
--- OUTSIDE RECORDS SUMMARY | 2024-08-20 14:30 | XMS_ITS | Encounter Summary ---
Author Organization [facility] Address [address] [place] [phone] Care Team Providers Care Rug Repairer Name Role Phone Elsewhere, Pcp Primary Care Provider Unavailabl e Reason for Referral * Pain Medicine (Routine) - Authorized Specialty Diagnoses / Procedures Referred By Contac t Referred To Contact Diagnoses Facet Syndrome Procedures FL Lumbar Spine Facet Injection Bilateral OH INJ FACET JT LUMB/SAC 1 LVL OH INJ FACET JT LUMB/SAC 2 LVL Ladan Otero D.O. [address] [place] [address] Phone: tel: fax: [facility] Referral ID Status Reason Start Date Expiration Date V isits Requested Visits Authorized [id number] Authorized 08/22/2024 12/19/2025 1 1 Reason for Visit * Outpatient (Routine) - Closed Specialty Diagnoses / Procedures Referred By Contact Referred To Contact Physical Medicine and Rehabilitation Ladan Otero D.O. [address] [place] [address] Phone: tel: fax: Ladan Otero D.O. [address] [place] [address] Phone: tel: fax: Referral ID Status Reason Start Date Expiration Date Visits Re quested Visits Authorized [id number] Closed 07/24/2024 01/23/2026 1 1 Encounter Details Date Type Department Care Team (Latest Contact Info) Description 08/20/2024 2:30 PM CDT Office Visit Department of Physical Medicine and Rehabilitation in [place], [place] [address] [place] [address] Ladan Otero D.O. [address] [place] [address] Pain Back Lumbar (Primary Dx); Spondylosis Lumbar Without Myelopathy; Facet Syndrome; Pain Myofascial; Stenosis Spinal Social History Tobacco Use Types Packs/Day Years Used Date Smoking Tobacco: Former Cigarettes 1 6 0 03/27/1987 - 03/27/1993 Passive Smoke Exposure: Never Smokeless Tobacco: Never Alcohol Use Standard Drinks/Week Comments Yes 3 (1 standard drink = 0.6 oz pur e alcohol) [facility] [employer] Answer Date Recorded In the past 12 months has [employer], gas, oil, or water [employer] threatened to shut off services in your [...] week 10/13/2021 How often do you attend [facility] or baptist services? 1 to 4 times per year 10/13/2021 Do you belong to any clubs o r organizations such as cheondoism groups, unions, fraternal or athletic groups, or [...] care, and heating? Not very hard 10/13/2021 [facility] - Occupational Stress [...] your living situation today? I have a [facility] place to live 01/29/2024 Education Answer Date Recorded What is the highest level of school you have completed or the highest degree you have received? 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 - 08/20/2024 2:30 PM CDT SUBJECTIVE REQUESTING PROVIDER Ladan Otero D.O. CHIEF COMPLAINT/REASON FOR VISIT Follow up low back pain HISTORY OF PRESENT ILLNESS Mr. Jose Gonzalez a 74 y.o. male who presents today for of his low back pain. Since our last visit he has had 2 different injections 1 was a right L2-3 interlaminar steroid injection. He reports this injection only helped for a few hours but did not relieve all of his pain. The next injection he had was a bilateral L4-5 and L5-S1 MBB. He reports that this injection helped about 60% of his back pain enough that he felt like his back was younger. Unfortunately, it was not a large enough percentage relief to continue with the 2nd medial branch block. His back pain has stayed the same since her previous visit. He describes it as a bandlike sensationaround his lower back more to the right than the left side. He continues to walk with a cane. He isalso seeing physical therapy 2 times a week, a chiropractor once a week, and seeing a deep muscle therapist. While these are individually somewhat helpful his back pain is still quite debilitating. He still is not experiencing any pain down his leg. No changes in his bowel or bladder, denies saddle anesthesia, and leg weakness. He arrives today wondering what his options are. OBJECTIVE There were no vitals taken for this visit. PHYSICAL EXAM GENERAL: Awake, alert, and oriented, no apparent distress, pleasant, and cooperative PSYC: Mood is euthymic, affect is congruent SKIN: No increased erythema, warmth, rashes, or concerning skin lesions NEURO: Strength is grossly 5 out of 5 throughout the bilateral lower extremities. GAIT: antalgic gait favoring the left. No myelopathic features. Evaluation of the Lumbar Spine: SPINE: Lumbar spine range of motion is full . Tenderness to palpation at the level of L4/5 lumbar spinous processes, sacroiliac joint(s) (right) No tenderness to palpation over the midline Facet loading maneuvers are positive. Reflexes are absent in the lower extremities Active Straight leg raise negative bilaterally. Passive straight leg raise negative. Slump test is negative. MUSCULOSKELETAL: Deisy's is positive on the right Stinchfield is negative bilaterally. FADIR positive on the right. Gaenslens negative Mild positive compression test DIAGNOSTICS MR of the lumbar spine on 05/20/24: Overall progression of multilevel advanced spondylotic changes in the lumbar spine compared to January 2020 as described in detail above. In particular, there is multilevel moderate to severe spinal canal stenosis present at the L2-L3 and L3-L4 levels with less prominent canal stenosis at L4-L5 due to a combination of disc abnormalities, facet and ligamentum flavum hypertrophy and dorsal epidural fat prominence with associated multilevel neural foraminal stenosis as noted above in detail. Xray Hip and pelvis 04/30/24: Uncemented right FEDERICO. Implants are well-seated. Mild degenerative arthritis left hip. Degenerative changes pubic symphysis, lower lumbar spine and both SI joints. Surgicalclips in the pelvis. Xray lumbar 04/30/24: Moderate to advanced multilevel degenerative disc disease with low-grade subluxations. Transitional lumbosacral segment. Advanced lower lumbar facet arthritis. Degenerative arthritis of both SI joints and left hip. Right FEDERICO. Postoperative changes within the pelvis. Vascular calcifications. ASSESSMENT / PLAN # Lumbar spondylosis without myelopathy # Fkbfe-ujmnzfs-cklw-left facet pain # Spinal stenosis # Myofascial pain Unfortunately, Jose did not have the full 80% pain relief with the medial branch blocks to be able to proceed with the 2nd set of injections. He did have about 60% pain relief which does show thata component of his pain is coming from the facets. I still think that he has multifactorial back pain with facet mediated pain contributing to the the majority of his pain. We discussed management strategies ... - Physical therapy: Continuing physical therapy - Medications: Currently is taking gabapentin 600 mg b.i.d.. I recommended following up with his primary care physician to see if possible to add a mid day dose. He does notice the back pain is worseif he skips his morning dose of gabapentin. - Injections: Recommended that he call his insurance to see how long it would take before they would approve for a repeat medial branch block. We could consider adding a level to target L3/4, L4/5, and L5/S1 to see if this gets him to 80% relief. I also recommended that he could try a corticosteroid facet injection. I am unsure if his insurance would cover this and recommended that he follow up with them. I placed an order for a facet injection. - Surgery: We discussed that surgery is more helpful for leg pain than back pain. We also discussedthat in the case him elective surgery his BMI would most likely need to be under 40. Recommended weight loss and following up with primary care to see either a floral department specialist and potentially consider GLP 1 inhibitor if he is able. The patient was instructed on red flag symptoms that include, but are not limited to, loss of bladder or bowel control (changed from his current), numbness or weakness in the lower extremities, or saddle anesthesia, which may warrant immediate evaluation in the emergency department. EDUCATION We discussed the diagnosis and treatment plan in detail. The patient expressed understanding of thecontent. No apparent learning barriers were identified; learning preferences include listening. Signed by: Ladan Otero D.O. 08/20/2024 11:01 AM CDT Cosigned by Phuong Woods M.D. at 08/20/2024 4:19 PM CDT Associated attestation - Phuong Woods M.D. - 08/20/2024 4:19 PM CDT The following portions of the patient's history were reviewed and updated as appropriate: current medications, allergies, medical history, surgical history, social history, family history, and problem list. I reviewed the pertinent imaging studies and agree with the interpretations as recorded. I reviewed the pertinent laboratory and diagnostic data. I reviewed the pertinent clinical notes in the electronic health record. I reviewed the case in detail, and agree with the resident???s plan. I reviewed their note and agree with the findings and plan. Additional details or modifications arenoted below, as needed. He will continue to work towards a healthier weight via diet modification, low impact exercise as tolerated, and will discuss with his PCP regarding need for nutrition consultation and/or medication management. He is considering facet injections (up to 4 facets at a time) and will contact insuranceregarding cost since these are not typically covered. Keeping an eye on total steroid burden. documented in this encounter Plan of Treatment Upcoming Encounters Date Type Department Care Team (Late st Contact Info) Description 09/06/2024 2:00 PM CDT Comprehensive Visit Division of Pain Medicine in [place], [place] [address] [place] [phone] Alexandria Alejandra APRN, C.N.P., M.S.N. [address] [place] [phone] 09/06/2024 3:30 PM CDT Appointment Division of Pain Medicine in [place], [place] [address] [place] [phone] Ladan Otero D.O. [address] [place] [phone] documented as of this encounter Visit Diagnoses Diagnosis Pain Back Lumbar- Primary Spondylosis Lumbar Without Myelopathy Facet Syndrome Pain Myofascial Stenosis Spinal documented in this encounter Care Teams Rug Repairer Relationship Specialty Start Date End Date Elsewhere, Pcp PCP - General Internal Medicine 12/29/21 documented as of this encounter
--- OUTSIDE RECORDS SUMMARY | 2024-08-29 10:56 | XMS_ITS | Clinical Summary ---
Author Organization [facility] Address [address] [place] [address] Care Team Providers Care Commercial Interior Designer Name Role Phone Dima Burr MD Primary Care Provider + Allergies Active Allergy Reactions Criticality Noted Date Comments Aspirin,Buffd-Calcium Carb-Mag Bleeding 05/31/2019 Chlorhexidin-Isopropyl Alcohol Rash 12/16/2021 Skin reaction from PICC line cleanser Medications TYLENOL ORAL 650mg 6 tabs a day 0 Active amoxicillin (AMOXIL) 500 mg capsuleIndicatio ns:Antibiotic prophylaxis for dental procedure indicated due to prior joint replacement TAKE FOUR CAPSULES BY MOUTH 1 HOUR BEFORE DENTAL APPOINTMENT 8 capsule 0 5 Active hydroCHLOROthiaz matt (HCTZ) 25 mg tabletIndication s:Essential hypertension with goal blood pressure less than 140/90 Take 1 tablet by mouth once daily. 90 tablet 1 0 Active triamcinolone (ARISTOCORT; KENALOG) 0.1 % creamIndications :Dermatitis Apply topically to affected area(s) 3 times daily. 60 g 2 0 Active sildenafil citrate (VIAGRA) 50 mg tabletIndication s:Erectile dysfunction of organic origin Take 1 tablet by mouth once daily if needed for Erectile Dysfunction. Take 30min to 4 hours before sexual activity. Max 100mg/24hr 20 tablet 0 Active lisinopriL (PRINIVIL; ZESTRIL) 20 mg tabletIndication s:Hypertension Take 1 tablet by mouth 2 times daily. 180 tablet 3 0 Active atorvastatin (LIPITOR) 40 mg tabletIndication s:Myocardial ischemia Take 1 tablet by mouth at bedtime. 30 tablet 5 0 Active tamsulosin (FLOMAX) 0.4 mg capsuleIndicatio ns:Urinary retention Take 1 Capsule (0.4 mg) by mouth once daily after a meal. 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 Recommend repeat in ten years. 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) use of anticoagulants 04/04/2011 05/01/2011 Dysthymic disorder 03/30/2007 1 Immunizations Immunization Administration Dates Next Due COVID-19 vaccine ([employer] 30mcg/0.3mL) P F, MDV 06/20/2020,05/30/2020 Influenza, IIV3 [...] Recorded Sex Assigned at Not on file Legal Sex Male 5:23 AM RESOURCE 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 SPECIALIST Gender Identity Not on file Sexual Orientation Not on file 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 Not on file Not on file Not on file Obstetrics History Last Filed Vital Signs Vital Sign Reading Time Taken Comments Blood Pressure 171/88 03/24/2022 6:44 PM RESOURCE MANAGEMENT SPECIALIST Pulse 81 03/24/2022 6:44 PM RESOURCE MANAGEMENT SPECIALIST Temperature 36.8 C (98.2 F) 03/24/2022 6:44 PM RESOURCE MANAGEMENT SPECIALIST Respiratory Rate 18 03/24/2022 6:44 PM RESOURCE MANAGEMENT SPECIALIST Oxygen Saturation 98% 03/24/2022 6:44 PM RESOURCE MANAGEMENT SPECIALIST Inhaled Oxygen Concentration - - Weight 152.6 kg (336 lb 6.8 oz) 03/24/2022 6:44 PM RESOURCE MANAGEMENT SPECIALIST Height 185.4 cm (6' 1) 03/24/2022 6:44 PM RESOURCE MANAGEMENT SPECIALIST Body Mass Index 44.39 03/24/2022 6:44 PM RESOURCE MANAGEMENT SPECIALIST Plan of Treatment Health Maintenance Due Date Last Done Comments Hepatitis C screening for age 18-79 01/13/1970 Pneumococcal series for age 50+ (1 of 1 - PCV) 01/13/2002 RSV vaccine for adults or (1 - Risk 60-74 years 1-dose series) 2012 Zoster (shingles) series for age 50+ (2 of 3) 05/18/2012 03/23/2012 Medicare Wellness for age 65+ 01/13/2017 Lipids for age 45-75 03/23/2017 03/23/2012, 03/23/2011, 03/26/2010, Additional history exists Depression screening for age 12+ 01/12/2020 01/11/2019, 01/04/2019, 02/06/2018, Additional history exists BMI (ht and wt on same day) for age 18+ 07/17/2021 07/17/2020, 01/11/2019, 01/01/2019, Additional history exists COVID-19 vaccine series ( season) 2023 02/08/2022, 03/03/2021, 06/20/2020, Additional history exists Influenza Vaccine (Season Ended) 2024 03/23/2012, 04/04/2007 Tetanus booster 01/20/2025 01/20/2015, 05/2007, 09/13/1997 Colonoscopy through age 75 01/26/202501/26, 01/26/2015, 10/14/2004 [facility] Tdap Completed 01/20/2015, 03/29/2007 Hepatitis B series for 19+ Aged Out N o longer eligible based on patient's age to complete this topic Procedures Procedure Name Priority Date/Time Associated Diagnosis Comments COLONOSCOPY SCREENING Routine 01/26/2015 Screening LIPID PANEL Routine 03/23/2012 9:42 AM RESOURCE MANAGEMENT SPECIALIST HYPERLIPIDEMIA from Last 3 Months or Most Recently Relevant to Health Maintenance Results * COLONOSCOPY SCREENING (01/26/2015) us Larisa Underwood [facility] PROCEDURE ORD Final Result * (ABNORMAL) LIPID PANEL (03/23/2012 9:42 AM RESOURCE MANAGEMENT SPECIALIST) CHOLESTEROL,TOTAL 196 100 - 199 mg/dL 03/23/2012 10:23 AM [facility] Comment: TRIGLYCERIDES 98 <150 mg/dL 03/23/2012 10:23 AM [facility] Comment: HDL CHOLESTEROL 31(L) >40 mg/dL 2 10:23 AM RESOURCE MANAGEMENT SPECIALIST [facility] Comment: NON-HDL CHOLESTEROL 165(H) <145 mg/dl 03/23/2012 10:23 AM [facility] CHOL/HDL RATIO 6.32(H) <4.50 03/23/2012 10:23 AM [facility] LDL CHOLESTEROL 145(H) <=130 mg/dL 03/23/2012 10:23 AM [facility] PATIENT STATUS FASTING 03/23/2012 10:23 AM [facility] Blood specimen (specimen) BLOOD SPECIMEN / Unknown 03/23/2012 9:42 AM RESOURCE MANAGEMENT SPECIALIST 03/23/2012 9:42 AM RESOURCE MANAGEMENT SPECIALIST Larisa Chaudhary CHEMISTRY Final Result [facility] [address] [place] [address] from Last 3 Months or Most Recently Relevant to Health Maintenance Insurance MEDICARE PART A HB ONLY MEDICARE PART B HB ONLY [employer] BLUE HB ONLY BLUE [facility] FED EMP [employer] Advance Directives * Full Code (Latest Code [...] 6:19 AM 06/10/2013 7:57 AM Care Teams Commercial Interior Designer Relationship Specialty Start Date End Date Dima Burr MD [address] [place] [phone] PCP - General Family Practice 07/02/20
--- OUTSIDE RECORDS SUMMARY | 2024-08-29 10:56 | XMS_ITS | Encounter Summary ---
Author Organization [facility] Address [address] [place] [address] Care Team Providers Care Country Printer Apprentice Name Role Phone Elsewhere, Pcp Primary Care Provider Unavailabl e Reason for Visit * Reason Onset Date Comments Local catheter change 08/29/2024 Encounter Details Date Type Department Care Team (Latest Contact Info) Description 08/29/2024 Clinical Communication Department of Urology in [place], [place] [address] [place] [phone] Finesse Lim M.D. [address] [place] [phone] Local catheter change Social History Tobacco Use Types Packs/Day Years Used Date Smoking Tobacco: Former Cigarettes 1 6 0 03/27/1987 - 03/27/1993 Passive Smoke Exposure: Never Smokeless Tobacco: Never Alcohol Use Standard Drinks/Week Comments Yes 3 (1 standard drink = 0.6 oz pur e alcohol) [facility] Utilities Answer Date Recorded In the past 12 months has [employer], gas, oil, or water [employer] threatened to shut off services in your [...] any clubs o r organizations such as baptist groups, unions, fraternal or athletic groups, or [...] heating? Not very hard 10/13/2021 [facility] [place] [facility] Occupat ional Health - Occupational Stress [...] your living situation today? I have a [facility] place to live 01/29/2024 Education Answer Date Recorded What is the highest level of school you have completed or the highest degree you have received? 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 [address] [place] [address] 09/06/2024 3:30 PM CDT Appointment Division of Pain Medicine in [place], [place] [address] [place] [address] Ladan Otero D.O. [address] [place] [phone] documented as of this encounter Visit Diagnoses Not on filedocumented in this encounter Care Teams Country Printer Apprentice Relationship Specialty Start Date End Date Elsewhere, Pcp PCP - General Internal Medicine 12/29/21 documented as of this encounter
--- OUTSIDE RECORDS SUMMARY | 2024-08-29 10:56 | XMS_ITS | Encounter Summary ---
Author Organization [facility] Address [address] [place] [address] Care Team Providers Care Ship Wirer Name Role Phone Elsewhere, Pcp Primary Care Provider Unavailabl e Reason for Referral * Outpatient (Routine) - Pending Review Specialty Diagnoses / Procedures Referred By Contac t Referred To Contact Diagnoses Pain Back Lumbar Procedures FL Lumbar Spine Radiofrequency Denervation [facility]; Bilateral; No sedation W[place] DEST LUMB/SAC FACET JT W[place] DEST LUMB/SAC FACET JT ADD Ladan Otero D.O. [address] [place] [address] Phone: tel: fax: [facility] Referral ID Status Reason Start Date Expiration Date V isits Requested Visits Authorized [id number] Pending Review 07/04/2024 10/04/2025 1 1 * Outpatient (Priority-Phone Follow-up) - Pending Review Specialty Diagnoses / Procedures Referred By Contac t Referred To Contact Diagnoses Pain Back Lumbar Procedures FL Lumbar Spine Medial Branch Nerve Block W[place] INJ FACET JT LUMB/SAC 1 LVL [place] INJ FACET JT LUMB/SAC 2 LVL Ladan Otero D.O. [address] [place] [address] Phone: tel: fax: [facility] Referral ID Status Reason Start Date Expiration Date V isits Requested Visits Authorized [id number] Pending Review 07/04/2024 10/04/2025 1 1 * Outpatient (Routine) - Closed Specialty Diagnoses / Procedures Referred By Marv hussein Referred To Contact Diagnoses Pain Back Lumbar Procedures FL Lumbar Spine Medial Branch Nerve Block [place] INJ FACET JT LUMB/SAC 1 LVL [place] INJ FACET JT LUMB/SAC 2 LVL Ladan Oetro D.O. [address] [place] [address] Phone: tel: fax: [facility] Referral ID Status Reason Start Date Expiration Date Visits Re quested Visits Authorized [id number] Closed 07/08/2024 11/04/2024 1 1 Encounter Details Date Type Department Care Team (Late st Contact Info) Description 07/04/2024 Orders Only Department of Sports Medicine in [place], [place] [address] [place] [phone] Ladan Otero D.O. [address] [place] [address] Pain Back Lumbar (Primary Dx) Social History Tobacco Use Types Packs/Day Years Used Date Smoking Tobacco: Former Cigarettes 1 6 0 03/27/1987 - 03/27/1993 Passive Smoke Exposure: Never Smokeless Tobacco: Never Alcohol Use Standard Drinks/Week Comments Yes 3 (1 standard drink = 0.6 oz pur e alcohol) [facility] Utilities Answer Date Recorded In the past 12 months has e electric, gas, oil, or water [employer] threatened to shut off services in your [...] How often do you attend chur or yazdanism services? 1 to 4 times per year 10/13/2021 Do you belong to any clubs o r organizations such as jehovah's witness groups, unions, fraternal or athletic groups, or [...] care, and heating? Not very hard 10/13/2021 [facility] [place] of Occupat ional Health - Occupational Stress [...] your living situation today? I have a [facility] place to live 01/29/2024 Education Answer Date Recorded What is the highest level of school you have completed or the highest degree you have received? 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 [address] [place] [address] 09/06/2024 3:30 PM CDT Appointment Division of Pain Medicine in [place], [place] [address] [place] [phone] Ladan Otero D.O. [address] [place] [phone] documented as of this encounter Results * FL Lumbar Spine [...] without myelopathy Pre-procedural pain: 10 Post-procedural pain: 10/03 Site: lumbar Lumbar: medial branch block Medial [...] fellow participated in the procedure, and the industrial methods consultant was present for the entire procedure. OPERATIVE NOTE INFORMATION Specimens: 0 Drains: 0 Estimated blood loss: 0 Implants: 0 us Ladan Otero D.OLeatha FLUORO GUIDED PAIN PROCE ZEE Final Result documented in this encounter Visit Diagnoses Diagnosis Pain Back Lumbar- Primary Pain Back Lumbar documented in this encounter Care Teams Ship Wirer Relationship Specialty Start Date End Date Elsewhere, Pcp PCP - General Internal Medicine 12/29/21 documented as of this encounter
--- OUTSIDE RECORDS SUMMARY | 2024-08-29 10:56 | XMS_ITS | Encounter Summary ---
Author Organization [facility] Address [address] [place] [id number] Care Team Providers Care Storage Facility Rental Clerk Name Role Phone Elsewhere, Pcp Primary Care Provider Unavailabl e Reason for Visit * Reason Onset Date Comments Trospium Rx 07/15/2024 Encounter Details Date Type Department Care Team (Late st Contact Info) Description 07/15/2024 Clinical Communication Department of Urology in [place], [place] [address] [place] [phone] Finesse Lim M.D. [address] [place] [phone] Trospium Rx Social History Tobacco Use Types Packs/Day Years Used Date Smoking Tobacco: Former Cigarettes 1 6 0 03/27/1987 - 03/27/1993 Passive Smoke Exposure: Never Smokeless Tobacco: Never Alcohol Use Standard Drinks/Week Comments Yes 3 (1 standard drink = 0.6 oz pur e alcohol) [facility] Utilities Answer Date Recorded In the past 12 months has e [employer], gas, oil, or water [employer] threatened to shut off services in your [...] How often do you attend chur or mormonism services? 1 to 4 times per year 10/13/2021 Do you belong to any clubs o r organizations such as gnosticist groups, unions, fraternal or athletic groups, or [...] and heating? Not very hard 10/13/2021 [facility] of Occupat ional Health - Occupational [...] a [facility] place to live 01/29/2024 Education Answer Date Recorded What is the highest level of school you have completed or the highest degree you have received? 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 [address] [place] [address] 09/06/2024 3:30 PM CDT Appointment Division of Pain Medicine in [place], [place] [address] [place] [address] Ladan Otero D.O. [address] [place] [address] documented as of this encounter Visit Diagnoses Not on filedocumented in this encounter Care Teams Storage Facility Rental Clerk Relationship Specialty Start Date End Date Elsewhere, Pcp PCP - General Internal Medicine 12/29/21 documented as of this encounter
--- OUTSIDE RECORDS SUMMARY | 2024-08-29 10:56 | XMS_ITS | Encounter Summary ---
Author Organization [facility] Address [address] [place] [address] Care Team Providers Care Area Safety Manager Name Role Phone Elsewhere, Pcp Primary Care Provider Unavailabl e Encounter Details Date Type Department Care Team (Late st Contact Info) Description 07/15/2024 Orders Only Department of Urology in [place], [place] [address] [place] [phone] Yolis Joseph M.D., M.Ed. [address] [place] [phone] Social History Tobacco Use Types Packs/Day Years Used Date Smoking Tobacco: Former Cigarettes 1 6 0 03/27/1987 - 03/27/1993 Passive Smoke Exposure: Never Smokeless Tobacco: Never Alcohol Use Standard Drinks/Week Comments Yes 3 (1 standard drink = 0.6 oz pur e alcohol) [facility] Utilities Answer Date Recorded In the past 12 months has [employer], gas, oil, or water [employer] threatened to shut off services in your [...] any clubs o r organizations such as pentecostalism groups, unions, [employer] or athletic groups, or school groups? No [...] care, and heating? Not very hard 10/13/2021 [facility] of Occupat ional Health [...] your living situation today? I have a [facility] place to live 01/29/2024 Education Answer Date Recorded What is the highest level of school you have completed or the highest degree you have received? 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 [address] [place] [phone] 09/06/2024 3:30 PM CDT Appointment Division of Pain Medicine in [place], [place] [address] [place] [address] Ladan Otero D.O. [address] [place] [address] documented as of this encounter Visit Diagnoses Not on filedocumented in this encounter Care Teams Area Safety Manager Relationship Specialty Start Date End Date Elsewhere, Pcp PCP - General Internal Medicine 12/29/21 documented as of this encounter
--- OUTSIDE RECORDS SUMMARY | 2024-08-29 10:56 | XMS_ITS | Clinical Summary ---
Author Organization [facility] Address [address] [place] [address] Care Team Providers Care Press Tool Maker Name Role Phone Elsewhere, Pcp Primary Care Provider Unavailabl e Source Comments Patient records contain information from all sites at [facility]. For routine questions regarding patient records, call [phone] during business hours, M-F 8:00 AM - 5:00 PM Central Time. Record requests for emergency care only can be directed to [phone] at any time.[facility] Allergies Active Allergy Reactions Criticality Noted Date Comments Aspirin Other (see comments) High 02/02/2021 Related to hematuria post prostatectomy in 2007 Ceftriaxone Rash Low 12/31/2021 Rash only. See ID note 12/31/21 Ciprofloxacin Rash Low 10/10/2022 Vancomycin Rash Low 12/31/2021 Rash only. See ID note 12/31/21 Medications * This document contains information received from the source organization and may not represent a complete record from that organization. lisinopriL (PRINIVIL,ZESTR IL) 40 mg tablet Take [...] Urinary DME Order 1 Unspecified 3 Active celecoxib (CeleBREX) 200 mg capsule Take 200 mg by mouth 2 (two) times a day. Active acetaminophen (TYLENOL) 500 mg tablet Take 2 tablets (1,000 mg total) by mouth every 6 (six) hours as needed for pain. 30 tablet 4 Active venlafaxine XR (Effexor-XR) 150 mg 24 hr capsule Take 1 capsule by mouth daily. 4 Active docusate sodium 100 mg capsule Take 100 mg by mouth daily. Active benzonatate (Tessalon) 200 mg capsule Take 1 capsule by mouth every 8 (eight) hours as needed for cough. 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 Anesthesia Complication Personal History 023 Overview (09/07/2022): Difficult IV start. Difficult to find and roll. Incontinence Urinary 07/07/2022 Overview (07/07/2022): Added automatically from request for surgery [id number] Radiation Therapy Cystitis With Hematuria 2021 Injury Radiation Therapy Initial 03/14/2022 Contracture Bladder Neck 03/10/2022 Overview (03/10/2022): Added automatically from request for surgery [id number] Direct Infection Of Right Hi p In [...] 02/07/2006 Hypertension Essential Primary 02/07/2006 Osteoarthritis 02/07/2006 Overview (10/13/2021): diffuse severe degenerative arthritis Resolved Problems Problem Noted Date Diagnosed Date Resolved Date Prostatectomy Radical Retropubic Status Post 2 11/10/2021 Encounters Date Type Department Care Team Description 08/29/2024 Clinical Communication Department of Urology in [place], [place] [address] [place] [address] Finesse Lim M.D. Local catheter change 08/20/2024 2:30 PM CDT Office Visit Department of Physical Medicine and Rehabilitation in [place], [place] [address] [place] [address] Ladan Otero D.O. Pain Back Lumbar (Primary Dx); Spondylosis Lumbar Without Myelopathy; Facet Syndrome; Pain Myofascial; Stenosis Spinal 07/24/2024 10:30 AM CDT Clinical Communication Division of Pain Medicine in [place], [place] [address] [place] [address] 07/24/2024 Orders Only Department of Sports Medicine in [place], [place] [address] [place] [address] Ladan Otero D.O. 07/23/2024 9:22 AM CDT - 07/23/2024 11:59 PM CDT Hospital Encounter Division of Pain Medicine in [place], [place] [address] [place] [address] Ladan Otero D.O. Pain Back Lumbar Discharge Disposition: Home or Self Care 07/15/2024 Orders Only Department of Urology in [place], [place] [address] [place] [address] Yolis Joseph M.D., M.Ed. 07/15/2024 Clinical Communication Department of Urology in [place], [place] [address] [place] [phone] Finesse Lim M.D. Trospium Rx 07/11/2024 2:30 PM CDT Virtual Visit Division of Pain Medicine in [place], [place] [address] [place] [phone] Leonel Vance, VALE, P.A.-C. Spondylosis Lumbar Without Myelopathy (Primary Dx); Pain Back Lumbar 07/04/2024 Orders Only Department of Sports Medicine in [place], [place] [address] [place] [phone] Ladan Otero, D.OLeatha Pain Back Lumbar (Primary Dx) 06/12/2024 Refill Department of Urology in [place], [place] [address] [place] [phone] Shola Goddard M.D. Med Refill 06/11/2024 12:31 PM CDT - 06/11/2024 11:59 PM CDT Hospital Encounter Division of Pain Medicine in [place], [place] [address] [place] [phone] Ladan Otero, D.O. Spinal Stenosis Lumbosacral Region Discharge Disposition: Home or Self Care 06/11/2024 11:30 AM CDT Comprehensive Visit Division of Pain Medicine in [place], [place] [address] [place] [phone] Aleta Trevizo, P.A.-C., M.S. Pain Back (Primary Dx); Arthroplasty Total Hip Replacement Status Post Right 06/05/2024 1:30 PM CDT Procedure visit Department of Urology in [place], [place] [address] [place] [phone] Finesse Lim M.D. Sintia Romero, R.N. Artificial Urinary Sphincter Status Post from Last 3 Months Immunizations Immunization Administration Dates Next Due HZV (ZOSTAVAX) 03/23/2012 Influenza TIV (IM) 03/23/2012,04/04/2007 Influenza high dose QV(65 years or older) (PF) 1 ,01/21/2020 Influenza, Seasonal, Injectable 03/23/2012 Influenza, Unspecified 02/02/2021 PCV20 01/18/2022 Tdap 01/20/2015,03/29/2007 influenza trivalent vaccine (6 months and older) (PF) 04/03/2011 Family History Medical History Relation Name Comments Prostate cancer Brother lindy chatman Hypertension Father mccollmarck Relation Name Status Comments Brother ilndy chatman Father [facility] Social History Tobacco Use Types Packs/Day Years Used Date Smoking Tobacco: Former Cigarettes 1 6 0 03/27/1987 - 03/27/1993 Passive Smoke Exposure: Never Smokeless Tobacco: Never Tobacco Cessation:Counseling Given: Not Answered Alcohol Use Standard Drinks/Week Comments Yes 3 (1 standard drink = 0.6 oz pur e alcohol) [facility] [employer] Answer Date Recorded In the past 12 months has [employer], oil, or water [employer] threatened to shut off services in your [...] often do you attend chur ch or zoroastrian services? 1 to 4 times per year [...] your living situation today? I have a [facility] place to live 01/29/2024 Education Answer Date Recorded What is the highest level of school you have completed or the highest degree you have received? 12th grade 10/13/2021 Sex and Gender Information Value Date Recorded Sex Assigned at Male 12/28/2021 8:52 AM CDT Legal Sex Male 2:55 PM GEOTECHNICAL ENGINEER Gender Identity Male 10/13/2021 10:44 AM CDT Sexual Orientation Choose not to disclose 2021 8:52 AM CDT Last Filed Vital Signs Vital Sign Reading Time Taken Comments Blood Pressure 160/69 07/23/2024 10:14 AM CDT Pulse 72 07/23/2024 10:14 AM CDT Temperature 36.6 C (97.9 F) 05/08/2024 4:05 PM GEOTECHNICAL ENGINEER Respiratory Rate 20 05/08/2024 4:10 PM GEOTECHNICAL ENGINEER Oxygen Saturation 97% 07/23/2024 10:14 AM CDT Inhaled Oxygen Concentration - - Weight 157 kg (346 lb 2 oz) 05/08/2024 12:18 PM GEOTECHNICAL ENGINEER Height 180 cm (5' 10.87) 05/08/2024 12:18 PM CS T Body Mass Index 48.46 05/08/2024 12:18 PM GEOTECHNICAL ENGINEER Plan of Treatment Upcoming Encounters Date Type Department Care Team (Late st Contact Info) Description 09/06/2024 2:00 PM CDT Comprehensive Visit Division of Pain Medicine in [place], [place] [address] [place] [phone] Alexandria Alejandra APRN, C.N.P., M.S.N. [address] [place] [address] 09/06/2024 3:30 PM CDT Appointment Division of Pain Medicine in [place], [place] [address] [place] [address] Ladan Otero D.O. [address] [place] [address] Health Maintenance Due Date Last Done Comments CT Colonography 1950 Cologuard 1950 FIT 1950 Hepatitis C Screening 1950 Lipid (Cholesterol) Screening 1950 RSV vaccine - (32-36 weeks) or 60+ years (1 - Risk 60-74 years 1-dose series) 2012 Zoster Vaccines (2 of 3) 05/18/2012 03/23/2012 COVID-19 Vaccine ( season) 2023 02/08/2022, 03/03/2021, 06/20/2020, Additional history exists Influenza Vaccine (#1) 2023 , 02/02/2021, 01/21/2020, Additional history exists Depression Screening (Annual PHQ-2) 03/27/2024 Creatinine Level (Kidney Function Test) 04/05/2024 04/05/2023, 02/08/2023, 12/08/2022, Additional history exists Potassium Level 04/05/2024 04/05/2023, 01/25, 09/08/2022, Additional history exists Sodium Level 04/05/2024 04/05/2023, 01/25, 09/08/2022, Additional history exists DTaP,Tdap,and Td Vaccines (3 - Td or Tdap) 01/20/2025 01/20/2015, 03/29/2007 Colonoscopy 01/26/2025 01/26/2015 Colorectal Cancer Screening 01/26/2025 Office Visit for Blood Pressure Check / Re-check 01/28/2025 01/29/2024 Fasting Glucose for Diabetes Screening 04/05/2026 04/05/2023, 02/08/2023, 12/23/2022, Additional history exists Pneumococcal vaccine (50+ years) Completed 01/18/2022 Abdominal Aortic Aneurysm (AAA) Screen Completed 04/05/2023, 02/08/2023, 12/12/2022, Additional history exists Fall Risk Screen (Annual) Completed 07/23/2024 IPV Vaccines Aged Out No longer eligi ble based on patient's age to complete this topic Medical Devices Implanted Type Area Social Insurance Adviser Device Identifier Shelf Expiration Date Model / Serial / Lot Scrw Pnn Acet Ft 6.5x30 - [id number] Implanted:Qty: 1 on 11/11/2021 by Isaac Bar M.D. at [facility] Hardware e.g. pins/screws/r ods Right: Hip Depuy Synthes 07/25/2031 0 / / [id number] Scrw Pnn Acet Ft 6.5x20 - [id number] Implanted:Qty: 1 on 11/11/2021 by Isaac Bar M.D. at [facility] Hardware e.g. pins/screws/r ods Right: Hip Depuy Synthes 07/25/2031 0 / / [id number] Mehoop[employer] Gription Acetabular Shell Multi-Hole 62mm Od Implanted:Qty: 1 on 11/11/2021 by Isaac Bar M.D. at [facility] Hip Implant Right: Hip Depuy Synthes [id number] 08/25/2031 2 / / [id number] Hip Stm [employer] Sz12 150 - [id number] Implanted:Qty: 1 on 11/11/2021 by Isaac Bar M.D. at [facility] Hip Implant Right: Hip Depuy Synthes 09/24/2031 [id number] / / [id number] Lnr Alt 0d 40x62 - [id number] Implanted:Qty: 1 on 12/03/2021 by Isaac Bar M.D. at [facility] Hip Implant Right: Hip Depuy Synthes 10/24/2026 2 / / [id number] Fem Hd Art Ez Crmc +1.5x40 - [id number] Implanted:Qty: 1 on 12/03/2021 by Isaac Bar M.D. at [facility] Hip Implant Right: Hip Depuy Synthes [id number] 09/23/2026 0 / / [id number] Knee Implant- 007 Implanted:08/25 (Quantity not on file) Knee Implant Left: Knee Description:Replaced knee Knee Implant- [id number] Implanted:08/25 (Quantity not on file) Knee Implant Right: Knee Description:Replaced knee Gu Kt 800 Acces Aus W/Iz - [id number] Implanted:Qty: 1 on 09/08/2022 by Finesse Lim M.D. at [facility] Urogenital Implant [employer] 07/20/2027 [id number] / / [id number] Description:MRI Conditional up to 3T Normal Operating Mode. [email or web address] Harjit Strain 04/30/24 Penile Occlsve Cuff [facility] Iz 4.5 - [id number] Implanted:Qty: 1 on 09/08/2022 by Finesse Lim M.D. at [facility] Urogenital Implant [facility] 04/13/2024 [id number] / / [id number] Description:MRI Conditional up to 3T Normal Operating Mode. [email or web address] Harjit Strain 04/30/24 Explanted Type Area Social Insurance Adviser Device Identifier Shelf Expiration Date Model / Serial / Lot Artificial Gu Sphincter Explanted:Qty : 1 on 02/12/2024 at [facility] Artificial Sphincter Rectum Lnr Alt 0d 40x62 - [id number] Implanted:Qty : 1 on 11/11/2021 by Isaac Bar M.D. at [facility] Explanted:Qty : 1 on 12/03/2021 by Isaac Bar M.D. at [facility] Hip Implant Right: Hip Depuy Synthes 05/24/2026 2 / / [id number] Fem Hd Art Ez Crmc +1.5x40 - [id number] Implanted:Qty : 1 on 11/11/2021 by Isaac Bar M.D. at [facility] Explanted:Qty : 1 on 12/03/2021 by Isaac Bar M.D. at [facility] Hip Implant Right: Hip Depuy Synthes 09/23/2026 0 / / [id number] Penile Occlsve Cuff Ams Iz 4.5 - [id number] Explanted:Qty : 1 on 09/08/2022 at [facility] Urogenital Implant [employer] 01/28/2024 [id number] / / [id number] Description:Accidentally cut tubing on cuff so had to open/use another 4.5 cuff Penile Bln Prs Ams 61-70 - [id number] Implanted:Qty : 1 on 09/08/2022 by Finesse Lim M.D. at [facility] Explanted:Qty : 1 on 07/03/2023 at [facility] Urogenital Implant [employer] 05/16/2027 [id number] / / [id number] Penile Contl Pump Ams 800 Iz - [id number] Implanted:Qty : 1 on 09/08/2022 by Finesse Lim M.D. at [facility] Explanted:Qty : 1 on 07/03/2023 at [facility] Urogenital Implant [facility] 04/28/2024 [id number] / / [id number] Procedures Procedure Name Priority Date/Time Associated Diagnosis Comments FL LUMBAR SPINE MEDIAL BRANCH NERVE BLOCK INJECTION Routine 07/23/2024 10:20 AM CDT Pain Back Lumbar FL LUMBAR SPINE INTERLAMINAR EPIDURAL INJECTION RAD - Routine (most inpatients and all outpatients) 06/11/2024 1:58 PM CDT Spinal Stenosis Lumbosacral Region CT ABDOMEN PELVIS WITH IV CONTRAST RAD - Semiurgent (Fast; most ED patients; some inpatients) 04/05/2023 3:27 PM GEOTECHNICAL ENGINEER BASIC METABOLIC PANEL, S/P STAT 04/05/2023 1:36 PM GEOTECHNICAL ENGINEER from Last 3 Months or Most Recently Relevant to Health Maintenance Results * FL Lumbar Spine Medial Branch [...] SUMMARY Indications: Spondylosis without myelopathy Pre-procedural pain: 12/04 Post-procedural pain: 10/03 Site: lumbar Lumbar: medial [...] fellow participated in the procedure, and the life skills consultant was present for the entire procedure. OPERATIVE NOTE INFORMATION Specimens: 0 Drains: 0 Estimated blood loss: 0 Implants: 0 us Ladan Otero D.O. FLUORO GUIDED PAIN PROCE DURES Final Result * FL LUMBAR SPINE INTERLAMINAR EPIDURAL INJECTION (06/11/2024 1:58 PM CDT) Narrative Keshav Lai M.D. - 06/11/2024 1:30 PM CDT Keshav Lai M.D. 06/11/2024 3:41 PM FL Lumbar Spine Interlaminar Epidural Injection Performed by: Keshav Lai M.D. Authorized by: Ladan Otero D.O. Care team members present 1. Marisabel Reveles M.D. 2. So Garcia L.PLeathaNLeatha PROCEDURE SUMMARY Indications: Radiculitis Pre-procedural pain: 6/10 Post-procedural pain: /10 Site: lumbar Lumbar: interlaminar epidural steroid Interlaminar steroid injection: Right L2-L3 Needle or RF cannula: Tuohy Needle size: 20 G Needle length: 4.5 in. Flow: not applicable Patient position: prone IMAGING Fluoroscopic image guidance used to localize target, identify at risk structures, and dynamically used to direct therapy to the target. Image(s) acquired and saved. INJECTED MEDICATIONS Total volume of injectate (mL): 3 Total steroid in injectate (mg): 6 6 mg betamethasone acetate & sodium phosphate 6 mg/mL 1 mL iohexoL 300 mg iodine/mL 2 mL sodium chloride (PF) 0.9 % PROCEDURE DETAILS Interlaminar steroid injection - lumbar: Utilizing a loss of resistance technique and intermittent fluoroscopic guidance, the Tuohy needle was advanced into the epidural space. Proper needle positioning was confirmed using multiple fluoroscopic views. After negative aspiration, the contrast was injected confirming epidural spread without evidence of intravascular or the intrathecal spread. The injectate was injected slowly and incrementally into the epidural space. The solution was injected slowly and incrementally. Following the injection the needle was withdrawn flushed with local anesthetic as it was fully extracted. The patient tolerated the procedure well and there were no apparent complications. After appropriate observation, the patient was dismissed in good condition under their own power. Complications: no apparent complications CONSENT Consent obtained: written (Risks, benefits and [...] a procedural pause. PRE-PROCEDURE DETAILS Procedure purpose: therapeutic Appropriate hand hygiene, gown, cap, mask, protective eyewear, sterile gloves, skin preparation, sterile drape, and strict aseptic technique were utilized as applicable for the procedure: yes Site preparation: chlorhexidine SEDATION / ANESTHESIA Anesthesia method: local infiltration Local infiltrate type: lidocaine ATTESTATION STATEMENT A resident or fellow participated in the procedure, and the life skills consultant was present for the entire procedure. OPERATIVE NOTE INFORMATION Specimens: 0 Drains: 0 Estimated blood loss: 0 Implants: 0 [facility] D.O. IMG FLUOROSCOPY PROCEDUR ES Final Result * CT Abdomen Pelvis with IV Contrast (04/05/2023 3:27 PM GEOTECHNICAL ENGINEER) Anatomical Region Laterality Modality Abdomen, Pelvis, Abdominal R ST LOS, Abdominal ARZ LOS, Abdominal FLA LOS N/A Computed Tomograp hy, Computed Tomography 04/05/2023 3:14 PM GEOTECHNICAL ENGINEER Impressions 04/05/2023 3:52 PM GEOTECHNICAL ENGINEER No acute findings in the abdomen or pelvis. Specifically, no evidence of communication between the genitourinary system and bowel. However, sigmoid colon is closely abutting/tethered to the urinary bladder and the CT cystogram may be performed if clinically warranted to exclude colovesical fistula. Narrative 04/05/2023 3:52 PM GEOTECHNICAL ENGINEER EXAM: CT ABDOMEN PELVIS WITH IV CONTRAST COMPARISON: CT abdomen and pelvis February 08, 2023, PET/CT February 14, 2023 FINDINGS: Partially visualized postsurgical changes of artificial genitourinary [...] hip arthroplasty. Procedure Note Isaac Madsen M.B.B.S., M.D. - 04/05/2023 EXAM: CT ABDOMEN PELVIS WITH [...] fistula. Ramy Joseph P.A.-C. IMG CT PROCEDURES Final R esult * (ABNORMAL) Basic Metabolic Panel (04/05/2023 1:36 PM GEOTECHNICAL ENGINEER) Potassium, P 4.9 3.6 - 5.2 mmol/L 04/05/2023 2:04 PM GEOTECHNICAL ENGINEER STMA Sodium, P 141 135 - 145 mmol/L 04/05/2023 2:04 PM GEOTECHNICAL ENGINEER STMA Chloride, P 106 98 - 107 mmol/L 04/05/2023 2:04 PM GEOTECHNICAL ENGINEER STMA Bicarbonate, P 23 22 - 29 mmol/L 04/05/2023 2:04 PM GEOTECHNICAL ENGINEER STMA Anion Gap, P 12 7 - 15 04/05/2023 2:04 PM GEOTECHNICAL ENGINEER STMA BUN (Blood Urea Nitrogen), P 33(H) 8 - 24 mg/dL 04/05/2023 2:04 PM GEOTECHNICAL ENGINEER STMA Creatinine 1.08 0.74 - 1.35 mg/dL 04/05/2023 2:04 PM GEOTECHNICAL ENGINEER STMA Estimated GFR (eGFR) 73 >=60 mL/min/BSA 04/05/2023 2:04 PM GEOTECHNICAL ENGINEER STMA Comment: Estimated GFR calculated using the 2020 CKD_EPI creatinine equation. Calcium, Total, P 8.9 8.8 - 10.2 mg/dL 04/05/2023 2:04 PM GEOTECHNICAL ENGINEER STMA Glucose, P 109 70 - 140 mg/dL 04/05/2023 2:04 PM GEOTECHNICAL ENGINEER STMA Blood (Blood, Venous) 04/05/2023 1:36 PM GEOTECHNICAL ENGINEER 04/05/2023 1:43 PM GEOTECHNICAL ENGINEER Ramy Joseph P.A.-C. LAB BLOOD ADD-ON Final Re sult [facility] [address] [place] [address], [facility] STMA [facility] [address] [place] [address] from Last 3 Months or Most Recently Relevant to Health Maintenance Insurance [facility] MEDICARE Advance Directives For more information, please contact: [phone] * Full Code (Latest Code Status on [...] Answer Comments Full Code: Discussed Care Teams Press Tool Maker Relationship Specialty Start Date End Date Elsewhere, Pcp PCP - General Internal Medicine 12/29/21
--- OUTSIDE RECORDS SUMMARY | 2024-08-29 10:56 | XMS_ITS | Encounter Summary ---
Author Organization [facility] Address [address] [place] [phone] Care Team Providers Care Central Melt Specialist Name Role Phone Elsewhere, Pcp Primary Care Provider Unavailabl e Reason for Referral * Outpatient (Routine) - Closed Specialty Diagnoses / Procedures Referred By Contact Referred To Contact Physical Medicine and Rehabilitation Ladan Otero D.O. [address] [place] [phone] Phone: tel: fax: Ladan Otero D.O. [address] [place] [phone] Phone: tel: fax: Referral ID Status Reason Start Date Expiration Date Visits Re quested Visits Authorized [id number] Closed 07/24/2024 01/23/2026 1 1 Encounter Details Date Type Department Care Team (Late st Contact Info) Description 07/24/2024 Orders Only Department of Sports Medicine in [place], [place] [address] [place] [phone] Ladan Otero D.O. [address] [place] [phone] Social History Tobacco Use Types Packs/Day Years [...] How often do you attend chur or christian services? 1 to 4 times per year 10/13/2021 Do you belong to any clubs o r organizations such as tenriism groups, unions, fraternal or athletic groups, or [...] care, and heating? Not very hard 10/13/2021 [facility] - Occupational Stress [...] have a [facility] place to live 01/29/2024 Education Answer Date Recorded What is the highest level of school you have completed or the highest degree you have received? 12th grade 10/13/2021 Sex and Gender Information Value Date Recorded Sex Assigned at Male 12/28/2021 8:52 AM CDT Legal Sex Male 2:55 PM SECURITY COMPLIANCE ENGINEER Gender Identity Male 10/13/2021 10:44 AM CDT Sexual Orientation Choose not to disclose 2021 8:52 AM CDT documented as of this encounter Plan of Treatment Upcoming Encounters Date Type Department Care Team (Late st Contact Info) Description 09/06/2024 2:00 PM CDT Comprehensive Visit Division of Pain Medicine in [place], [place] [address] [place] [phone] Alexandria Alejandra APRN, C.N.P., M.S.N. [address] [place] [phone] 09/06/2024 3:30 PM CDT Appointment Division of Pain Medicine in [place], [place] [address] [place] [phone] Ladan Otero D.O. [address] [place] [phone] Scheduled Referrals Name Type Priority Associated Diagnoses Orde r Schedule Return to provider in another specialty Outpatient Referral Routine Expected: 07/24/2024, Expires: 10/23/2025 documented as of this encounter Visit Diagnoses Not on filedocumented in this encounter Care Teams Central Melt Specialist Relationship Specialty Start Date End Date Elsewhere, Pcp PCP - General Internal Medicine 12/29/21 documented as of this encounter
[2024-08-29 10:58] VITALS: BP 159/77; PULSE 77; RESP 20; TEMP 36.5; O2SAT 97; BMI 46.1
--- NOTE | 2024-08-29 11:12 | ED_ITS ---
HPI - General Adult General Date Seen: 08/29/24 Chief complaint: Urogenital Problems, Male Stated complaint: sent from [facility] Time Seen by Provider: 08/29/24 11:09 History of Present Illness HPI narrative: This is a 74-year-old male with a past medical history of hypertension, hyperlipidemia, elevated BMI, peripheral neuropathy, and history of prostate cancer with radiation and subsequent urinary incontinence. Since then he has had multiple surgeries done with [facility] to place various devices try to maintain urinary continence. After multiple surgeries he was having complications and failed so has opted to go with long-term Kerr catheter drainage for his urine. He has been getting Kerr catheter is changed monthly for the past 6 or 8 months. His for several months his catheter is replaced by Urology at [place]. For the past 3 months he has been going to his PCP office, the [facility] in [place] to get his catheter changed. This month when he presented for his routine catheter change the nurses were unable to pass the catheter through his prostatic urethra. He was sent here to the ER suspecting that he might need a coude tip catheter. He thinks his normal size catheter 16 Swedish. He has not had any other symptoms. No fever. No dysuria, urgency, frequency, hematuria. He currently does not have a catheter in place so he is incontinent of urine and is leaking. He is not having suprapubic pain or fullness because he is not retaining. Related Data Home Medications ?Medication ?Instructions ?Recorded ?Confirmed trospium 60 mg capsule,extended 60 mg PO DAILY 3 07/25/24 release 24 hr Previous Rx's ?Medication ?Instructions ?Recorded sildenafil 100 mg tablet (Viagra) 50 - 100 mg (0.5 - 1 x 100 mg) PO 10/05/21 QDAY PRN sexual activity #10 tabs celecoxib 200 mg capsule 200 mg PO BID #180 caps 12/18 lisinopril 40 mg tablet 40 mg PO QDAY #90 tabs 10/02 gabapentin 300 mg capsule See Rx Instructions .Route 0 12/04/23 .COMPLEX #360 caps venlafaxine 150 mg 150 mg PO QDAY #90 caps 12/26 05/20 capsule,extended release 24 hr lorazepam 1 mg tablet 1 mg PO TID PRN anxiety #90 tabs 01/18/24 escitalopram oxalate 20 mg tablet 20 mg PO QDAY #90 ta bs 06/06/24 atorvastatin 40 mg tablet 40 mg PO DAILY #90 tabs 06/25 04/20 oxycodone 5 mg tablet 5 mg PO TID PRN pain #30 tab s 07/25/24 Allergies Allergy/AdvReac Type Severity Reaction Status Date / Time aspirin Allergy Severe Thins Verified 07/25/24 09:10 blood too much after prostate cancer ciprofloxacin Allergy Intermediate Rash Verified 07/25/24 09:10 [facility] Medical History (Updated 08/29/24 @ 11:46 by Davie Qiu MD) Primary hypertension ?I10 - Essential (primary) hypertension (ICD-10) Mixed hyperlipidemia ?E78.2 - Mixed hyperlipidemia (ICD-10) Neuropathy, peripheral ?G62.9 - Polyneuropathy, unspecified (ICD-10) History of cardiac murmur ?Z86.79 - Personal history of other diseases of the circulatory system (ICD- 10) GERD (gastroesophageal reflux disease) ?K21.9 - Gastro-esophageal reflux disease without esophagitis (ICD-10) Incontinence of urine ?R32 - Unspecified urinary incontinence (ICD-10) Morbid obesity with BMI of 40.0-44.9, adult ?E66.01 - Morbid (severe) obesity due to excess calories (ICD-10) ?Z68.41 - Body mass index [BMI] 40.0-44.9, adult (ICD-10) Vitamin D deficiency (04/01/10) ?E55.9 - Vitamin D deficiency, unspecified (ICD-10) Malignant neoplasm of prostate (07/13/07) ?C61 - Malignant neoplasm of prostate (ICD-10) Left inguinal hernia ?K40.90 - Unilateral inguinal hernia, without obstruction or gangrene, not specified as recurrent (ICD-10) Penile lesion ?N48.9 - Disorder of penis, unspecified (ICD-10) Erectile dysfunction ?N52.9 - Male erectile dysfunction, unspecified (ICD-10) DJD (degenerative joint disease), lumbar ?M47.816 - Spondylosis without myelopathy or radiculopathy, lumbar region (ICD-10) Major depression single episode, in partial remission ?F32.4 - Major depressive disorder, single episode, in partial remission (ICD-10) EVELIN (generalized anxiety disorder) ?F41.1 - Generalized anxiety disorder (ICD-10) Surgical History (Updated 07/30/24 @ 11:35 by Katrin Larios) History of urethral stricture ?Z87.448 - Personal history of other diseases of urinary system (ICD-10) Status post urinary system surgery ?Z98.890 - Other specified postprocedural states (ICD-10) Status post right hip replacement ?Z96.641 - Presence of right artificial hip joint (ICD-10) 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) ?Z96.0 - Presence of urogenital implants (ICD-10) History of total right knee replacement (~2013) ?Z96.651 - Presence of right artificial knee joint (ICD-10) History of total left knee replacement (~2005) ?Z96.652 - Presence of left artificial knee joint (ICD-10) Status post shoulder surgery (~2018) ?Z98.890 - Other specified postprocedural states (ICD-10) Status post shoulder surgery (2013) ?Z98.890 - Other specified postprocedural states (ICD-10) History of vasectomy ?Z98.52 - Vasectomy status (ICD-10) History of radical prostatectomy (07/13/07) ?Z90.79 - Acquired absence of other genital organ(s) (ICD-10) History of carpal tunnel release (10/21/15) ?Z98.890 - Other specified postprocedural states (ICD-10) Family History (Updated 09/13/22 @ 08:10 by Lucy Jose) Brother Prostate cancer Father High blood pressure Other Heart disease Stroke Social History (Updated 09/26/23 @ 16:16 by Evelyn Pond ~ RMA, RMA) Narrative: 3 kids Non-smoker Social EtOH ( of Covid) What is your current living situation?: I presently have a place to live Problems where you live: no known problems In the past 12 months, utilities in danger of being shut off: no In past 12 months, lack of transportation kept you from medical appts, meetings, work, or getting things needed for daily living: no In the past 12 mos, have been you worried that your food would run out before you had money to buy more?: never true In the past 12 mos, the food you bought just didn't last and you didn't have money to buy more?: never true Smoking Status: Former smoker Do you use any of these nicotine containing products: None Second hand tobacco smoke exposure: No How often do you have a drink containing alcohol: 4 or more times a week AUDIT-C Alcohol total score: 4 Non-prescribed substance use: denies use Are you now , , , , never or living with a partner: Social isolation score (0-1 are the most socially isolated patients): 0 How often does anyone, including family, friends and others, physically hurt you : sometimes How often does anyone, including family, friends and others, insult or talk down to you: sometimes How often does anyone, including family, friends and others, threaten you with harm: never How often does anyone, including family, friends and others, scream or curse at you: never Health Related Social Needs: Other personal risk factors, not elsewhere classified (Z91.89) Exam Narrative: Exam Narrative: Constitutional: Appears well-developed and well-nourished. Alert. Conversant. Non toxic. HENT: Head: Atraumatic. Nose: Nose normal. Mouth/Throat: Oral mucosa is clear and moist. no trismus. Eyes: Conjunctivae normal. EOM normal. Pupils equal, round, and reactive to light. No scleral icterus. Neck: Normal range of motion. Neck supple. No tracheal deviation present. Cardiovascular: Normal rate, regular rhythm. Symmetric radial artery pulses Pulmonary/Chest: Effort normal. No stridor. No respiratory distress. Abdominal: Soft. Bowel sounds normal. No distension. No mass. No tenderness. No rebound. No guarding. No CVA tenderness : Circumcised penis. Urethral meatus looks normal. No bleeding. Penile shaft is normal. Musculoskeletal: RUE: Normal range of motion. No tenderness. No deformity LUE: Normal range of motion. No tenderness. No deformity RLE: Normal range of motion. No edema. No tenderness. No deformity LLE: Normal range of motion. No edema. No tenderness. No deformity Neurological: Alert and oriented to person, place, and time. Normal strength. CN II-VII intact. No sensory deficit. GCS eye subscore is 4. GCS verbal subscore is 5. GCS motor subscore is 6. Normal coordination Skin: Skin is warm and dry. No rash noted. No pallor. Normal capillary refill. Psychiatric: Normal mood. Normal affect. Very polite Const: Vital Signs, click to edit/add: Vital Signs - 24 hr 08/29/24 10:58 Temperature 97.7 F Pulse Rate [Pulse Oximeter] 77 Respiratory Rate 20 Blood Pressure [Ri ght Upper Arm] 159/77 H Pulse Oximetry 97 Oxygen Delivery Me thod Room Air Course Course ED Course: Patient seen and examined the ER room 5. Procedure: Kerr catheter placement Indication-urinary incontinence, needs chronic indwelling Kerr Performed by Dr. Qiu Verbal consent from the patient Sterile prepped using Betadine. Sterile drape. Strict sterile technique used throughout with sterile gloves. Liver occasion with Uro jet-5 mL. Using an 18 Swedish coude tip catheter I was able to gently advanced the catheter through the patient's penile urethra. There was some tightness at the prostatic urethra but the catheter went through that gently and without force. They sent felt the catheter going to his bladder and we noted subsequent drainage of light yellow urine. No hematuria. The balloon was inflated with 10 mL of sterile water. No pain or complications were noted. Patient tolerated procedure well. Vital Signs Vital signs: Initial Vital Signs Temperature 97.7 F 08/29/24 10:58 Temperature Source Temporal Artery Scan 08/29/24 10:58 Pulse Rate 77 08/29/24 10:58 Respiratory Rate 20 08/29/24 10:58 Blood Pressure 159/77 H 08/29/24 10:58 Blood Pressure Mean 104 08/29/24 10:58 Blood Pressure Position Sitting 08/29/24 10:58 Pulse Oximetry 97 08/29/24 10:58 Oxygen Delivery Method Room Air 08/29/24 10:58 Vital Signs Temperature 97.7 F 08/29/24 10:58 Pulse Rate 77 08/29/24 10:58 Respiratory Rate 20 08/29/24 10:58 Blood Pressure 159/77 H 08/29/24 10:58 Pulse Oximetry 97 08/29/24 10:58 Oxygen Delivery Method Room Air 08/29/24 10:58 Temperature 97.7 F 08/29/24 10:58 Pulse Rate 77 08/29/24 10:58 Respiratory Rate 20 08/29/24 10:58 Blood Pressure 159/77 H 08/29/24 10:58 Pulse Oximetry 97 08/29/24 10:58 Oxygen Delivery Method Room Air 08/29/24 10:58 Medical Decision Making MDM Narrative Medical decision making narrative: This is a very pleasant 74-year-old gentleman with a history of prostate surgery, radiation, and long-term indwelling Kerr catheter for chronic urinary incontinence. He sent to the ER today from clinic because they were not able to pass his catheter today. He had presented to clinic for his routine previously scheduled monthly catheter change. I was able to easily place an 18 Swedish coude tip catheter through the urethra and prostate into the bladder and obtain drainage of clear yellow urine. Patient tolerated procedure well. He has your discharge home He does not have any symptoms of bleeding to suggest urethral injury. Catheter is draining well. No signs of urinary retention. He is not having any symptoms of UTI so will not send urinalysis from today's visit. He will follow-up with clinic next month. It sounds like there is already plans in place for the clinic to order coude tip catheter so that they will be able to do his routine catheter changes going forward. We discussed Kerr catheter care and precautions for return to the ER. Patient is agreeable and eager for discharge Discharge Plan Discharge Clinical Impression: Kerr catheter problem Patient Disposition: Home, Self-Care Condition: Stable Instructions: Kerr Catheter Placement and Care (ED), How to Change a Catheter Drainage Bag (DC) Additional Instructions: As we discussed, please come back to the ER right away if you have any concerns. Otherwise it is okay to use your Kerr catheter is you normally do and follow- up next month in your clinic for your next scheduled catheter change Prescriptions: No Action trospium 60 mg capsule,extended release 24hr 60 mg PO DAILY sildenafil [Viagra] 100 mg tablet 50 - 100 mg PO QDAY PRN (Reason: sexual activity) Qty: 10 5RF Rx Instructions: administer 30 minutes to 4 hours before activity oxycodone 5 mg tablet 5 mg PO TID PRN (Reason: pain) Qty: 30 0RF celecoxib 200 mg capsule 200 mg PO BID Qty: 180 3RF lisinopril 40 mg tablet 40 mg PO QDAY Qty: 90 3RF gabapentin 300 mg capsule See Rx Instructions .ROUTE .COMPLEX Qty: 360 2RF Dose Instruction: TAKE 2 CAPSULES BY MOUTH TWICE DAILY Rx Instructions: TAKE 2 CAPSULES BY MOUTH TWICE DAILY venlafaxine 150 mg capsule,extended release 24hr 150 mg PO QDAY Qty: 90 3RF lorazepam 1 mg tablet 1 mg PO TID PRN (Reason: anxiety) Qty: 90 0RF Rx Instructions: Use sparingly and NOT with Oxycodone escitalopram oxalate 20 mg tablet 20 mg PO QDAY Qty: 90 0RF atorvastatin 40 mg tablet 40 mg PO DAILY Qty: 90 0RF Follow Up/Referrals: Dima Burr MD [Primary Care Provider, Family Practice] Stand Alone Forms: [facility] Info Instructions
== END 2024-08-29 12:14 | disposition home or self-care (01) ==
LOC: ED 12:07
PROVIDERS: Emergency Provider Emergency Medicine; PCP Family Medicine
DX: T83.031A Leakage of indwelling urethral catheter, initial encounter (principal)
CPT/HCPCS: 51702; 99282; 99283

== ENCOUNTER 2024-10-22 11:30 | Outpatient (CLI) | payer MEDICARE, BC, SELFPAY | END 2024-10-22 11:31 | disposition home or self-care (01) | PROVIDERS: PCP Family Medicine; Visit Provider Family Medicine | DX: I10 Essential (primary) hypertension (principal); E55.9 Vitamin D deficiency, unspecified; E78.2 Mixed hyperlipidemia; F41.9 Anxiety disorder, unspecified; Z12.5 Encounter for screening for malignant neoplasm of prostate | CPT/HCPCS: 80048; 80061; 84460; G0103 ==

== ENCOUNTER 2024-11-26 15:39 | Outpatient (CLI) | payer MEDICARE, BC, SELFPAY | END 2024-11-26 15:40 | disposition home or self-care (01) | PROVIDERS: PCP Family Medicine; Visit Provider Family Medicine | DX: I10 Essential (primary) hypertension (principal) | CPT/HCPCS: 80048; 85025 ==